=== PATIENT | male | born 1940 | race Caucasian/White ===

== ENCOUNTER → 2016-07-07 | Outpatient (CLI) | payer MEDICARE ==
[2016-07-07 07:31] LABS: Basophils % (A) 1 %; CH 30.6; CHCM 33.2; Eosinophils # (A) 0.1 k/uL (0-0.7); Eosinophils % (A) 1 %; HDW 2.66; HGB 17.7 gm/dL (13.0-17.5); Luc # (Auto) 0.15; Luc % (Auto) 2; Lymphocytes # (A) 1.3 k/uL (1.0-4.8); Lymphocytes % (A) 18 %; MCH 30.4 pg (25.0-35.0); MCHC 32.8 g/dL (31.0-37.0); MCV 92.7 fL (80.0-100.0); Mean Platelet Volume 7.3; Monocytes # (A) 0.5 k/uL (0-1.0); Monocytes % (A) 7 %; Neutrophils # (A) 5.3 k/uL (1.3-7.7); Neutrophils % (A) 71 %; RBC 5.83 m/uL (4.30-5.90); WBC 7.4 k/uL (3.8-10.6)
[2016-07-07 08:02] LABS: Anion Gap 15 mmol/L; Blood Urea Nitrogen 21 mg/dL (9-20); Carbon Dioxide 24 mmol/L (22-30); Chloride 108 mmol/L (98-107); Non-African American GFR(MDRD) >60 (>60 ml/min/1.73 sqM); Potassium 4.4 mmol/L (3.5-5.1); Sodium 147 mmol/L (137-145)
== END | disposition home or self-care (01) ==
LOC: LABPAT 07:01
PROVIDERS: ATTEND Internal Medicine Interventional Cardiology
DX: Z01.818 Encounter for other preprocedural examination (principal)
CPT/HCPCS: 80051; 82565; 84520; 85025

== ENCOUNTER 2016-07-10 06:04 | Day surgery (SDC) | payer MEDICARE ==
[2016-07-05 14:57] VITALS: BMI 32.0
[2016-07-10] MEDS ORDERED: NITROGLYCERIN SL TABS 0.4 MG TAB SUBLINGUAL PRN (06:39)
[2016-07-10] MEDS ORDERED: ALPRAZolam 0.5 MG TAB PO PRN (06:39)
[2016-07-10] MEDS ORDERED: SODIUM CHLORIDE 0.9% 1,000 ML in EMPTY BAG 1 BAG IV ONE (06:39)
[2016-07-10] MEDS ORDERED: ATORVASTATIN 80 MG TAB PO STA (06:39)
[2016-07-10] MEDS ORDERED: ALPRAZolam 0.25 MG TAB PO PRN (06:39)
[2016-07-10] MEDS ORDERED: ASPIRIN 325 MG TAB PO STA (06:39)
[2016-07-10] MEDS ORDERED: SODIUM CHLORIDE 0.9% 1,000 ML IV ONE (07:16)
[2016-07-10] MEDS ORDERED: diphenhydrAMINE 50 MG/ML 1 ML VIAL ONE (07:22)
[2016-07-10] MEDS ORDERED: LIDOCAINE 2% INJ 20 MG/ML (20 ML MDV) ONE (07:22)
[2016-07-10] MEDS ORDERED: MIDAZOLAM 2 MG/2 ML VIAL ONE (07:22)
[2016-07-10 07:23] VITALS: RESP 20; TEMP 97.7
[2016-07-10] MEDS: MIDAZOLAM 2 MG/2 ML VIAL IV ONE ×2 (07:40→07:44)
[2016-07-10] MEDS ORDERED: diphenhydrAMINE 50 MG/ML 1 ML VIAL IVP ONE (07:40)
[2016-07-10] MEDS ORDERED: LIDOCAINE 2% INJ 20 MG/ML SQ ONE (07:42)
[2016-07-10] MEDS ORDERED: IOHEXOL 350 MG/ML 100 ML BOTTLE INTRATHECA ONE (08:05)
[2016-07-10] MEDS ORDERED: RX INFO: IV CONTRAST WAS GIVEN 1 EACH MISC MISCELLANE PRN (08:17)
[2016-07-10] MEDS ORDERED: SODIUM CHLORIDE 0.9% 1,000 ML IV SCH (08:30)
[2016-07-10 12:04] VITALS: PULSE 70
[2016-07-10 16:14] VITALS: BP 120/79
--- NOTE | 2016-07-10 16:59 | CC ---
DATE OF SERVICE: 07/10/2016 PROCEDURE: Left heart catheterization, coronary angiography, selective injection of bypass grafts. PERFORMED BY: Dr. Silvino Gonzales. CLINICAL INFORMATION: Mr. Brie Maya is a 75-year-old gentleman with a history of aortocoronary bypass surgery in 1992 with a BRIONES to LAD and saphenous vein grafts to the PDA branch of RCA, obtuse marginal branch of circumflex and diagonal branch of LAD. Over the years his obtuse marginal graft was occluded. In July and August of 2014 I performed coronary angiography and intervention of the vein graft to the diagonal as well as the prairie band PDA beyond the insertion site of the vein graft. Because of ongoing symptoms of chest pressure and burning with activity and rest, I recommended coronary angiography with the clinical picture suggestive of class 2 to class 3 angina. Given the fact he has previous bypass surgery and known multi-vessel intervention, he was advised coronary angiography in lieu of a stress test. PROCEDURE NOTE: Under local anesthesia and strict aseptic precautions, a 6 Telugu introducer was placed in the right femoral artery. There was some scar tissue. I had some difficulty in advancing the sheath. Patient was provided conscious sedation for a total duration of 30 minutes with Versed and Benadryl. Using a standard left Kevin catheter, I performed selective coronary angiography of the left coronary system. I used a Ashley catheter for selective coronary angiography of the right coronary artery as well as the vein graft to the PDA branch of RCA. The same Ashley catheter was used to perform the BRIONES injection. I used an AR-2 catheter for selective coronary angiography of the vein graft to the diagonal and the totally occluded vein graft to the obtuse marginal. A pigtail catheter was used to check the LV pressures, but LV gram was not performed. The sheath was taken out and Angio-Seal device used to secure hemostasis. CARDIAC CATHETERIZATION FINDINGS: The left ventricular end-diastolic pressure was about 14 mmHg, and there was no gradient across the aortic valve. CORONARY ANGIOGRAPHY FINDINGS RIGHT CORONARY ARTERY: This vessel is totally occluded after a conus branch with limited antegrade flow. Findings are similar to the previous picture from 2014. LEFT MAIN CORONARY ARTERY: This vessel is heavily calcified, moderately diseased; has a 30% narrowing, bifurcates into LAD and circumflex. LEFT ANTERIOR DESCENDING CORONARY ARTERY: This vessel is subtotally occluded in the ostium with limited antegrade flow; virtually 100% occlusion. LEFT POSTERIOR CIRCUMFLEX CORONARY ARTERY: Technically a non-dominant vessel, totally occluded after 2 small branches, without much antegrade flow. SAPHENOUS VEIN GRAFT TO THE PDA BRANCH OF RCA: This graft is widely patent in its origin, course, insertion site, and beyond the insertion the PDA is of good caliber and distribution and supplies a fair amount of myocardium. It goes back and fills the PLV branch as well. The stented segment beyond the insertion site is widely patent with remarkably good flow. SAPHENOUS VEIN GRAFT TO THE OBTUSE MARGINAL BRANCH OF CIRCUMFLEX: This graft is totally occluded, seen as a stump. SAPHENOUS VEIN GRAFT TO THE DIAGONAL BRANCH OF LAD: This graft is widely patent at the site of previous stenting. Residual stenosis is less than 20% with very good flow, and the opacified diagonal vessel appears to be of fair caliber and distribution. There is no significant disease in the vein graft that was stented in 2014. LEFT INTERNAL MAMMARY ARTERY GRAFT TO LAD: This graft is widely patent in its origin, course, insertion site, and opacifies the entire LAD and is free of significant disease. LAD has minor diffuse irregularities seen throughout. Left ventriculogram was not performed. FINAL IMPRESSION: This patient has a right-dominant system. The left main is moderately diseased. The LAD and circumflex and RCA are all occluded in the proximal portion. The vein graft to the diagonal is widely patent at the site of previous stenting with good flow. The BRIONES to LAD is widely patent with minor diffuse disease within the prairie band LAD. The vein graft to the PDA branch of RCA is widely patent and the stented segment beyond the insertion site of the graft is widely patent with good flow. This graft also fills the entire PLV as well. The vein graft to the obtuse marginal is totally occluded. The vein graft to the diagonal is widely patent at the site of previous stenting. Filling pressures are normal, but LV gram was not performed. RECOMMENDATIONS: I am recommending continued medical therapy with risk factor modification. Findings were discussed with the patient and family. He will be discharged later on today if he remains stable.
--- NOTE | 2016-07-10 17:01 | LTR ---
July 10, 2016 RE: Brie Maya Keena Dear Dr. Tim, Thank you for the opportunity to participate in the care of Mr. Brie Maya. Please find enclosed my detailed cardiac catheterization report for your records. I performed coronary angiography on this patient and noted that the previously stented vein graft to the diagonal as well as the PDA branch of RCA are widely patent. No other intervention is necessary. Results were discussed with the patient and family. I will give him omeprazole for his heartburn type symptoms and I will re-evaluate him in one week. Continued medical therapy with risk factor modification was advised. Thank you for your referral. Please call with questions. Sincerely, EARL CAVAZOS MD
== END 2016-07-10 15:00 | disposition home or self-care (01) ==
LOC: CATHCVL 06:04
PROVIDERS: ATTEND Internal Medicine Interventional Cardiology
DX: I25.710 Atherosclerosis of autologous vein coronary artery bypass graft(s) with unstable angina pectoris (principal); I25.110 Atherosclerotic heart disease of native coronary artery with unstable angina pectoris; I25.82 Chronic total occlusion of coronary artery; I10 Essential (primary) hypertension; Z82.49 Family history of ischemic heart disease and other diseases of the circulatory system; E78.5 Hyperlipidemia, unspecified; E78.00 Pure hypercholesterolemia, unspecified; Z95.5 Presence of coronary angioplasty implant and graft; Z95.1 Presence of aortocoronary bypass graft; I25.2 Old myocardial infarction; Z79.82 Long term (current) use of aspirin; Z79.899 Other long term (current) drug therapy; Z91.040 Latex allergy status
CPT/HCPCS: 93459; C1760; C1894; C1769 ×2; J2001; J2250; J1200; Q9967

== ENCOUNTER 2016-07-15 16:58 | Inpatient (IN) | payer MEDICARE ==
[2016-07-15] MEDS ORDERED: SODIUM CHLORIDE 0.9% 1,000 ML IV STA (19:35)
[2016-07-15] MEDS ORDERED: PANTOPRAZOLE 40 MG/10 ML VIAL IVP STA (19:35)
--- NOTE | 2016-07-15 19:40 | ED ---
GI Bleed HPI - General Chief complaint: GI Bleed Stated complaint: RECTAL BLEEDING Time Seen by Provider: 07/15/16 19:00 Source: patient, RN notes reviewed Mode of arrival: ambulatory Limitations: no limitations - History of Present Illness Initial comments: This is a 75-year-old male with a heart catheterization done on July 10 who presents with complaints of the onset over last several days of some episodes of blood in his stool. He states he had some to 3 days ago that resolved for day and then resume again around 2 PM today was burgundy-colored. He did has some minimal abdominal discomfort he states he's been having increased bowel sounds is concern that the catheterization may be causing this he had a right groin catheterization he denies any drainage he states the discoloration doing better no pulsatile masses. He has no other complaints no nausea vomiting he has had some lightheadedness. complaint: gross hematochezia - Related Data Home Medications Medication Instructions Recorded Confirmed Losartan [Cozaar] 50 mg PO HS 09/11/13 07/15/16 Metoprolol Tartrate [Lopressor] 50 mg PO QAM 09/11/13 07/15/16 Multivitamin/Iron/Folic Acid 1 tab PO DAILY 09/11/13 07/15/16 [Centrum Complete Multivit Tab] Nitroglycerin Sl Tabs [Nitrostat] 0.4 mg SL Q5M PRN 09/11/13 07/15/16 Ergocalciferol [Vitamin D2 50,000 unit PO MO 07/18/14 07/15/16 (DRISDOL)] Aspirin EC [Ecotrin] 81 mg PO DAILY 08/24/15 07/15/16 Metoprolol Tartrate [Lopressor] 50 mg PO HS 07/15/16 07/15/16 Omeprazole 20 mg PO BID 07/15/16 07/15/16 Previous Rx's Medication Instructions Recorded Clopidogrel [Plavix] 75 mg PO DAILY #90 tab 07/20/14 Atorvastatin [Lipitor] 40 mg PO HS #60 tab 08/17/14 Allergies Allergy/AdvReac Type Severity Reaction Status Date / Time latex Allergy Dyspnea Verified 07/15/16 18:48 Review of Systems ROS Statement: Those systems with pertinent positive or pertinent negative responses have been documented in the HPI. ROS Other: All systems not noted in ROS Statement are negative. Past Medical History Past Medical History: Coronary Artery Disease (CAD), Chest Pain / Angina, Hyperlipidemia, Hypertension, Myocardial Infarction (VT), Osteoarthritis (OA), Renal Disease Additional Past Medical History / Comment(s): [place] X2,monitoring a spot rt kidney Last Myocardial Infarction Date:: 1992 History of Any Multi-Drug Resistant Organisms: None Reported Past Surgical History: Appendectomy, Coronary Bypass/CABG, Heart Catheterization , Heart Catheterization With Stent, Orthopedic Surgery Additional Past Surgical History / Comment(s): RT KNEE ARTHROSCOPY, HEMORRHOIDECTOMY, rotator cuff surg., quad. bypass 1992, cataract surg, heart stents x2 Past Anesthesia/Blood Transfusion Reactions: Motion Sickness Date of Last Stent Placement:: July 2014 Past Psychological History: Anxiety, Depression Smoking Status: Never smoker Past Alcohol Use History: None Reported Past Drug Use History: None Reported - Past Family History Brother(s) Additional Family Medical History / Comment(s): TWO BROTHERS HAD OPEN HEART Sister(s) Additional Family Medical History / Comment(s): 2 SISTERS HAD OPEN HEARTS General Exam - General Exam Comments Initial Comments: This is a well-developed well-nourished awake alert oriented 3 male Limitations: no limitations General appearance: alert, in no apparent distress Head exam: Present: atraumatic, normocephalic, normal inspection Eye exam: Present: normal appearance, PERRL, EOMI. Absent: scleral icterus, conjunctival injection, periorbital swelling ENT exam: Present: normal exam, mucous membranes moist Neck exam: Present: normal inspection. Absent: tenderness, meningismus, lymphadenopathy Respiratory exam: Present: normal lung sounds bilaterally. Absent: respiratory distress, wheezes, rales, rhonchi, stridor Cardiovascular Exam: Present: regular rate, normal rhythm, normal heart sounds. Absent: systolic murmur, diastolic murmur, rubs, gallop, clicks GI/Abdominal exam: Present: soft, normal bowel sounds. Absent: distended, tenderness, guarding, rebound, rigid, bruit, pulsatile mass, hernia (The cath site appears be within intact no pulsations no tenderness minimal evidence of ecchymosis that is resolving yellow in color.) Rectal exam: Present: normal rectal tone, heme (+) stool (Pretty color stool), bloody stool Extremities exam: Present: normal inspection, full ROM, normal capillary refill. Absent: tenderness, pedal edema, joint swelling, calf tenderness Back exam: Present: normal inspection Neurological exam: Present: alert, oriented X3, CN II-XII intact Psychiatric exam: Present: normal affect, normal mood Skin exam: Present: warm, dry, intact, pallor. Absent: rash Course Vital Signs 07/15/16 07/15/16 07/15/16 17:02 18:54 19:35 Temperature 96.9 F L 97.3 F L Pulse Rate 80 75 72 Respiratory 17 18 18 Rate Blood Pressure 170/90 172/80 158/71 O2 Sat by Pulse 96 99 99 Oximetry 07/15/16 20:45 Temperature 97.9 F Pulse Rate 80 Respiratory 18 Rate Blood Pressure 131/76 O2 Sat by Pulse 97 Oximetry Medical Decision Making - Medical Decision Making I did discuss findings with the patient family patient be admitted with consultation by Dr. Mccullough - Lab Data Result diagrams: 07/15/16 18:45 07/15/16 18:45 Lab Results 07/15/16 07/15/16 07/15/16 Range/Units 18:45 18:45 18:45 WBC 10.3 (3.8-10.6) k/uL RBC 5.66 (4.30-5.90) m/uL Hgb 17.0 (13.0-17.5) gm/dL Hct 51.6 (39.0-53.0) % MCV 91.2 (80.0-100.0) fL MCH 30.1 (25.0-35.0) pg MCHC 33.0 (31.0-37.0) g/dL RDW 13.0 (11.5-15.5) % Plt Count 228 (150-450) k/uL Neutrophils % 76 % Lymphocytes % 12 % Monocytes % 8 % Eosinophils % 1 % Basophils % 0 % Neutrophils # 7.8 H (1.3-7.7) k/uL Lymphocytes # 1.3 (1.0-4.8) k/uL Monocytes # 0.8 (0-1.0) k/uL Eosinophils # 0.1 (0-0.7) k/uL Basophils # 0.0 (0-0.2) k/uL PT (9.0-12.0) sec INR (<1.1) APTT (22.0-30.0) sec Sodium 143 (137-145) mmol/L Potassium 4.2 (3.5-5.1) mmol/L Chloride 107 (98-107) mmol/L Carbon Dioxide 21 L (22-30) mmol/L Anion Gap 15 mmol/L BUN 23 H (9-20) mg/dL Creatinine 1.22 (0.66-1.25) mg/dL Est GFR (MDRD) Af Amer >60 (>60 ml/min/1.73 sqM) Est GFR (MDRD) Non-Af 58 (>60 ml/min/1.73 sqM) Glucose 96 (74-99) mg/dL Calcium 9.7 (8.4-10.2) mg/dL Magnesium 2.1 (1.6-2.3) mg/dL Total Bilirubin 1.7 H (0.2-1.3) mg/dL AST 33 (17-59) U/L ALT 21 (21-72) U/L Alkaline Phosphatase 103 (38-126) U/L Total Creatine Kinase 64 (55-170) U/L CK-MB (CK-2) 0.3 (0.0-2.4) ng/mL CK-MB (CK-2) Rel Index 0.5 Troponin I <0.012 (0.000-0.034) ng/mL Total Protein 7.7 (6.3-8.2) g/dL Albumin 4.5 (3.5-5.0) g/dL Stool Occult Blood (Negative) Blood Type Blood Type Recheck Antibody Screen Spec Expiration Date 07/15/16 07/15/16 07/15/16 Range/Units 18:45 18:45 20:00 WBC (3.8-10.6) k/uL RBC (4.30-5.90) m/uL Hgb (13.0-17.5) gm/dL Hct (39.0-53.0) % MCV (80.0-100.0) fL MCH (25.0-35.0) pg MCHC (31.0-37.0) g/dL RDW (11.5-15.5) % Plt Count (150-450) k/uL Neutrophils % % Lymphocytes % % Monocytes % % Eosinophils % % Basophils % % Neutrophils # (1.3-7.7) k/uL Lymphocytes # (1.0-4.8) k/uL Monocytes # (0-1.0) k/uL Eosinophils # (0-0.7) k/uL Basophils # (0-0.2) k/uL PT 12.7 H (9.0-12.0) sec INR 1.3 (<1.1) APTT 26.3 (22.0-30.0) sec Sodium (137-145) mmol/L Potassium (3.5-5.1) mmol/L Chloride (98-107) mmol/L Carbon Dioxide (22-30) mmol/L Anion Gap mmol/L BUN (9-20) mg/dL Creatinine (0.66-1.25) mg/dL Est GFR (MDRD) Af Amer (>60 ml/min/1.73 sqM) Est GFR (MDRD) Non-Af (>60 ml/min/1.73 sqM) Glucose (74-99) mg/dL Calcium (8.4-10.2) mg/dL Magnesium (1.6-2.3) mg/dL Total Bilirubin (0.2-1.3) mg/dL AST (17-59) U/L ALT (21-72) U/L Alkaline Phosphatase (38-126) U/L Total Creatine Kinase (55-170) U/L CK-MB (CK-2) (0.0-2.4) ng/mL CK-MB (CK-2) Rel Index Troponin I (0.000-0.034) ng/mL Total Protein (6.3-8.2) g/dL Albumin (3.5-5.0) g/dL Stool Occult Blood Positive (Negative) Blood Type O Positive Blood Type Recheck No Antibody Screen NEGATIVE Spec Expiration Date 07/18/2016 - 2300 - Radiology Data Radiology results: report reviewed (I did review the imaging and reports no acute findings), image reviewed Disposition Clinical Impression: Hematochezia, GI bleeding Disposition: ADMITTED IP TO THIS [facility] Condition: Stable
[2016-07-15 19:49] LABS: Basophils % (A) 0 %; CH 30.9; CHCM 34.1; Eosinophils # (A) 0.1 k/uL (0-0.7); Eosinophils % (A) 1 %; HCT 51.6 % (39.0-53.0); HDW 2.75; Luc # (Auto) 0.27; Luc % (Auto) 3; Lymphocytes # (A) 1.3 k/uL (1.0-4.8); Lymphocytes % (A) 12 %; MCH 30.1 pg (25.0-35.0); MCV 91.2 fL (80.0-100.0); Mean Platelet Volume 6.6; Monocytes # (A) 0.8 k/uL (0-1.0); Monocytes % (A) 8 %; Neutrophils # (A) 7.8 k/uL (1.3-7.7); Neutrophils % (A) 76 %; RBC 5.66 m/uL (4.30-5.90); WBC 10.3 k/uL (3.8-10.6); WBC (Perox) 10.57
[2016-07-15 20:01] LABS: ALT 21 U/L (21-72); AST 33 U/L (17-59); Alkaline Phosphatase 103 U/L (38-126); Anion Gap 15 mmol/L; Blood Urea Nitrogen 23 mg/dL (9-20); Calcium 9.7 mg/dL (8.4-10.2); Carbon Dioxide 21 mmol/L (22-30); Chloride 107 mmol/L (98-107); Glucose 96 mg/dL (74-99); INR 1.3 (<1.1); Magnesium 2.1 mg/dL (1.6-2.3); Non-African American GFR(MDRD) 58 (>60 ml/min/1.73 sqM); Partial Thromboplastin Time 26.3 sec (22.0-30.0); Potassium 4.2 mmol/L (3.5-5.1); Prothrombin Time 12.7 sec (9.0-12.0); Sodium 143 mmol/L (137-145); Total Bilirubin 1.7 mg/dL (0.2-1.3); Total Protein 7.7 g/dL (6.3-8.2)
[2016-07-15 20:12] LABS: Creatine Kinase 64 U/L (55-170)
[2016-07-15 20:26] LABS: Creatine Kinase MB 0.3 ng/mL (0.0-2.4); Troponin I <0.012 ng/mL (0.000-0.034)
--- NOTE | 2016-07-15 20:40 | XR ---
EXAMINATION TYPE: XR chest 2V DATE OF EXAM: 07/15/2016 8:34 PM COMPARISON: 08/24/2015 HISTORY: Dizziness TECHNIQUE: Frontal and lateral views of the chest are obtained. FINDINGS: There is no heart failure nor confluent pneumonic infiltrate. There are no hilar masses. T here are chest leads. There are sternal wires. There is mild spurring in the thoracic spine. IMPRESSION: No active cardiopulmonary disease. No change.
--- NOTE | 2016-07-15 20:42 | XR ---
EXAMINATION TYPE: XR abdomen 1V DATE OF EXAM: 07/15/2016 8:34 PM COMPARISON: NONE HISTORY: Abdominal pain TECHNIQUE: 2 views FINDINGS: There is no sign of intestinal obstruction or pneumoperitoneum. Fecal pattern is normal. Th ere is no sign of a mass. Lung bases are clear. There are no pathologic calcifications over the kidne ys. Bony structures are intact. There is spurring of the acetabula. IMPRESSION: Nonacute abdomen. Mild osteoarthritis in the hip joints.
[2016-07-15] MEDS ORDERED: NALOXONE 0.4 MG/ML 1 ML VIAL IV PRN (21:21)
[2016-07-15] MEDS ORDERED: NITROGLYCERIN SL TABS 0.4 MG TAB SUBLINGUAL PRN (21:23)
[2016-07-16 02:23] LABS: CH 30.7; CHCM 33.9; HCT 44.1 % (39.0-53.0); HDW 2.74; HGB 14.7 gm/dL (13.0-17.5); MCH 30.3 pg (25.0-35.0); MCHC 33.4 g/dL (31.0-37.0); MCV 90.8 fL (80.0-100.0); RBC 4.86 m/uL (4.30-5.90); RDW 12.9 % (11.5-15.5); WBC 7.3 k/uL (3.8-10.6)
[2016-07-16] MEDS: SODIUM CHLORIDE 0.9% 1,000 ML IV SCH ×3 (04:50→20:59)
[2016-07-16 08:59] LABS: Basophils % (A) 1 %; CH 30.5; CHCM 33.1; Eosinophils # (A) 0.2 k/uL (0-0.7); Eosinophils % (A) 3 %; HGB 16.4 gm/dL (13.0-17.5); Luc # (Auto) 0.16; Luc % (Auto) 3; Lymphocytes # (A) 1.3 k/uL (1.0-4.8); Lymphocytes % (A) 21 %; MCH 29.9 pg (25.0-35.0); MCHC 32.2 g/dL (31.0-37.0); MCV 92.7 fL (80.0-100.0); Mean Platelet Volume 6.7; Monocytes # (A) 0.5 k/uL (0-1.0); Monocytes % (A) 8 %; Neutrophils # (A) 3.9 k/uL (1.3-7.7); Neutrophils % (A) 65 %; RDW 13.1 % (11.5-15.5); WBC (Perox) 5.95
[2016-07-16] MEDS: PANTOPRAZOLE 40 MG/10 ML VIAL IV SCH ×2 (09:56→20:54)
[2016-07-16] MEDS: METOPROLOL TARTRATE 50 MG TAB PO SCH ×2 (09:56→20:54)
--- NOTE | 2016-07-16 14:05 | P.HPIM ---
History of Present Illness H&P Date: 07/16/16 Chief Complaint: Rectal bleeding Patient is a 75-year-old male who presented to [facility] emergency room with a chief complaint of rectal bleeding, he was evaluated in the emergency room and was admitted to medical floor for further evaluation. Patient stated that he was having episodes of chest tightness in the last few weeks he was seen by his interior design instructor and underwent cardiac catheterization about 1 week ago, after returning home he was starting to see some blood on his underwear, subsequently he had bloody bowel movements, at that time he presented to emergency room and was admitted to medical floor. Patient states that his the cardiac catheterization was within normal limits, and that his interior design instructor thought that his symptoms may be related to acid reflux. Past Medical History Past Medical History: Coronary Artery Disease (CAD), Chest Pain / Angina, Hyperlipidemia, Hypertension, Myocardial Infarction (PR), Osteoarthritis (OA) Additional Past Medical History / Comment(s): [place] X2,monitoring a spot rt kidney Last Myocardial Infarction Date:: 1992 History of Any Multi-Drug Resistant Organisms: None Reported Past Surgical History: Appendectomy, Coronary Bypass/CABG, Heart Catheterization , Heart Catheterization With Stent, Orthopedic Surgery Additional Past Surgical History / Comment(s): RT KNEE ARTHROSCOPY, HEMORRHOIDECTOMY, rotator cuff surg., quad. bypass 1992, cataract surg, heart stents x2 Past Anesthesia/Blood Transfusion Reactions: Motion Sickness Date of Last Stent Placement:: July 2014 Past Psychological History: Anxiety, Depression Smoking Status: Never smoker Past Alcohol Use History: None Reported Past Drug Use History: None Reported - Past Family History Brother(s) Additional Family Medical History / Comment(s): TWO BROTHERS HAD OPEN HEART Sister(s) Additional Family Medical History / Comment(s): 2 SISTERS HAD OPEN HEARTS Medications and Allergies Home Medications Medication Instructions Recorded Confirmed Type Losartan [Cozaar] 50 mg PO HS 09/11/13 07/15/16 History Metoprolol Tartrate [Lopressor] 50 mg PO QAM 09/11/13 07/15/16 History Multivitamin/Iron/Folic Acid 1 tab PO DAILY 09/11/13 07/15/16 History [Centrum Complete Multivit Tab] Nitroglycerin Sl Tabs [Nitrostat] 0.4 mg SL Q5M PRN 09/11/13 07/15/16 History Ergocalciferol [Vitamin D2 50,000 unit PO MO 07/18/14 07/15/16 History (DRISDOL)] Aspirin EC [Ecotrin] 81 mg PO DAILY 08/24/15 07/15/16 History Metoprolol Tartrate [Lopressor] 50 mg PO HS 07/15/16 07/15/16 History Omeprazole 20 mg PO BID 07/15/16 07/15/16 History Allergies Allergy/AdvReac Type Severity Reaction Status Date / Time latex Allergy Dyspnea Verified 07/15/16 18:48 Physical Exam Vitals: Vital Signs Temp Pulse Pulse Resp BP BP Pulse Ox 07/16/16 07:00 97.1 F L 68 16 149/71 98 07/15/16 23:00 97.4 F L 62 16 132/79 97 07/15/16 21:45 97.6 F 75 18 136/65 96 Intake and Output 07/15/16 07/16/16 07/16/16 22:59 06:59 14:59 Output Total 200 Balance -200 Output: Urine 200 Other: Voiding Method Urinal # Voids 2 # Bowel Movements 0 # Emeses 0 In general patient is alert and oriented 3 in no apparent distress HEENT head normocephalic and atraumatic Neck is supple no JVD no goiter no lymphadenopathy Chest exam reveals a few scattered rhonchi no wheezing Cardiac exam reveals regular heart sounds S1 and S2 no gallops no murmurs Abdomen is soft nontender no organomegaly Extremity exam reveals no edema no cyanosis or clubbing Results CBC & Chem 7: 07/16/16 08:13 07/15/16 18:45 Thrombosis Risk Factor Assmnt - Choose All That Apply Any of the Below Risk Factors Present?: Yes Each Factor Represents 1 point: Obesity (BMI >25) Other Risk Factors: Yes Each Risk Factor Represents 3 Points: Age 75 years or older Other congenital or acquired thrombophilia - If yes, enter type in comment: Yes Thrombosis Risk Factor Assessment Total Risk Factor Score: 4 Thrombosis Risk Factor Assessment Level: Moderate Risk Assessment and Plan Plan: #1 rectal bleeding #2 episodes of chest tightness likely related to acid reflux #3 underlying history of hypertension #4 underlying history of hyperlipidemia At this time continue his IV Protonix Await gastroenterology input possible EGD and colonoscopy during this admission
[2016-07-16] MEDS: ATORVASTATIN 40 MG TAB PO SCH (20:54)
[2016-07-16] MEDS: LOSARTAN 50 MG TAB PO SCH (20:54)
[2016-07-16] MEDS ORDERED: METOPROLOL TARTRATE 25 MG TAB PO SCH (21:00)
--- NOTE | 2016-07-17 04:55 | P.CONS ---
History of Present Illness - Reason for Consult Consult date: 07/16/16 Rectal bleeding. - History of Present Illness The patient is a 75-year old male who was admitted to the hospital with rectal bleeding. We are asked to see him for consideration of upper and lower endoscopy. The patient had a normal cardiac catheterization within the last 2 weeks and his symptoms are thought to be related to GERD. Has been noticing blood in his underwear after that, and came in to the hospital because of blood in his stools. No hematemesis. History of hemorrhoidectomy. Review of Systems Constitutional: No fever, chills or unintentional weight loss Neurologic: No headaches, double vision or any sensory or motor changes Cardiopulmonary: No chest pains, SOB or palpitations. History of CAHD S/P NM Gastrointestinal: See PI above Endocrine: No diabetes or thyroid disease Genitourinary: No hematuria, dysuria or frequency Muskuloskeletal: History of arthritis Skin: No rashes Psychiatric: History of anxiety and depression Past Medical History Past Medical History: Coronary Artery Disease (CAD), Chest Pain / Angina, Hyperlipidemia, Hypertension, Myocardial Infarction (NM), Osteoarthritis (OA) Additional Past Medical History / Comment(s): [place] X2,monitoring a spot rt kidney Last Myocardial Infarction Date:: 1992 History of Any Multi-Drug Resistant Organisms: None Reported Past Surgical History: Appendectomy, Coronary Bypass/CABG, Heart Catheterization , Heart Catheterization With Stent, Orthopedic Surgery Additional Past Surgical History / Comment(s): RT KNEE ARTHROSCOPY, HEMORRHOIDECTOMY, rotator cuff surg., quad. bypass 1992, cataract surg, heart stents x2 Past Anesthesia/Blood Transfusion Reactions: Motion Sickness Date of Last Stent Placement:: July 2014 Past Psychological History: Anxiety, Depression Smoking Status: Never smoker Past Alcohol Use History: None Reported Past Drug Use History: None Reported - Past Family History Brother(s) Additional Family Medical History / Comment(s): TWO BROTHERS HAD OPEN HEART Sister(s) Additional Family Medical History / Comment(s): 2 SISTERS HAD OPEN HEARTS Medications and Allergies Home Medications Medication Instructions Recorded Confirmed Type Losartan [Cozaar] 50 mg PO HS 09/11/13 07/15/16 History Metoprolol Tartrate [Lopressor] 50 mg PO QAM 09/11/13 07/15/16 History Multivitamin/Iron/Folic Acid 1 tab PO DAILY 09/11/13 07/15/16 History [Centrum Complete Multivit Tab] Nitroglycerin Sl Tabs [Nitrostat] 0.4 mg SL Q5M PRN 09/11/13 07/15/16 History Ergocalciferol [Vitamin D2 50,000 unit PO MO 07/18/14 07/15/16 History (DRISDOL)] Aspirin EC [Ecotrin] 81 mg PO DAILY 08/24/15 07/15/16 History Metoprolol Tartrate [Lopressor] 50 mg PO HS 07/15/16 07/15/16 History Omeprazole 20 mg PO BID 07/15/16 07/15/16 History Allergies Allergy/AdvReac Type Severity Reaction Status Date / Time latex Allergy Dyspnea Verified 07/15/16 18:48 Physical Exam Vitals: Vital Signs Temp Pulse Resp BP Pulse Ox 07/16/16 15:00 98.2 F 62 16 156/72 98 07/16/16 07:00 97.1 F L 68 16 149/71 98 Intake and Output 07/16/16 07/16/16 07/17/16 14:59 22:59 06:59 Output Total 200 Balance -200 Output: Urine 200 Other: Voiding Method Urinal Urinal General: Appeared stated age, very pleasant in no acute distress Head and neck: Normocephalic and atraumatic, conjunctivae pink and sclerae not icteric, no masses in the neck or tracheal shifts, no thyromegaly Lungs: Clear to auscultation with no dullness to percussion Heart: Regular, no abnormal sounds, gallops or friction rubs Abdomen: Soft, no masses, organomegalies or tenderness, BS present Extremities: No clubbing, cyanosis or edema Neurologic: Alert and oriented X3. Cranial nerves grossly intact with no gross sensory or motor changes Results CBC & Chem 7: 07/16/16 08:13 07/15/16 18:45 Assessment and Plan Plan: 75-year old male with rectal bleeding. Having atypical chest pains with recent cardiac catheterization not showing significant occlusion. Agree with your current management. Will prepare for EGD and colonoscopy.
--- NOTE | 2016-07-17 09:21 | P.PN ---
Subjective Principal diagnosis: GI bleed 75-year-old male admitted with acute rectal bleeding with positive Hemoccult. No recurrence of bleeding. Denies abdominal pain. Hemoglobin 16.4 yesterday. Objective - Vital Signs Vital signs: Vital Signs Temp 97.3 F L 07/17/16 07:00 Pulse 70 07/17/16 07:00 Resp 24 07/17/16 07:00 BP 138/69 07/17/16 07:00 Pulse Ox 97 07/17/16 07:00 Intake & Output 07/16/16 07/17/16 07/17/16 18:59 06:59 18:59 Intake Total 625 Output Total 200 1950 Balance -200 -1325 Intake: Oral 625 Output: Urine 200 1950 Other: Voiding Method Urinal Urinal - Exam General appearance: The patient is alert, oriented, in no acute distress. HET: Head is normocephalic and atraumatic. Pupils are equal and reactive. Oropharynx is clear without lesions. Neck: Supple without lymphadenopathy. Trachea midline. Heart: S1 S2. Regular rate and rhythm. Lungs: No crackles or wheezes are heard. Abdomen: Soft, nontender, nondistended with bowel sounds. No peritoneal signs. No palpable organomegaly or masses. Extremities: Normal skin color and turgor. No cyanosis, rash, ulceration, clubbing, or edema. Radial and pedal pulses are 2/4 bilaterally. Neurological: No focal deficits. Strength and sensation are grossly intact. - Labs CBC & Chem 7: 07/18/16 09:14 07/18/16 09:14 Assessment and Plan (1) GI bleeding Narrative/Plan: 75-year-old male limited with rectal bleeding. Last colonoscopy 4 years ago. Recent heart catheterization 2 weeks ago receiving dual antiplatelet therapy prior to admission. Status: Acute Plan: 1. EGD colonoscopy tomorrow. 2. Clear liquid diet. 3. Aspirin Plavix on hold. 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 The patient has indicated understanding and acceptance of the risks and procedures discussed. Assessment and plan of care discussed with Dr. Mccullough.
[2016-07-17] MEDS: METOPROLOL TARTRATE 50 MG TAB PO SCH ×2 (10:36→20:18)
[2016-07-17] MEDS: PANTOPRAZOLE 40 MG/10 ML VIAL IV SCH ×2 (10:36→20:18)
[2016-07-17] MEDS: SODIUM CHLORIDE 0.9% 1,000 ML IV SCH ×2 (10:37→20:22)
[2016-07-17] MEDS ORDERED: BISACODYL 5 MG TABLET.DR PO STA (11:13)
[2016-07-17] MEDS ORDERED: MAGNESIUM CITRATE 296 ML BOTTLE PO ONE (13:00)
--- NOTE | 2016-07-17 13:20 | P.PN ---
Subjective Principal diagnosis: Rectal bleeding Since yesterday patient is doing well he is having small amount of blood per rectum otherwise no complaints Objective - Vital Signs Vital signs: Vital Signs Temp 97.3 F L 07/17/16 07:00 Pulse 70 07/17/16 07:00 Resp 24 07/17/16 07:00 BP 138/69 07/17/16 07:00 Pulse Ox 97 07/17/16 07:00 Intake & Output 07/16/16 07/17/16 07/17/16 18:59 06:59 18:59 Intake Total 625 Output Total 200 1950 Balance -200 -1325 Intake: Oral 625 Output: Urine 200 1950 Other: Voiding Method Urinal Urinal - Exam HEENT head normocephalic and atraumatic Neck is supple no JVD no goiter no lymphadenopathy Chest is clear to auscultation no wheezing Cardiac exam reveals regular heart sounds no murmurs Abdomen is soft nontender no organomegaly Extremity exam reveals no edema - Labs CBC & Chem 7: 07/16/16 08:13 07/15/16 18:45 Assessment and Plan Plan: #1 rectal bleeding #2 episodes of chest tightness likely related to acid reflux #3 underlying history of hypertension #4 underlying history of hyperlipidemia At this time continue his IV Protonix Patient was evaluated by gastroenterology He will have EGD and colonoscopy tomorrow
[2016-07-17 13:41] LABS: Basophils % (A) 0 %; CH 30.8; Eosinophils # (A) 0.2 k/uL (0-0.7); Eosinophils % (A) 2 %; HCT 50.5 % (39.0-53.0); HDW 2.83; HGB 16.9 gm/dL (13.0-17.5); Luc # (Auto) 0.12; Luc % (Auto) 1; Lymphocytes # (A) 1.2 k/uL (1.0-4.8); Lymphocytes % (A) 14 %; MCH 30.4 pg (25.0-35.0); MCHC 33.4 g/dL (31.0-37.0); MCV 91.1 fL (80.0-100.0); Mean Platelet Volume 6.4; Monocytes # (A) 0.5 k/uL (0-1.0); Monocytes % (A) 6 %; Neutrophils # (A) 6.3 k/uL (1.3-7.7); Neutrophils % (A) 76 %; RBC 5.54 m/uL (4.30-5.90); RDW 12.9 % (11.5-15.5); WBC 8.4 k/uL (3.8-10.6); WBC (Perox) 8.71
[2016-07-17] MEDS ORDERED: PEG 3350-NA SULF,BICARB,CL/KCL 4,000 ML BOTTLE PO ONE (16:00)
[2016-07-17] MEDS: LOSARTAN 50 MG TAB PO SCH (20:18)
[2016-07-17] MEDS: ATORVASTATIN 40 MG TAB PO SCH (20:18)
[2016-07-17 23:30] VITALS: RESP 16
[2016-07-18] MEDS ORDERED: LACTATED RINGERS 1,000 ML IV SCH (05:57)
[2016-07-18] MEDS ORDERED: PROPOFOL 10 MG/ML 20 ML VIAL IV ONE (07:03)
[2016-07-18] MEDS ORDERED: IV FLUID CONTINUATION 1,000 ML IV ONE (07:11)
--- NOTE | 2016-07-18 07:45 | P.PCN ---
Date of Procedure: 07/18/16 Procedure(s) Performed: Procedures: 1. Esophagogastroduodenoscopy and biopsy. 2. Total colonoscopy. Preoperative diagnosis: GI bleeding. Postoperative diagnosis: 1. Small sliding hiatal hernia with no obvious esophagitis or complicated reflux disease. 2. Mild antral gastritis. 3. Colon diverticulosis. 4. Low-grade internal hemorrhoids. 5. No bleeding noted during this examination. Preparation: GoLYTELY prep. Sedation: Was provided by anesthesia. Brief clinical history: The patient is a 75-year old male who was admitted to the hospital with rectal bleeding. We were asked to see him for consideration of upper and lower endoscopy. The patient had a normal cardiac catheterization within the last 2 weeks and his symptoms were thought to be related to GERD. He started to notice blood in his underwear after that, and came in to the hospital because of blood in his stools. No hematemesis. History of hemorrhoidectomy. Was on dual antiplatelet therapy. The details are summarized in the history and physical and dictated consultations her progress. Procedure: With the patient on his left lateral decubitus position and after informed consent and adequate sedation, I passed the Olympus-GIF 160 video upper endoscope through the cricopharyngeus down the esophagus. There was a small sliding hiatal hernia but the esophagus did not show any erosions, ulcers , strictures or Matute's esophagus. No mucosal tears varices or bleeding. The endoscope was then passed into the stomach which was insufflated with air rectum in detail including the retroflex view in the cardia. There was some mottling and erythema in the antrum but no ulcers or erosions. Pyloric channel , duodenal bulb, post bulbar area and descending duodenum appeared within normal limits. I obtained multiple biopsies from the duodenum, antrum and esophagus then the endoscope was withdrawn and I proceeded to do colonoscopy. Perianal area did not show any fissures or fistulas. There were no masses felt on digital rectal examination. The Olympus CFQ 160L video colonoscope was then inserted in the rectum in the usual fashion and advanced to the cecum. No multiple diverticular orifices seen scattered on the left side with occasional smaller ones on the right side with no evidence of acute diverticulitis or strictures. The mucosa appeared healthy. There were no polyps or tumors or any angiodysplasia or bleeding. I retroflexed endoscope in the rectum before the endoscope was withdrawn. Low-grade internal hemorrhoids were noted with no evidence of bleeding. The patient tolerated the procedure well. Plan: The patient was reassured. Discussed dietary measures and local care for hemorrhoids. Further plans will be made based on his course. I see no contraindication for restarting antiplatelet therapy if this is working needs to be on. I will discuss with you until do with interest.
[2016-07-18] MEDS: PANTOPRAZOLE 40 MG/10 ML VIAL IV SCH (08:24)
[2016-07-18] MEDS: METOPROLOL TARTRATE 50 MG TAB PO SCH (08:24)
[2016-07-18 09:35] LABS: Basophils % (A) 0 %; CH 30.1; CHCM 33.3; Eosinophils # (A) 0.2 k/uL (0-0.7); Eosinophils % (A) 2 %; HDW 2.83; HGB 15.1 gm/dL (13.0-17.5); Luc % (Auto) 2; Lymphocytes # (A) 0.8 k/uL (1.0-4.8); Lymphocytes % (A) 12 %; MCH 29.9 pg (25.0-35.0); MCHC 32.9 g/dL (31.0-37.0); MCV 90.8 fL (80.0-100.0); Mean Platelet Volume 6.5; Monocytes # (A) 0.4 k/uL (0-1.0); Monocytes % (A) 6 %; Neutrophils % (A) 78 %; RBC 5.07 m/uL (4.30-5.90); RDW 12.9 % (11.5-15.5); WBC 6.5 k/uL (3.8-10.6); WBC (Perox) 6.77
[2016-07-18 10:00] LABS: ALT 19 U/L (21-72); AST 29 U/L (17-59); Alkaline Phosphatase 77 U/L (38-126); Anion Gap 12 mmol/L; Blood Urea Nitrogen 14 mg/dL (9-20); Calcium 8.3 mg/dL (8.4-10.2); Carbon Dioxide 20 mmol/L (22-30); Chloride 109 mmol/L (98-107); Glucose 78 mg/dL (74-99); Non-African American GFR(MDRD) >60 (>60 ml/min/1.73 sqM); Potassium 3.8 mmol/L (3.5-5.1); Sodium 141 mmol/L (137-145); Total Bilirubin 2.5 mg/dL (0.2-1.3); Total Protein 6.2 g/dL (6.3-8.2)
[2016-07-18 10:06] VITALS: BMI 31.0
[2016-07-18] MEDS: SODIUM CHLORIDE 0.9% 1,000 ML IV SCH (11:10)
--- NOTE | 2016-07-18 13:34 | P.DS ---
Providers Date of admission: 07/15/16 21:24 Expected date of discharge: 07/18/16 Attending physician: Glory Almaguer Primary care physician: Aidan [facility] Course: Patient is a 75-year-old male who presented to [facility] emergency room with a chief complaint of rectal bleeding, he was evaluated in the emergency room and was admitted to medical floor for further evaluation. Patient stated that he was having episodes of chest tightness in the last few weeks he was seen by his academic affairs specialist and underwent cardiac catheterization about 1 week ago, after returning home he was starting to see some blood on his underwear, subsequently he had bloody bowel movements, at that time he presented to emergency room and was admitted to medical floor. Patient was monitored on the medical floor, he continued to have small amount of rectal bleeding daily, hemoglobin was stable however. Patient was seen by gastroenterology and underwent EGD and colonoscopy He had evidence of a small high at hernia and evidence of hemorrhoids without active bleeding Patient was stable he was discharged home on 07/18/2016 He was told to resume aspirin and Plavix as he had 2 stents placed last year He was also told to use hydrocortisone cream 2.5% twice daily as needed for rectal bleeding Patient Condition at Discharge: Stable Plan - Discharge Summary Discharge Medication List Losartan [Cozaar] 50 mg PO HS 09/11/13 [History] Metoprolol Tartrate [Lopressor] 50 mg PO QAM 09/11/13 [History] Multivitamin/Iron/Folic Acid [Centrum Complete Multivit Tab] 1 tab PO DAILY [History] Nitroglycerin Sl Tabs [Nitrostat] 0.4 mg SL Q5M PRN 09/11/13 [History] Ergocalciferol [Vitamin D2 (DRISDOL)] 50,000 unit PO MO 07/18/14 [History] Clopidogrel [Plavix] 75 mg PO DAILY #90 tab 07/20/14 [Rx] Atorvastatin [Lipitor] 40 mg PO HS #60 tab 08/17/14 [Rx] Aspirin EC [Ecotrin] 81 mg PO DAILY 08/24/15 [History] Metoprolol Tartrate [Lopressor] 50 mg PO HS 07/15/16 [History] Omeprazole 20 mg PO BID 07/15/16 [History] Follow up Appointment(s)/Referral(s): Aidan Tim MD [Primary Care Provider] - 07/20/16 9:30 am
[2016-07-18 15:58] VITALS: BP 137/64; PULSE 70; TEMP 97.4
== END 2016-07-18 16:45 | disposition home or self-care (01) | DRG 379 ==
LOC: EC 16:58 → 4MS4W 21:24 → OBSVTOIN 21:24
PROVIDERS: ADMIT Internal Medicine; ATTEND Internal Medicine
PROC: 0DB58ZX Excision of Esophagus, Via Natural or Artificial Opening Endoscopic, Diagnostic (ICD-10-PCS; 2016-07-18)
PROC: 0DJD8ZZ Inspection of Lower Intestinal Tract, Via Natural or Artificial Opening Endoscopic (ICD-10-PCS; 2016-07-18)
PROC: 0DB98ZX Excision of Duodenum, Via Natural or Artificial Opening Endoscopic, Diagnostic (ICD-10-PCS; principal; 2016-07-18 07:00)
PROC: 0DB68ZX Excision of Stomach, Via Natural or Artificial Opening Endoscopic, Diagnostic (ICD-10-PCS; 2016-07-18 07:00)
DX: K92.2 Gastrointestinal hemorrhage, unspecified (principal); I10 Essential (primary) hypertension; E78.5 Hyperlipidemia, unspecified; I25.10 Atherosclerotic heart disease of native coronary artery without angina pectoris; K64.8 Other hemorrhoids; K21.9 Gastro-esophageal reflux disease without esophagitis; K44.9 Diaphragmatic hernia without obstruction or gangrene; K29.60 Other gastritis without bleeding; K57.30 Diverticulosis of large intestine without perforation or abscess without bleeding; I25.2 Old myocardial infarction; Z95.1 Presence of aortocoronary bypass graft; Z90.49 Acquired absence of other specified parts of digestive tract; Z95.5 Presence of coronary angioplasty implant and graft; Z86.59 Personal history of other mental and behavioral disorders; Z98.49 Cataract extraction status, unspecified eye; Z91.040 Latex allergy status; M19.91 Primary osteoarthritis, unspecified site; Z79.82 Long term (current) use of aspirin; Z79.02 Long term (current) use of antithrombotics/antiplatelets; Z79.899 Other long term (current) drug therapy
CPT/HCPCS: 36415; 43239; 45378; 71020; 74000; 80053; 82272; 82550; 82553; 83735; 84484; 85025; 85027; 85610; 85730; 86850; 86900; 86901; 88305; 88342; 96361; 96374; 99285

== ENCOUNTER 2016-08-01 16:25 | Emergency (ER) | payer MEDICARE ==
[2016-08-01 17:01] VITALS: RESP 18
[2016-08-01] MEDS ORDERED: DEXAMETHASONE SOD PHOSPHATE 10 MG/ML 1 ML VIAL IM STA (17:24)
[2016-08-01] MEDS ORDERED: traMADol 50 MG TAB PO STA (17:24)
--- NOTE | 2016-08-01 17:39 | ED ---
Back Pain HPI - General Chief Complaint: Back Pain/Injury Stated Complaint: Back Pain Time Seen by Provider: 08/01/16 17:06 Source: patient Limitations: no limitations - History of Present Illness Initial Comments: The patient is a 75-year-old male who presents to the ED with a chief complaint of back pain. Patient states that he has had back pain for a period of several years. The patient states that the back pain is located in the lumbar spine and is intermittent in timing. Patient denies that he's had fever or chills associated with this pain. He denies any history of trauma. Patient denies any recent weight loss. He notes that he did have a cardiac cath performed earlier this month. He also was hospitalized for a brief period of time secondary to GI bleed. He states that this was secondary to underlying hemorrhoids. He had a colonoscopy performed during this visit that demonstrated no evidence of cancerous lesion. Patient states that he typically takes Tylenol for his back pain and it goes away. He denies any numbness or paresthesias. He states the pain is dull in nature. He notes that there are occasional sharp pains. They do not extend below the bilateral knees. Patient states that the pain causes him to be weak when he is ambulating. The patient does not use a walker to ambulate. He states that he still is tachypneic walker to ambulate despite pain that he is currently having. Patient denies ever having any advanced imaging of his back. He states that he was diagnosed with a bulging disc by Dr. Donis this was several years ago. - Related Data Home Medications Medication Instructions Recorded Confirmed Losartan [Cozaar] 50 mg PO HS 09/11/13 08/01/16 Multivitamin/Iron/Folic Acid 1 tab PO DAILY 09/11/13 08/01/16 [Centrum Complete Multivit Tab] Ergocalciferol [Vitamin D2 50,000 unit PO MO 07/18/14 08/01/16 (DRISDOL)] Metoprolol Tartrate [Lopressor] 50 mg PO QAM 07/15/16 08/01/16 Omeprazole 20 mg PO BID 07/15/16 08/01/16 Aspirin 81 mg PO DAILY 08/01/16 08/01/16 Phenyleph/Pramoxin/Glycr/W.pet 1 applic RECTAL DAILY PRN 08/01/16 08/01/16 [Preparation H Cream] Previous Rx's Medication Instructions Recorded Clopidogrel [Plavix] 75 mg PO DAILY #90 tab 07/20/14 Atorvastatin [Lipitor] 40 mg PO HS #60 tab 08/17/14 Acetaminophen-Codeine 300-30mg 1 tab PO Q6H PRN #20 tablet 08/01/16 [Tylenol #3] Gabapentin [Neurontin] 100 mg PO TID #21 cap 08/01/16 Allergies Allergy/AdvReac Type Severity Reaction Status Date / Time latex Allergy Dyspnea Verified 08/01/16 17:11 Review of Systems ROS Statement: Those systems with pertinent positive or pertinent negative responses have been documented in the HPI. ROS Other: All systems not noted in ROS Statement are negative. Constitutional: Reports: weakness (bilateral lower extremities). Denies: fever , chills Respiratory: Denies: cough, dyspnea, wheezes, hemoptysis, stridor Cardiovascular: Denies: chest pain Endocrine: Denies: fatigue Gastrointestinal: Denies: abdominal pain, nausea, vomiting, diarrhea, constipation Genitourinary: Denies: urgency, dysuria, frequency, hematuria Musculoskeletal: Reports: back pain. Denies: joint swelling, arthralgia, myalgia Skin: Denies: rash, lesions, change in color Neurological: Reports: weakness. Denies: headache, numbness, paresthesias Psychiatric: Denies: anxiety, depression Past Medical History Past Medical History: Coronary Artery Disease (CAD), Chest Pain / Angina, Hyperlipidemia, Hypertension, Myocardial Infarction ([place]), Osteoarthritis (OA) Additional Past Medical History / Comment(s): [place] X2,monitoring a spot rt kidney Last Myocardial Infarction Date:: 1992 History of Any Multi-Drug Resistant Organisms: None Reported Past Surgical History: Appendectomy, Coronary Bypass/CABG, Heart Catheterization , Heart Catheterization With Stent, Orthopedic Surgery Additional Past Surgical History / Comment(s): RT KNEE ARTHROSCOPY, HEMORRHOIDECTOMY, rotator cuff surg., quad. bypass 1992, cataract surg, heart stents x2 Past Anesthesia/Blood Transfusion Reactions: Motion Sickness Date of Last Stent Placement:: July 2014 Past Psychological History: Anxiety, Depression Smoking Status: Never smoker Past Alcohol Use History: None Reported Past Drug Use History: None Reported - Past Family History Brother(s) Additional Family Medical History / Comment(s): TWO BROTHERS HAD OPEN HEART Sister(s) Additional Family Medical History / Comment(s): 2 SISTERS HAD OPEN HEARTS General Exam Limitations: no limitations General appearance: alert, in no apparent distress Head exam: Present: atraumatic, normocephalic Eye exam: Present: normal appearance, PERRL, EOMI Pupils: Present: normal accommodation ENT exam: Present: normal exam, normal oropharynx Neck exam: Present: normal inspection. Absent: tenderness Respiratory exam: Present: normal lung sounds bilaterally. Absent: respiratory distress, wheezes, rales, rhonchi, stridor, chest wall tenderness Cardiovascular Exam: Present: regular rate, irregular rhythm GI/Abdominal exam: Present: soft. Absent: distended, tenderness, guarding, rebound Extremities exam: Present: normal inspection, full ROM, other (4/5 strength of the bilateral lower extremities). Absent: tenderness, pedal edema Back exam: Present: normal inspection, tenderness (No body tenderness to palpation of the spinous processes in the lumbar region. There is otherwise pain noted in the bilateral flanks) Neurological exam: Present: alert, oriented X3, other (No changes in sensation in the bilateral lower extremities. Negative straight leg raise of the bilateral lower extremities) Psychiatric exam: Present: normal affect, normal mood Skin exam: Present: warm, dry, intact Course Vital Signs 08/01/16 08/01/16 16:58 19:49 Temperature 99.0 F 98.3 F Pulse Rate 79 69 Respiratory 18 18 Rate Blood Pressure 134/83 151/80 O2 Sat by Pulse 97 96 Oximetry Medical Decision Making - Medical Decision Making Patient is a 75-year-old male who presents with a chief complaint of back pain. Patient states that the pain is present over the course of the past several years. He notes it's been worsening over the course the past week. Patient states pain is intermittent in nature. It is located in the lumbar spine. Patient states that there are occasional sharp pains of the bilateral lower extremities. Not associated with any weakness of the lower extremities. Patient notes that he has been able to ambulate like usual but he has had increased pain in this region. Patient denies any paresthesias in the groin. Patient denies any difficulty with urination. Patient denies any ability with defecation. Very little concern for cauda equina syndrome. Suspect the patient is likely suffering from chronic progressive arthritic disease. However , given patient's age, advanced imaging is indicated. We'll provide patient with Tramadol as well as Decadron IM. 7:07 PM Counseled the patient and his daughter of overall findings, including evidence of severe degenerative disc disease. He states that Tramadol was minimally helpful in reducing his pain. He has requested a stronger pain medication. I will discharge the patient home with a prescription for Tylenol #3. Will provide the patient with a dose of Tylenol #3 prior to discharge. In addition, I will discharge the patient with a prescription for Gabapentin. I have encouraged the patient to follow up with his primary care physician within the next 2-5 days for further evaluation and possible referral to an orthopedic surgeon who specializes in spine procedures. I have provided the patient with the name for an orthopedic surgeon as well as for Pain Management physician. I have answered all the questions posed by the patient and his daughter to their satisfaction. I have encouraged the patient to return to the ED should his symptoms worsen while at home. - Lab Data Lab Results 08/01/16 Range/Units 17:43 Urine Color Yellow Urine Appearance Clear (Clear) Urine pH 5.5 (5.0-8.0) Ur Specific Jarrell 1.026 (1.001-1.035) Urine Protein Trace H (Negative) Urine Glucose (UA) Negative (Negative) Urine Ketones Trace H (Negative) Urine Blood Negative (Negative) Urine Nitrite Negative (Negative) Urine Bilirubin Negative (Negative) Urine Urobilinogen 2.0 (<2.0) mg/dL Ur Leukocyte Esterase Negative (Negative) Disposition Clinical Impression: Lower back pain Disposition: HOME SELF-CARE Condition: Good Instructions: Chronic Back Pain (ED) Prescriptions: Acetaminophen-Codeine 300-30mg [Tylenol #3] 1 tab PO Q6H PRN #20 tablet PRN Reason: pain Gabapentin [Neurontin] 100 mg PO TID #21 cap Referrals: Aidan Tim MD [Primary Care Provider] - 1-2 days (Please follow up with Dr. Tim within the next week regarding your visit to the ED today) Carol Leary DO [Doctor of Osteopathic Medicine] - 08/08/16 (Dr. Leary is a back surgeon. He can help to further evaluate your back pain) Miriam Horn MD [STAFF PHYSICIAN] - 08/08/16 (Dr. Horn is a Pain Management physician. Dr. Horn can help to manage your pain over the nursing home.) Time of Disposition: 19:07
[2016-08-01 18:05] LABS: Appearance,Urine Clear (Clear); Bilirubin,Urine Negative (Negative); Glucose,Urine (UA) Negative (Negative); Ketones,Urine Trace (Negative); Leukocyte Esterase,Urine Negative (Negative); Nitrite,Urine Negative (Negative); PH, Urine 5.5 (5.0-8.0); Protein,Urine Trace (Negative); Specific Gravity,Urine 1.026 (1.001-1.035); UA Billing (MACRO vs. MICRO) CHEM
--- NOTE | 2016-08-01 18:27 | CT ---
EXAMINATION TYPE: CT thor lumbar spine wo con DATE OF EXAM: 08/01/2016 6:14 PM COMPARISON: NONE HISTORY: Generalized back pain x 3 months. No known injury. CT DLP: 512.80 mGycm Automated exposure control for dose reduction was used. FINDINGS: The thoracic vertebra have normal alignment. There is fairly uniform degenerative disc space narrowin g throughout the thoracic spine. The posterior elements appear intact. There is no sign of a thoracic paraspinal mass. I see no compression fracture. There is calcification associated with the ligamentu m flavum in the thoracic spine at the T10-11 level with resultant thoracic spinal stenosis. I see no focal bone destruction. There are moderate anterior bridging osteophytes in the lumbar spine. There a re mild smaller osteophytes anteriorly in the thoracic spine. IMPRESSION: MULTILEVEL SPONDYLOSIS. THERE IS CALCIFICATION AND BONY SPINAL STENOSIS AT T10-11 LEVEL. THE SPINAL C ANAL IS SHOW SIGNIFICANT NARROWING AT THE T10 LEVEL. MR SCAN OR CT MYELOGRAM WOULD BE HELPFUL FOR FUR THER EVALUATION. NO FRACTURE SEEN.
[2016-08-01] MEDS ORDERED: Acetaminophen-Codeine 300-30mg TAB PO STA (18:58)
[2016-08-01 19:52] VITALS: BP 151/80; PULSE 69; TEMP 98.3
== END 2016-08-01 19:52 | disposition home or self-care (01) ==
LOC: EC 16:25
DX: M51.36 Other intervertebral disc degeneration, lumbar region (principal); I49.9 Cardiac arrhythmia, unspecified; R06.82 Tachypnea, not elsewhere classified; I10 Essential (primary) hypertension; M19.90 Unspecified osteoarthritis, unspecified site; I25.2 Old myocardial infarction; Z79.82 Long term (current) use of aspirin; Z79.899 Other long term (current) drug therapy; Z91.040 Latex allergy status; Z86.79 Personal history of other diseases of the circulatory system
CPT/HCPCS: 81003; 72128; 72131; 99284; 96372; J1100

== ENCOUNTER → 2016-08-29 | Outpatient (CLI) | payer MEDICARE ==
--- NOTE | 2016-08-29 15:21 | US ---
EXAMINATION TYPE: US kidneys/renal and bladder DATE OF EXAM: 08/29/2016 3:00 PM COMPARISON: 02/23/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 EXAM MEASUREMENTS: Right Kidney: 11.1 x 7.8 x 6.0 cm Left Kidney: 11.0 x 6.6 x 6.8 cm Right Kidney: No hydronephrosis or masses seen; column of jacky; echogenic foci upper pole Left Kidney: No hydronephrosis or masses seen; echogenic foci lower pole Bladder: slightly distended Bilateral Jets seen: no There is no evidence for hydronephrosis at this point in time. No shadowing nephrolithiasis is seen. No masses are identified. The urinary bladder is not greatly distended. Bilateral ureteral jets a re seen. Echogenic foci seen in upper pole right and lower pole left, bladder deformed by prostate( 5.7 x 3. 9 in transverse and ap measurements) No hydronephrosis is evident bilaterally. Exophytic lesion mid pole level anteriorly left kidney santosh uring 2.[address] is slightly more hyperdense than simple cyst but only slightly increased in size from 2015 CT, still favor benign etiology. It is not clearly seen on ultrasound images saved. P rominent prostate gland bulges on today's, underlying BPH is suspected, clinical correlation advised. IMPRESSION: A 2 cm hypodense lesion exophytically mid pole level left kidney on recent CT is not confirmed as sim ple cyst by ultrasound, it is however only slightly increased in size from prior CT 2 years earlier f avoring benign etiology.
== END | disposition home or self-care (01) ==
LOC: RADUSWWP 14:25
PROVIDERS: ATTEND Urology
DX: N28.89 Other specified disorders of kidney and ureter (principal); Z91.040 Latex allergy status
CPT/HCPCS: 76770

== ENCOUNTER → 2017-01-22 | Outpatient (CLI) | payer MEDICARE ==
[2017-01-22 07:19] LABS: Basophils % (A) 0 %; CH 31.6; CHCM 34.1; Eosinophils # (A) 0.1 k/uL (0-0.7); Eosinophils % (A) 2 %; HCT 52.9 % (39.0-53.0); Luc # (Auto) 0.12; Luc % (Auto) 2; Lymphocytes # (A) 1.4 k/uL (1.0-4.8); Lymphocytes % (A) 18 %; MCH 29.9 pg (25.0-35.0); MCHC 32.2 g/dL (31.0-37.0); Monocytes # (A) 0.5 k/uL (0-1.0); Monocytes % (A) 6 %; Neutrophils # (A) 5.7 k/uL (1.3-7.7); Neutrophils % (A) 73 %; RBC 5.69 m/uL (4.30-5.90); RDW 14.6 % (11.5-15.5); WBC 7.9 k/uL (3.8-10.6); WBC (Perox) 7.47
[2017-01-22 07:21] LABS: Appearance,Urine Clear (Clear); Bilirubin,Urine Negative (Negative); Glucose,Urine (UA) Negative (Negative); Ketones,Urine Negative (Negative); Leukocyte Esterase,Urine Negative (Negative); Nitrite,Urine Negative (Negative); Protein,Urine Negative (Negative); Specific Gravity,Urine 1.017 (1.001-1.035); UA Billing (MACRO vs. MICRO) CHEM; Urobilinogen,Urine <2.0 mg/dL (<2.0)
[2017-01-22 10:13] LABS: ALT 26 U/L (21-72); AST 33 U/L (17-59); Alkaline Phosphatase 110 U/L (38-126); Anion Gap 12 mmol/L; Blood Urea Nitrogen 18 mg/dL (9-20); Calcium 9.3 mg/dL (8.4-10.2); Carbon Dioxide 19 mmol/L (22-30); Chloride 109 mmol/L (98-107); Cholesterol 121 mg/dL (<200); Glucose 95 mg/dL (74-99); HDL Cholesterol 39 mg/dL (40-60); Magnesium 1.9 mg/dL (1.6-2.3); Non-African American GFR(MDRD) >60 (>60 ml/min/1.73 sqM); Phosphorus 3.5 mg/dL (2.5-4.5); Potassium 4.3 mmol/L (3.5-5.1); Sodium 140 mmol/L (137-145); Total Bilirubin 3.1 mg/dL (0.2-1.3); Total Protein 7.4 g/dL (6.3-8.2); Uric Acid 6.6 mg/dL (3.5-8.5)
[2017-01-22 10:43] LABS: Erythrocyte Sedimentation Rate 2 mm/hr (0-15)
[2017-01-22 11:27] LABS: Iron Saturation 36.99 (15.00-50.00)
== END | disposition home or self-care (01) ==
LOC: LABWHC1 06:38
PROVIDERS: ATTEND Internal Medicine Nephrology
DX: D64.9 Anemia, unspecified (principal); E55.9 Vitamin D deficiency, unspecified; E21.3 Hyperparathyroidism, unspecified; M10.9 Gout, unspecified; N39.0 Urinary tract infection, site not specified; E78.5 Hyperlipidemia, unspecified; I13.0 Hypertensive heart and chronic kidney disease with heart failure and stage 1 through stage 4 chronic kidney disease, or unspecified chronic kidney disease; N18.2 Chronic kidney disease, stage 2 (mild); Z12.5 Encounter for screening for malignant neoplasm of prostate
CPT/HCPCS: 80061; 80053; 85652; 82728; 83540; 83550; 83735; 84100; 84550; 85025; 81003; 82306; 83970; 36415; G0103

== ENCOUNTER → 2017-08-01 | Outpatient (CLI) | payer MEDICARE ==
[2017-08-01 07:35] LABS: Basophils % (A) 0 %; Eosinophils # (A) 0.2 k/uL (0-0.7); Eosinophils % (A) 3 %; HCT 49.3 % (39.0-53.0); Lymphocytes # (A) 1.5 k/uL (1.0-4.8); Lymphocytes % (A) 23 %; MCH 30.4 pg (25.0-35.0); MCHC 34.4 g/dL (31.0-37.0); MCV 88.4 fL (80.0-100.0); Mean Platelet Volume 6.4; Monocytes # (A) 0.4 k/uL (0-1.0); Monocytes % (A) 7 %; Neutrophils # (A) 4.1 k/uL (1.3-7.7); Neutrophils % (A) 64 %; Platelet Count 192 k/uL (150-450); RBC 5.58 m/uL (4.30-5.90); RDW 12.8 % (11.5-15.5); WBC 6.4 k/uL (3.8-10.6)
[2017-08-01 08:17] LABS: Calcium 9.2 mg/dL (8.4-10.2); Phosphorus 3.4 mg/dL (2.5-4.5); Potassium 4.4 mmol/L (3.5-5.1); Uric Acid 6.3 mg/dL (3.5-8.5)
[2017-08-01 08:21] LABS: Appearance,Urine Clear (Clear); Bilirubin,Urine Negative (Negative); Blood,Urine Trace (Negative); Color,Urine Yellow; Glucose,Urine (UA) Negative (Negative); Hyaline Casts,Urine 1 /lpf (0-2); Ketones,Urine Negative (Negative); Leukocyte Esterase,Urine Negative (Negative); Mucus,Urine Rare /hpf; Nitrite,Urine Negative (Negative); PH, Urine 5.5 (5.0-8.0); Protein,Urine Negative (Negative); RBC,Urine 2 /hpf (0-5); Specific Gravity,Urine 1.019 (1.001-1.035); Urobilinogen,Urine <2.0 mg/dL (<2.0); WBC,Urine 1 /hpf (0-5)
[2017-08-01 11:24] LABS: Iron Saturation 34.45 (15.00-50.00)
[2017-08-01 11:32] LABS: Parathyroid Hormone Intact 42.3 pg/mL (14.0-72.0); Vitamin D 25 Hydroxy 48.4 ng/mL (30.0-100.0)
== END | disposition home or self-care (01) ==
LOC: LABWHC1 06:49
PROVIDERS: ATTEND Internal Medicine Nephrology
DX: N18.2 Chronic kidney disease, stage 2 (mild) (principal); D64.9 Anemia, unspecified; E83.39 Other disorders of phosphorus metabolism; M10.9 Gout, unspecified; R80.9 Proteinuria, unspecified
CPT/HCPCS: 36415; 80048; 81001; 82306; 82728; 83540; 83550; 83735; 83970; 84100; 84550; 85025

== ENCOUNTER → 2017-08-27 | Outpatient (CLI) | payer MEDICARE ==
--- NOTE | 2017-08-27 15:59 | US ---
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 Left Kidney: lower pole hypoechoic lesion = 1.7x 1.3 x 1.6cm. This measured 1.5 x 1.3 cm on the exam of 02/23/2016 and 1.5 x 2.2 cm on the exam of 08/19/2015; crescent shaped hypoechoic area noted adjacen t to renal periphery Bladder: wnl Bilateral Jets seen: Yes Normal Post Void Residual: Yes There is no evidence for hydronephrosis at this point in time. The urinary bladder is anechoic. Bila teral ureteral jets are seen. IMPRESSION: 1. Overall similar size of the left renal lesion in comparison to the exam of 08/19/2015 favoring a moshe ign etiology such as a minimally complicated proteinaceous or hemorrhagic cyst as there is no clear i ncreased through transmission. Continued surveillance is recommended. 2. Probable right renal arterial calcifications versus a 5 mm nonobstructing renal calculus. 3. Crescentic area of hypoechogenicity along the left kidney may represent a small amount of free flu id, perinephric fat stranding, or less likely perinephric fluid.
== END | disposition home or self-care (01) ==
LOC: RADUSWWP 14:27
PROVIDERS: ATTEND Urology
DX: N28.9 Disorder of kidney and ureter, unspecified (principal); R93.422 Abnormal radiologic findings on diagnostic imaging of left kidney; D41.01 Neoplasm of uncertain behavior of right kidney
CPT/HCPCS: 76770

== ENCOUNTER 2017-11-11 06:52 | Emergency (ER) | payer MEDICARE ==
[2017-11-11 06:59] VITALS: TEMP 97.5
[2017-11-11] MEDS ORDERED: SODIUM CHLORIDE 0.9% 1,000 ML IV STA (07:07)
--- NOTE | 2017-11-11 07:17 | ED ---
General Adult HPI - General Chief complaint: Abdominal Pain Stated complaint: lower abd pain Time Seen by Provider: 11/11/17 07:00 Source: patient, RN notes reviewed Mode of arrival: ambulatory Limitations: no limitations - History of Present Illness Initial comments: Patient 77-year-old male presents to the emergency room today with a chief complaint of right lower quadrant pain on and off over the last few months. Patient states it's been more persistent and constant the last few days. Describes it as a sharp pain currently rated 8/10. Patient declined any pain medicine. States worse with certain movements. Patient denies any recent fever , chills, shortness of breath, chest pain, back pain, nausea or vomiting, numbness or tingling, dysuria or hematuria, diarrhea, headaches or visual changes, or any other complaints. - Related Data Home Medications Medication Instructions Recorded Confirmed Losartan [Cozaar] 50 mg PO HS 09/11/13 08/01/16 Multivitamin/Iron/Folic Acid 1 tab PO DAILY 09/11/13 08/01/16 [Centrum Complete Multivit Tab] Ergocalciferol [Vitamin D2 50,000 unit PO MO 07/18/14 08/01/16 (DRISDOL)] Metoprolol Tartrate [Lopressor] 50 mg PO QAM 07/15/16 08/01/16 Omeprazole 20 mg PO BID 07/15/16 08/01/16 Aspirin 81 mg PO DAILY 08/01/16 08/01/16 Phenyleph/Pramoxin/Glycr/W.pet 1 applic RECTAL DAILY PRN 08/01/16 08/01/16 [Preparation H Cream] Previous Rx's Medication Instructions Recorded Clopidogrel [Plavix] 75 mg PO DAILY #90 tab 07/20/14 Atorvastatin [Lipitor] 40 mg PO HS #60 tab 08/17/14 Acetaminophen-Codeine 300-30mg 1 tab PO Q6H PRN #20 tablet 08/01/16 [Tylenol #3] Gabapentin [Neurontin] 100 mg PO TID #21 cap 08/01/16 Lactulose 10 gm PO DAILY #50 g 11/11/17 Allergies Allergy/AdvReac Type Severity Reaction Status Date / Time latex Allergy Dyspnea Verified 11/11/17 06:58 Review of Systems ROS Statement: Those systems with pertinent positive or pertinent negative responses have been documented in the HPI. ROS Other: All systems not noted in ROS Statement are negative. Past Medical History Past Medical History: Coronary Artery Disease (CAD), Chest Pain / Angina, Hyperlipidemia, Hypertension, Myocardial Infarction (IA), Osteoarthritis (OA) Additional Past Medical History / Comment(s): [place] X2,monitoring a spot rt kidney , parkinsons Last Myocardial Infarction Date:: 1992 History of Any Multi-Drug Resistant Organisms: None Reported Past Surgical History: Appendectomy, Coronary Bypass/CABG, Heart Catheterization , Heart Catheterization With Stent, Orthopedic Surgery Additional Past Surgical History / Comment(s): RT KNEE ARTHROSCOPY, HEMORRHOIDECTOMY, rotator cuff surg., quad. bypass 1992, cataract surg, heart stents x2 Past Anesthesia/Blood Transfusion Reactions: Motion Sickness Date of Last Stent Placement:: July 2014 Past Psychological History: Anxiety, Depression Smoking Status: Never smoker Past Alcohol Use History: None Reported Past Drug Use History: None Reported - Past Family History Brother(s) Additional Family Medical History / Comment(s): TWO BROTHERS HAD OPEN HEART Sister(s) Additional Family Medical History / Comment(s): 2 SISTERS HAD OPEN HEARTS General Exam - General Exam Comments Initial Comments: General: The patient is awake and alert, in no distress, and does not appear acutely ill. Eye: Pupils are equal, round and reactive to light, extra-ocular movements are intact. No nystagmus. There is normal conjunctiva bilaterally. No signs of icterus. Ears, nose, mouth and throat: There are moist mucous membranes and no oral lesions. Neck: The neck is supple, there is no tenderness or JVD. Cardiovascular: There is a regular rate and rhythm. No murmur, rub or gallop is appreciated. Respiratory: Lungs are clear to auscultation, respirations are non-labored, breath sounds are equal. No wheezes, stridor, rales, or rhonchi. Gastrointestinal: Abdomen soft on palpation. Does have tenderness right lower quadrant. No rebound, guarding or CVA tenderness. Musculoskeletal: Normal ROM, no tenderness. Strength 5/5. Sensation intact. Pulses equal bilaterally 2+. Neurological: A&O x 3. CN II-XII intact, There are no obvious motor or sensory deficits. Coordination appears grossly intact. Speech is normal. Skin: Skin is warm and dry and no rashes or lesions are noted. Psychiatric: Cooperative, appropriate mood & affect, normal judgment. Limitations: no limitations Course Vital Signs 11/11/17 06:56 Temperature 97.5 F L Pulse Rate 68 Respiratory 18 Rate Blood Pressure 160/84 O2 Sat by Pulse 97 Oximetry Medical Decision Making - Medical Decision Making Patient reexamined at this time shows no signs of distress. Pain locally to the right lower quadrant. Does not that he's had some straining for bowel movements recently. Was discussed Dr. gomez muscular skeletal as CT shows no acute findings to account for patient's symptoms. Patient's will be given a laxative advised to use over the next few days. Advised follow-up family physician return if any symptoms increase or worsen. - Lab Data Result diagrams: 11/11/17 07:20 11/11/17 07:20 Lab Results 11/11/17 11/11/17 11/11/17 Range/Units 07:20 07:20 07:20 WBC 7.2 (3.8-10.6) k/uL RBC 5.54 (4.30-5.90) m/uL Hgb 16.4 (13.0-17.5) gm/dL Hct 49.9 (39.0-53.0) % MCV 90.1 (80.0-100.0) fL MCH 29.6 (25.0-35.0) pg MCHC 32.9 (31.0-37.0) g/dL RDW 12.7 (11.5-15.5) % Plt Count 198 (150-450) k/uL Neutrophils % 72 % Lymphocytes % 16 % Monocytes % 7 % Eosinophils % 2 % Basophils % 0 % Neutrophils # 5.2 (1.3-7.7) k/uL Lymphocytes # 1.2 (1.0-4.8) k/uL Monocytes # 0.5 (0-1.0) k/uL Eosinophils # 0.1 (0-0.7) k/uL Basophils # 0.0 (0-0.2) k/uL PT 11.9 (9.0-12.0) sec INR 1.3 H (<1.2) APTT 26.9 (22.0-30.0) sec Sodium 142 (137-145) mmol/L Potassium 4.2 (3.5-5.1) mmol/L Chloride 109 H (98-107) mmol/L Carbon Dioxide 23 (22-30) mmol/L Anion Gap 10 mmol/L BUN 23 H (9-20) mg/dL Creatinine 1.14 (0.66-1.25) mg/dL Est GFR (CKD-EPI)AfAm 71 (>60 ml/min/1.73 sqM) Est GFR (CKD-EPI)NonAf 61 (>60 ml/min/1.73 sqM) Glucose 98 (74-99) mg/dL Calcium 9.2 (8.4-10.2) mg/dL Total Bilirubin 3.2 H (0.2-1.3) mg/dL AST 30 (17-59) U/L ALT 21 (21-72) U/L Alkaline Phosphatase 82 (38-126) U/L Total Protein 7.0 (6.3-8.2) g/dL Albumin 4.3 (3.5-5.0) g/dL Lipase 146 (23-300) U/L Urine Color Urine Appearance (Clear) Urine pH (5.0-8.0) Ur Specific [place] (1.001-1.035) Urine Protein (Negative) Urine Glucose (UA) (Negative) Urine Ketones (Negative) Urine Blood (Negative) Urine Nitrite (Negative) Urine Bilirubin (Negative) Urine Urobilinogen (<2.0) mg/dL Ur Leukocyte Esterase (Negative) 11/11/17 Range/Units 07:20 WBC (3.8-10.6) k/uL RBC (4.30-5.90) m/uL Hgb (13.0-17.5) gm/dL Hct (39.0-53.0) % MCV (80.0-100.0) fL MCH (25.0-35.0) pg MCHC (31.0-37.0) g/dL RDW (11.5-15.5) % Plt Count (150-450) k/uL Neutrophils % % Lymphocytes % % Monocytes % % Eosinophils % % Basophils % % Neutrophils # (1.3-7.7) k/uL Lymphocytes # (1.0-4.8) k/uL Monocytes # (0-1.0) k/uL Eosinophils # (0-0.7) k/uL Basophils # (0-0.2) k/uL PT (9.0-12.0) sec INR (<1.2) APTT (22.0-30.0) sec Sodium (137-145) mmol/L Potassium (3.5-5.1) mmol/L Chloride (98-107) mmol/L Carbon Dioxide (22-30) mmol/L Anion Gap mmol/L BUN (9-20) mg/dL Creatinine (0.66-1.25) mg/dL Est GFR (CKD-EPI)AfAm (>60 ml/min/1.73 sqM) Est GFR (CKD-EPI)NonAf (>60 ml/min/1.73 sqM) Glucose (74-99) mg/dL Calcium (8.4-10.2) mg/dL Total Bilirubin (0.2-1.3) mg/dL AST (17-59) U/L ALT (21-72) U/L Alkaline Phosphatase (38-126) U/L Total Protein (6.3-8.2) g/dL Albumin (3.5-5.0) g/dL Lipase (23-300) U/L Urine Color Yellow Urine Appearance Clear (Clear) Urine pH 5.5 (5.0-8.0) Ur Specific [place] 1.018 (1.001-1.035) Urine Protein Trace H (Negative) Urine Glucose (UA) Negative (Negative) Urine Ketones Negative (Negative) Urine Blood Negative (Negative) Urine Nitrite Negative (Negative) Urine Bilirubin Negative (Negative) Urine Urobilinogen 2.0 (<2.0) mg/dL Ur Leukocyte Esterase Negative (Negative) Disposition Clinical Impression: Abdominal pain Disposition: HOME SELF-CARE Condition: Good Instructions: Abdominal Pain (ED) Additional Instructions: Please use medication lactulose that is been sent to pharmacy as discussed. Please follow-up with family doctor in the next 2 days of symptoms have not improved. Please return to emergency room if the symptoms increase or worsen or for any other concerns. Prescriptions: Lactulose 10 gm PO DAILY #50 g Is patient prescribed a controlled substance at d/c from ED?: No Referrals: Aidan Tim MD [Primary Care Provider] - 1-2 days Time of Disposition: 09:30
[2017-11-11 07:42] LABS: Basophils % (A) 0 %; Eosinophils # (A) 0.1 k/uL (0-0.7); Eosinophils % (A) 2 %; HCT 49.9 % (39.0-53.0); HGB 16.4 gm/dL (13.0-17.5); Lymphocytes # (A) 1.2 k/uL (1.0-4.8); Lymphocytes % (A) 16 %; MCH 29.6 pg (25.0-35.0); MCHC 32.9 g/dL (31.0-37.0); MCV 90.1 fL (80.0-100.0); Mean Platelet Volume 6.5; Monocytes # (A) 0.5 k/uL (0-1.0); Monocytes % (A) 7 %; Neutrophils # (A) 5.2 k/uL (1.3-7.7); Neutrophils % (A) 72 %; Platelet Count 198 k/uL (150-450); RBC 5.54 m/uL (4.30-5.90); RDW 12.7 % (11.5-15.5); WBC 7.2 k/uL (3.8-10.6)
[2017-11-11 07:46] LABS: Appearance,Urine Clear (Clear); Bilirubin,Urine Negative (Negative); Blood,Urine Negative (Negative); Color,Urine Yellow; Glucose,Urine (UA) Negative (Negative); Ketones,Urine Negative (Negative); Leukocyte Esterase,Urine Negative (Negative); Nitrite,Urine Negative (Negative); PH, Urine 5.5 (5.0-8.0); Protein,Urine Trace (Negative); Specific Gravity,Urine 1.018 (1.001-1.035)
[2017-11-11 07:52] LABS: INR 1.3 (<1.2); Partial Thromboplastin Time 26.9 sec (22.0-30.0); Prothrombin Time 11.9 sec (9.0-12.0)
[2017-11-11 08:00] LABS: Albumin 4.3 g/dL (3.5-5.0); Calcium 9.2 mg/dL (8.4-10.2); Potassium 4.2 mmol/L (3.5-5.1); Total Bilirubin 3.2 mg/dL (0.2-1.3)
--- NOTE | 2017-11-11 08:49 | CT ---
EXAMINATION TYPE: CT abdomen pelvis w con DATE OF EXAM: 11/11/2017 COMPARISON: Renal ultrasound dated 08/27/[address] abdomen pelvis dated 07/12/2014. HISTORY: Abdominal pain CT DLP: 991.3 mGycm Automated exposure control for dose reduction was used. TECHNIQUE: Helical acquisition of images was performed from the lung bases through the pelvis. CONTRAST: Performed without Oral Contrast and with IV Contrast, patient injected with 100 mL of Isovue 300. FINDINGS: LUNG BASES: No significant abnormality is appreciated. LIVER/GB: No significant abnormality is appreciated within the liver. No cholelithiasis within the ga llbladder. PANCREAS: Pancreas enhances homogeneously without ductal dilatation. SPLEEN: No significant abnormality is seen. ADRENALS: No focal nodularity or thickening. KIDNEYS: The left lower pole exophytic renal lesion has decreased in size from the prior exam of 2014 where this measured 2.1 cm and currently measures 1.2 cm. However there is increased in density in t he interim. Given the decrease in size this likely relates to internal proteinaceous debris or hemorr opal. No hydronephrosis bilaterally. Contour the kidneys is somewhat lobular. There is a too small t o accurately characterize 6 mm anterior cortical right midpole renal lesion. FREE AIR: No free air is visualized. ADENOPATHY: No greater than 1 cm short axis lymph node within the abdomen or pelvis. REPRODUCTIVE ORGANS: Prostate gland is diffusely heterogenous and enlarged measuring up to 6.0 cm in transverse dimension. Additionally there are heterogenous dystrophic central zone calcifications. URINARY BLADDER: Urinary bladder is incompletely distended and incompletely evaluated. OSSEOUS STRUCTURES: Moderate multilevel degenerative changes are noted of the spine. BOWEL: There is a moderate amount retained colonic stool, limiting evaluation of the bowel. Scattere d fat stranding. No evidence of dilated large or small bowel. Diverticula are noted throughout withou t focal IMPRESSION: 1. DIVERTICULOSIS WITHOUT EVIDENCE OF ACUTE DIVERTICULITIS. NO EVIDENCE OF BOWEL OBSTRUCTION. 2. REDEMONSTRATION OF A KNOWN SIMPLE LEFT LOWER POLE RENAL LESION THAT APPEARS TO HAVE DECREASED IN S IZE FROM THE PRIOR EXAMS, FAVORED TO REPRESENT PROTEINACEOUS OR HEMORRHAGIC CYST.
[2017-11-11 09:54] VITALS: BP 156/80; PULSE 72; RESP 16
== END 2017-11-11 09:55 | disposition home or self-care (01) ==
LOC: EC 06:52
DX: R10.31 Right lower quadrant pain (principal); I25.10 Atherosclerotic heart disease of native coronary artery without angina pectoris; I10 Essential (primary) hypertension; I25.2 Old myocardial infarction; Z90.49 Acquired absence of other specified parts of digestive tract; Z95.1 Presence of aortocoronary bypass graft; Z95.5 Presence of coronary angioplasty implant and graft; Z98.890 Other specified postprocedural states; Z79.82 Long term (current) use of aspirin; Z79.899 Other long term (current) drug therapy; Z91.040 Latex allergy status
CPT/HCPCS: 36415; 80053; 83690; 85025; 85610; 85730; 81003; 74177; 99284; 96360; 96361; Q9967

== ENCOUNTER → 2018-02-04 | Outpatient (CLI) | payer MEDICARE ==
[2018-02-04 07:42] LABS: Appearance,Urine Clear (Clear); Bilirubin,Urine Negative (Negative); Blood,Urine Negative (Negative); Color,Urine Yellow; Glucose,Urine (UA) Negative (Negative); Ketones,Urine Negative (Negative); Leukocyte Esterase,Urine Negative (Negative); Nitrite,Urine Negative (Negative); PH, Urine 5.5 (5.0-8.0); Protein,Urine Negative (Negative); Specific Gravity,Urine 1.018 (1.001-1.035); Urobilinogen,Urine <2.0 mg/dL (<2.0)
[2018-02-04 07:48] LABS: Basophils # (A) 0.1 k/uL (0-0.2); Basophils % (A) 1 %; Eosinophils # (A) 0.2 k/uL (0-0.7); Eosinophils % (A) 3 %; HCT 49.3 % (39.0-53.0); HGB 16.1 gm/dL (13.0-17.5); Lymphocytes # (A) 1.5 k/uL (1.0-4.8); Lymphocytes % (A) 22 %; MCH 30.3 pg (25.0-35.0); MCHC 32.6 g/dL (31.0-37.0); MCV 92.8 fL (80.0-100.0); Mean Platelet Volume 6.5; Monocytes # (A) 0.5 k/uL (0-1.0); Monocytes % (A) 8 %; Neutrophils # (A) 4.4 k/uL (1.3-7.7); Neutrophils % (A) 65 %; Platelet Count 196 k/uL (150-450); RBC 5.31 m/uL (4.30-5.90); WBC 6.8 k/uL (3.8-10.6)
[2018-02-04 12:48] LABS: Parathyroid Hormone Intact 62.2 pg/mL (14.0-72.0)
[2018-02-04 12:57] LABS: Iron Saturation 27.05 (15.00-50.00)
[2018-02-04 13:06] LABS: Vitamin D 25 Hydroxy 62.7 ng/mL (30.0-100.0)
[2018-02-05 13:07] LABS: Anion Gap 10.7 mmol/L (4.00-12.00); Calcium 8.9 mg/dL (8.7-10.3); Carbon Dioxide 21.3 mmol/L (21.6-31.8); Magnesium 1.9 mg/dL (1.5-2.4); Potassium 4.1 mmol/L (3.5-5.5); Prostate Specific Antigen 4.1 ng/mL (0.0-6.5); Uric Acid 6.2 mg/dL (3.7-8.7)
== END | disposition home or self-care (01) ==
LOC: LABWHC1 06:47
PROVIDERS: ATTEND Internal Medicine Nephrology
DX: E21.3 Hyperparathyroidism, unspecified (principal); E55.9 Vitamin D deficiency, unspecified; D63.1 Anemia in chronic kidney disease; M10.9 Gout, unspecified; N39.0 Urinary tract infection, site not specified; N18.2 Chronic kidney disease, stage 2 (mild); N40.0 Benign prostatic hyperplasia without lower urinary tract symptoms
CPT/HCPCS: 36415; 80048; 81003; 82306; 82728; 83540; 83550; 83735; 83970; 84100; 84153; 84550; 85025

== ENCOUNTER → 2018-08-21 | Outpatient (CLI) | payer MEDICARE ==
[2018-08-21 07:12] LABS: Basophils # (A) 0.1 k/uL (0-0.2); Basophils % (A) 1 %; Eosinophils # (A) 0.2 k/uL (0-0.7); Eosinophils % (A) 3 %; HCT 50.9 % (39.0-53.0); HGB 16.5 gm/dL (13.0-17.5); Lymphocytes # (A) 1.4 k/uL (1.0-4.8); Lymphocytes % (A) 21 %; MCH 30.1 pg (25.0-35.0); MCHC 32.4 g/dL (31.0-37.0); MCV 92.9 fL (80.0-100.0); Mean Platelet Volume 6.5; Monocytes # (A) 0.4 k/uL (0-1.0); Monocytes % (A) 6 %; Neutrophils # (A) 4.5 k/uL (1.3-7.7); Neutrophils % (A) 67 %; Platelet Count 213 k/uL (150-450); RBC 5.47 m/uL (4.30-5.90); RDW 13.3 % (11.5-15.5); WBC 6.7 k/uL (3.8-10.6)
[2018-08-21 07:43] LABS: Appearance,Urine Clear (Clear); Bilirubin,Urine Negative (Negative); Blood,Urine Small (Negative); Calcium Oxalate Crystals,Urine Rare /hpf; Color,Urine Yellow; Glucose,Urine (UA) Negative (Negative); Ketones,Urine Negative (Negative); Leukocyte Esterase,Urine Negative (Negative); Mucus,Urine Rare /hpf; Nitrite,Urine Negative (Negative); PH, Urine 5.5 (5.0-8.0); Protein,Urine Negative (Negative); RBC,Urine 4 /hpf (0-5); Urobilinogen,Urine <2.0 mg/dL (<2.0); WBC,Urine 1 /hpf (0-5)
[2018-08-21 11:48] LABS: Iron Saturation 28.73 (15.00-50.00)
[2018-08-21 11:52] LABS: Albumin 4.5 g/dL (3.80-4.90); Anion Gap 9.7 mmol/L (4.00-12.00); Carbon Dioxide 23.3 mmol/L (21.6-31.8); Uric Acid 5.8 mg/dL (3.7-8.7)
[2018-08-21 11:56] LABS: Parathyroid Hormone Intact 62.7 pg/mL (14.0-72.0); Vitamin D 25 Hydroxy 50.4 ng/mL (30.0-100.0)
[2018-08-21 12:57] LABS: Creatinine,Urine Random 157.3 mg/dL
[2018-08-21 13:01] LABS: Total Protein,Urine Random 12.3 mg/dL (0.0-13.5)
== END | disposition home or self-care (01) ==
LOC: LABWHC1 06:44
PROVIDERS: ATTEND Internal Medicine Nephrology
DX: N18.2 Chronic kidney disease, stage 2 (mild) (principal); D63.1 Anemia in chronic kidney disease; D55.9 Anemia due to enzyme disorder, unspecified; N25.81 Secondary hyperparathyroidism of renal origin; N39.0 Urinary tract infection, site not specified; M10.9 Gout, unspecified; D64.9 Anemia, unspecified
CPT/HCPCS: 36415; 80048; 81001; 82040; 82306; 82570; 82728; 83540; 83550; 83735; 83970; 84100; 84156; 84550; 85025

== ENCOUNTER → 2018-09-04 | Outpatient (CLI) | payer MEDICARE ==
--- NOTE | 2018-09-04 10:21 | US ---
EXAMINATION TYPE: US kidneys/renal and bladder DATE OF EXAM: 09/04/2018 COMPARISON: 2018 CLINICAL HISTORY: D41.01 R RENAL MASS. EXAM MEASUREMENTS: Right Kidney: 9.5 x 4.5 x 4.0 cm Left Kidney: 10.9 x 5.2 x 4.7 cm Post Void Residual Volume: 0.59 mL Right Kidney: small probable cortical cyst 0.8 x 0.7 x 0.8 cm relating to the 2 small to accurately c haracterize approximately 6 mm renal lesion seen on the CT of 11/11/2017. Left Kidney: Continued decreased size of the left lower pole now measuring 0.8 x 0.7 x 0.7 cm and pre viously measuring 1.7 x 1.3 x 1.6 on the exam of 08/27/2017, again probable complicated cyst, crescent shaped anterior kidney is similar and can be seen in renal failure. Bladder: Anechoic but incompletely distended Bilateral Jets seen: No Normal Post Void Residual: Yes There is no evidence for hydronephrosis at this point in time. No nephrolithiasis is seen. The urin dustin bladder is anechoic. IMPRESSION: Continued decreased size of the left renal lesion likely representing an involuted proteinaceous/hemo rrhagic complicated cyst. Subcentimeter right renal lesion appears similar in size from the prior CT of 11/11/2017.
== END | disposition home or self-care (01) ==
LOC: RADUSWWP 09:03
PROVIDERS: ATTEND Urology
DX: N28.9 Disorder of kidney and ureter, unspecified (principal); Z91.040 Latex allergy status
CPT/HCPCS: 76770

== ENCOUNTER 2018-12-28 03:12 | Inpatient (IN) | payer MEDICARE ==
[2018-12-28] MEDS ORDERED: SODIUM CHLORIDE 0.9% 1,000 ML IV STA (03:21)
--- NOTE | 2018-12-28 03:29 | ED ---
GI Bleed HPI - General Chief complaint: GI Bleed Stated complaint: GI Bleed Time Seen by Provider: 12/28/18 03:20 Source: patient, EMS Limitations: no limitations - History of Present Illness Initial comments: Is a pleasant 78-year-old gentleman with history of Parkinson's disease who presents to the emergency department today for evaluation of generalized malaise, lightheadedness and concern for upper GI bleeding. Patient reports that for the past 3 days he has had dark black stools. Patient states he has not experienced this in the past. Patient states he's had some mild abdominal discomfort no nausea or vomiting, dark black stools for 3 days. Patient denies taking any Pepto-Bismol, any charcoal pills. He states that he takes one iron supplement per week as prescribed. This is not a new prescription. Patient reports he had an EGD and colonoscopy at his primary care office last year and was told they were normal. Patient was previously on anti-platelet medications but is not currently. - Related Data Home Medications Medication Instructions Recorded Confirmed Ergocalciferol [Vitamin D2 50,000 unit PO MO 07/18/14 12/28/18 (DRISDOL)] Aspirin 81 mg PO DAILY 08/01/16 12/28/18 Carbidopa-Levodopa 10-100 mg 1 tab PO BID 11/11/17 12/28/18 [Sinemet 10-100] Losartan Potassium 50 mg PO HS 11/11/17 12/28/18 Metoprolol Tartrate [Lopressor] 25 mg PO BID 11/11/17 12/28/18 Previous Rx's Medication Instructions Recorded Clopidogrel [Plavix] 75 mg PO DAILY #90 tab 07/20/14 Atorvastatin [Lipitor] 40 mg PO HS #60 tab 08/17/14 Allergies Allergy/AdvReac Type Severity Reaction Status Date / Time latex Allergy Dyspnea Verified 12/28/18 03:19 Review of Systems ROS Statement: Those systems with pertinent positive or pertinent negative responses have been documented in the HPI. ROS Other: All systems not noted in ROS Statement are negative. Past Medical History Past Medical History: Coronary Artery Disease (CAD), Chest Pain / Angina, Hyperlipidemia, Hypertension, Myocardial Infarction (IA), Osteoarthritis (OA) Additional Past Medical History / Comment(s): [place] X2,monitoring a spot rt kidney, parkinsons Last Myocardial Infarction Date:: 1992 History of Any Multi-Drug Resistant Organisms: None Reported Past Surgical History: Appendectomy, Coronary Bypass/CABG, Heart Catheterization, Heart Catheterization With Stent, Orthopedic Surgery Additional Past Surgical History / Comment(s): RT KNEE ARTHROSCOPY, HEMORRHOIDECTOMY, rotator cuff surg., quad. bypass 1992, cataract surg, heart stents x3 Past Anesthesia/Blood Transfusion Reactions: Motion Sickness Date of Last Stent Placement:: July 2014 Past Psychological History: Anxiety, Depression Smoking Status: Never smoker Past Alcohol Use History: None Reported Past Drug Use History: None Reported - Past Family History Brother(s) Additional Family Medical History / Comment(s): TWO BROTHERS HAD OPEN HEART Sister(s) Additional Family Medical History / Comment(s): 2 SISTERS HAD OPEN HEARTS General Exam - General Exam Comments Initial Comments: Physical Exam GENERAL: Patient is well-developed and well-nourished. Patient is nontoxic and well- hydrated and is in no distress. HENT: Normocephalic, Atraumatic. EYES: PERRL, EOMI No conjunctival pallor PULMONARY: Unlabored respirations. No audible rales rhonchi or wheezing was noted. CARDIOVASCULAR: Rate and rhythm, warm and well perfused extremities ABDOMEN: Soft and nontender with normal bowel sounds. SKIN: Skin is clear with no lesions or rashes and otherwise unremarkable. : Normal external genitalia Rectal exam with dark black stool NEUROLOGIC: Tremor baseline MUSCULOSKELETAL: Normal extremities with adequate strength and full range of motion. No lower extremity swelling or edema. No calf tenderness. PSYCHIATRIC: Normal psychiatric evaluation. Limitations: no limitations Course Vital Signs 12/28/18 12/28/18 03:13 04:35 Temperature 98 F Pulse Rate 95 90 Respiratory 18 20 Rate Blood Pressure 121/90 110/64 O2 Sat by Pulse 99 99 Oximetry Medical Decision Making - Medical Decision Making The patient was seen and evaluated, history was obtained from the patient History and physical exam are concerning for an acute upper GI bleed Labs and IV Protonix were ordered Labs reveal a stable hemoglobin at 14, stool guaiac is positive Patient care was discussed with Dr. Almaguer who accepts the admission with a consult to GI medicine patient is hemodynamically stable and I feel stable for the medical floor does not require ICU or selective care - Lab Data Result diagrams: 12/28/18 03:32 12/28/18 03:32 Lab Results 09/12/28/18 12/28/18 Range/Units 03:32 03:32 03:32 WBC 11.0 H (3.8-10.6) k/uL RBC 4.62 (4.30-5.90) m/uL Hgb 14.1 (13.0-17.5) gm/dL Hct 42.1 (39.0-53.0) % MCV 91.0 (80.0-100.0) fL MCH 30.6 (25.0-35.0) pg MCHC 33.6 (31.0-37.0) g/dL RDW 14.8 (11.5-15.5) % Plt Count 250 (150-450) k/uL Neutrophils % 75 % Lymphocytes % 15 % Monocytes % 7 % Eosinophils % 1 % Basophils % 1 % Neutrophils # 8.3 H (1.3-7.7) k/uL Lymphocytes # 1.7 (1.0-4.8) k/uL Monocytes # 0.7 (0-1.0) k/uL Eosinophils # 0.1 (0-0.7) k/uL Basophils # 0.1 (0-0.2) k/uL APTT (22.0-30.0) sec Sodium 139 (137-145) mmol/L Potassium 3.6 (3.5-5.1) mmol/L Chloride 106 (98-107) mmol/L Carbon Dioxide 22 (22-30) mmol/L Anion Gap 11 mmol/L BUN 82 H (9-20) mg/dL Creatinine 1.08 (0.66-1.25) mg/dL Est GFR (CKD-EPI)AfAm 75 (>60 ml/min/1.73 sqM) Est GFR (CKD-EPI)NonAf 64 (>60 ml/min/1.73 sqM) Glucose 89 (74-99) mg/dL Calcium 8.0 L (8.4-10.2) mg/dL Total Bilirubin 2.4 H (0.2-1.3) mg/dL AST 18 (17-59) U/L ALT 8 L (21-72) U/L Alkaline Phosphatase 64 (38-126) U/L Troponin I (0.000-0.034) ng/mL Total Protein 6.1 L (6.3-8.2) g/dL Albumin 3.5 (3.5-5.0) g/dL Stool Occult Blood Positive (Negative) Blood Type Blood Type Recheck Bld Type Recheck Status Antibody Screen Spec Expiration Date 12/28/18 12/28/18 12/28/18 Range/Units 03:32 03:32 03:32 WBC (3.8-10.6) k/uL RBC (4.30-5.90) m/uL Hgb (13.0-17.5) gm/dL Hct (39.0-53.0) % MCV (80.0-100.0) fL MCH (25.0-35.0) pg MCHC (31.0-37.0) g/dL RDW (11.5-15.5) % Plt Count (150-450) k/uL Neutrophils % % Lymphocytes % % Monocytes % % Eosinophils % % Basophils % % Neutrophils # (1.3-7.7) k/uL Lymphocytes # (1.0-4.8) k/uL Monocytes # (0-1.0) k/uL Eosinophils # (0-0.7) k/uL Basophils # (0-0.2) k/uL APTT 25.2 (22.0-30.0) sec Sodium (137-145) mmol/L Potassium (3.5-5.1) mmol/L Chloride (98-107) mmol/L Carbon Dioxide (22-30) mmol/L Anion Gap mmol/L BUN (9-20) mg/dL Creatinine (0.66-1.25) mg/dL Est GFR (CKD-EPI)AfAm (>60 ml/min/1.73 sqM) Est GFR (CKD-EPI)NonAf (>60 ml/min/1.73 sqM) Glucose (74-99) mg/dL Calcium (8.4-10.2) mg/dL Total Bilirubin (0.2-1.3) mg/dL AST (17-59) U/L ALT (21-72) U/L Alkaline Phosphatase (38-126) U/L Troponin I <0.012 (0.000-0.034) ng/mL Total Protein (6.3-8.2) g/dL Albumin (3.5-5.0) g/dL Stool Occult Blood (Negative) Blood Type O Positive Blood Type Recheck O Pos Bld Type Recheck Status No Antibody Screen NEGATIVE Spec Expiration Date 12/31/2018 - 2331 Disposition Clinical Impression: Melena, GI bleeding Disposition: ADMITTED IP TO THIS HOSP Condition: Stable
[2018-12-28 03:47] LABS: Basophils # (A) 0.1 k/uL (0-0.2); Basophils % (A) 1 %; Eosinophils # (A) 0.1 k/uL (0-0.7); Eosinophils % (A) 1 %; HCT 42.1 % (39.0-53.0); HGB 14.1 gm/dL (13.0-17.5); Lymphocytes # (A) 1.7 k/uL (1.0-4.8); Lymphocytes % (A) 15 %; MCH 30.6 pg (25.0-35.0); MCHC 33.6 g/dL (31.0-37.0); Mean Platelet Volume 7.5; Monocytes # (A) 0.7 k/uL (0-1.0); Monocytes % (A) 7 %; Neutrophils # (A) 8.3 k/uL (1.3-7.7); Neutrophils % (A) 75 %; Platelet Count 250 k/uL (150-450); RBC 4.62 m/uL (4.30-5.90); RDW 14.8 % (11.5-15.5)
[2018-12-28] MEDS ORDERED: PANTOPRAZOLE 40 MG/10 ML VIAL IVP STA (03:53)
[2018-12-28] MEDS ORDERED: NALOXONE 0.4 MG/ML 1 ML VIAL IV PRN (03:53)
[2018-12-28 03:55] LABS: Albumin 3.5 g/dL (3.5-5.0); Potassium 3.6 mmol/L (3.5-5.1); Total Bilirubin 2.4 mg/dL (0.2-1.3); Total Protein 6.1 g/dL (6.3-8.2)
[2018-12-28] MEDS: SODIUM CHLORIDE 0.9% 1,000 ML IV SCH ×3 (04:33→20:46)
[2018-12-28] MEDS: PANTOPRAZOLE 40 MG/10 ML VIAL IV SCH (08:42)
[2018-12-28] MEDS: ALPRAZolam 0.25 MG TAB PO PRN ×2 (08:42→14:32)
[2018-12-28] MEDS: METOPROLOL TARTRATE 25 MG TAB PO SCH ×2 (08:42→20:46)
[2018-12-28] MEDS: CARBIDOPA-LEVODOPA 10-100 MG 1 EACH TAB PO SCH ×2 (08:57→20:46)
[2018-12-28 12:07] LABS: HCT 40.6 % (39.0-53.0); HGB 13.9 gm/dL (13.0-17.5); MCH 31.2 pg (25.0-35.0); MCHC 34.3 g/dL (31.0-37.0); Mean Platelet Volume 8.1; Platelet Count 186 k/uL (150-450); RBC 4.47 m/uL (4.30-5.90); WBC 13.3 k/uL (3.8-10.6)
[2018-12-28] MEDS: IOPAMIDOL-300 CONTRAST 30 ML VIAL (ORAL USE) PO PRN ×2 (15:21→16:37)
--- NOTE | 2018-12-28 15:22 | P.HPIM ---
History of Present Illness H&P Date: 12/28/18 Gerhard Maya is an 78-year-old male who presented to [facility] emergency room with a chief complaint of generalized weakness and lightheadedness and episodes of black tarry stool for the last 3 days, he was evaluated in the emergency room stools Hemoccult was positive, hemoglobin was 14.1 white blood count was slightly elevated at 11.0 patient was admitted to medical floor gastroenterology consultation was requested for evaluation of possible upper gastrointestinal bleeding. Over the next few hours patient was complaining of worsening anxiety and some shortness of breath even though his oxygen saturation was 99% on room air, repeat CBC revealed a hemoglobin of 13.9 and a white blood count of 13.3 patient was complaining of generalized abdominal pain at that point computed tomography scan of the abdomen and pelvis was ordered and a chest x-ray was ordered. Patient stated that he had an EGD about 2 years ago. He has a known history of Parkinson disease, and a known history of coronary artery disease with myocardial infarction and history of hypertension, hyperlipidemia, and osteoarthritis. Past Medical History Past Medical History: Coronary Artery Disease (CAD), Chest Pain / Angina, Hyperlipidemia, Hypertension, Myocardial Infarction (MN), Osteoarthritis (OA) Additional Past Medical History / Comment(s): MN X2,monitoring a spot rt kidney, parkinsons Last Myocardial Infarction Date:: 1992 History of Any Multi-Drug Resistant Organisms: None Reported Past Surgical History: Appendectomy, Coronary Bypass/CABG, Heart Lorin terization, Heart Catheterization With Stent, Orthopedic Surgery Additional Past Surgical History / Comment(s): RT KNEE ARTHROSCOPY, HEMORRHOIDECTOMY, rotator cuff surg., quad. bypass 1992, cataract surg, heart stents x3 Past Anesthesia/Blood Transfusion Reactions: Motion Sickness Date of Last Stent Placement:: July 2014 Past Psychological History: Anxiety, Depression Smoking Status: Never smoker Past Alcohol Use History: None Reported Past Drug Use History: None Reported - Past Family History Brother(s) Additional Family Medical History / Comment(s): TWO BROTHERS HAD OPEN HEART Sister(s) Additional Family Medical History / Comment(s): 2 SISTERS HAD OPEN HEARTS Medications and Allergies Home Medications Medication Instructions Recorded Confirmed Type Ergocalciferol [Vitamin D2 50,000 unit PO MO 07/18/14 12/28/18 History (DRISDOL)] Clopidogrel [Plavix] 75 mg PO DAILY #90 tab 07/20/14 12/28/18 Rx Atorvastatin [Lipitor] 40 mg PO HS #60 tab 08/17/14 12/28/18 Rx Aspirin 81 mg PO DAILY 08/01/16 12/28/18 History Carbidopa-Levodopa 10-100 mg 1 tab PO BID 11/11/17 12/28/18 History [Sinemet 10-100] Losartan Potassium 50 mg PO HS 11/11/17 12/28/18 History Metoprolol Tartrate [Lopressor] 50 mg PO BID 12/28/18 12/28/18 History Rasagiline Mesylate 0.5 mg PO BID 12/28/18 12/28/18 History Allergies Allergy/AdvReac Type Severity Reaction Status Date / Time latex Allergy Dyspnea Verified 12/28/18 03:19 Physical Exam Vitals: Vital Signs Temp Pulse Pulse Pulse Resp BP BP 12/28/18 11:49 98.1 F 80 16 111/74 12/28/18 08:12 99 12 131/77 12/28/18 08:00 12 12/28/18 04:35 90 20 110/64 12/28/18 03:13 98 F 95 18 121/90 Pulse Ox 12/28/18 11:49 98 12/28/18 08:12 100 12/28/18 08:00 12/28/18 04:35 99 12/28/18 03:13 99 Intake and Output 12/28/18 12/28/18 12/28/18 06:59 14:59 22:59 Intake Total 125 1000 Output Total 500 Balance 125 500 Intake: Intake, IV Titration 125 1000 Amount Sodium Chloride 0.9% 1, 125 1000 000 ml @ 125 mls/hr IV . Q8H COUNTS INCLUDE 234 BEDS AT THE [facility] Rx#:[id number] Output: Urine 500 Other: Voiding Method Toilet Toilet Urinal # Bowel Movements 1 Weight 86.183 kg In general patient is alert and oriented 3 in no apparent distress answering questions appropriately but appears anxious HEENT head normocephalic and atraumatic Neck is supple no JVD no goiter no lymphadenopathy Cardiac exam reveals regular heart sounds S1 and S2 no gallops no murmurs Abdomen is soft nontender no organomegaly with normal bowel sounds Extremity exam reveals no edema no cyanosis or clubbing Neurological examination reveals coarse tremor in the left upper extremity otherwise no focal deficit Results CBC & Chem 7: 12/28/18 11:29 12/28/18 03:32 Labs: Abnormal Lab Results - Last 24 Hours (Table) 12/28/18 12/28/18 12/28/18 Range/Units 03:32 03:32 11:29 WBC 11.0 H 13.3 H (3.8-10.6) k/uL Neutrophils # 8.3 H (1.3-7.7) k/uL BUN 82 H (9-20) mg/dL Calcium 8.0 L (8.4-10.2) mg/dL Total Bilirubin 2.4 H (0.2-1.3) mg/dL ALT 8 L (21-72) U/L Total Protein 6.1 L (6.3-8.2) g/dL Thrombosis Risk Factor Assmnt - Choose All That Apply Any of the Below Risk Factors Present?: No Other Risk Factors: No Other congenital or acquired thrombophilia - If yes, enter type in comment: No Thrombosis Risk Factor Assessment Level: Very Low Risk Assessment and Plan Plan: #1 black tarry stool, possible upper gastrointestinal bleeding, patient started on IV proton X he was admitted to medical floor with serial checks on CBC gastroenterology consultation was requested for possible EGD. At this point will hold aspirin and Plavix. #2 underlying history of coronary artery disease stable patient denies any chest pain at this time, EKG done in the emergency room reveals incomplete right bundle branch block without any ischemic changes. #3 shortness of breath, likely related to anxiety, O2 sat duration is 99% on room air, will check chest x-ray as it was not done in the emergency room will monitor closely continue telemetry. #4 underlying history of hypertension well-controlled on medications #5 underlying history of hyperlipidemia #6 underlying history of Parkinson disease continue Sinemet #7 abdominal pain with mild leukocytosis white blood count went up to 13.3, will check computed tomography scan of the abdomen and pelvis with oral contrast without IV contrast #8 dehydration was elevated BUN at 82 Will monitor closely #9 for DVT prophylaxis SCD stockings for GI prophylaxis IV Protonix will follow closely
--- NOTE | 2018-12-28 17:11 | XR ---
EXAMINATION TYPE: XR chest 2V DATE OF EXAM: 12/28/2018 COMPARISON: Chest x-ray July 15, 2016. HISTORY: Shortness of breath. TECHNIQUE: Frontal and lateral views of the chest are obtained. FINDINGS: Post-CABG changes with mediastinal clips and sternal wires is redemonstrated. 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 The cardiac silhouette size is remains within normal limits with atherosclerotic aor ta. Multilevel spurring in the thoracic spine is redemonstrated. IMPRESSION: Chronic changes without acute pulmonary process. No significant change from prior.
--- NOTE | 2018-12-28 17:23 | CT ---
EXAMINATION TYPE: CT abdomen pelvis wo con DATE OF EXAM: 12/28/2018 HISTORY: Abdominal pain not further specified. CT DLP: 592.3 mGycm. Automated Exposure Control for Dose Reduction was Utilized. TECHNIQUE: CT scan of the abdomen and pelvis is performed with oral but without IV contrast. COMPARISON: CT abdomen and pelvis from November 11, 2017 FINDINGS: Within the limitations of a non-contrast study, the following observations are made. LUNG BASES: No significant abnormality is appreciated. LIVER/GB: No significant abnormality is appreciated. PANCREAS: No significant abnormality is seen. SPLEEN: No significant abnormality is seen. ADRENALS: No significant abnormality is seen. KIDNEYS: Some cortical thinning in both kidneys is seen. No hydronephrosis is noted bilaterally. Stab le exophytic 1.2 cm anterior low dense lesion axial image 28 favoring benign lesion. BOWEL: Oral contrast reaches level of rectum. No suspicious small or large bowel dilatation. Some are as of mild wall thickening in the sigmoid colon. Mild colitis cannot be excluded. Correlate clinicall y. GENITAL ORGANS: Enlarged prostate gland consistent with BPH. Correlate clinically. LYMPH NODES: No greater than 1cm abdominal or pelvic lymph nodes are appreciated. OSSEOUS STRUCTURES: Moderate to severe multilevel anterior and lateral spurring with preservation of disc heights. OTHER: Mild/moderate calcified plaque of the aorta extends into branch vessels. IMPRESSION: Prepped mild distal colitis. Correlate clinically. Otherwise no suspicious new or acute f indings seen to account for patient's symptoms.
[2018-12-28 19:21] LABS: HCT 36.5 % (39.0-53.0); HGB 11.8 gm/dL (13.0-17.5); MCH 30.3 pg (25.0-35.0); MCHC 32.4 g/dL (31.0-37.0); MCV 93.3 fL (80.0-100.0); Mean Platelet Volume 7.3; Platelet Count 216 k/uL (150-450); RBC 3.91 m/uL (4.30-5.90); RDW 14.5 % (11.5-15.5); WBC 11.7 k/uL (3.8-10.6)
--- NOTE | 2018-12-28 19:58 | CONS ---
CONSULTATION DATE OF DICTATION: December 28, 2018. REQUESTING PHYSICIAN: Dr. Almaguer. REASON FOR CONSULTATION: Melena of two days duration. HISTORY OF PRESENT ILLNESS: The patient is an 78-year-old pleasant white male with a history of Parkinson disease, who was admitted to the hospital because of black tarry stools that started yesterday morning. He had about 4-5 episodes of black tarry stools associated with some vague epigastric discomfort but no nausea, vomiting. He has been on aspirin and Plavix for coronary artery disease status post stent placement about 2 years ago. He never had these symptoms in the past. He was diagnosed with peptic ulcer disease in the 1950s. He denies any recent NSAID use. On review of his records, he did have an EGD and colonoscopy done by Dr. Mccullough in 2017 that showed diverticulosis, gastritis and a small hiatal hernia. PAST MEDICAL HISTORY: Significant for Parkinson disease, history of coronary artery disease, status post NM in the past, hypertension. MEDICATIONS: At home, aspirin, Plavix losartan, Sinemet, Drisdol, Lopressor. ALLERGIES: None. SOCIAL HISTORY: No smoking. No alcohol use. FAMILY HISTORY: Unremarkable. Brother had coronary artery disease. Sister had coronary artery disease. PAST SURGICAL HISTORY: Appendectomy and CABG, cardiac cath with stent placements 2 years ago, right knee arthroscopy. REVIEW OF SYSTEMS: Cardiopulmonary: No chest pain, shortness of breath. Genitourinary: No dysuria or hematuria. Musculoskeletal: Unremarkable. Skin unremarkable. Endocrine unremarkable. Psychiatric unremarkable. Neurology: History of Parkinson's with essential tremors. ENT/vision unremarkable. Constitutional: No recent weight loss. No fever, chills, night sweats. PHYSICAL EXAMINATION: He appears comfortable. No apparent distress. Vital signs stable. Blood pressure is 121/90, pulse rate 95, temperature 98. HEENT examination unremarkable. Conjunctivae pink. Sclerae anicteric. Oral cavity no lesions. NECK: No JVD or lymph node enlargement. CHEST: Clear to auscultation. HEART: Regular rate and rhythm. ABDOMEN: Soft. Bowel sounds are positive. No organomegaly. There was mild tenderness in the epigastric area. Bowel sounds are positive. EXTREMITIES: No pedal edema. SKIN: No rashes. NEUROLOGIC: Alert and oriented x3. No focal deficits. LABS: Done at the time of admission to the hospital: WBC 11, hemoglobin 14.1, platelets normal. BUN was 82, creatinine 1.08. AST, ALT, AST, T-bilirubin and alkaline phosphatase are normal. Stool occult blood was positive. IMPRESSION: 1. The patient presents to the hospital with black tarry stools that started yesterday morning, he had about 4-5 episodes and came into the emergency room. Hemoglobin is 14.6 g/dL. He has been on aspirin and Plavix for coronary artery disease status post stent placements, last one was 2 years ago. He is noted to have elevated BUN, which is quite suggestive of an upper gastrointestinal bleed. 2. Parkinson disease, stable. 3. History of coronary artery disease status post stent placement 2 years ago, on aspirin and Plavix, currently on hold. RECOMMENDATIONS: 1. Continue with Protonix 40 mg daily. 2. Start on clear liquid diet. 3. We will proceed with an EGD tomorrow. I discussed with the patient the risks, benefits and complications and he is agreeable to it. Thank you for this consultation. VIVI / IJN: [id number] /
[2018-12-28 20:09] LABS: Albumin 3.2 g/dL (3.5-5.0); Calcium 8.1 mg/dL (8.4-10.2); Potassium 3.8 mmol/L (3.5-5.1); Total Bilirubin 2.6 mg/dL (0.2-1.3); Total Protein 5.6 g/dL (6.3-8.2)
[2018-12-28] MEDS: ATORVASTATIN 40 MG TAB PO SCH (20:46)
[2018-12-28] MEDS: LOSARTAN 50 MG TAB PO SCH (20:46)
[2018-12-28] MEDS: ALPRAZolam 0.5 MG TAB PO PRN (20:46)
[2018-12-28 23:55] LABS: Glucose,Whole Blood 84 mg/dL (75-99)
[2018-12-29 03:09] LABS: HGB 11.9 gm/dL (13.0-17.5); MCH 30.9 pg (25.0-35.0); MCHC 33.9 g/dL (31.0-37.0); Mean Platelet Volume 7.6; Platelet Count 193 k/uL (150-450); RBC 3.84 m/uL (4.30-5.90); RDW 14.8 % (11.5-15.5); WBC 11.7 k/uL (3.8-10.6)
[2018-12-29 03:30] LABS: Albumin 2.8 g/dL (3.5-5.0); Calcium 7.9 mg/dL (8.4-10.2); Potassium 4.3 mmol/L (3.5-5.1); Total Bilirubin 2.7 mg/dL (0.2-1.3); Total Protein 5.2 g/dL (6.3-8.2)
[2018-12-29] MEDS: SODIUM CHLORIDE 0.9% 1,000 ML IV SCH ×3 (04:43→20:57)
[2018-12-29] MEDS: METOPROLOL TARTRATE 25 MG TAB PO SCH ×2 (08:40→21:23)
[2018-12-29] MEDS: CARBIDOPA-LEVODOPA 10-100 MG 1 EACH TAB PO SCH ×2 (08:41→21:23)
[2018-12-29] MEDS: PANTOPRAZOLE 40 MG/10 ML VIAL IV SCH (08:41)
[2018-12-29] MEDS ORDERED: ERGOCALCIFEROL 50,000 UNIT CAP PO SCH (09:00)
--- NOTE | 2018-12-29 09:55 | P.PN ---
Subjective Progress Note Date: 12/29/18 Gerhard Maya is an 78-year-old male who presented to [facility] emergency room with a chief complaint of generalized weakness and lightheadedness and episodes of black tarry stool for the last 3 days, he was evaluated in the emergency room stools Hemoccult was positive, hemoglobin was 14.1 white blood count was slightly elevated at 11.0 patient was admitted to medical floor gastroenterology consultation was requested for evaluation of possible upper gastrointestinal bleeding. Over the next few hours patient was complaining of worsening anxiety and some shortness of breath even though his oxygen saturation was 99% on room air, repeat CBC revealed a hemoglobin of 13.9 and a white blood count of 13.3 patient was complaining of generalized abdominal pain at that point computed tomography scan of the abdomen and pelvis was ordered and a chest x-ray was ordered. Patient stated that he had an EGD about 2 years ago. He has a known history of Parkinson disease, and a known history of coronary artery disease with myocardial infarction and history of hypertension, hyperlipidemia, and osteoarthritis. On 12/29/2018 patient is alert and oriented 3. Patient is resting comfortably in bed. Planning EGD today per GI services. At this time patient denies abdominal pain. Per nursing staff patient had 1 dark tarry stool last night. Patient denies any nausea or vomiting. Patient denies chest pain or shortness of breath. Patient denies any urinary burning or frequency Objective - Vital Signs Vital signs: Vital Signs Temp 97.5 F L 12/29/18 05:00 Pulse 61 12/29/18 05:00 Resp 17 12/29/18 08:48 BP 122/70 12/29/18 05:00 Pulse Ox 97 12/29/18 05:00 Intake & Output 12/28/18 12/29/18 12/29/18 18:59 06:59 18:59 Intake Total 1000 1040 Output Total 500 Balance 500 1040 Intake: Intake, IV Titration 1000 800 Amount Sodium Chloride 0.9% 1, 1000 800 000 ml @ 125 mls/hr IV . Q8H [facility] Rx#:[id number] Oral 240 Output: Urine 500 Other: Voiding Method Toilet Toilet Urinal Urinal # Voids 2 # Bowel Movements 1 - Exam In general patient is alert and oriented 3 in no apparent distress answering questions appropriately but appears anxious HEENT head normocephalic and atraumatic Neck is supple no JVD no goiter no lymphadenopathy Cardiac exam reveals regular heart sounds S1 and S2 no gallops no murmurs Abdomen is soft nontender no organomegaly with normal bowel sounds Extremity exam reveals no edema no cyanosis or clubbing Neurological examination reveals coarse tremor in the left upper extremity otherwise no focal deficit - Labs CBC & Chem 7: 12/29/18 03:01 12/29/18 03:01 Labs: Abnormal Lab Results - Last 24 Hours (Table) 12/28/18 12/28/18 12/28/18 Range/Units 11:29 18:58 19:03 WBC 13.3 H 11.7 H (3.8-10.6) k/uL RBC 3.91 L (4.30-5.90) m/uL Hgb 11.8 L (13.0-17.5) gm/dL Hct 36.5 L (39.0-53.0) % Chloride 113 H (98-107) mmol/L Carbon Dioxide 19 L (22-30) mmol/L BUN 65 H (9-20) mg/dL Calcium 8.1 L (8.4-10.2) mg/dL Total Bilirubin 2.6 H (0.2-1.3) mg/dL ALT 7 L (21-72) U/L Total Protein 5.6 L (6.3-8.2) g/dL Albumin 3.2 L (3.5-5.0) g/dL 12/29/18 12/29/18 Range/Units 03:01 03:01 WBC 11.7 H (3.8-10.6) k/uL RBC 3.84 L (4.30-5.90) m/uL Hgb 11.9 L (13.0-17.5) gm/dL Hct 35.0 L (39.0-53.0) % Chloride 113 H (98-107) mmol/L Carbon Dioxide (22-30) mmol/L BUN 56 H (9-20) mg/dL Calcium 7.9 L (8.4-10.2) mg/dL Total Bilirubin 2.7 H (0.2-1.3) mg/dL ALT 8 L (21-72) U/L Total Protein 5.2 L (6.3-8.2) g/dL Albumin 2.8 L (3.5-5.0) g/dL Assessment and Plan Assessment: #1 black tarry stool, possible upper gastrointestinal bleeding, patient started on IV proton X he was admitted to medical floor with serial checks on CBC gastroenterology consultation was requested for possible EGD. At this point will hold aspirin and Plavix. Plans for EGD per surgical services today. Hemoglobin 11.9 #2 underlying history of coronary artery disease stable patient denies any chest pain at this time, EKG done in the emergency room reveals incomplete right bundle branch block without any ischemic changes. #3 shortness of breath, likely related to anxiety, O2 sat duration is 99% on room air, will check chest x-ray as it was not done in the emergency room will monitor closely continue telemetry. Repeat chest x-ray completed showing chronic changes without acute pulmonary processchange from prior #4 underlying history of hypertension well-controlled on medications #5 underlying history of hyperlipidemia #6 underlying history of Parkinson disease continue Sinemet #7 abdominal pain with mild leukocytosis white blood count went up to 13.3. Computed tomography scan of abdomen completed showing prepped Mild distal colitis. Correlate clinically. Otherwise no suspicious new or acute finding seen to account for patient's symptoms. White blood cell improving to 11.7 #8 dehydration was elevated BUN at 82 Will monitor closely. Bun improving to 56 #9 for DVT prophylaxis SCD stockings for GI prophylaxis IV Protonix I performed an examination of the patient and discussed their management with the Nurse Practitioner. I have reviewed the Nurse Practitioner's notes and a gree with the documented findings and plan of care
[2018-12-29 10:59] LABS: Basophils % (A) 0 %; Eosinophils # (A) 0.2 k/uL (0-0.7); Eosinophils % (A) 2 %; HGB 11.8 gm/dL (13.0-17.5); Lymphocytes # (A) 1.2 k/uL (1.0-4.8); Lymphocytes % (A) 10 %; MCH 30.8 pg (25.0-35.0); MCHC 33.6 g/dL (31.0-37.0); MCV 91.5 fL (80.0-100.0); Mean Platelet Volume 6.6; Monocytes # (A) 0.6 k/uL (0-1.0); Monocytes % (A) 5 %; Neutrophils # (A) 9.9 k/uL (1.3-7.7); Neutrophils % (A) 82 %; Platelet Count 205 k/uL (150-450); RBC 3.82 m/uL (4.30-5.90); RDW 13.3 % (11.5-15.5); WBC 12.1 k/uL (3.8-10.6)
[2018-12-29 11:13] LABS: Calcium 7.8 mg/dL (8.4-10.2); Potassium 3.9 mmol/L (3.5-5.1); Total Bilirubin 2.9 mg/dL (0.2-1.3); Total Protein 5.4 g/dL (6.3-8.2)
[2018-12-29] MEDS ORDERED: PROPOFOL 10 MG/ML 20 ML VIAL IV ONE (13:38)
[2018-12-29] MEDS ORDERED: IV FLUID CONTINUATION 600 ML IV ONE (13:41)
--- NOTE | 2018-12-29 13:54 | P.PCN ---
Date of Procedure: 12/29/18 Procedure(s) Performed: BRIEF HISTORY: Patient is a 78-year-old, pleasant, white male, as a part of evaluation of black tarry stools for the last 3 days' duration. He dropped hemoglobin from 14-11 g/dL. He has been on aspirin and Plavix for underlying coronary artery disease, which has been on hold. He is scheduled for an upper endoscopy to evaluate for upper GI source of bleeding.. PROCEDURE PERFORMED: Esophagogastroduodenoscopy with biopsy. PREOPERATIVE DIAGNOSIS: Melena of 3 days' duration. IV sedation per anesthesia. PROCEDURE: After informed consent was obtained, the patient was brought into the endoscopy unit. IV sedation was administered by Anesthesia under continuous monitoring. Initially the Olympus GIF-140 video endoscope was inserted into the mouth. Esophagus intubated without any difficulty. It was gradually advanced into the stomach and duodenum and carefully examined. The bulb and the second part of the duodenum appeared normal. The scope at this time was withdrawn to the stomach, adequately insufflated with air, and upon careful examination, mucosa of the antrum had scattered erosions and biopsies were done from this area. No active bleeding noted. The, body, cardia and the fundus appeared normal. The scope was then withdrawn into the esophagus. The GE junction was located at 41 cm from the incisors. The esophagus appeared normal. There were no erosions or ulcerations seen and the patient tolerated the procedure well. IMPRESSION: 1. Scattered antral erosions but no active upper GI bleeding. 2. No evidence of esophagitis or peptic ulcer disease. RECOMMENDATIONS: The findings of this examination were discussed with the patient. He'll be started on clear liquid diet. Will discuss with him about the possibility of colonoscopy tomorrow to evaluate further..
[2018-12-29] MEDS ORDERED: MORPHINE SULFATE 2 MG/ML SYRINGE IVP PRN (15:02)
[2018-12-29 15:20] LABS: Amylase 38 U/L (30-110)
[2018-12-29 19:26] LABS: HCT 33.8 % (39.0-53.0); HGB 11.6 gm/dL (13.0-17.5); MCH 31.5 pg (25.0-35.0); MCHC 34.3 g/dL (31.0-37.0); MCV 91.8 fL (80.0-100.0); Mean Platelet Volume 6.6; Platelet Count 163 k/uL (150-450); RBC 3.68 m/uL (4.30-5.90); RDW 13.4 % (11.5-15.5); WBC 11.7 k/uL (3.8-10.6)
[2018-12-29 20:25] LABS: Appearance,Urine Clear (Clear); Bilirubin,Urine Negative (Negative); Blood,Urine Negative (Negative); Color,Urine Yellow; Glucose,Urine (UA) Negative (Negative); Ketones,Urine 1+ (Negative); Leukocyte Esterase,Urine Negative (Negative); Nitrite,Urine Negative (Negative); Protein,Urine Negative (Negative); Specific Gravity,Urine 1.016 (1.001-1.035); Urobilinogen,Urine <2.0 mg/dL (<2.0)
[2018-12-29] MEDS: LOSARTAN 50 MG TAB PO SCH (21:23)
[2018-12-29] MEDS: ALPRAZolam 0.5 MG TAB PO PRN (21:23)
[2018-12-29] MEDS: ATORVASTATIN 40 MG TAB PO SCH (21:23)
[2018-12-30 02:46] LABS: HCT 31.1 % (39.0-53.0); HGB 10.6 gm/dL (13.0-17.5); MCH 30.8 pg (25.0-35.0); MCHC 33.9 g/dL (31.0-37.0); MCV 90.9 fL (80.0-100.0); Mean Platelet Volume 7.7; Platelet Count 141 k/uL (150-450); RBC 3.42 m/uL (4.30-5.90); RDW 15.2 % (11.5-15.5); WBC 9.3 k/uL (3.8-10.6)
[2018-12-30 03:06] LABS: ALT 12 U/L (21-72); AST 20 U/L (17-59); African American GFR (CKD) >90 (>60 ml/min/1.73 sqM); Albumin 2.7 g/dL (3.5-5.0); Alkaline Phosphatase 61 U/L (38-126); Anion Gap 7 mmol/L; Blood Urea Nitrogen 30 mg/dL (9-20); Calcium 7.7 mg/dL (8.4-10.2); Carbon Dioxide 22 mmol/L (22-30); Chloride 113 mmol/L (98-107); Glucose 73 mg/dL (74-99); Potassium 3.7 mmol/L (3.5-5.1); Sodium 142 mmol/L (137-145); Total Bilirubin 3.1 mg/dL (0.2-1.3); Total Protein 4.8 g/dL (6.3-8.2)
[2018-12-30] MEDS: SODIUM CHLORIDE 0.9% 1,000 ML IV SCH ×3 (04:33→19:46)
[2018-12-30] MEDS: PANTOPRAZOLE 40 MG/10 ML VIAL IV SCH (07:49)
[2018-12-30] MEDS: CARBIDOPA-LEVODOPA 10-100 MG 1 EACH TAB PO SCH ×2 (07:49→20:10)
[2018-12-30] MEDS: METOPROLOL TARTRATE 25 MG TAB PO SCH ×2 (07:49→20:11)
--- NOTE | 2018-12-30 10:18 | P.PN ---
Subjective Progress Note Date: 12/30/18 Gerhard Maya is an 78-year-old male who presented to [facility] emergency room with a chief complaint of generalized weakness and lightheadedness and episodes of black tarry stool for the last 3 days, he was evaluated in the emergency room stools Hemoccult was positive, hemoglobin was 14.1 white blood count was slightly elevated at 11.0 patient was admitted to medical floor gastroenterology consultation was requested for evaluation of possible upper gastrointestinal bleeding. Over the next few hours patient was complaining of worsening anxiety and some shortness of breath even though his oxygen saturation was 99% on room air, repeat CBC revealed a hemoglobin of 13.9 and a white blood count of 13.3 patient was complaining of generalized abdominal pain at that point computed tomography scan of the abdomen and pelvis was ordered and a chest x-ray was ordered. Patient stated that he had an EGD about 2 years ago. He has a known history of Parkinson disease, and a known history of coronary artery disease with myocardial infarction and history of hypertension, hyperlipidemia, and osteoarthritis. On 12/29/2018 patient is alert and oriented 3. Patient is resting comfortably in bed. Planning EGD today per GI services. At this time patient denies abdominal pain. Per nursing staff patient had 1 dark tarry stool last night. Patient denies any nausea or vomiting. Patient denies chest pain or shortness of breath. Patient denies any urinary burning or frequency On 12/30/2018 patient's alert and oriented 3. Patient had episode of abdominal pain post EGD yesterday. EGD was completed per GI services showing scattered antral erosions but no active upper GI bleeding no evidence of esophagitis or peptic ulcer disease. Dr. Gibbons was consulted for surgical imput. Amylase and lipase within normal limits. White blood cell has normalized. At this time patient is resting comfortably in bed. Patient denies any chest pain or shortness of breath. Abdominal pain has subsided. Per nursing staff patient has not had any bowel movements. Social work consulted for possible ECF placement Objective - Vital Signs Vital signs: Vital Signs Temp 97.6 F 12/30/18 05:00 Pulse 60 12/30/18 05:00 Resp 18 12/30/18 07:56 BP 114/75 12/30/18 05:00 Pulse Ox 96 12/30/18 05:00 Intake & Output 12/29/18 12/30/18 12/30/18 18:59 06:59 18:59 Intake Total 1050 1860 Output Total 250 Balance 1050 1860 -250 Intake: IV 200 Intake, IV Titration 850 1500 Amount Sodium Chloride 0.9% 1, 850 1500 000 ml @ 125 mls/hr IV . Q8H [facility] Rx#:[id number] Oral 0 360 Output: Urine 250 Other: Voiding Method Toilet Urinal Urinal Urinal Incontinent # Voids 3 1 - Exam In general patient is alert and oriented 3 in no apparent distress answering questions appropriately but appears anxious HEENT head normocephalic and atraumatic Neck is supple no JVD no goiter no lymphadenopathy Cardiac exam reveals regular heart sounds S1 and S2 no gallops no murmurs Abdomen is soft nontender no organomegaly with normal bowel sounds Extremity exam reveals no edema no cyanosis or clubbing Neurological examination reveals coarse tremor in the left upper extremity otherwise no focal deficit - Labs CBC & Chem 7: 12/30/18 02:23 12/30/18 02:23 Labs: Abnormal Lab Results - Last 24 Hours (Table) 12/29/18 12/29/18 12/29/18 Range/Units 10:29 10:29 14:45 WBC 12.1 H (3.8-10.6) k/uL RBC 3.82 L (4.30-5.90) m/uL Hgb 11.8 L (13.0-17.5) gm/dL Hct 35.0 L (39.0-53.0) % Plt Count (150-450) k/uL Neutrophils # 9.9 H (1.3-7.7) k/uL Chloride 113 H (98-107) mmol/L BUN 43 H (9-20) mg/dL Glucose (74-99) mg/dL Calcium 7.8 L (8.4-10.2) mg/dL Total Bilirubin 2.9 H (0.2-1.3) mg/dL ALT 10 L (21-72) U/L Total Protein 5.4 L (6.3-8.2) g/dL Albumin 3.0 L (3.5-5.0) g/dL Urine Ketones 1+ H (Negative) 12/29/18 12/30/18 12/30/18 Range/Units 19:04 02:23 02:23 WBC 11.7 H (3.8-10.6) k/uL RBC 3.68 L 3.42 L (4.30-5.90) m/uL Hgb 11.6 L 10.6 L (13.0-17.5) gm/dL Hct 33.8 L 31.1 L (39.0-53.0) % Plt Count 141 L (150-450) k/uL Neutrophils # (1.3-7.7) k/uL Chloride 113 H (98-107) mmol/L BUN 30 H (9-20) mg/dL Glucose 73 L (74-99) mg/dL Calcium 7.7 L (8.4-10.2) mg/dL Total Bilirubin 3.1 H (0.2-1.3) mg/dL ALT 12 L (21-72) U/L Total Protein 4.8 L (6.3-8.2) g/dL Albumin 2.7 L (3.5-5.0) g/dL Urine Ketones (Negative) Assessment and Plan Assessment: #1 black tarry stool, possible upper gastrointestinal bleeding, patient started on IV proton X he was admitted to medical floor with serial checks on CBC gastroenterology consultation was requested for possible EGD. At this point wi ll hold aspirin and Plavix. Plans for EGD per surgical services today. Hemoglobin 10.6. EGD completed showing scattered antral erosions but no active upper GI bleeding. No evidence of esophagitis or peptic ulcer disease. Per GI services patient had colonoscopy in July 2016 which showed diverticulosis and multiple internal hemorrhoids. Diet to be advanced as tolerated patient continues to have black tarry stools consider small bowel capsule endoscopic to investigate further #2 underlying history of coronary artery disease stable patient denies any chest pain at this time, EKG done in the emergency room reveals incomplete right bundle branch block without any ischemic changes. #3 shortness of breath, likely related to anxiety, O2 sat duration is 99% on room air, will check chest x-ray as it was not done in the emergency room will monitor closely continue telemetry. Repeat chest x-ray completed showing chronic changes without acute pulmonary process no change from prior #4 underlying history of hypertension well-controlled on medications #5 underlying history of hyperlipidemia #6 underlying history of Parkinson disease continue Sinemet #7 abdominal pain with mild leukocytosis white blood count went up to 13.3. Computed tomography scan of abdomen completed showing prepped Mild distal colitis. Correlate clinically. Otherwise no suspicious new or acute finding seen to account for patient's symptoms. White blood cell improving to 11.7. Amylase and lipase within normal limits. Surgical services have been consulted #8 dehydration was elevated BUN at 82 Will monitor closely. Bun improving to 56 #9 for DVT prophylaxis SCD stockings for GI prophylaxis IV Protonix I performed an examination of the patient and discussed their management with the Nurse Practitioner. I have reviewed the Nurse Practitioner's notes and agree with the documented findings and plan of care
--- NOTE | 2018-12-30 14:07 | P.GSCN ---
<Mariza Esposito - Last Filed: 12/30/18 13:11> History of Present Illness Consult date: 12/30/18 Reason for Consult: abdominal pain Requesting physician: Selene Pichardo History of present illness: CHIEF COMPLAINT: Abdominal pain HISTORY OF PRESENT ILLNESS: 78-year-old male who originally presented to the emergency room with a chief complaint of dark tarry stools. GI evaluated the patient and he underwent EGD yesterday revealing scattered antral erosions with no active upper GI bleeding. No evidence of esophagitis or peptic ulcer disease. Patient had a colonoscopy performed in July 2016 revealing diverticulosis and small internal hemorrhoids. Patient states he did not have any abdominal pain when he came in and has been relatively comfortable during his hospitalization until yesterday afternoon. He states he developed a sharp stabbing pain in the epigastric region after his EGD. He reports receiving some pain medication and states the pain went away and has not returned. He has not had any bowel movements today. No GI complaints. No nausea or vomiting. Tolerating regular diet. Denies any previous abdominal surgeries or GI difficulty in the past. PAST MEDICAL HISTORY: See list. PAST SURGICAL HISTORY: See list. SOCIAL HISTORY: No illicit drug use. REVIEW OF SYSTEMS: CONSTITUTIONAL: Denies fever or chills. HEENT: Denies blurred vision, vision changes, or eye pain. Denies hemoptysis CARDIOVASCULAR: Denies chest pain or pressure. RESPIRATORY: No shortness of breath. GASTROINTESTINAL: Refer to HPI for pertinent findings HEMATOLOGIC: Denies bleeding disorders. GENITOURINARY: Denies any blood in urine. SKIN: Denies pruitis. Denies rash. PHYSICAL EXAM: VITAL SIGNS: Reviewed. GENERAL: Well-developed in no acute distress. HEENT: No sclera icterus. Extraocular movements grossly intact. Moist buccal mucosa. Head is atraumatic, normocephalic. ABDOMEN: Soft. Nondistended. Nontender. Positive bowel sounds. NEUROLOGIC: Alert and oriented. Cranial nerves II through XII grossly intact. LABORATORY DATA: WBC 9.3. Hemoglobin 10.6. Hemoglobin on admission 14.1. IMAGING: CT abdomen and pelvis: Mild distal colitis. No suspicious small or large bowel dilation. ASSESSMENT: 1. Melena, s/p EGD 2. Epigastric pain 3. Abnormal CT scan revealing mild colitis 4. Family history of gallbladder disease PLAN: 1. Continue diet as tolerated. GI services following. Monitor hemoglobin 2. Patient is concerned about this gallbladder and requesting to have it "checked out". He states his daughter had her gallbladder removed last year. CT did not show abnormalities of the gallbladder. Bilirubin 3.1 today. AST/ALT normal. Amylase/Lipase normal. Has been elevated since admission, however when trending lab results and appears his bilirubin has been chronically elevated since 2016. Will obtain US gallbladder to rule out any gallbladder etiology for patients abdominal pain. 3. No surgical intervention recommended at this time Nurse practitioner note has been reviewed by physician. Signing provider agrees with the documented findings, assessment, and plan of care. Past Medical History Past Medical History: Coronary Artery Disease (CAD), Chest Pain / Angina, Hyperlipidemia, Hypertension, Myocardial Infarction ([place]), Osteoarthritis (OA) Additional Past Medical History / Comment(s): [place] X2,monitoring a spot rt kidney, parkinsons Last Myocardial Infarction Date:: 1992 History of Any Multi-Drug Resistant Organisms: None Reported Past Surgical History: Appendectomy, Coronary Bypass/CABG, Heart Catheterization, Heart Catheterization With Stent, Orthopedic Surgery Additional Past Surgical History / Comment(s): RT KNEE ARTHROSCOPY, HEMORRHOIDECTOMY, rotator cuff surg., quad. bypass 1992, cataract surg, heart stents x3 Past Anesthesia/Blood Transfusion Reactions: Motion Sickness Date of Last Stent Placement:: July 2014 Past Psychological History: Anxiety, Depression Smoking Status: Never smoker Past Alcohol Use History: None Reported Past Drug Use History: None Reported - Past Family History Brother(s) Additional Family Medical History / Comment(s): TWO BROTHERS HAD OPEN HEART Sister(s) Additional Family Medical History / Comment(s): 2 SISTERS HAD OPEN HEARTS Medications and Allergies Home Medications Medication Instructions Recorded Confirmed Type Ergocalciferol [Vitamin D2 50,000 unit PO MO 07/18/14 12/28/18 History (DRISDOL)] Clopidogrel [Plavix] 75 mg PO DAILY #90 tab 07/20/14 12/28/18 Rx Atorvastatin [Lipitor] 40 mg PO HS #60 tab 08/17/14 12/28/18 Rx Aspirin 81 mg PO DAILY 08/01/16 12/28/18 History Carbidopa-Levodopa 10-100 mg 1 tab PO BID 11/11/17 12/28/18 History [Sinemet 10-100] Losartan Potassium 50 mg PO HS 11/11/17 12/28/18 History Metoprolol Tartrate [Lopressor] 50 mg PO BID 12/28/18 12/28/18 History Rasagiline Mesylate 0.5 mg PO BID 12/28/18 12/28/18 History Allergies Allergy/AdvReac Type Severity Reaction Status Date / Time latex Allergy Dyspnea Verified 12/28/18 03:19 Surgical - Exam Vital Signs Temp Pulse Resp BP Pulse Ox 98 F 95 18 121/90 99 12/28/18 03:13 12/28/18 03:13 12/28/18 03:13 12/28/18 03:13 12/28/18 03:13 Results - Labs 12/30/18 02:23 12/30/18 02:23 Abnormal Lab Results - Last 24 Hours (Table) 12/29/18 12/29/18 12/30/18 Range/Units 14:45 19:04 02:23 WBC 11.7 H (3.8-10.6) k/uL RBC 3.68 L 3.42 L (4.30-5.90) m/uL Hgb 11.6 L 10.6 L (13.0-17.5) gm/dL Hct 33.8 L 31.1 L (39.0-53.0) % Plt Count 141 L (150-450) k/uL Chloride (98-107) mmol/L BUN (9-20) mg/dL Glucose (74-99) mg/dL Calcium (8.4-10.2) mg/dL Total Bilirubin (0.2-1.3) mg/dL ALT (21-72) U/L Total Protein (6.3-8.2) g/dL Albumin (3.5-5.0) g/dL Urine Ketones 1+ H (Negative) 12/30/18 Range/Units 02:23 WBC (3.8-10.6) k/uL RBC (4.30-5.90) m/uL Hgb (13.0-17.5) gm/dL Hct (39.0-53.0) % Plt Count (150-450) k/uL Chloride 113 H (98-107) mmol/L BUN 30 H (9-20) mg/dL Glucose 73 L (74-99) mg/dL Calcium 7.7 L (8.4-10.2) mg/dL Total Bilirubin 3.1 H (0.2-1.3) mg/dL ALT 12 L (21-72) U/L Total Protein 4.8 L (6.3-8.2) g/dL Albumin 2.7 L (3.5-5.0) g/dL Urine Ketones (Negative) Diabetes panel 12/30/18 Range/Units 02:23 Sodium 142 (137-145) mmol/L Potassium 3.7 (3.5-5.1) mmol/L Chloride 113 H (98-107) mmol/L Carbon Dioxide 22 (22-30) mmol/L BUN 30 H (9-20) mg/dL Creatinine 0.87 (0.66-1.25) mg/dL Glucose 73 L (74-99) mg/dL Calcium 7.7 L (8.4-10.2) mg/dL AST 20 (17-59) U/L ALT 12 L (21-72) U/L Alkaline Phosphatase 61 (38-126) U/L Total Protein 4.8 L (6.3-8.2) g/dL Albumin 2.7 L (3.5-5.0) g/dL Calcium panel 12/30/18 Range/Units 02:23 Calcium 7.7 L (8.4-10.2) mg/dL Albumin 2.7 L (3.5-5.0) g/dL Pituitary panel 12/30/18 Range/Units 02:23 Sodium 142 (137-145) mmol/L Potassium 3.7 (3.5-5.1) mmol/L Chloride 113 H (98-107) mmol/L Carbon Dioxide 22 (22-30) mmol/L BUN 30 H (9-20) mg/dL Creatinine 0.87 (0.66-1.25) mg/dL Glucose 73 L (74-99) mg/dL Calcium 7.7 L (8.4-10.2) mg/dL Adrenal panel 12/30/18 Range/Units 02:23 Sodium 142 (137-145) mmol/L Potassium 3.7 (3.5-5.1) mmol/L Chloride 113 H (98-107) mmol/L Carbon Dioxide 22 (22-30) mmol/L BUN 30 H (9-20) mg/dL Creatinine 0.87 (0.66-1.25) mg/dL Glucose 73 L (74-99) mg/dL Calcium 7.7 L (8.4-10.2) mg/dL Total Bilirubin 3.1 H (0.2-1.3) mg/dL AST 20 (17-59) U/L ALT 12 L (21-72) U/L Alkaline Phosphatase 61 (38-126) U/L Total Protein 4.8 L (6.3-8.2) g/dL Albumin 2.7 L (3.5-5.0) g/dL <Channing Gibbons - Last Filed: 12/30/18 16:56> History of Present Illness History of present illness: As above. Patient had transient somewhat severe pain after his EGD yesterday. That pain has resolved. He is comfortable now. Tolerating diet. Elevated bilirubin noted. Await ultrasound abdomen. Will follow. Surgical - Exam Vital Signs Temp Pulse Resp BP Pulse Ox 98 F 95 18 121/90 99 12/28/18 03:13 12/28/18 03:13 12/28/18 03:13 12/28/18 03:13 12/28/18 03:13 Results - Labs 12/30/18 02:23 12/30/18 02:23 Abnormal Lab Results - Last 24 Hours (Table) 12/29/18 12/29/18 12/30/18 Range/Units 14:45 19:04 02:23 WBC 11.7 H (3.8-10.6) k/uL RBC 3.68 L 3.42 L (4.30-5.90) m/uL Hgb 11.6 L 10.6 L (13.0-17.5) gm/dL Hct 33.8 L 31.1 L (39.0-53.0) % Plt Count 141 L (150-450) k/uL Chloride (98-107) mmol/L BUN (9-20) mg/dL Glucose (74-99) mg/dL Calcium (8.4-10.2) mg/dL Total Bilirubin (0.2-1.3) mg/dL ALT (21-72) U/L Total Protein (6.3-8.2) g/dL Albumin (3.5-5.0) g/dL Urine Ketones 1+ H (Negative) 12/30/18 Range/Units 02:23 WBC (3.8-10.6) k/uL RBC (4.30-5.90) m/uL Hgb (13.0-17.5) gm/dL Hct (39.0-53.0) % Plt Count (150-450) k/uL Chloride 113 H (98-107) mmol/L BUN 30 H (9-20) mg/dL Glucose 73 L (74-99) mg/dL Calcium 7.7 L (8.4-10.2) mg/dL Total Bilirubin 3.1 H (0.2-1.3) mg/dL ALT 12 L (21-72) U/L Total Protein 4.8 L (6.3-8.2) g/dL Albumin 2.7 L (3.5-5.0) g/dL Urine Ketones (Negative) Diabetes panel 12/30/18 Range/Units 02:23 Sodium 142 (137-145) mmol/L Potassium 3.7 (3.5-5.1) mmol/L Chloride 113 H (98-107) mmol/L Carbon Dioxide 22 (22-30) mmol/L BUN 30 H (9-20) mg/dL Creatinine 0.87 (0.66-1.25) mg/dL Glucose 73 L (74-99) mg/dL Calcium 7.7 L (8.4-10.2) mg/dL AST 20 (17-59) U/L ALT 12 L (21-72) U/L Alkaline Phosphatase 61 (38-126) U/L Total Protein 4.8 L (6.3-8.2) g/dL Albumin 2.7 L (3.5-5.0) g/dL Calcium panel 12/30/18 Range/Units 02:23 Calcium 7.7 L (8.4-10.2) mg/dL Albumin 2.7 L (3.5-5.0) g/dL Pituitary panel 12/30/18 Range/Units 02:23 Sodium 142 (137-145) mmol/L Potassium 3.7 (3.5-5.1) mmol/L Chloride 113 H (98-107) mmol/L Carbon Dioxide 22 (22-30) mmol/L BUN 30 H (9-20) mg/dL Creatinine 0.87 (0.66-1.25) mg/dL Glucose 73 L (74-99) mg/dL Calcium 7.7 L (8.4-10.2) mg/dL Adrenal panel 12/30/18 Range/Units 02:23 Sodium 142 (137-145) mmol/L Potassium 3.7 (3.5-5.1) mmol/L Chloride 113 H (98-107) mmol/L Carbon Dioxide 22 (22-30) mmol/L BUN 30 H (9-20) mg/dL Creatinine 0.87 (0.66-1.25) mg/dL Glucose 73 L (74-99) mg/dL Calcium 7.7 L (8.4-10.2) mg/dL Total Bilirubin 3.1 H (0.2-1.3) mg/dL AST 20 (17-59) U/L ALT 12 L (21-72) U/L Alkaline Phosphatase 61 (38-126) U/L Total Protein 4.8 L (6.3-8.2) g/dL Albumin 2.7 L (3.5-5.0) g/dL
--- NOTE | 2018-12-30 16:03 | P.CONS ---
History of Present Illness - Chief Complaint Medical debility - History of Present Illness I had the opportunity to see patient for inpatient rehab consultation with regard to medical debility. He is admitted to [facility] December 28 with abdominal discomfort and black tarry stools. Seen by Dr. Claudette Muse who performed EGD with biopsy. Chest x-ray chronic change. CT abdomen demonstrates mild colitis. PT reports gait 100 feet with roller walker, minimal assist and balance poor. OT reports supervision for upper dressing and minimal assistance for lower dressing, bathing, toileting and transfers. Previous functional history as elicited from patient: 78-year-old right-handed white male who is lives in basement apartment alone. Retired. Describes independent with own cooking, laundry, driving, standing shower and gait without device. Dr. Tim and chrsita duque regular doctor. Denies tobacco or alcohol. Family history both parents with heart disease. Review of Systems Review of systems: ENT: Denies sneezes or discharge. Eyes: Denies discharge or photophobia. Cardiac: Denies chest pain or palpitation. Pulmonary: Denies cough or shortness of breath. Gastrointestinal: Denies abdominal symptoms. Genitourinary: Denies discharge or frequency. Musculoskeletal: Denies muscle or bone aches. Neurologic: Generalized weakness. Endocrine: Denies shakes or sweats. Oncology: Denies cancers. Dermatologic: Denies rash, itching, pruritus. ALLERGY/immunology: Denies sneezes, rashes. Past Medical History Past Medical History: Coronary Artery Disease (CAD), Chest Pain / Angina, Hyperlipidemia, Hypertension, Myocardial Infarction ([place]), Osteoarthritis (OA) Additional Past Medical History / Comment(s): [place] X2,monitoring a spot rt kidney, parkinsons Last Myocardial Infarction Date:: 1992 History of Any Multi-Drug Resistant Organisms: None Reported Past Surgical History: Appendectomy, Coronary Bypass/CABG, Heart Catheteriza tion, Heart Catheterization With Stent, Orthopedic Surgery Additional Past Surgical History / Comment(s): RT KNEE ARTHROSCOPY, HEMORRHOIDECTOMY, rotator cuff surg., quad. bypass 1992, cataract surg, heart stents x3 Past Anesthesia/Blood Transfusion Reactions: Motion Sickness Date of Last Stent Placement:: July 2014 Past Psychological History: Anxiety, Depression Smoking Status: Never smoker Past Alcohol Use History: None Reported Past Drug Use History: None Reported - Past Family History Brother(s) Additional Family Medical History / Comment(s): TWO BROTHERS HAD OPEN HEART Sister(s) Additional Family Medical History / Comment(s): 2 SISTERS HAD OPEN HEARTS Medications and Allergies Home Medications Medication Instructions Recorded Confirmed Type Ergocalciferol [Vitamin D2 50,000 unit PO MO 07/18/14 12/28/18 History (DRISDOL)] Clopidogrel [Plavix] 75 mg PO DAILY #90 tab 07/20/14 12/28/18 Rx Atorvastatin [Lipitor] 40 mg PO HS #60 tab 08/17/14 12/28/18 Rx Aspirin 81 mg PO DAILY 08/01/16 12/28/18 History Carbidopa-Levodopa 10-100 mg 1 tab PO BID 11/11/17 12/28/18 History [Sinemet 10-100] Losartan Potassium 50 mg PO HS 11/11/17 12/28/18 History Metoprolol Tartrate [Lopressor] 50 mg PO BID 12/28/18 12/28/18 History Rasagiline Mesylate 0.5 mg PO BID 12/28/18 12/28/18 History Allergies Allergy/AdvReac Type Severity Reaction Status Date / Time latex Allergy Dyspnea Verified 12/28/18 03:19 Physical Exam Vitals: Vital Signs Temp Pulse Pulse Resp BP Pulse Ox 12/30/18 11:27 97.5 F L 72 18 128/80 99 12/30/18 07:56 18 12/30/18 05:00 97.6 F 60 18 114/75 96 12/29/18 21:00 97.9 F 79 16 123/75 95 12/29/18 16:32 16 Intake and Output 12/30/18 12/30/18 12/30/18 06:59 14:59 22:59 Intake Total 1120 1750 Output Total 900 Balance 1120 850 Intake: Intake, IV Titration 1000 950 Amount Sodium Chloride 0.9% 1, 1000 950 000 ml @ 50 mls/hr IV . Q20H [facility] Rx#:[id number] Oral 120 800 Output: Urine 900 Other: Voiding Method Urinal Urinal Incontinent # Voids 1 1 Skin: Atrophic, intact. General: Medium build and comfortable appearance. Head: Normocephalic, atraumatic. Eyes: Symmetric. Pupils equal round. Ears: Symmetric. Hearing within normal limits. Mouth: Clear. Neck: Supple. Carotid without bruit. Cardiac: Regular rate and rhythm. Lungs: Clear anteriorly and posteriorly. Abdomen: Soft active nontender. Extremities: Normal tone. Neurological: Mental status: Alert, cooperative, pleasant. Cranial nerves: Symmetric facial tone and trapezius. Motor: Can actively elevate all 4 limbs. Sensation: Intact throughout. DTRs: Symmetric and equal throughout. Mobility: Bed mobility with physical assist. Results CBC & Chem 7: 12/30/18 02:23 12/30/18 02:23 Labs: Abnormal Lab Results - Last 24 Hours (Table) 12/29/18 12/29/18 12/30/18 Range/Units 14:45 19:04 02:23 WBC 11.7 H (3.8-10.6) k/uL RBC 3.68 L 3.42 L (4.30-5.90) m/uL Hgb 11.6 L 10.6 L (13.0-17.5) gm/dL Hct 33.8 L 31.1 L (39.0-53.0) % Plt Count 141 L (150-450) k/uL Chloride (98-107) mmol/L BUN (9-20) mg/dL Glucose (74-99) mg/dL Calcium (8.4-10.2) mg/dL Total Bilirubin (0.2-1.3) mg/dL ALT (21-72) U/L Total Protein (6.3-8.2) g/dL Albumin (3.5-5.0) g/dL Urine Ketones 1+ H (Negative) 12/30/18 Range/Units 02:23 WBC (3.8-10.6) k/uL RBC (4.30-5.90) m/uL Hgb (13.0-17.5) gm/dL Hct (39.0-53.0) % Plt Count (150-450) k/uL Chloride 113 H (98-107) mmol/L BUN 30 H (9-20) mg/dL Glucose 73 L (74-99) mg/dL Calcium 7.7 L (8.4-10.2) mg/dL Total Bilirubin 3.1 H (0.2-1.3) mg/dL ALT 12 L (21-72) U/L Total Protein 4.8 L (6.3-8.2) g/dL Albumin 2.7 L (3.5-5.0) g/dL Urine Ketones (Negative) Assessment and Plan (1) GI bleeding Current Visit: Yes Status: Acute Code(s): K92.2 - GASTROINTESTINAL HEMO RRHAGE, UNSPECIFIED SNOMED Code(s): 11353362 Plan: Impression: 1. Medical debility. 2. GI bleed. 3. Coronary disease with history of angina and PA. 4. Hypertension. 5. Chronic back pain. 6. Dyslipidemia. 7. Osteoarthritis. Comments and plan: At this time PT and OT are ongoing. Safety concerns noted and note patient lives alone. Discussed possible inpatient rehab with patient.
--- NOTE | 2018-12-30 18:12 | PN ---
PROGRESS NOTE DATE OF DICTATION: December 30, 2018 The patient is an 78-year-old pleasant white male admitted to the hospital with black tarry stools of 2 days duration. He underwent an upper endoscopy by me yesterday that showed evidence of erosive gastritis but no evidence of active bleeding. On review of his records, he had a colonoscopy done by Dr. Mccullough in July 2016 that showed diverticulosis and small internal hemorrhoids. In the meantime, patient states that he is feeling much better. No abdominal pain. No nausea, vomiting. No further episodes of melena. In face, he did not have any bowel movements all day today. PHYSICAL EXAMINATION: Appears comfortable in no apparent distress. VITAL SIGNS: Stable. Blood pressure 128/80, pulse rate 72, temperature 97.5. HEENT examination unremarkable. Conjunctivae pink. Sclerae anicteric. Oral cavity no lesions. NECK: No JVD or lymph node enlargement. CHEST: Clear to auscultation. HEART: Regular rate and rhythm. ABDOMEN: Soft, it was nontender, nondistended. Bowel sounds are positive. No organomegaly. EXTREMITIES: Slight tremor noted. NEUROLOGIC: Alert and oriented x3. No focal deficits. LABS: From today WBC 9.3, hemoglobin 10.6, platelets 141. BUN is 30, creatinine 0.87, T- bilirubin is 3.1. AST and ALT are [address] of the abdomen and pelvis done in the emergency room showed mild distal colitis. IMPRESSION: 1. This is a patient admitted to the hospital with black tarry stools of 2 days duration. Hemoglobin dropped from 12.8-11.9 g/dL. Upper endoscopy done yesterday showed antral erosive gastritis but no active bleeding. The patient is doing well. No further episodes of bleeding. Melena has resolved. As mentioned above, colonoscopy by Dr. Mccullough in July 2016 showed diverticulosis and small internal hemorrhoids. 2. Parkinson disease. 3. History of coronary artery disease status post stent placements on aspirin and Plavix which is currently on hold. RECOMMENDATIONS: 1. Advance diet as tolerated. 2. I had a lengthy discussion with the patient regarding further workup of the anemia and black tarry stools. I recommended a small bowel capsule endoscopy and/or colonoscopy. The patient at this time, wants to wait. 3. In fact, as his symptoms are much better, he wants to go home and follow up on an outpatient basis and this can be considered if he has ongoing symptoms. 4. I agree with the plan. 5. Aspirin and Plavix can be resumed tomorrow. 6. We will follow him closely during his hospital stay. Thank you for this consultation. VIVI / SLADE: [id number] /
[2018-12-30] MEDS: ATORVASTATIN 40 MG TAB PO SCH (20:10)
[2018-12-30] MEDS: LOSARTAN 50 MG TAB PO SCH (20:11)
[2018-12-30] MEDS: ALPRAZolam 0.5 MG TAB PO PRN (21:38)
[2018-12-31] MEDS: METOPROLOL TARTRATE 25 MG TAB PO SCH (07:40)
[2018-12-31] MEDS: PANTOPRAZOLE 40 MG/10 ML VIAL IV SCH (07:40)
[2018-12-31] MEDS: CARBIDOPA-LEVODOPA 10-100 MG 1 EACH TAB PO SCH (07:41)
[2018-12-31 08:27] LABS: Basophils % (A) 1 %; Eosinophils # (A) 0.2 k/uL (0-0.7); Eosinophils % (A) 3 %; HCT 30.1 % (39.0-53.0); HGB 10.2 gm/dL (13.0-17.5); Lymphocytes # (A) 1.2 k/uL (1.0-4.8); Lymphocytes % (A) 17 %; MCH 31.3 pg (25.0-35.0); MCHC 33.8 g/dL (31.0-37.0); MCV 92.4 fL (80.0-100.0); Mean Platelet Volume 7.3; Monocytes # (A) 0.4 k/uL (0-1.0); Monocytes % (A) 6 %; Neutrophils % (A) 73 %; Platelet Count 188 k/uL (150-450); RBC 3.26 m/uL (4.30-5.90); RDW 15.4 % (11.5-15.5); WBC 6.9 k/uL (3.8-10.6)
[2018-12-31 08:31] LABS: ALT 19 U/L (21-72); AST 24 U/L (17-59); African American GFR (CKD) >90 (>60 ml/min/1.73 sqM); Albumin 2.7 g/dL (3.5-5.0); Alkaline Phosphatase 74 U/L (38-126); Anion Gap 6 mmol/L; Blood Urea Nitrogen 18 mg/dL (9-20); Calcium 7.8 mg/dL (8.4-10.2); Carbon Dioxide 25 mmol/L (22-30); Chloride 110 mmol/L (98-107); Glucose 92 mg/dL (74-99); Potassium 3.6 mmol/L (3.5-5.1); Sodium 141 mmol/L (137-145); Total Bilirubin 1.6 mg/dL (0.2-1.3)
--- NOTE | 2018-12-31 09:30 | US ---
EXAMINATION TYPE: US gallbladder DATE OF EXAM: 12/31/2018 COMPARISON: NONE CLINICAL HISTORY: epigastric pain. EXAM MEASUREMENTS: Liver Length: 15.4 cm Gallbladder Wall: 0.3 cm which is at the upper limits for normal. CBD: 0.3 cm Right Kidney: 10.2 x 4.2 x 4.5 cm Pancreas: partially obscured by bowel gas Liver: wnl, as seen somewhat limited visualization Gallbladder: wnl Evidence for sonographic Talley's sign: no CBD: wnl Right Kidney: No hydronephrosis or masses seen IMPRESSION: 1. Visualized portions the right upper quadrant ultrasound appear within normal limits.
--- NOTE | 2018-12-31 11:35 | P.PN ---
<Mariza Esposito - Last Filed: 12/31/18 11:31> Subjective Progress Note Date: 12/31/18 CHIEF COMPLAINT: Abdominal pain HISTORY OF PRESENT ILLNESS: Patient examined this morning at the bedside. Patient denies any further episodes of abdominal pain. He denies nausea or vomiting. Tolerating diet. Denies further rectal bleeding. Gallbladder ultrasound showed gallbladder wall measuring 0.3 cm which is as upper limits for normal but was otherwise unremarkable. Hemoglobin 10.2. PHYSICAL EXAM: VITAL SIGNS: Reviewed. GENERAL: Well-developed in no acute distress. HEENT: No sclera icterus. Extraocular movements grossly intact. Moist buccal mucosa. Head is atraumatic, normocephalic. ABDOMEN: Soft. Nondistended. Nontender. Positive bowel sounds. NEUROLOGIC: Alert and oriented. Cranial nerves II through XII grossly intact. ASSESSMENT: 1. Melena, s/p EGD 2. Epigastric pain 3. Abnormal CT scan revealing mild colitis 4. Family history of gallbladder disease PLAN: 1. Continue diet as tolerated. GI services following. Monitor hemoglobin 2. No surgical intervention recommended at this time 3. Stable for discharge from a surgical standpoint Nurse practitioner note has been reviewed by physician. Signing provider agrees with the documented findings, assessment, and plan of care. Objective - Vital Signs Vital signs: Vital Signs Temp 97.6 F 12/31/18 05:00 Pulse 64 12/31/18 05:00 Resp 16 12/31/18 07:15 BP 118/70 12/31/18 05:00 Pulse Ox 99 12/31/18 05:00 Intake & Output 12/30/18 12/31/18 12/31/18 18:59 06:59 18:59 Intake Total 1750 1200 Output Total 900 Balance 850 1200 Intake: Intake, IV Titration 950 600 Amount Sodium Chloride 0.9% 1, 950 600 000 ml @ 50 mls/hr IV . Q20H [facility] Rx#:[id number] Oral 800 600 Output: Urine 900 Other: Voiding Method Urinal Urinal Urinal Incontinent # Voids 1 3 - Labs CBC & Chem 7: 12/31/18 07:39 12/31/18 07:39 Labs: Abnormal Lab Results - Last 24 Hours (Table) 12/31/18 12/31/18 Range/Units 07:39 07:39 RBC 3.26 L (4.30-5.90) m/uL Hgb 10.2 L (13.0-17.5) gm/dL Hct 30.1 L (39.0-53.0) % Chloride 110 H (98-107) mmol/L Calcium 7.8 L (8.4-10.2) mg/dL Total Bilirubin 1.6 H (0.2-1.3) mg/dL ALT 19 L (21-72) U/L Total Protein 5.0 L (6.3-8.2) g/dL Albumin 2.7 L (3.5-5.0) g/dL <Channing Gibbons - Last Filed: 12/31/18 17:48> Subjective As above. Patient doing well today. Ultrasound without gallstones. Stable for discharge. Defer management of hyperbilirubinemia to GI. Objective - Vital Signs Vital signs: Vital Signs Temp 97.7 F 12/31/18 13:04 Pulse 74 12/31/18 13:04 Resp 18 12/31/18 13:04 BP 114/64 12/31/18 13:04 Pulse Ox 99 12/31/18 13:04 Intake & Output 12/30/18 12/31/18 12/31/18 18:59 06:59 18:59 Intake Total 1750 1200 1450 Output Total 900 950 Balance 850 1200 500 Intake: Intake, IV Titration 950 600 500 Amount Sodium Chloride 0.9% 1, 950 600 500 000 ml @ 50 mls/hr IV . Q20H [facility] Rx#:[id number] Oral 800 600 950 Output: Urine 900 950 Other: Voiding Method Urinal Urinal Urinal Incontinent # Voids 1 3 - Labs CBC & Chem 7: 12/31/18 07:39 12/31/18 07:39 Labs: Abnormal Lab Results - Last 24 Hours (Table) 12/31/18 12/31/18 Range/Units 07:39 07:39 RBC 3.26 L (4.30-5.90) m/uL Hgb 10.2 L (13.0-17.5) gm/dL Hct 30.1 L (39.0-53.0) % Chloride 110 H (98-107) mmol/L Calcium 7.8 L (8.4-10.2) mg/dL Total Bilirubin 1.6 H (0.2-1.3) mg/dL ALT 19 L (21-72) U/L Total Protein 5.0 L (6.3-8.2) g/dL Albumin 2.7 L (3.5-5.0) g/dL
[2018-12-31 13:05] VITALS: BP 114/64; PULSE 74; RESP 18; TEMP 97.7
--- NOTE | 2018-12-31 14:07 | P.DS ---
Providers Date of admission: 12/30/18 15:38 Expected date of discharge: 12/31/18 Attending physician: Glory Almaguer Consults: 12/28/18 03:54 Consult Physician Urgent Consulting Provider: Viktoriya Muse Consult Reason/Comments: melena Do you want consulting provider notified?: Yes, Notify in am 12/29/18 15:41 Consult Physician Routine Consulting Provider: Channing Gibbons Consult Reason/Comments: abdominal pain Do you want consulting provider notified?: Yes 12/30/18 12:41 Consult Physician Routine Consulting Provider: Ferdinand Hanna Consult Reason/Comments: weakness Do you want consulting provider notified?: Yes Primary care physician: Aidan Diego [facility] Course: Discharge diagnosis #1 black tarry stool, possible upper gastrointestinal bleeding, patient started on IV proton X he was admitted to medical floor with serial checks on CBC gastroenterology consultation was requested for possible EGD. At this point will hold aspirin and Plavix. Plans for EGD per surgical services today. Hemoglobin 10.6. EGD completed showing scattered antral erosions but no active upper GI bleeding. No evidence of esophagitis or peptic ulcer disease. Per GI services patient had colonoscopy in July 2016 which showed diverticulosis and multiple internal hemorrhoids. Diet to be advanced as tolerated patient continues to have black tarry stools consider small bowel capsule endoscopic to investigate further. Patient did have one episode of dark tarry stool. Per nursing staff per GI services patient has been cleared out patient to follow-up with Dr. Bojorquez outpatient for further management. Patient will be DC'd on Protonix. Hemoglobin remained stable at 10.2 #2 underlying history of coronary artery disease stable patient denies any chest pain at this time, EKG done in the emergency room reveals incomplete right bundle branch block without any ischemic changes. #3 shortness of breath, likely related to anxiety, O2 sat duration is 99% on room air, will check chest x-ray as it was not done in the emergency room will monitor closely continue telemetry. Repeat chest x-ray completed showing chronic changes without acute pulmonary process no change from prior #4 underlying history of hypertension well-controlled on medications #5 underlying history of hyperlipidemia #6 underlying history of Parkinson disease continue Sinemet #7 abdominal pain with mild leukocytosis white blood count went up to 13.3. Computed tomography scan of abdomen completed showing prepped Mild distal colitis. Correlate clinically. Otherwise no suspicious new or acute finding seen to account for patient's symptoms. White blood cell improving to 11.7. Amylase and lipase within normal limits. Gallbladder ultrasound completed showing visualized portions of the right upper quadrant ultrasound appear within normal limits gallbladder within normal limits. Patient cleared for discharge from surgical standpoint no intervention recommended. #8 dehydration was elevated BUN at 82 Will monitor closely. Bun improving to 56 Hospital course Gerhard Maya is an 78-year-old male who presented to [facility] emergency room with a chief complaint of generalized weakness and lightheadedness and episodes of black tarry stool for the last 3 days, he was evaluated in the emergency room stools Hemoccult was positive, hemoglobin was 14.1 white blood count was slightly elevated at 11.0 patient was admitted to medical floor gastroenterology consultation was requested for evaluation of possible upper gastrointestinal bleeding. Over the next few hours patient was complaining of worsening anxiety and some shortness of breath even though his oxygen saturation was 99% on room air, repeat CBC revealed a hemoglobin of 13.9 and a white blood count of 13.3 patient was complaining of generalized abdominal pain at that point computed tomography scan of the abdomen and pelvis was ordered and a chest x-ray was ordered. Patient stated that he had an EGD about 2 years ago. He has a known history of Parkinson disease, and a known history of coronary artery disease with myocardial infarction and history of h ypertension, hyperlipidemia, and osteoarthritis. On 12/29/2018 patient is alert and oriented 3. Patient is resting comfortably in bed. Planning EGD today per GI services. At this time patient denies abdominal pain. Per nursing staff patient had 1 dark tarry stool last night. Patient denies any nausea or vomiting. Patient denies chest pain or shortness of breath. Patient denies any urinary burning or frequency On 12/30/2018 patient's alert and oriented 3. Patient had episode of abdominal pain post EGD yesterday. EGD was completed per GI services showing scattered antral erosions but no active upper GI bleeding no evidence of esophagitis or peptic ulcer disease. Dr. Gibbons was consulted for surgical imput. Amylase and lipase within normal limits. White blood cell has normalized. At this time patient is resting comfortably in bed. Patient denies any chest pain or shortness of breath. Abdominal pain has subsided. Per nursing staff patient has not had any bowel movements. Social work consulted for possible ECF placement 12/31/2018 patient's alert and oriented 3. Patient did have ultrasound of gallbladder which showed gallbladder within normal limits. She denies any abdominal pain. Per nursing staff patient had small episode of dark tarry stool. This was discussed with GI team per nursing staff no further intervention inpatient at this time. Patient follow-up outpatient for further management. Hemoglobin stable at 10.2. At this time patient denies chest pain or shortness of breath. Patient denies nausea vomiting or diarrhea. Patient denies any urinary burning or frequency. Patient has been tolerating diet. Patient will be discharged to [facility] patient is agreeable at this time. Discussed with older adult social work specialist patient does not meet criteria for inpatient rehab for medical purposes. I performed an examination of the patient and discussed their management with the Nurse Practitioner. I have reviewed the Nurse Practitioner's notes and ag ree with the documented findings and plan of care Patient Condition at Discharge: Stable Plan - Discharge Summary Discharge Rx Participant: Yes New Discharge Prescriptions: New Metoprolol Tartrate [Lopressor] 25 mg PO BID tab Pantoprazole [Protonix] 40 mg PO DAILY tablet. ALPRAZolam [Xanax] 0.5 mg PO BID #14 tab Continue Ergocalciferol [Vitamin D2 (DRISDOL)] 50,000 unit PO MO Atorvastatin [Lipitor] 40 mg PO HS #60 tab Aspirin 81 mg PO DAILY Carbidopa-Levodopa 10-100 mg [Sinemet 10-100 mg] 1 tab PO BID Losartan Potassium 50 mg PO HS Rasagiline Mesylate 0.5 mg PO BID Discontinued Clopidogrel [Plavix] 75 mg PO DAILY #90 tab Metoprolol Tartrate [Lopressor] 50 mg PO BID Discharge Medication List Ergocalciferol [Vitamin D2 (DRISDOL)] 50,000 unit PO MO 07/18/14 [History] Atorvastatin [Lipitor] 40 mg PO HS #60 tab 08/17/14 [Rx] Aspirin 81 mg PO DAILY 08/01/16 [History] Carbidopa-Levodopa 10-100 mg [Sinemet 10-100 mg] 1 tab PO BID 11/11/17 [History] Losartan Potassium 50 mg PO HS 11/11/17 [History] Rasagiline Mesylate 0.5 mg PO BID 12/28/18 [History] ALPRAZolam [Xanax] 0.5 mg PO BID #14 tab 12/31/18 [Rx] Metoprolol Tartrate [Lopressor] 25 mg PO BID tab 12/31/18 [Rx] Pantoprazole [Protonix] 40 mg PO DAILY tablet. 12/31/18 [Rx] Follow up Appointment(s)/Referral(s): Aidan Tim MD [Primary Care Provider] - 1-2 days Viktoryia Muse MD [STAFF PHYSICIAN] - 1 Week Activity/Diet/Wound Care/Special Instructions: Activity as tolerated Diet heart healthy Discharge Disposition: TRANSFER TO SNF/ECF
--- NOTE | 2018-12-31 17:37 | PN ---
PROGRESS NOTE DATE OF DICTATION: 12/31/2018 Patient is an 78-year-old pleasant white male admitted to the hospital with black tarry stools of 2 days' duration. He had an upper endoscopy done by me which showed some erosive gastritis. Subsequently he continued to have intermittent black tarry stools. I recommended further workup which would include a colonoscopy/small bowel capsule endoscopy. The patient wanted to hold off, since he had a colonoscopy [address] Mccullough which showed some diverticulosis and internal hemorrhoids. The patient was doing well yesterday; however, this morning he had another episode of dark-colored stool, small amount. He denies any abdominal pain, reports no nausea, vomiting. Aspirin and Plavix were started yesterday, but they have been on hold since this morning because of the black stool. He is doing well. PHYSICAL EXAMINATION: He appears comfortable. No apparent distress. VITAL SIGNS: Stable. Blood pressure is 118/70, pulse rate 64, temperature 97.6. HEENT examination unremarkable. Conjunctivae pink. Sclerae anicteric. Oral cavity no lesions. NECK: No JVD or lymph node enlargement. CHEST: Clear to auscultation. HEART: Regular rate and rhythm. ABDOMEN: Soft. Bowel sounds are positive. No organomegaly. EXTREMITIES: Slight tremor from Parkinson's disease. NEUROLOGIC: Alert and oriented x3. No focal deficits. LABS: WBC 6.9, hemoglobin 10.2, platelets 188. Basic metabolic panel is within normal limits. Bilirubin is 1.6. ALT and AST are 24 and 19, respectively. IMPRESSION: 1. Black tarry stools of 2 days' duration. EGD done 2 days ago showed evidence of antral erosive gastritis but no active bleeding. Hemoglobin dropped from 11.8 to 10.2 g/dL. He has been having intermittent black tarry stools on and off since admission. Last colonoscopy [address] Mccullough showed diverticulosis and small internal hemorrhoids. At present he is hemodynamically stable. 2. History of Parkinson's disease. 3. Coronary artery disease, status post angioplasty 2 years ago. At present he is on aspirin and Plavix, which are on hold. RECOMMENDATIONS: 1. Okay for patient to be transferred to the rehab unit. 2. CBC on a weekly basis. 3. If he continues to drop his hemoglobin on an outpatient basis, will consider further workup including a colonoscopy and small bowel capsule endoscopy. The patient is agreeable with this plan. Thank you for this consultation. MMODL / IJN: [id number] /
[2019-01-01] MEDS ORDERED: PANTOPRAZOLE 40 MG TABLET PO SCH (09:00)
--- NOTE | 2019-01-02 13:53 | CDI ---
Documentation Clarification Form Date: 01/02/19 From: Mariola Piper Phone: If you have a question regarding this query, please contact Kati Alfred at [phone] between 8am and 5pm. Admit Date: 12/30/2018 3:38:00 PM Patient Name: Gerhard Maya Visit Number: [id number] Discharge Date: 12/31/2018 3:25:00 PM ATTENTION: The Clinical Documentation Specialists (CDI) and [facility] Coding Staff appreciate your assistance in clarifying documentation. Please respond to the clarification below the line at the bottom and electronically sign. The CDI & [facility] Coding staff will review the response and follow-up if needed. Please note: Queries are made part of the Legal Health Record. If you have any questions, please contact the author of this message via ITS. Dr. Glory Almaguer The patient presented with melena. History/Risk Factors: History of PUD in the 1950s, gastric erosions found on the EGD Clinical Indicators: GI Bleed Lab findings: Stool occult blood positive Radiology findings: Prepped mild distal colitis. Correlate clinically. Otherwise no suspicious new or acute findsion seen to account for patient's symptoms. EGD: Scattered antral erosions but no active upper GI bleeding. 2. No evidence of esophagitis or peptic ulcer disease. Treatment: IV Protonix Consults: Dr. Muse documented that upper endoscopy showed evidence of erosive gastritis. In your professional opinion, do you agree that the patient had erosive gastritis? Yes (please specify acute, chronic, etc) No Other, please specify Unable to determine Yes MTDD
== END 2018-12-31 15:25 | DRG 378 ==
LOC: EC 03:12 → 3NMEDONC 03:55 → OBSVTOIN 12-30 15:38
PROVIDERS: ADMIT Internal Medicine; ATTEND Internal Medicine
PROC: 0DB78ZX Excision of Stomach, Pylorus, Via Natural or Artificial Opening Endoscopic, Diagnostic (ICD-10-PCS; principal; 2018-12-29 09:50)
DX: K29.71 Gastritis, unspecified, with bleeding (principal); R17 Unspecified jaundice; E86.0 Dehydration; G20 Parkinson's disease; I45.10 Unspecified right bundle-branch block; E78.5 Hyperlipidemia, unspecified; F32.9 Major depressive disorder, single episode, unspecified; F41.9 Anxiety disorder, unspecified; G89.29 Other chronic pain; I10 Essential (primary) hypertension; I25.10 Atherosclerotic heart disease of native coronary artery without angina pectoris; I25.2 Old myocardial infarction; K44.9 Diaphragmatic hernia without obstruction or gangrene; K52.9 Noninfective gastroenteritis and colitis, unspecified; K57.90 Diverticulosis of intestine, part unspecified, without perforation or abscess without bleeding; K64.8 Other hemorrhoids; M19.90 Unspecified osteoarthritis, unspecified site; M54.9 Dorsalgia, unspecified; R32 Unspecified urinary incontinence; Z79.02 Long term (current) use of antithrombotics/antiplatelets; Z79.82 Long term (current) use of aspirin; Z79.899 Other long term (current) drug therapy; Z95.1 Presence of aortocoronary bypass graft; Z95.5 Presence of coronary angioplasty implant and graft; Z91.040 Latex allergy status; Z90.49 Acquired absence of other specified parts of digestive tract; Z98.49 Cataract extraction status, unspecified eye; Z96.1 Presence of intraocular lens; Z87.11 Personal history of peptic ulcer disease; Z82.49 Family history of ischemic heart disease and other diseases of the circulatory system
CPT/HCPCS: 36415; 43239; 71046; 74176; 76705; 80053; 81003; 82150; 82272; 83690; 84484; 85025; 85027; 85730; 86850; 86900; 86901; 88305; 96361; 96374; 99285

== ENCOUNTER → 2019-02-19 | Outpatient (CLI) | payer MEDICARE ==
[2019-02-19 07:25] LABS: Basophils % (A) 1 %; Eosinophils # (A) 0.2 k/uL (0-0.7); Eosinophils % (A) 3 %; HCT 45.7 % (39.0-53.0); HGB 14.9 gm/dL (13.0-17.5); Lymphocytes # (A) 1.1 k/uL (1.0-4.8); Lymphocytes % (A) 18 %; MCH 30.4 pg (25.0-35.0); MCHC 32.7 g/dL (31.0-37.0); Mean Platelet Volume 5.8; Monocytes # (A) 0.4 k/uL (0-1.0); Monocytes % (A) 6 %; Neutrophils # (A) 4.2 k/uL (1.3-7.7); Neutrophils % (A) 70 %; Platelet Count 225 k/uL (150-450); RBC 4.92 m/uL (4.30-5.90); RDW 12.6 % (11.5-15.5)
[2019-02-19 07:26] LABS: Appearance,Urine Clear (Clear); Bilirubin,Urine Negative (Negative); Blood,Urine Negative (Negative); Color,Urine Yellow; Glucose,Urine (UA) Negative (Negative); Ketones,Urine Negative (Negative); Leukocyte Esterase,Urine Negative (Negative); Nitrite,Urine Negative (Negative); PH, Urine 5.5 (5.0-8.0); Protein,Urine Negative (Negative); Specific Gravity,Urine 1.015 (1.001-1.035); Urobilinogen,Urine <2.0 mg/dL (<2.0)
[2019-02-19 11:56] LABS: Albumin 4.6 g/dL (3.80-4.90); Magnesium 1.8 mg/dL (1.5-2.4); Phosphorus 3.1 mg/dL (2.4-5.1); Uric Acid 6.7 mg/dL (3.7-8.7)
[2019-02-19 12:04] LABS: Ferritin 74.4 ng/mL (22.0-322.0)
[2019-02-19 15:27] LABS: % Iron Saturation 19.12 (15.00-50.00); African American GFR (CKD) 65.8 (60.0-200.0); Anion Gap 10.3 mmol/L (4.00-12.00); BUN/Creat Ratio 19.17 Ratio (12.00-20.00); Calcium 9.2 mg/dL (8.7-10.3); Carbon Dioxide 23.7 mmol/L (21.6-31.8)
[2019-02-19 19:46] LABS: Creatinine,Urine Random 112.2 mg/dL
[2019-02-19 20:04] LABS: Total Protein,Urine Random 6.8 mg/dL (0.0-13.5)
== END | disposition home or self-care (01) ==
LOC: LABWHC1 06:42
PROVIDERS: ATTEND Internal Medicine Nephrology
DX: M10.9 Gout, unspecified (principal); D63.1 Anemia in chronic kidney disease; N18.2 Chronic kidney disease, stage 2 (mild); E55.9 Vitamin D deficiency, unspecified; N25.81 Secondary hyperparathyroidism of renal origin; R31.29 Other microscopic hematuria; R80.9 Proteinuria, unspecified
CPT/HCPCS: 36415; 80048; 81003; 82040; 82306; 82570; 82728; 83540; 83550; 83735; 83970; 84100; 84156; 84550; 85025

== ENCOUNTER → 2019-03-10 | Outpatient (CLI) | payer MEDICARE ==
--- NOTE | 2019-03-10 13:50 | US ---
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 Question lesi on on right kidney. TECHNIQUE: Multiple sonographic images of the kidneys and bladder are obtained. FINDINGS: EXAM MEASUREMENTS: Right Kidney: 10.3 x 3.8 x 3.3 cm Left Kidney: 11.2 x 5.5 x 4.4 cm Renal cortical thinning compatible with chronic medical renal disease. Right Kidney: No definite lesion seen on the present exam. No hydronephrosis. Left Kidney: No hydronephrosis. Bladder: Underdistention limits evaluation. Bilateral Jets seen: No IMPRESSION: 1. No hydronephrosis. 2. No discrete renal lesion is seen on the present exam. Even the known exophytic cyst from the left kidney is not clearly identified. If concern for underlying suspicious right kidney lesion, recommend a three-month follow-up contrast enhanced CT. 3. Underdistention of the bladder limits its evaluation.
== END | disposition home or self-care (01) ==
LOC: RADUSWWP 12:23
PROVIDERS: ATTEND Urology
DX: D41.01 Neoplasm of uncertain behavior of right kidney (principal)
CPT/HCPCS: 76770

== ENCOUNTER 2019-05-07 08:13 | Emergency (ER) | payer MEDICARE ==
[2019-05-07] MEDS ORDERED: MORPHINE SULFATE 4 MG/ML SYRINGE IV STA (08:39)
[2019-05-07] MEDS ORDERED: SODIUM CHLORIDE 0.9% 500 ML 500 ML IV STA (08:39)
[2019-05-07] MEDS ORDERED: fentaNYL (PF) 50 MCG/ML 2 ML AMP IVP STA (08:54)
[2019-05-07 09:07] LABS: Basophils % (A) 1 %; Eosinophils # (A) 0.2 k/uL (0-0.7); Eosinophils % (A) 4 %; HCT 46.3 % (39.0-53.0); HGB 15.4 gm/dL (13.0-17.5); Lymphocytes # (A) 0.9 k/uL (1.0-4.8); Lymphocytes % (A) 17 %; MCH 29.7 pg (25.0-35.0); MCHC 33.3 g/dL (31.0-37.0); MCV 89.1 fL (80.0-100.0); Mean Platelet Volume 7.1; Monocytes # (A) 0.3 k/uL (0-1.0); Monocytes % (A) 6 %; Neutrophils # (A) 3.9 k/uL (1.3-7.7); Neutrophils % (A) 72 %; Platelet Count 188 k/uL (150-450); RDW 13.2 % (11.5-15.5); WBC 5.5 k/uL (3.8-10.6)
[2019-05-07 09:18] LABS: ALT <6 U/L (4-49); AST 31 U/L (17-59); African American GFR (CKD) 61 (>60 ml/min/1.73 sqM); Albumin 4.4 g/dL (3.5-5.0); Alkaline Phosphatase 108 U/L (38-126); Anion Gap 9 mmol/L; Blood Urea Nitrogen 34 mg/dL (9-20); Calcium 9.4 mg/dL (8.4-10.2); Carbon Dioxide 28 mmol/L (22-30); Chloride 106 mmol/L (98-107); Glucose 90 mg/dL (74-99); Non-African American GFR(CKD) 53 (>60 ml/min/1.73 sqM); Potassium 4.5 mmol/L (3.5-5.1); Sodium 143 mmol/L (137-145); Total Bilirubin 1.3 mg/dL (0.2-1.3); Total Protein 7.4 g/dL (6.3-8.2)
[2019-05-07 09:22] LABS: INR 1.1 (<1.2); Prothrombin Time 11.4 sec (9.0-12.0)
[2019-05-07 09:37] LABS: Partial Thromboplastin Time 21.8 sec (22.0-30.0)
--- NOTE | 2019-05-07 10:14 | CT ---
EXAMINATION TYPE: CT abdomen pelvis w con DATE OF EXAM: 05/07/2019 COMPARISON: 12/28/2018 HISTORY: Abdominal pain CT DLP: 1040.8 mGycm CONTRAST: CT scan of the abdomen and pelvis is performed without Oral Contrast and with IV Contrast, patient in jected with 100 ml mL of Isovue 300. FINDINGS: LUNG BASES-: No visible nodule. No infiltrate. LIVER/GB: No calcified gallstones. No space occupying hepatic lesion. Biliary tree is of normal ca liber. PANCREAS: No inflammation. No distinct mass. SPLEEN: No splenic enlargement. No lesion seen. ADRENALS: No nodule. No thickening. KIDNEYS/BLADDER: No hydronephrosis. No nephrolithiasis. No distinct renal mass. Urinary bladder g rossly unremarkable. BOWEL: Normal appendix. Normal bowel caliber. No inflammation. GENITAL ORGANS: The prostate gland is enlarged. LYMPH NODES: No greater than 1cm abdominal or pelvic lymph nodes are appreciated. AORTA: No significant abnormality. OSSEOUS STRUCTURES: Moderate degenerative disc space narrowing and spondylosis lumbar spine. OTHER: No significant additional abnormality is seen. IMPRESSION: 1. No evidence for acute intra-abdominal process.
[2019-05-07 11:17] LABS: Appearance,Urine Clear (Clear); Bilirubin,Urine Negative (Negative); Blood,Urine Negative (Negative); Color,Urine Yellow; Glucose,Urine (UA) Negative (Negative); Ketones,Urine Negative (Negative); Leukocyte Esterase,Urine Negative (Negative); Nitrite,Urine Negative (Negative); PH, Urine 6.5 (5.0-8.0); Protein,Urine Negative (Negative); Specific Gravity,Urine 1.038 (1.001-1.035); Urobilinogen,Urine <2.0 mg/dL (<2.0)
--- NOTE | 2019-05-07 11:50 | ED ---
Abdominal Pain HPI - General Chief Complaint: Abdominal Pain Stated Complaint: rt sided abd pain Source: patient Mode of arrival: wheelchair Limitations: no limitations - History of Present Illness Initial Comments: The patient is an 78-year-old male with past history of coronary artery disease, hypertension and hyperlipidemia who presents to the emergency room with reported right lower quadrant abdominal pain. He states the pain has been present for approximately 3 weeks. He describes it as a cramping sensation without radiation. He states it is worse with movement and palpation. It is better with rest. He denies a bulge in the area. Denies any abdominal trauma. No pain radiating into his leg. Denies any back or flank pain. No changes in his urination to include dysuria, hematuria. Voiding. Denies any changes in his bowel movements include diarrhea, constipation, melanotic stools or hematochezia. Denies any penile drainage. No saddle anesthesia or bowel or bladder incontinence. No fevers or chills. Denies any chest pain or shortness of breath. He has not been evaluated by his primary care physician for this. States that he did take Tylenol once for the pain however it didn't improve his symptoms. He denies any alleviating, precipitating monitoring factors - Related Data Home Medications Medication Instructions Recorded Confirmed Ergocalciferol [Vitamin D2 50,000 unit PO MO 07/18/14 05/07/19 ([facility])] Carbidopa-Levodopa 10-100 mg 1 tab PO BID 11/11/17 05/07/19 [Sinemet 10-100 mg] Rasagiline Mesylate 0.5 mg PO BID 12/28/18 05/07/19 Olmesartan [Benicar] 20 mg PO HS 05/07/19 05/07/19 Primidone [Mysoline] 25 mg PO DAILY 05/07/19 05/07/19 Previous Rx's Medication Instructions Recorded Atorvastatin [Lipitor] 40 mg PO HS #60 tab 08/17/14 Metoprolol Tartrate [Lopressor] 25 mg PO BID tab 12/31/18 Pantoprazole [Protonix] 40 mg PO DAILY tablet. 12/31/18 Acetaminophen-Codeine 300-30mg 1 tab PO Q6HR PRN #12 tablet 05/07/19 [Tylenol #3] Lidocaine 5% Patch [Lidoderm] 1 patch TOPICAL DAILY #25 patch 05/07/19 Allergies Allergy/AdvReac Type Severity Reaction Status Date / Time latex Allergy Dyspnea Verified 05/07/19 11:19 Review of Systems ROS Statement: Those systems with pertinent positive or pertinent negative responses have been documented in the HPI. ROS Other: All systems not noted in ROS Statement are negative. Past Medical History Past Medical History: Coronary Artery Disease (CAD), Chest Pain / Angina, Hyperlipidemia, Hypertension, Myocardial Infarction ([place]), Osteoarthritis (OA) Additional Past Medical History / Comment(s): [place] X2,monitoring a spot rt kidney, parkinsons Last Myocardial Infarction Date:: 1992 History of Any Multi-Drug Resistant Organisms: None Reported Past Surgical History: Appendectomy, Coronary Bypass/CABG, Heart Catheterization, Heart Catheterization With Stent, Orthopedic Surgery Additional Past Surgical History / Comment(s): RT KNEE ARTHROSCOPY, HEMORRHOIDECTOMY, rotator cuff surg., quad. bypass 1992, cataract surg, heart stents x3 Past Anesthesia/Blood Transfusion Reactions: Motion Sickness Date of Last Stent Placement:: July 2014 Past Psychological History: Anxiety, Depression Smoking Status: Never smoker Past Alcohol Use History: None Reported Past Drug Use History: None Reported - Past Family History Brother(s) Additional Family Medical History / Comment(s): TWO BROTHERS HAD OPEN HEART Sister(s) Additional Family Medical History / Comment(s): 2 SISTERS HAD OPEN HEARTS General Exam Limitations: no limitations Course Vital Signs 05/07/19 05/07/19 08:14 12:55 Temperature 97.5 F L 98.6 F Pulse Rate 70 60 Respiratory 21 18 Rate Blood Pressure 152/82 149/79 O2 Sat by Pulse 100 98 Oximetry Medical Decision Making - Medical Decision Making Upon arrival the patient was placed into room 6. A thorough history and physical exam was performed. Peripheral IV was established. The patient was given 50 g of fentanyl. I did review commend completing laboratory studies as well as a CT of the patient's abdomen and pelvis. Physical exam does not demonstrate any hernias. CBC is unremarkable. Coagulation studies show a PTT of 21.8. CMP shows a creatinine of 1.2. This is the patient's baseline. Lactic acid is 1.1. Urinalysis shows no acute findings. I did send the patient over for a CT of his abdomen and pelvis which demonstrates no evidence for acute intra-abdominal process. I reevaluated the patient he admits to improvement in symptoms with the pain medication. I discuss the diagnosis, differential and treatment options. The patient's still continues to have some pain with bending. At this time the patient will be discharged home. He is requesting something stronger than Tylenol for pain. I will provide the patient with a short prescription for Tylenol 3's. He doesn't and opioids start talking form. He is instructed not to drive while taking his medication. I also provided patient with a Lidoderm patch. He'll be given a prescription for Lidoderm patches. I informed him that if they are too expensive that he she gets the equivalent that is [id number]. The patient was follow up with his primary care doctor in 2-4 days. Return to the emergency room for any new or worsening symptoms. Patient was in agreement treatment plan and he was discharged home in stable condition - Lab Data Result diagrams: 05/07/19 08:50 05/07/19 08:50 Lab Results 05/07/19 05/07/19 05/07/19 Range/Units 08:50 08:50 08:50 WBC 5.5 (3.8-10.6) k/uL RBC 5.20 (4.30-5.90) m/uL Hgb 15.4 (13.0-17.5) gm/dL Hct 46.3 (39.0-53.0) % MCV 89.1 (80.0-100.0) fL MCH 29.7 (25.0-35.0) pg MCHC 33.3 (31.0-37.0) g/dL RDW 13.2 (11.5-15.5) % Plt Count 188 (150-450) k/uL Neutrophils % 72 % Lymphocytes % 17 % Monocytes % 6 % Eosinophils % 4 % Basophils % 1 % Neutrophils # 3.9 (1.3-7.7) k/uL Lymphocytes # 0.9 L (1.0-4.8) k/uL Monocytes # 0.3 (0-1.0) k/uL Eosinophils # 0.2 (0-0.7) k/uL Basophils # 0.0 (0-0.2) k/uL PT (9.0-12.0) sec INR (<1.2) APTT (22.0-30.0) sec Sodium 143 (137-145) mmol/L Potassium 4.5 (3.5-5.1) mmol/L Chloride 106 (98-107) mmol/L Carbon Dioxide 28 (22-30) mmol/L Anion Gap 9 mmol/L BUN 34 H (9-20) mg/dL Creatinine 1.27 H (0.66-1.25) mg/dL Est GFR (CKD-EPI)AfAm 61 (>60 ml/min/1.73 sqM) Est GFR (CKD-EPI)NonAf 53 (>60 ml/min/1.73 sqM) Glucose 90 (74-99) mg/dL Plasma Lactic Acid [place] 1.1 (0.7-2.0) mmol/L Calcium 9.4 (8.4-10.2) mg/dL Total Bilirubin 1.3 (0.2-1.3) mg/dL AST 31 (17-59) U/L ALT <6 (4-49) U/L Alkaline Phosphatase 108 (38-126) U/L Total Protein 7.4 (6.3-8.2) g/dL Albumin 4.4 (3.5-5.0) g/dL Lipase 193 (23-300) U/L Urine Color Urine Appearance (Clear) Urine pH (5.0-8.0) Ur Specific [place] (1.001-1.035) Urine Protein (Negative) Urine Glucose (UA) (Negative) Urine Ketones (Negative) Urine Blood (Negative) Urine Nitrite (Negative) Urine Bilirubin (Negative) Urine Urobilinogen (<2.0) mg/dL Ur Leukocyte Esterase (Negative) 05/07/19 05/07/19 Range/Units 08:50 11:00 WBC (3.8-10.6) k/uL RBC (4.30-5.90) m/uL Hgb (13.0-17.5) gm/dL Hct (39.0-53.0) % MCV (80.0-100.0) fL MCH (25.0-35.0) pg MCHC (31.0-37.0) g/dL RDW (11.5-15.5) % Plt Count (150-450) k/uL Neutrophils % % Lymphocytes % % Monocytes % % Eosinophils % % Basophils % % Neutrophils # (1.3-7.7) k/uL Lymphocytes # (1.0-4.8) k/uL Monocytes # (0-1.0) k/uL Eosinophils # (0-0.7) k/uL Basophils # (0-0.2) k/uL PT 11.4 (9.0-12.0) sec INR 1.1 (<1.2) APTT 21.8 L (22.0-30.0) sec Sodium (137-145) mmol/L Potassium (3.5-5.1) mmol/L Chloride (98-107) mmol/L Carbon Dioxide (22-30) mmol/L Anion Gap mmol/L BUN (9-20) mg/dL Creatinine (0.66-1.25) mg/dL Est GFR (CKD-EPI)AfAm (>60 ml/min/1.73 sqM) Est GFR (CKD-EPI)NonAf (>60 ml/min/1.73 sqM) Glucose (74-99) mg/dL Plasma Lactic Acid [place] (0.7-2.0) mmol/L Calcium (8.4-10.2) mg/dL Total Bilirubin (0.2-1.3) mg/dL AST (17-59) U/L ALT (4-49) U/L Alkaline Phosphatase (38-126) U/L Total Protein (6.3-8.2) g/dL Albumin (3.5-5.0) g/dL Lipase (23-300) U/L Urine Color Yellow Urine Appearance Clear (Clear) Urine pH 6.5 (5.0-8.0) Ur Specific [place] 1.038 H (1.001-1.035) Urine Protein Negative (Negative) Urine Glucose (UA) Negative (Negative) Urine Ketones Negative (Negative) Urine Blood Negative (Negative) Urine Nitrite Negative (Negative) Urine Bilirubin Negative (Negative) Urine Urobilinogen <2.0 (<2.0) mg/dL Ur Leukocyte Esterase Negative (Negative) - EKG Data EKG Comments: EKG demonstrates a sinus rhythm with occasional PVCs. Rate of 62. MO interval 154. QRS 100. QTC of 438. Q waves in lead 3. No acute ST segment elevations. Inverted T-wave in aVL Disposition Clinical Impression: Abdominal wall strain Disposition: HOME SELF-CARE Condition: Stable Instructions (If sedation given, give patient instructions): Abdominal Pain (ED) Additional Instructions: Please follow-up with your primary care doctor in 2-4 days. Return to the emergency room for any new or worsening symptoms. The Tylenol 3 will make you feel drowsy. Do not drive while taking them. Do not take any additional tylen ol while taking the tylenol 3s. Prescriptions: Lidocaine 5% Patch [Lidoderm] 1 patch TOPICAL DAILY #25 patch Acetaminophen-Codeine 300-30mg [Tylenol #3] 1 tab PO Q6HR PRN #12 tablet PRN Reason: pain Is patient prescribed a controlled substance at d/c from ED?: Yes When asked, does pt state using other controlled substances?: No If prescribed controlled substance>3 days was MAPS reviewed?: Prescribed <3 Days If opioid is for acute pain is fill amount 7 days or less?: Yes If Rx opioid, was Start Talking consent form obtained?: Yes Referrals: Aidan Tim MD [Primary Care Provider] - 1-2 days Time of Disposition: 12:26
[2019-05-07] MEDS ORDERED: KETOROLAC 30 MG/ML 1 ML VIAL IVP STA (12:21)
[2019-05-07] MEDS ORDERED: LIDOCAINE 5% PATCH TOPICAL SCH (12:30)
[2019-05-07 12:56] VITALS: BP 149/79; PULSE 60; RESP 18; TEMP 98.6
== END 2019-05-07 12:56 | disposition home or self-care (01) ==
LOC: EC 08:13
DX: S39.011A Strain of muscle, fascia and tendon of abdomen, initial encounter (principal); I25.119 Atherosclerotic heart disease of native coronary artery with unspecified angina pectoris; I10 Essential (primary) hypertension; I25.2 Old myocardial infarction; Z79.899 Other long term (current) drug therapy; Z91.040 Latex allergy status; Z95.1 Presence of aortocoronary bypass graft; Z95.5 Presence of coronary angioplasty implant and graft
CPT/HCPCS: 36415; 93005; 80053; 83605; 83690; 85025; 85610; 85730; 81003; 74177; 99284; 96374; J3010; Q9967

== ENCOUNTER 2019-10-29 09:21 | Emergency (ER) | payer MEDICARE ==
[2019-10-29 09:29] VITALS: TEMP 97.2
[2019-10-29] MEDS ORDERED: KETOROLAC 30 MG/ML 1 ML VIAL IVP STA (09:41)
[2019-10-29] MEDS ORDERED: SODIUM CHLORIDE 0.9% 1,000 ML IV STA ×2 (09:41)
[2019-10-29] MEDS ORDERED: MORPHINE SULFATE 4 MG/ML SYRINGE IV STA (09:41)
[2019-10-29] MEDS ORDERED: ONDANSETRON 4 MG/2 ML VIAL IVP STA (09:41)
[2019-10-29 09:59] LABS: Basophils % (A) 1 %; Eosinophils # (A) 0.1 k/uL (0-0.7); Eosinophils % (A) 2 %; HCT 47.2 % (39.0-53.0); Lymphocytes # (A) 0.9 k/uL (1.0-4.8); Lymphocytes % (A) 14 %; MCHC 31.7 g/dL (31.0-37.0); MCV 91.4 fL (80.0-100.0); Mean Platelet Volume 6.8; Monocytes # (A) 0.5 k/uL (0-1.0); Monocytes % (A) 8 %; Neutrophils # (A) 4.7 k/uL (1.3-7.7); Neutrophils % (A) 74 %; Platelet Count 208 k/uL (150-450); RBC 5.17 m/uL (4.30-5.90); RDW 12.6 % (11.5-15.5); WBC 6.3 k/uL (3.8-10.6)
--- NOTE | 2019-10-29 10:04 | ED ---
Abdominal Pain HPI - General Chief Complaint: Abdominal Pain Stated Complaint: Abd Pain Time Seen by Provider: 10/29/19 09:22 Source: patient, RN notes reviewed, old records reviewed Mode of arrival: EMS Limitations: no limitations - History of Present Illness Initial Comments: Patient is a 79-year-old male who presents emergency Department today with c omplaints of right-sided abdominal pain. Patient reports she's been having this intermittent pain for the past 6 months. He states he has been evaluated by his primary care doctor and was started on pain medication and inflammatory medication due to suspected muscle sprain. Patient deals with on. He reports he became severely worse last night into today. He denies any changes in stools or urination. He denies any chest pain, shortness of breath. He states that the pain seems to worse with certain movements. - Related Data Home Medications Medication Instructions Recorded Confirmed Ergocalciferol [Vitamin D2 50,000 unit PO MO 07/18/14 05/07/19 ([facility])] Carbidopa-Levodopa 10-100 mg 1 tab PO BID 11/11/17 05/07/19 [Sinemet 10-100 mg] Rasagiline Mesylate 0.5 mg PO BID 12/28/18 05/07/19 Olmesartan [Benicar] 20 mg PO HS 05/07/19 05/07/19 Primidone [Mysoline] 25 mg PO DAILY 05/07/19 05/07/19 Previous Rx's Medication Instructions Recorded Atorvastatin [Lipitor] 40 mg PO HS #60 tab 08/17/14 Metoprolol Tartrate [Lopressor] 25 mg PO BID tab 12/31/18 Pantoprazole [Protonix] 40 mg PO DAILY tablet. 12/31/18 Acetaminophen-Codeine 300-30mg 1 tab PO Q6HR PRN #12 tablet 05/07/19 [Tylenol #3] Lidocaine 5% Patch [Lidoderm] 1 patch TOPICAL DAILY #25 patch 05/07/19 HYDROcodone/APAP 5-325MG [[place] 1 tab PO Q6HR PRN #10 tab 10/29/19 5-325] Allergies Allergy/AdvReac Type Severity Reaction Status Date / Time latex Allergy Dyspnea Verified 10/29/19 09:29 Review of Systems ROS Statement: Those systems with pertinent positive or pertinent negative responses have been documented in the HPI. ROS Other: All systems not noted in ROS Statement are negative. Past Medical History Past Medical History: Coronary Artery Disease (CAD), Chest Pain / Angina, Hyperlipidemia, Hypertension, Myocardial Infarction ([place]), Osteoarthritis ([place]) Additional Past Medical History / Comment(s): [place] X2,monitoring a spot rt kidney, parkinsons Last Myocardial Infarction Date:: 1992 History of Any Multi-Drug Resistant Organisms: None Reported Past Surgical History: Appendectomy, Coronary Bypass/CABG, Heart Catheterization, Heart Catheterization With Stent, Orthopedic Surgery Additional Past Surgical History / Comment(s): RT KNEE ARTHROSCOPY, HEMORRHOIDECTOMY, rotator cuff surg., quad. bypass 1992, cataract surg, heart stents x3 Past Anesthesia/Blood Transfusion Reactions: Motion Sickness Date of Last Stent Placement:: July 2014 Past Psychological History: Anxiety, Depression Smoking Status: Never smoker Past Alcohol Use History: None Reported Past Drug Use History: None Reported - Past Family History Brother(s) Additional Family Medical History / Comment(s): TWO BROTHERS HAD OPEN HEART Sister(s) Additional Family Medical History / Comment(s): 2 SISTERS HAD OPEN HEARTS General Exam - General Exam Comments Initial Comments: 79 -year-old male. No distress. Limitations: no limitations General appearance: alert, in no apparent distress Head exam: Present: atraumatic, normocephalic, normal inspection Eye exam: Present: normal appearance, PERRL, EOMI. Absent: scleral icterus, conjunctival injection, periorbital swelling ENT exam: Present: normal exam, mucous membranes moist Neck exam: Present: normal inspection. Absent: tenderness, meningismus, lymphadenopathy Respiratory exam: Present: normal lung sounds bilaterally. Absent: respiratory distress, wheezes, rales, rhonchi, stridor Cardiovascular Exam: Present: regular rate, normal rhythm, normal heart sounds. Absent: systolic murmur, diastolic murmur, rubs, gallop, clicks GI/Abdominal exam: Present: soft, tenderness (Patient has tenderness to palpation over the right lower quadrant into the groin. Evidence of a well- appearing incision site from previous appendectomy.), normal bowel sounds. Absent: distended, guarding, rebound, rigid Extremities exam: Present: normal inspection, full ROM, normal capillary refill. Absent: tenderness, pedal edema, joint swelling, calf tenderness Back exam: Present: normal inspection Course Vital Signs 0710/29/19 10/29/19 09:23 10:00 10:30 Temperature 97.2 F L Pulse Rate 67 82 80 Respiratory 18 18 18 Rate Blood Pressure 140/81 124/87 129/69 O2 Sat by Pulse 98 98 99 Oximetry 10/29/19 11:18 Temperature Pulse Rate 66 Respiratory 16 Rate Blood Pressure 150/71 O2 Sat by Pulse 98 Oximetry Medical Decision Making - Medical Decision Making 79-year-old male presented to return if they've left-sided abdominal pain worse with certain movements. He has had this chronic pain for 6 months. He reports extensive evaluation has been completed for an emergency departments with CAT scans as well as ultrasounds. No significant finding for patient's pain. He does report that after receiving injections in his back for chronic back pain by his neurologist he was having some improvement. At this time patient's labs are reviewed and negative for any acute changes. There is no palpable mass or evidence of hernia on the abdomen. I discussed repeat CT scans with normal labs are indicated to this muscle skeletal description of pain. In family is agreeable to this plan. Discussed discharge the Patient with a course of pain medication and advised him to follow up with neurology. Again this patient's pain has been going on for greater than 6 months and is very reproducible with movement and palpation seems likely abdominal muscle wall strain and nerve impingement. - Lab Data Result diagrams: 10/29/19 09:44 10/29/19 09:44 Lab Results 10/29/19 10/29/19 10/29/19 Range/Units 09:44 09:44 09:44 WBC 6.3 (3.8-10.6) k/uL RBC 5.17 (4.30-5.90) m/uL Hgb 15.0 (13.0-17.5) gm/dL Hct 47.2 (39.0-53.0) % MCV 91.4 (80.0-100.0) fL MCH 29.0 (25.0-35.0) pg MCHC 31.7 (31.0-37.0) g/dL RDW 12.6 (11.5-15.5) % Plt Count 208 (150-450) k/uL Neutrophils % 74 % Lymphocytes % 14 % Monocytes % 8 % Eosinophils % 2 % Basophils % 1 % Neutrophils # 4.7 (1.3-7.7) k/uL Lymphocytes # 0.9 L (1.0-4.8) k/uL Monocytes # 0.5 (0-1.0) k/uL Eosinophils # 0.1 (0-0.7) k/uL Basophils # 0.0 (0-0.2) k/uL PT 11.5 (9.0-12.0) sec INR 1.1 (<1.2) APTT 25.1 (22.0-30.0) sec Sodium 136 L (137-145) mmol/L Potassium 4.8 (3.5-5.1) mmol/L Chloride 104 (98-107) mmol/L Carbon Dioxide 27 (22-30) mmol/L Anion Gap 5 mmol/L BUN 28 H (9-20) mg/dL Creatinine 1.21 (0.66-1.25) mg/dL Est GFR (CKD-EPI)AfAm 65 (>60 ml/min/1.73 sqM) Est GFR (CKD-EPI)NonAf 56 (>60 ml/min/1.73 sqM) Glucose 99 (74-99) mg/dL Calcium 8.8 (8.4-10.2) mg/dL Total Bilirubin 2.4 H (0.2-1.3) mg/dL AST 28 (17-59) U/L ALT <6 (4-49) U/L Alkaline Phosphatase 86 (38-126) U/L Total Protein 6.7 (6.3-8.2) g/dL Albumin 4.1 (3.5-5.0) g/dL Amylase 64 (30-110) U/L Lipase 114 (23-300) U/L Urine Color Urine Appearance (Clear) Urine pH (5.0-8.0) Ur Specific [place] (1.001-1.035) Urine Protein (Negative) Urine Glucose (UA) (Negative) Urine Ketones (Negative) Urine Blood (Negative) Urine Nitrite (Negative) Urine Bilirubin (Negative) Urine Urobilinogen (<2.0) mg/dL Ur Leukocyte Esterase (Negative) Urine WBC (0-5) /hpf Ur Squamous Epith Cells (0-4) /hpf Urine Mucus (None) /hpf 16 Range/Units 09:50 WBC (3.8-10.6) k/uL RBC (4.30-5.90) m/uL Hgb (13.0-17.5) gm/dL Hct (39.0-53.0) % MCV (80.0-100.0) fL MCH (25.0-35.0) pg MCHC (31.0-37.0) g/dL RDW (11.5-15.5) % Plt Count (150-450) k/uL Neutrophils % % Lymphocytes % % Monocytes % % Eosinophils % % Basophils % % Neutrophils # (1.3-7.7) k/uL Lymphocytes # (1.0-4.8) k/uL Monocytes # (0-1.0) k/uL Eosinophils # (0-0.7) k/uL Basophils # (0-0.2) k/uL PT (9.0-12.0) sec INR (<1.2) APTT (22.0-30.0) sec Sodium (137-145) mmol/L Potassium (3.5-5.1) mmol/L Chloride (98-107) mmol/L Carbon Dioxide (22-30) mmol/L Anion Gap mmol/L BUN (9-20) mg/dL Creatinine (0.66-1.25) mg/dL Est GFR (CKD-EPI)AfAm (>60 ml/min/1.73 sqM) Est GFR (CKD-EPI)NonAf (>60 ml/min/1.73 sqM) Glucose (74-99) mg/dL Calcium (8.4-10.2) mg/dL Total Bilirubin (0.2-1.3) mg/dL AST (17-59) U/L ALT (4-49) U/L Alkaline Phosphatase (38-126) U/L Total Protein (6.3-8.2) g/dL Albumin (3.5-5.0) g/dL Amylase (30-110) U/L Lipase (23-300) U/L Urine Color Yellow Urine Appearance Clear (Clear) Urine pH 6.5 (5.0-8.0) Ur Specific [place] 1.017 (1.001-1.035) Urine Protein 1+ H (Negative) Urine Glucose (UA) Negative (Negative) Urine Ketones Negative (Negative) Urine Blood Negative (Negative) Urine Nitrite Negative (Negative) Urine Bilirubin Negative (Negative) Urine Urobilinogen <2.0 (<2.0) mg/dL Ur Leukocyte Esterase Negative (Negative) Urine WBC <1 (0-5) /hpf Ur Squamous Epith Cells <1 (0-4) /hpf Urine Mucus Few H (None) /hpf Disposition Clinical Impression: Abdominal wall pain in right flank Disposition: HOME SELF-CARE Condition: Good Instructions (If sedation given, give patient instructions): Abdominal Pain (ED) Additional Instructions: Patient advised to follow-up with neurology hand painter. Patient take medications as prescribed. Return to the emergency department if there is any fevers vomiting or changes in stools. Prescriptions: HYDROcodone/APAP 5-325MG [[place] 5-325] 1 tab PO Q6HR PRN #10 tab PRN Reason: Pain Is patient prescribed a controlled substance at d/c from ED?: Yes If prescribed controlled substance>3 days was MAPS reviewed?: Prescribed <3 Days If opioid is for acute pain is fill amount 7 days or less?: Yes If Rx opioid, was Start Talking consent form obtained?: Yes Referrals: Aidan Tim MD [Primary Care Provider] - 1-2 days [facility] [REFERRING] - 1-2 days Time of Disposition: 11:04
[2019-10-29 10:08] LABS: ALT <6 U/L (4-49); AST 28 U/L (17-59); African American GFR (CKD) 65 (>60 ml/min/1.73 sqM); Albumin 4.1 g/dL (3.5-5.0); Alkaline Phosphatase 86 U/L (38-126); Amylase 64 U/L (30-110); Anion Gap 5 mmol/L; Blood Urea Nitrogen 28 mg/dL (9-20); Calcium 8.8 mg/dL (8.4-10.2); Carbon Dioxide 27 mmol/L (22-30); Chloride 104 mmol/L (98-107); Glucose 99 mg/dL (74-99); INR 1.1 (<1.2); Lipase 114 U/L (23-300); Non-African American GFR(CKD) 56 (>60 ml/min/1.73 sqM); Partial Thromboplastin Time 25.1 sec (22.0-30.0); Potassium 4.8 mmol/L (3.5-5.1); Prothrombin Time 11.5 sec (9.0-12.0); Sodium 136 mmol/L (137-145); Total Bilirubin 2.4 mg/dL (0.2-1.3); Total Protein 6.7 g/dL (6.3-8.2)
[2019-10-29 10:16] LABS: Appearance,Urine Clear (Clear); Bilirubin,Urine Negative (Negative); Blood,Urine Negative (Negative); Color,Urine Yellow; Glucose,Urine (UA) Negative (Negative); Ketones,Urine Negative (Negative); Leukocyte Esterase,Urine Negative (Negative); Mucus,Urine Few /hpf; Nitrite,Urine Negative (Negative); PH, Urine 6.5 (5.0-8.0); Protein,Urine 1+ (Negative); Specific Gravity,Urine 1.017 (1.001-1.035); Squamous Epithelial Cell,Urine <1 /hpf (0-4); Urobilinogen,Urine <2.0 mg/dL (<2.0); WBC,Urine <1 /hpf (0-5)
[2019-10-29] MEDS ORDERED: HYDROcodone/APAP 5-325MG 1 EACH TAB PO STA (11:01)
[2019-10-29 11:22] VITALS: BP 150/71; PULSE 66; RESP 16
== END 2019-10-29 11:18 | disposition home or self-care (01) ==
LOC: EC 09:21
DX: R10.9 Unspecified abdominal pain (principal); I25.119 Atherosclerotic heart disease of native coronary artery with unspecified angina pectoris; G89.29 Other chronic pain; M54.9 Dorsalgia, unspecified; I10 Essential (primary) hypertension; I25.2 Old myocardial infarction; G35 Multiple sclerosis; Z79.899 Other long term (current) drug therapy; Z88.8 Allergy status to other drugs, medicaments and biological substances; Z95.5 Presence of coronary angioplasty implant and graft
CPT/HCPCS: 36415; 80053; 82150; 83690; 85025; 85610; 85730; 81001; 99285; 96374; 96361; J1885

== ENCOUNTER → 2019-11-20 | Outpatient (CLI) | payer MEDICARE ==
--- NOTE | 2019-11-20 12:21 | CT ---
EXAMINATION TYPE: CT abdomen pelvis wo/w con DATE OF EXAM: 11/20/2019 COMPARISON: CT abdomen and pelvis May 07, 2019 and older CTs. HISTORY: RLQ pain CT DLP: 2659 mGycm, Automated Exposure Control for Dose Reduction was Utilized. CONTRAST: CT scan of the abdomen and pelvis is performed with oral and without and with IV Contrast, patient in jected with 100 mL of Isovue 300. FINDINGS: LUNG BASES: Partial visualization overlying sternal wires and [place] coronary artery calcification si milar to prior. LIVER/GB: No significant abnormality is appreciated. PANCREAS: No significant abnormality is seen. SPLEEN: No significant abnormality is seen. ADRENALS: No significant abnormality is seen. KIDNEYS: No renal calculi on noncontrast CT. Symmetric cortical medullary uptake and excretion witho ut hydronephrosis seen bilaterally and postcontrast CT. Stable subcentimeter low dense lesion anterio r right kidney midpole level series 10 image 27 too small to further characterize. BOWEL: Oral contrast reaches level of the mid transverse colon. Diverticula in the left and sigmoid c olon. No CT evidence for acute diverticulitis. No suspicious small or large bowel dilatation. Mild di ffuse prominence of fecal material. PROSTATE/SEMINAL VESICLES: Enlarged prostate gland consistent with BPH bulging on bladder base. LYMPH NODES: No greater than 1cm abdominal or pelvic lymph nodes are appreciated. OSSEOUS STRUCTURES: No significant abnormality is seen. OTHER: Moderate calcified plaque of the aorta extends into branch vessels. Severe multilevel spurring in the spine. Facet arthropathy lower lumbar levels. IMPRESSION: 1. No significant new or acute finding is clearly seen to account for patient's clinical symptoms. Co lonic diverticulosis redemonstrated greatest on the left and sigmoid colon without convincing CT evid ence for acute diverticulitis. Perhaps mild colonic fecal stasis. No bowel obstruction.
== END | disposition home or self-care (01) ==
LOC: RADCTMAIN 09:09
PROVIDERS: ATTEND Psychiatry & Neurology Neurology
DX: K57.30 Diverticulosis of large intestine without perforation or abscess without bleeding (principal)
CPT/HCPCS: 82565; 84520; 74178; 36415; Q9967

== ENCOUNTER 2020-03-07 17:31 | Emergency (ER) | payer MEDICARE ==
[2020-03-07 17:48] VITALS: RESP 18; TEMP 97.2
[2020-03-07] MEDS ORDERED: SODIUM CHLORIDE 0.9% 500 ML 500 ML IV STA (17:56)
--- NOTE | 2020-03-07 17:58 | ED ---
General Adult HPI - General Chief complaint: Weakness Stated complaint: Fever Time Seen by Provider: 03/07/20 17:45 Source: patient, EMS, RN notes reviewed, old records reviewed Mode of arrival: EMS Limitations: no limitations - History of Present Illness Initial comments: This is an 79-year-old male with a past medical history significant for bypass surgery and history of high blood pressure. Patient comes in today because he states last 4 days he's had chills weakness dizziness and nausea. Patient states he has no appetite. Patient denies any pain. Patient denies headache patient denies chest pain patient denies any abdominal pain. Patient denies any vomiting or diarrhea. Patient denies any loss of smell or taste. Patient denies any swelling to the leg. Patient denies any recent injury or trauma. - Related Data Home Medications Medication Instructions Recorded Confirmed Ergocalciferol [Vitamin D2 50,000 unit PO TAVERA 07/18/14 03/07/20 (DRISDOL)] Rasagiline Mesylate 0.5 mg PO BID 12/28/18 03/07/20 Olmesartan [Benicar] 20 mg PO HS 05/07/19 03/07/20 Primidone [Mysoline] 25 mg PO HS 05/07/19 03/07/20 Aspirin EC [Ecotrin Low Dose] 81 mg PO DAILY 03/07/20 03/07/20 diazePAM [Diazepam] 1 - 2 mg PO TID PRN 03/07/20 03/07/20 Previous Rx's Medication Instructions Recorded Atorvastatin [Lipitor] 40 mg PO HS #60 tab 08/17/14 Metoprolol Tartrate [Lopressor] 25 mg PO BID tab 12/31/18 Pantoprazole [Protonix] 40 mg PO DAILY tablet. 12/31/18 Allergies Allergy/AdvReac Type Severity Reaction Status Date / Time latex Allergy Dyspnea Verified 03/07/20 18:13 Review of Systems ROS Statement: Those systems with pertinent positive or pertinent negative responses have been documented in the HPI. ROS Other: All systems not noted in ROS Statement are negative. Past Medical History Past Medical History: Coronary Artery Disease (CAD), Chest Pain / Angina, Hyperlipidemia, Hypertension, Myocardial Infarction ([place]), Osteoarthritis (OA) Additional Past Medical History / Comment(s): [place] X2,monitoring a spot rt kidney, parkinsons Last Myocardial Infarction Date:: 1992 History of Any Multi-Drug Resistant Organisms: None Reported Past Surgical History: Appendectomy, Coronary Bypass/CABG, Heart Catheterization, Heart Catheterization With Stent, Orthopedic Surgery Additional Past Surgical History / Comment(s): RT KNEE ARTHROSCOPY, HEMORRHOIDECTOMY, rotator cuff surg., quad. bypass 1992, cataract surg, heart stents x3 Past Anesthesia/Blood Transfusion Reactions: Motion Sickness Date of Last Stent Placement:: July 2014 Past Psychological History: Anxiety, Depression Smoking Status: Never smoker Past Alcohol Use History: None Reported Past Drug Use History: None Reported - Past Family History Brother(s) Additional Family Medical History / Comment(s): TWO BROTHERS HAD OPEN HEART Sister(s) Additional Family Medical History / Comment(s): 2 SISTERS HAD OPEN HEARTS General Exam - General Exam Comments Initial Comments: GENERAL: Patient is well-developed and well-nourished. Patient is nontoxic and well- hydrated and is in mild distress. ENT: Neck is soft and supple. No significant lymphadenopathy is noted. Oropharynx is clear. Moist mucous membranes. Neck has full range of motion without eliciting any pain. EYES: The sclera were anicteric and conjunctiva were pink and moist. Extraocular movements were intact and pupils were equal round and reactive to light. Eyelids were unremarkable. PULMONARY: Unlabored respirations. Good breath sounds bilaterally. Patient has slight expiratory wheezing CARDIOVASCULAR: There is a regular rate and rhythm without any murmurs gallops or rubs. ABDOMEN: Soft and nontender with normal bowel sounds. SKIN: Skin is clear with no lesions or rashes and otherwise unremarkable. NEUROLOGIC: Patient is alert and oriented x3. Cranial nerves II through XII are grossly intact. Motor and sensory are also intact. Normal speech, volume and content. Symmetrical smile. MUSCULOSKELETAL: Normal extremities with adequate strength and full range of motion. LYMPHATICS: No significant lymphadenopathy is noted PSYCHIATRIC: Normal psychiatric evaluation. Limitations: no limitations Course Vital Signs 03/07/20 03/07/20 17:45 19:26 Temperature 97.2 F L 97.2 F L Pulse Rate 93 68 Respiratory 18 18 Rate Blood Pressure 148/89 158/78 O2 Sat by Pulse 100 100 Oximetry Medical Decision Making - Medical Decision Making EKG shows sinus rhythm with occasional PVC at 92 bpm SD interval is 152 QRS is 90 QT interval 374 QTC is 462. Patient's EKG shows no ST segment elevation or depression. H Physician showed no acute abnormality. I will begin the room to discuss the patient's results with him and he felt considerably better after I told me was COVID negative. Patient states he thinks she's been having a lot of anxiety lately because of the COVID disease. Patient states she does have at home and it does help a little bit. Patient states she's can try to eat more and drink more. - Lab Data Result diagrams: 03/07/20 18:03 03/07/20 18:03 Lab Results 03/07/20 03/07/20 03/07/20 Range/Units 18:03 18:03 18:03 WBC 7.2 (3.8-10.6) k/uL RBC 5.63 (4.30-5.90) m/uL Hgb 17.1 (13.0-17.5) gm/dL Hct 51.7 (39.0-53.0) % MCV 91.8 (80.0-100.0) fL MCH 30.4 (25.0-35.0) pg MCHC 33.1 (31.0-37.0) g/dL RDW 12.7 (11.5-15.5) % Plt Count 194 (150-450) k/uL MPV 6.9 Neutrophils % 69 % Lymphocytes % 17 % Monocytes % 7 % Eosinophils % 3 % Basophils % 1 % Neutrophils # 5.0 (1.3-7.7) k/uL Lymphocytes # 1.3 (1.0-4.8) k/uL Monocytes # 0.5 (0-1.0) k/uL Eosinophils # 0.2 (0-0.7) k/uL Basophils # 0.1 (0-0.2) k/uL PT 12.4 H (9.0-12.0) sec INR 1.2 H (<1.2) APTT 26.9 (22.0-30.0) sec Sodium (137-145) mmol/L Potassium (3.5-5.1) mmol/L Chloride (98-107) mmol/L Carbon Dioxide (22-30) mmol/L Anion Gap mmol/L BUN (9-20) mg/dL Creatinine (0.66-1.25) mg/dL Est GFR (CKD-EPI)AfAm (>60 ml/min/1.73 sqM) Est GFR (CKD-EPI)NonAf (>60 ml/min/1.73 sqM) Glucose (74-99) mg/dL Plasma Lactic Acid Emery (0.7-2.0) mmol/L Calcium (8.4-10.2) mg/dL Magnesium (1.6-2.3) mg/dL Total Bilirubin (0.2-1.3) mg/dL AST (17-59) U/L ALT (4-49) U/L Alkaline Phosphatase (38-126) U/L Troponin I (0.000-0.034) ng/mL NT-Pro-B Natriuret Pep pg/mL Total Protein (6.3-8.2) g/dL Albumin (3.5-5.0) g/dL Urine Color Yellow Urine Appearance Clear (Clear) Urine pH 5.0 (5.0-8.0) Ur Specific [place] 1.018 (1.001-1.035) Urine Protein Negative (Negative) Urine Glucose (UA) Negative (Negative) Urine Ketones Negative (Negative) Urine Blood Negative (Negative) Urine Nitrite Negative (Negative) Urine Bilirubin Negative (Negative) Urine Urobilinogen <2.0 (<2.0) mg/dL Ur Leukocyte Esterase Negative (Negative) Coronavirus (PCR) (Not Detectd) 03/07/20 03/07/20 03/07/20 Range/Units 18:03 18:03 18:03 WBC (3.8-10.6) k/uL RBC (4.30-5.90) m/uL Hgb (13.0-17.5) gm/dL Hct (39.0-53.0) % MCV (80.0-100.0) fL MCH (25.0-35.0) pg MCHC (31.0-37.0) g/dL RDW (11.5-15.5) % Plt Count (150-450) k/uL MPV Neutrophils % % Lymphocytes % % Monocytes % % Eosinophils % % Basophils % % Neutrophils # (1.3-7.7) k/uL Lymphocytes # (1.0-4.8) k/uL Monocytes # (0-1.0) k/uL Eosinophils # (0-0.7) k/uL Basophils # (0-0.2) k/uL PT (9.0-12.0) sec INR (<1.2) APTT (22.0-30.0) sec Sodium 141 (137-145) mmol/L Potassium 4.7 (3.5-5.1) mmol/L Chloride 104 (98-107) mmol/L Carbon Dioxide 29 (22-30) mmol/L Anion Gap 8 mmol/L BUN 36 H (9-20) mg/dL Creatinine 1.47 H (0.66-1.25) mg/dL Est GFR (CKD-EPI)AfAm 51 (>60 ml/min/1.73 sqM) Est GFR (CKD-EPI)NonAf 44 (>60 ml/min/1.73 sqM) Glucose 85 (74-99) mg/dL Plasma Lactic Acid Emery 1.8 (0.7-2.0) mmol/L Calcium 9.5 (8.4-10.2) mg/dL Magnesium 2.1 (1.6-2.3) mg/dL Total Bilirubin 1.2 (0.2-1.3) mg/dL AST 30 (17-59) U/L ALT 8 (4-49) U/L Alkaline Phosphatase 107 (38-126) U/L Troponin I <0.012 (0.000-0.034) ng/mL NT-Pro-B Natriuret Pep pg/mL Total Protein 7.7 (6.3-8.2) g/dL Albumin 4.5 (3.5-5.0) g/dL Urine Color Urine Appearance (Clear) Urine pH (5.0-8.0) Ur Specific [place] (1.001-1.035) Urine Protein (Negative) Urine Glucose (UA) (Negative) Urine Ketones (Negative) Urine Blood (Negative) Urine Nitrite (Negative) Urine Bilirubin (Negative) Urine Urobilinogen (<2.0) mg/dL Ur Leukocyte Esterase (Negative) Coronavirus (PCR) (Not Detectd) 03/07/20 03/07/20 Range/Units 18:03 18:03 WBC (3.8-10.6) k/uL RBC (4.30-5.90) m/uL Hgb (13.0-17.5) gm/dL Hct (39.0-53.0) % MCV (80.0-100.0) fL MCH (25.0-35.0) pg MCHC (31.0-37.0) g/dL RDW (11.5-15.5) % Plt Count (150-450) k/uL MPV Neutrophils % % Lymphocytes % % Monocytes % % Eosinophils % % Basophils % % Neutrophils # (1.3-7.7) k/uL Lymphocytes # (1.0-4.8) k/uL Monocytes # (0-1.0) k/uL Eosinophils # (0-0.7) k/uL Basophils # (0-0.2) k/uL PT (9.0-12.0) sec INR (<1.2) APTT (22.0-30.0) sec Sodium (137-145) mmol/L Potassium (3.5-5.1) mmol/L Chloride (98-107) mmol/L Carbon Dioxide (22-30) mmol/L Anion Gap mmol/L BUN (9-20) mg/dL Creatinine (0.66-1.25) mg/dL Est GFR (CKD-EPI)AfAm (>60 ml/min/1.73 sqM) Est GFR (CKD-EPI)NonAf (>60 ml/min/1.73 sqM) Glucose (74-99) mg/dL Plasma Lactic Acid Emery (0.7-2.0) mmol/L Calcium (8.4-10.2) mg/dL Magnesium (1.6-2.3) mg/dL Total Bilirubin (0.2-1.3) mg/dL AST (17-59) U/L ALT (4-49) U/L Alkaline Phosphatase (38-126) U/L Troponin I (0.000-0.034) ng/mL NT-Pro-B Natriuret Pep 595 pg/mL Total Protein (6.3-8.2) g/dL Albumin (3.5-5.0) g/dL Urine Color Urine Appearance (Clear) Urine pH (5.0-8.0) Ur Specific [place] (1.001-1.035) Urine Protein (Negative) Urine Glucose (UA) (Negative) Urine Ketones (Negative) Urine Blood (Negative) Urine Nitrite (Negative) Urine Bilirubin (Negative) Urine Urobilinogen (<2.0) mg/dL Ur Leukocyte Esterase (Negative) Coronavirus (PCR) Not Detected (Not Detectd) Disposition Clinical Impression: Dehydration, Anxiety Disposition: HOME SELF-CARE Condition: Good Instructions (If sedation given, give patient instructions): Dehydration (ED), Anxiety (ED) Is patient prescribed a controlled substance at d/c from ED?: No Referrals: Aidan Tim MD [Primary Care Provider] - 1-2 days Time of Disposition: 19:29
[2020-03-07 18:20] LABS: Basophils % (A) 1 %; Eosinophils % (A) 3 %; HCT 51.7 % (39.0-53.0); HGB 17.1 gm/dL (13.0-17.5); Lymphocytes # (A) 1.3 k/uL (1.0-4.8); Lymphocytes % (A) 17 %; MCH 30.4 pg (25.0-35.0); MCHC 33.1 g/dL (31.0-37.0); MCV 91.8 fL (80.0-100.0); Mean Platelet Volume 6.9; Monocytes % (A) 7 %; Neutrophils % (A) 69 %; Platelet Count 194 k/uL (150-450); RBC 5.63 m/uL (4.30-5.90); RDW 12.7 % (11.5-15.5); WBC 7.2 k/uL (3.8-10.6)
[2020-03-07 18:21] LABS: Basophils # (A) 0.1 k/uL (0-0.2); Eosinophils # (A) 0.2 k/uL (0-0.7); Monocytes # (A) 0.5 k/uL (0-1.0)
[2020-03-07 18:28] LABS: INR 1.2 (<1.2); Prothrombin Time 12.4 sec (9.0-12.0)
[2020-03-07 18:29] LABS: Partial Thromboplastin Time 26.9 sec (22.0-30.0)
[2020-03-07 18:30] LABS: Potassium 4.7 mmol/L (3.5-5.1)
[2020-03-07 18:31] LABS: Albumin 4.5 g/dL (3.5-5.0); Calcium 9.5 mg/dL (8.4-10.2); Magnesium 2.1 mg/dL (1.6-2.3); Total Bilirubin 1.2 mg/dL (0.2-1.3); Total Protein 7.7 g/dL (6.3-8.2)
[2020-03-07 18:33] LABS: Appearance,Urine Clear (Clear); Bilirubin,Urine Negative (Negative); Blood,Urine Negative (Negative); Color,Urine Yellow; Glucose,Urine (UA) Negative (Negative); Ketones,Urine Negative (Negative); Leukocyte Esterase,Urine Negative (Negative); Nitrite,Urine Negative (Negative); Protein,Urine Negative (Negative); Specific Gravity,Urine 1.018 (1.001-1.035); Urobilinogen,Urine <2.0 mg/dL (<2.0)
--- NOTE | 2020-03-07 19:01 | XR ---
EXAMINATION TYPE: XR chest 2V DATE OF EXAM: 03/07/2020 COMPARISON: 12/28/2018 HISTORY: Weakness There is no heart failure nor confluent pneumonic infiltrate. Costophrenic angles are clear. There a re no hilar masses. There are sternal wires. Thoracic aorta is atheromatous. There is arthritic cao e in the shoulder joints. There are chest leads. IMPRESSION: No active cardiopulmonary disease. No change.
[2020-03-07] MEDS ORDERED: LORazepam 1 MG TAB PO STA ×2 (19:20→19:26)
[2020-03-07 19:27] VITALS: BP 158/78; PULSE 68
== END 2020-03-07 19:34 | disposition home or self-care (01) ==
LOC: EC 17:31
DX: E86.0 Dehydration (principal); F41.9 Anxiety disorder, unspecified; M19.90 Unspecified osteoarthritis, unspecified site; F32.9 Major depressive disorder, single episode, unspecified; I25.2 Old myocardial infarction; I10 Essential (primary) hypertension; G20 Parkinson's disease; Z79.899 Other long term (current) drug therapy; Z79.82 Long term (current) use of aspirin; Z91.040 Latex allergy status; Z20.828 Contact with and (suspected) exposure to other viral communicable diseases; Z95.5 Presence of coronary angioplasty implant and graft; Z95.1 Presence of aortocoronary bypass graft
CPT/HCPCS: 36415; 71046; 80053; 81003; 83605; 83735; 83880; 84484; 85025; 85610; 85730; 87635; 93005; 99285

== ENCOUNTER 2020-10-03 15:48 | Observation (INO) | payer MEDICARE ==
[2020-10-03] MEDS ORDERED: SODIUM CHLORIDE 0.9% 1,000 ML IV STA (16:40)
--- NOTE | 2020-10-03 16:45 | ED ---
General Adult HPI - General Chief complaint: Eye Problems Stated complaint: Loss of Vision Time Seen by Provider: 10/03/20 16:36 Source: patient Mode of arrival: ambulatory Limitations: no limitations - History of Present Illness Initial comments: Brie is an 80yo M with PMH of parkinsons who presents to the ER today via private vehicle for evaluation of 2-3 days of blurred vision in the right eye and posterior headache. Patient reports that for the past 2-3 days she's noticed worsening blurred vision in his right eye. The symptoms seem to come an d go. Patient also reports a dull headache in the back of his head. He does not typically have headaches. Headache is dull was not sudden onset and not the worse headache of his life. No recent illness. No fevers chills nausea or vomiting. He does have Parkinson's. Denies any recent medication changes. - Related Data Home Medications Medication Instructions Recorded Confirmed Ergocalciferol [Vitamin D2 50,000 unit PO [place] 07/18/14 10/03/20 ([place])] Rasagiline Mesylate 0.5 mg PO BID 12/28/18 10/03/20 Olmesartan [Benicar] 20 mg PO HS 05/07/19 10/03/20 Primidone [Mysoline] 50 mg PO HS 05/07/19 10/03/20 Aspirin EC [Ecotrin Low Dose] 81 mg PO DAILY 03/07/20 10/03/20 diazePAM [Diazepam] 1 mg PO BID PRN 03/07/20 10/03/20 Previous Rx's Medication Instructions Recorded Atorvastatin [Lipitor] 40 mg PO HS #60 tab 08/17/14 Metoprolol Tartrate [Lopressor] 25 mg PO BID tab 12/31/18 Pantoprazole [Protonix] 40 mg PO DAILY tablet. 12/31/18 Allergies Allergy/AdvReac Type Severity Reaction Status Date / Time latex Allergy Dyspnea Verified 10/03/20 19:40 Review of Systems ROS Statement: Those systems with pertinent positive or pertinent negative responses have been documented in the HPI. ROS Other: All systems not noted in ROS Statement are negative. Past Medical History Past Medical History: Coronary Artery Disease (CAD), Chest Pain / Angina, Hyperlipidemia, Hypertension, Myocardial Infarction ([place]), Osteoarthritis ([place]) Additional Past Medical History / Comment(s): [place] X2,monitoring a spot rt kidney, parkinsons Last Myocardial Infarction Date:: 1992 History of Any Multi-Drug Resistant Organisms: None Reported Past Surgical History: Appendectomy, Coronary Bypass/CABG, Heart Catheterization, Heart Catheterization With Stent, Orthopedic Surgery Additional Past Surgical History / Comment(s): RT KNEE ARTHROSCOPY, HEMORRHOI DECTOMY, rotator cuff surg., quad. bypass 1992, cataract surg, heart stents x3 Past Anesthesia/Blood Transfusion Reactions: Motion Sickness Date of Last Stent Placement:: July 2014 Past Psychological History: Anxiety, Depression Smoking Status: Never smoker Past Alcohol Use History: None Reported Past Drug Use History: None Reported - Past Family History Brother(s) Additional Family Medical History / Comment(s): TWO BROTHERS HAD OPEN HEART Sister(s) Additional Family Medical History / Comment(s): 2 SISTERS HAD OPEN HEARTS General Exam - General Exam Comments Initial Comments: Physical Exam GENERAL: Patient is well-developed and well-nourished. Patient is nontoxic and well-hydrated and is in no distress. HENT: Normocephalic, Atraumatic. EYES: PERRL, EOMI Previous cataract surgery bilaterally PULMONARY: Unlabored respirations. No audible rales rhonchi or wheezing was noted. CARDIOVASCULAR: There is a regular rate and rhythm without any murmurs gallops or rubs. No carotid bruit ABDOMEN: Soft and nontender with normal bowel sounds. SKIN: Skin is clear with no lesions or rashes and otherwise unremarkable. : Deferred NEUROLOGIC: Patient is alert and oriented x3. Tremor at baseline consistent with history of Parkinson's MUSCULOSKELETAL: Normal extremities with adequate strength and full range of motion. No lower extremity swelling or edema. No calf tenderness. PSYCHIATRIC: Normal psychiatric evaluation. Limitations: no limitations Course Vital Signs 10/03/20 10/03/20 10/03/20 15:54 17:25 18:47 Temperature 97.8 F Pulse Rate 91 79 76 Respiratory 18 18 18 Rate Blood Pressure 130/81 135/75 142/74 O2 Sat by Pulse 98 97 97 Oximetry EKG Findings - EKG Comments: EKG Findings:: EKG obtained as part of the stroke workup, EKG obtained at 1628, rate is 86 rhythm is sinus GA 154, care is 92, QTc [address] elevations or depressions no evidence of ischemia or infarction or arrhythmia. Medical Decision Making - Medical Decision Making The patient was seen and evaluated, history is obtained from the patient and daughter bedside 80-year-old male with history of Parkinson's, cataracts in the past which were repaired with surgery intervention preventing today with blurred vision the right eye intermittently with associated posterior headache Stroke workup was initiated was negative for acute findings CT of the head was negative Patient to be admitted to the hospital for TIA-like symptoms with consults to neurology - Lab Data Result diagrams: 10/03/20 16:48 10/03/20 16:48 Lab Results 10/03/20 10/03/20 10/03/20 Range/Units 16:48 16:48 16:48 WBC 6.4 (3.8-10.6) k/uL RBC 5.10 (4.30-5.90) m/uL Hgb 15.8 (13.0-17.5) gm/dL Hct 47.4 (39.0-53.0) % MCV 93.0 (80.0-100.0) fL MCH 31.1 (25.0-35.0) pg MCHC 33.4 (31.0-37.0) g/dL RDW 12.4 (11.5-15.5) % Plt Count 189 (150-450) k/uL MPV 7.4 Neutrophils % 74 % Lymphocytes % 16 % Monocytes % 7 % Eosinophils % 2 % Basophils % 0 % Neutrophils # 4.7 (1.3-7.7) k/uL Lymphocytes # 1.0 (1.0-4.8) k/uL Monocytes # 0.4 (0-1.0) k/uL Eosinophils # 0.1 (0-0.7) k/uL Basophils # 0.0 (0-0.2) k/uL PT 12.0 (9.0-12.0) sec INR 1.2 H (<1.2) APTT 26.4 (22.0-30.0) sec Sodium 137 (137-145) mmol/L Potassium 4.7 (3.5-5.1) mmol/L Chloride 103 (98-107) mmol/L Carbon Dioxide 26 (22-30) mmol/L Anion Gap 8 mmol/L BUN 38 H (9-20) mg/dL Creatinine 1.32 H (0.66-1.25) mg/dL Est GFR (CKD-EPI)AfAm 58 (>60 ml/min/1.73 sqM) Est GFR (CKD-EPI)NonAf 50 (>60 ml/min/1.73 sqM) Glucose 102 H (74-99) mg/dL Calcium 8.8 (8.4-10.2) mg/dL Total Bilirubin 1.1 (0.2-1.3) mg/dL AST 37 (17-59) U/L ALT 8 (4-49) U/L Alkaline Phosphatase 97 (38-126) U/L Total Protein 7.1 (6.3-8.2) g/dL Albumin 4.3 (3.5-5.0) g/dL Coronavirus (PCR) (Not Detectd) 10/03/20 Range/Units 18:51 WBC (3.8-10.6) k/uL RBC (4.30-5.90) m/uL Hgb (13.0-17.5) gm/dL Hct (39.0-53.0) % MCV (80.0-100.0) fL MCH (25.0-35.0) pg MCHC (31.0-37.0) g/dL RDW (11.5-15.5) % Plt Count (150-450) k/uL MPV Neutrophils % % Lymphocytes % % Monocytes % % Eosinophils % % Basophils % % Neutrophils # (1.3-7.7) k/uL Lymphocytes # (1.0-4.8) k/uL Monocytes # (0-1.0) k/uL Eosinophils # (0-0.7) k/uL Basophils # (0-0.2) k/uL PT (9.0-12.0) sec INR (<1.2) APTT (22.0-30.0) sec Sodium (137-145) mmol/L Potassium (3.5-5.1) mmol/L Chloride (98-107) mmol/L Carbon Dioxide (22-30) mmol/L Anion Gap mmol/L BUN (9-20) mg/dL Creatinine (0.66-1.25) mg/dL Est GFR (CKD-EPI)AfAm (>60 ml/min/1.73 sqM) Est GFR (CKD-EPI)NonAf (>60 ml/min/1.73 sqM) Glucose (74-99) mg/dL Calcium (8.4-10.2) mg/dL Total Bilirubin (0.2-1.3) mg/dL AST (17-59) U/L ALT (4-49) U/L Alkaline Phosphatase (38-126) U/L Total Protein (6.3-8.2) g/dL Albumin (3.5-5.0) g/dL Coronavirus (PCR) Not Detected (Not Detectd) Disposition Clinical Impression: Vision changes, Headache, Cataract, CKD (chronic kidney disease), S/P CABG (coronary artery bypass graft) Disposition: ADMITTED IP TO THIS HOSP Condition: Stable Referrals: Aidan Tim MD [Primary Care Provider] - 1-2 days
[2020-10-03 17:13] LABS: Basophils % (A) 0 %; Eosinophils # (A) 0.1 k/uL (0-0.7); Eosinophils % (A) 2 %; HCT 47.4 % (39.0-53.0); HGB 15.8 gm/dL (13.0-17.5); Lymphocytes % (A) 16 %; MCH 31.1 pg (25.0-35.0); MCHC 33.4 g/dL (31.0-37.0); Mean Platelet Volume 7.4; Monocytes # (A) 0.4 k/uL (0-1.0); Monocytes % (A) 7 %; Neutrophils # (A) 4.7 k/uL (1.3-7.7); Neutrophils % (A) 74 %; Platelet Count 189 k/uL (150-450); RDW 12.4 % (11.5-15.5); WBC 6.4 k/uL (3.8-10.6)
[2020-10-03 17:23] LABS: Albumin 4.3 g/dL (3.5-5.0); Calcium 8.8 mg/dL (8.4-10.2); Potassium 4.7 mmol/L (3.5-5.1); Total Bilirubin 1.1 mg/dL (0.2-1.3); Total Protein 7.1 g/dL (6.3-8.2)
--- NOTE | 2020-10-03 17:24 | CT ---
EXAMINATION TYPE: CT brain wo con for TPA DATE OF EXAM: 10/03/2020 COMPARISON: 08/24/2015. HISTORY: Vision changes. CT DLP: 1099.8 mGycm Automated exposure control for dose reduction was used. Ventricles have normal size. There is no mass effect nor midline shift. There is no sign of intracran ial hemorrhage. There is cerebral atrophy. The calvarium is intact. IMPRESSION: Cerebral atrophy. No acute intracranial abnormality. No change.
--- NOTE | 2020-10-03 17:32 | CT ---
EXAMINATION TYPE: CT angio head neck DATE OF EXAM: 10/03/2020 COMPARISON: None HISTORY: Vision changes. CT DLP: 431.2 mGycm Automated exposure control for dose reduction was used. CONTRAST: Performed with IV Contrast, patient injected with 65ml mL of Isovue 370. Images obtained from the aortic arch to the vertex of the brain with IV contrast. There are 3-D post processed images. There is normal branching pattern of the great vessels on the aortic arch. There is some after spot p laque at the aortic arch. There is arterial flow in both subclavian arteries. There is arterial flow in the common internal and external carotid arteries bilaterally. There is no significant plaque form ation at the carotid artery bifurcations. There is arterial flow in both vertebral arteries. There is no evidence of carotid or vertebral artery aneurysm or dissection. There is arterial flow in the juany tebrobasilar artery system. There is arterial flow in the anterior middle and posterior cerebral jon marcie. I see no evidence of intracranial aneurysm or neovascularity. There is no mass effect. There is no sign of hemodynamic stenosis. There is normal enhancement of the venous sinuses. IMPRESSION: Negative exam. No significant angiographic abnormality.
--- NOTE | 2020-10-03 17:33 | XR ---
EXAMINATION TYPE: XR chest 2V DATE OF EXAM: 10/03/2020 COMPARISON: 03/07/2020 HISTORY: Weakness TECHNIQUE: 2 views FINDINGS: There is no heart failure nor confluent pneumonic infiltrate. Thoracic aorta is atheromatou s. There are sternal wires. Costophrenic angles are clear. There are chest leads. IMPRESSION: No active cardiopulmonary disease. Normal heart. No change.
[2020-10-03 17:42] LABS: INR 1.2 (<1.2); Partial Thromboplastin Time 26.4 sec (22.0-30.0)
[2020-10-03] MEDS ORDERED: NALOXONE 0.4 MG/ML 1 ML VIAL IV PRN (19:44)
[2020-10-03] MEDS: SODIUM CHLORIDE 0.9% 1,000 ML IV SCH (21:36)
[2020-10-03] MEDS ORDERED: ERGOCALCIFEROL 1,250 MCG (50,000 IU) CAPSULE PO SCH (23:00)
[2020-10-03] MEDS: diazePAM 2 MG TAB PO PRN (23:20)
[2020-10-03] MEDS: METOPROLOL TARTRATE 25 MG TAB PO SCH (23:20)
[2020-10-03] MEDS: ATORVASTATIN 40 MG TAB PO SCH (23:20)
[2020-10-03] MEDS: PRIMIDONE 50 MG TAB PO SCH (23:41)
[2020-10-04] MEDS: LOSARTAN 50 MG TAB PO SCH ×2 (02:53→20:45)
[2020-10-04] MEDS: PANTOPRAZOLE 40 MG TABLET PO SCH ×2 (02:53→11:10)
[2020-10-04] MEDS: ASPIRIN 81 MG PO SCH ×2 (02:53→11:09)
[2020-10-04] MEDS ORDERED: LORazepam 2 MG/ML INJ IV PRN (09:41)
--- NOTE | 2020-10-04 09:54 | P.CNNES ---
History of Present Illness Consult date: 10/04/20 Requesting physician: Martha Hamm Reason for Consult: vision change, headache, parkinsons History of Present Illness: This is an 80-year-old gentleman with medical history of Parkinson's disease, hypertension, hyperlipidemia, coronary artery disease status post stent as well as CABG, myocardial infarction, cataracts who presented emergency department on 10/03/2020 for blurry vision of the right eye for the last 2-3 days. He notified me that he's having blurry vision of the right eye lasting 2-3 minutes and happens once a day and been going on for last 2-3 days. The patient initially was inconsistent with a history, initially stating was the right than this had bilateral then the on further questioning he said the right of his eye. He denies any diplopia associated with that with that or ptosis of the eye. He said that he's been having headache for the last 2-3 months and and felt was a moderate headache over the right occipital and the last headache was about a week ago and denies any headache in the last 1 week. He says it's over the right occipital and moderate in severity he has mild photophobia denies phonophobia denies any nausea or vomiting. Denies have to be in the dark quiet place. He had a hard time describing the type of pain is and denies any radiation. Denies any difficulty chewing. Denies any tearing of the eyes redness of the eyes. He denies any blurry vision today or any headaches currently. He follows up with Dr. Horn for his Parkinson's disease (he was diagnosed 2 years ago) and has tremor of left upper extremity. Some of the patient's home medication consisted of primidone 50 mg daily at bedtime, metoprolol 25 mg 1 tablet twice a day, diazepam 1 mg twice a day when necessary,Rasagiline 0.5mg 1 tab bid, vitamin D2, aspirin 81 mg daily. Some of the workup in the hospital consisted of: Initial vital signs: Blood pressure of 130/81, heart rate of 91, respiratory of 18, temperature of 97.8 Fahrenheit oral and pulse ox of 98% room air. CT of the head is reported as cerebral atrophy. No acute intracranial abnormality. No change. CT angiography of the head and neck was reported as negative exam. No significant angiographic abnormality. CBC with differential is unremarkable. Creatinine is 1.32 which is slightly elevated otherwise the chemistry panel is unremarkable. Review of Systems Review of system: The 12 point system was reviewed and apparent positive and negative per HPI. Past Medical History Past Medical History: Coronary Artery Disease (CAD), Chest Pain / Angina, Hyperlipidemia, Hypertension, Myocardial Infarction ([place]), Osteoarthritis (OA) Additional Past Medical History / Comment(s): [place] X2,monitoring a spot rt kidney, parkinsons Last Myocardial Infarction Date:: 1992 History of Any Multi-Drug Resistant Organisms: None Reported Past Surgical History: Appendectomy, Coronary Bypass/CABG, Heart Catheterization, Heart Catheterization With Stent, Orthopedic Surgery Additional Past Surgical History / Comment(s): RT KNEE ARTHROSCOPY, HEMORRHOIDECTOMY, rotator cuff surg., quad. bypass 1992, cataract surg, heart stents x3 Past Anesthesia/Blood Transfusion Reactions: Motion Sickness Date of Last Stent Placement:: July 2014 Past Psychological History: Anxiety, Depression Smoking Status: Unknown if ever smoked Past Alcohol Use History: None Reported Past Drug Use History: None Reported - Past Family History Brother(s) Additional Family Medical History / Comment(s): TWO BROTHERS HAD OPEN HEART Sister(s) Additional Family Medical History / Comment(s): 2 SISTERS HAD OPEN HEARTS Medications and Allergies Home Medications Medication Instructions Recorded Confirmed Type Ergocalciferol [Vitamin D2 50,000 unit PO MO 07/18/14 10/03/20 History (ANTON)] Atorvastatin [Lipitor] 40 mg PO HS #60 tab 08/17/14 10/03/20 Rx Rasagiline Mesylate 0.5 mg PO BID 12/28/18 10/03/20 History Metoprolol Tartrate [Lopressor] 25 mg PO BID tab 12/31/18 10/03/20 Rx Pantoprazole [Protonix] 40 mg PO DAILY tablet. 12/31/18 10/03/20 Rx Olmesartan [Benicar] 20 mg PO HS 05/07/19 10/03/20 History Primidone [Mysoline] 50 mg PO HS 05/07/19 10/03/20 History Aspirin EC [Ecotrin Low Dose] 81 mg PO DAILY 03/07/20 10/03/20 History diazePAM [Diazepam] 1 mg PO BID PRN 03/07/20 10/03/20 History Allergies Allergy/AdvReac Type Severity Reaction Status Date / Time latex Allergy Dyspnea Verified 10/03/20 19:40 Physical Examination - Vital Signs Vital Signs: Vital Signs Temp Pulse Pulse Resp BP BP Pulse Ox 10/04/20 07:00 16 142/78 98 10/04/20 02:00 97.4 F L 59 L 17 114/63 97 10/03/20 22:17 98.4 F 82 18 159/80 99 10/03/20 18:47 76 18 142/74 97 10/03/20 17:25 79 18 135/75 97 10/03/20 15:54 97.8 F 91 18 130/81 98 Intake and Output 10/03/20 10/04/20 10/04/20 22:59 06:59 14:59 Intake Total 1000 Balance 1000 Intake: Intake, IV Titration 1000 Amount Sodium Chloride 0.9% 1, 1000 000 ml @ 100 mls/hr IV . Q10H STA Rx#:[id number] Other: Weight 77.111 kg 77.111 kg GENERAL: The patient is lying in bed and is not in acute distress. CHEST: The heart rate is regular rate rhythm. No murmurs to auscultation. No carotid bruit bilaterally. LUNG: Clear to auscultation bilaterally no wheezing noted throughout. Not labored breathing. ABDOMEN/GI: Bowel sounds present in all 4 quadrants. No tenderness to palpation throughout. NEUROLOGICAL: Higher mental function: The patient is awake, alert, oriented to self, place and time. Patient is following commands. No aphasia and no neglect. Cranial nerves: The pupils are round, equal and reactive to light and accommodation. Visual monsalve: there is visual loss over bilateral interfior nasal quadrant to confrontation, otherwise normal. Extraocular movement is intact no nystagmus is noted. Facial sensation is normal to touch throughout. The facial strength is normal throughout. Hearing is mildly to moderate decreased bilaterally to hand rub. Tongue is midline and moved [id number] without any difficulty. No dysarthria is noted. Shoulder shrug is normal bilaterally. Motor: Gait is deferred. The strength is 5 over 5 throughout. Normal tone and bulk. He has occasional resting tremor left hand/forearm. Cerebellum: Normal finger to nose heel bilaterally. Sensation: Sensation is normal to touch throughout. Reflexes (right/left): 2+ throughout. Plantars are downgoing bilaterally. Results Rodriguez virus PCR was not detected. - Laboratory Findings CBC and BMP: 10/03/20 16:48 10/03/20 16:48 Abnormal Lab Findings: Abnormal Labs 10/03/20 10/03/20 16:48 16:48 INR 1.2 H BUN 38 H Creatinine 1.32 H Glucose 102 H Assessment and Plan Assessment: Transient visual disturbance (complaint of right visual loss for last 2-3 days but on examination has visual loss over the bilateral inferior nasal quadrant). Possibly TIA. Rule out any mass (especially with new onset headache). Cephalgia Parkinson's disease (left upper extremity tremor) Acute on chronic kidney insufficiency Hypertension Hyperlipidemia History of coronary artery disease status post stent as well as CABG History of myocardial infarction Plan: * CT of the head is reported as cerebral atrophy. No acute intracranial a bnormality. No change. * CT angiography of the head and neck was reported as negative exam. No sign ificant angiographic abnormality. * Patient was started on his home dose of aspirin 81 mg daily. In addition to his home dose of aspirin I start the patient on Plavix 75 mg daily. The patient to be on dual antiplatelets for 21 days and then after that to discontinue aspirin and to permanently continue Plavix 75 mg daily. He is on Lipitor 40 milligrams daily for secondary stroke prophylaxis * Placed the patient on continuous cardiac monitoring as well as every 4 hours neuro checks. * Ordered the TSH, 2-D echo, lipid panel and MRI of the brain w/ and w/o. * Ordered ESR and CRP level (unlikely temporal arteritis). * PT, OT are consulted. * Consulted Dr. Herrera (Ophthamologist) * His home dose of primidone 50 mg daily at bedtime, Rasagiline 0.5mg 1 tab bid were started. * Will defer the rest of medical management to the primary team. The plan is discussed with the patient's nurse. Thank you for the consultation. Mat Villanueva MD Neuro-Hospitalist Time with Patient: Greater than 30
[2020-10-04] MEDS: RASAGILINE MESYLATE 0.5 MG PO SCH ×2 (10:11→20:48)
[2020-10-04] MEDS: SODIUM CHLORIDE 0.9% 1,000 ML IV SCH ×2 (11:09→20:54)
[2020-10-04] MEDS: METOPROLOL TARTRATE 25 MG TAB PO SCH ×2 (11:09→20:45)
[2020-10-04] MEDS: CLOPIDOGREL 75 MG TAB PO SCH (11:10)
--- NOTE | 2020-10-04 12:02 | ECHOF ---
Referral Reason:stroke MEASUREMENTS -------- HEIGHT: 175.3 cm WEIGHT: 77.1 kg BP: 140/77 RVIDd: 3.6 cm (< 3.3) IVSd: 1.4 cm (0.6 - 1.1) LVIDd: 4.3 cm (3.9 - 5.3) LVPWd: 1.2 cm (0.6 - 1.1) IVSs: 1.8 cm LVIDs: 3.8 cm LVPWs: 1.3 cm LA Diam: 3.6 cm (2.7 - 3.8) LAESV Index (A-L): 21.41 ml/m Ao Diam: 3.5 cm (2.0 - 3.7) AV Cusp: 2.4 cm (1.5 - 2.6) MV EXCURSION: 17.896 mm (> 18.000) MV EF SLOPE: 41 mm/s (70 - 150) EPSS: 1.0 cm MV E Charan: 0.65 m/s MV DecT: 303 ms MV A Charan: 0.84 m/s MV E/A Ratio: 0.78 AR PHT: 647 ms RAP: 5.00 mmHg RVSP: 32.38 mmHg FINDINGS -------- Sinus rhythm. Suboptimal image quality - poor subcostal views. The left ventricular size is normal. There is moderate concentric left ventricular hypertrophy. O verall left ventricular systolic function is moderately impaired with, an EF between 35 - 40 %. Api bryson anterior LV wall motion is hypokinetic. Apical lateral LV wall motion is hypokinetic. Apica l inferior LV wall motion is hypokinetic. Apical septum LV wall motion is hypokinetic. The right ventricle is mildly enlarged. Normal LA size by volume 22+/-6 ml/m2. The right atrium is normal in size. The aortic valve is trileaflet and appears structurally normal. There is mild aortic regurgitation. There is trace mitral regurgitation. Mild tricuspid regurgitation present. Right ventricular systolic pressure is normal at < 35 mmHg. There is no pulmonic regurgitation present. The aortic root size is normal. IVC Not well visulized. There is no pericardial effusion. CONCLUSIONS -------- 1. The left ventricular size is normal. 2. There is moderate concentric left ventricular hypertrophy. 3. Overall left ventricular systolic function is moderately impaired with, an EF between 35 - 40 %. 4. Apical anterior LV wall motion is hypokinetic. 5. Apical lateral LV wall motion is hypokinetic. 6. Apical inferior LV wall motion is hypokinetic. 7. Apical septum LV wall motion is hypokinetic. 8. The right ventricle is mildly enlarged. 9. There is mild aortic regurgitation. 10. There is trace mitral regurgitation. 11. Mild tricuspid regurgitation present. 12. There is no pericardial effusion. STUDIO OPERATIONS MANAGER: Becca Bertrand RDCS
[2020-10-04] MEDS: diazePAM 2 MG TAB PO PRN ×2 (14:24→20:44)
--- NOTE | 2020-10-04 14:47 | CONS ---
CONSULTATION ADMISSION DATE: 10/04/2020. HISTORY: This is an 80-year-old white male with a history of Parkinson disease and coronary artery disease and hypertension. Previous surgeries were significant for coronary stents as well as CABG, and bilateral cataract surgery 3 or 4 years ago. The patient states that he presented to the emergency room complaining of blurred vision in his right eye. When asked further about how long his blurriness has been occurring, he states that for the last 3 months, he has not seen very well in his right eye and also complains of occasional double vision when staring at distant objects. The patient states that the double has been intermittent and also present for the last 3 months. The episodes of blurriness and double last for sometimes 2-3 minutes at a time and then resolve and the patient's vision returns back to normal. He does not appear to be a solid historian, however, and I am uncertain as to the accuracy of these complaints. EXAM: Visual acuity measured 20/60 OD and 20/80 OS without spectacle correction. The pupils were equal and reactive to light. There was no evidence of an afferent defect. The extraocular movements were full in all gaze positions. There was no evidence of a palsy in either eye. On penlight exam, the lids were normal. The conjunctiva was quiet. The anterior chambers were deep and well formed. The iris appeared normal and there appeared to be bilateral posterior chamber intra-ocular lenses present. Fundus exam revealed normal-appearing maculae vessels and discs. IMPRESSION: Blurred vision, right eye. This patient would benefit from a more extensive workup including a fluorescein angiogram upon discharge from the hospital. I see no evidence of muscle palsy in either eye and I am concerned about the possibility of either a retinal hemorrhage or infarct involving one or both eyes. I would be happy to see him after he is cleared from his current workup. Visual field deficit, inferior right quadrant. Reviewed this patient's records from an office visit in 2016. The inferior deficit was present then but it not possible to determine if the field has changed with a bedside consult. Recommend follow up and repeat computerized monsalve upon discharge. MMCHRISTYL / JOONN: [id number] / MTDD
--- NOTE | 2020-10-04 16:04 | MR ---
EXAMINATION TYPE: MR brain wo/w con DATE OF EXAM: 10/04/2020 COMPARISON: Prior brain MRI 09/30/2015, CT 10/03/2020 HISTORY: Visual disturbance, Stroke, B/L inferior nasal, hX of parkinson's TECHNIQUE: Multiplanar, multisequence images of the brain and brainstem is performed without and with IV contras t, utilizing 7.5 mL intravenous Gadavist . FINDINGS: Fast brain protocol was utilized due to patient's inability to cooperate with the exam. Diffusion weighted images demonstrate no evidence of a recent infarct or other diffusion abnormality. There is no extra-axial fluid collection or significant change in white matter signal abnormality, increased conspicuity in the confluent periventricular and pericallosal hyperintensity could be techn ical. Along the external capsule stable focus of hyperintensity is present on inversion recovery T2-w eighted sequences. The ventricular system and cisternal spaces are normal in size and appearance. Th e brain volume is age appropriate, there is cortical atrophy. Midline structures demonstrate normal morphology. The craniocervical junction appears within normal limits. Post contrast images demonstrate no abnormal enhancement. The dural venous sinuses appear pa tent. The visualized sinuses are clear and the globes are intact. IMPRESSION: Stable exam, no acute abnormality. Age-related changes of atrophy and chronic small vesse l ischemia.
[2020-10-04 19:15] LABS: C Reactive Protein <0.4 mg/dL (0.0-0.8); Chol/HDL Ratio 2.97; Cholesterol 101 mg/dL (0-200); LDL Cholesterol,Calculated 46.6 mg/dL (0.0-131.0)
[2020-10-04] MEDS: PRIMIDONE 50 MG TAB PO SCH ×2 (20:45→20:53)
[2020-10-04] MEDS: ATORVASTATIN 40 MG TAB PO SCH (20:45)
[2020-10-05] MEDS: RASAGILINE MESYLATE 0.5 MG PO SCH ×2 (09:43→19:19)
[2020-10-05] MEDS: PANTOPRAZOLE 40 MG TABLET PO SCH (09:56)
[2020-10-05] MEDS: ASPIRIN 81 MG PO SCH (09:56)
[2020-10-05] MEDS: METOPROLOL TARTRATE 25 MG TAB PO SCH ×2 (09:56→19:15)
[2020-10-05] MEDS: CLOPIDOGREL 75 MG TAB PO SCH (09:56)
[2020-10-05 09:59] LABS: Basophils % (A) 0 %; Eosinophils # (A) 0.1 k/uL (0-0.7); Eosinophils % (A) 1 %; HCT 42.8 % (39.0-53.0); HGB 14.3 gm/dL (13.0-17.5); Lymphocytes # (A) 0.6 k/uL (1.0-4.8); Lymphocytes % (A) 10 %; MCH 31.2 pg (25.0-35.0); MCHC 33.4 g/dL (31.0-37.0); MCV 93.4 fL (80.0-100.0); Mean Platelet Volume 7.5; Monocytes # (A) 0.3 k/uL (0-1.0); Monocytes % (A) 5 %; Neutrophils # (A) 4.9 k/uL (1.3-7.7); Neutrophils % (A) 83 %; Platelet Count 151 k/uL (150-450); RBC 4.58 m/uL (4.30-5.90); RDW 12.3 % (11.5-15.5)
[2020-10-05 10:14] LABS: ALT 9 U/L (4-49); AST 27 U/L (17-59); African American GFR (CKD) 74 (>60 ml/min/1.73 sqM); Albumin 3.3 g/dL (3.5-5.0); Albumin/Globulin Ratio 1.3; Alkaline Phosphatase 75 U/L (38-126); Anion Gap 6 mmol/L; Blood Urea Nitrogen 19 mg/dL (9-20); Calcium 8.4 mg/dL (8.4-10.2); Carbon Dioxide 25 mmol/L (22-30); Chloride 107 mmol/L (98-107); Globulin 2.5 g/dL; Glucose 168 mg/dL (74-99); Non-African American GFR(CKD) 64 (>60 ml/min/1.73 sqM); Potassium 3.8 mmol/L (3.5-5.1); Sodium 138 mmol/L (137-145); Total Bilirubin 1.3 mg/dL (0.2-1.3); Total Protein 5.8 g/dL (6.3-8.2)
--- NOTE | 2020-10-05 11:36 | P.HPIM ---
History of Present Illness H&P Date: 10/04/20 Brie Maya, is an 80-year-old male who presented to [facility] emergency room with a chief complaint of blurry vision in the right eye that started about 3 days prior to presentation and has been worsening patient is also complaining of posterior headache. He was evaluated in the emergency room vital examination on presentation reveals a temperature of 97.8 pulse 91 respiration 18 blood pressure 130/81 pulse ox 98% on room air computed tomography scan of the brain was done in the emergency room without contrast and revealed cerebral atrophy no acute intracranial abnormality. CT angiogram of the head and neck was done in the emergency room and revealed negative exam no s ignificant angiographic abnormality. Patient was admitted to telemetry floor for further evaluation and treatment neurology consultation and ophthalmology consultation were requested. Past Medical History Past Medical History: Coronary Artery Disease (CAD), Chest Pain / Angina, Hyperlipidemia, Hypertension, Myocardial Infarction ([place]), Osteoarthritis ([place]) Additional Past Medical History / Comment(s): [place] X2,monitoring a spot rt kidney, parkinsons Last Myocardial Infarction Date:: 1992 History of Any Multi-Drug Resistant Organisms: None Reported Past Surgical History: Appendectomy, Coronary Bypass/CABG, Heart Catheterization, Heart Catheterization With Stent, Orthopedic Surgery Additional Past Surgical History / Comment(s): RT KNEE ARTHROSCOPY, HEMORRHOIDECTOMY, rotator cuff surg., quad. bypass 1992, cataract surg, heart stents x3 Past Anesthesia/Blood Transfusion Reactions: Motion Sickness Date of Last Stent Placement:: July 2014 Past Psychological History: Anxiety, Depression Smoking Status: Unknown if ever smoked Past Alcohol Use History: None Reported Past Drug Use History: None Reported - Past Family History Brother(s) Additional Family Medical History / Comment(s): TWO BROTHERS HAD OPEN HEART Sister(s) Additional Family Medical History / Comment(s): 2 SISTERS HAD OPEN HEARTS Medications and Allergies Home Medications Medication Instructions Recorded Confirmed Type Ergocalciferol [Vitamin D2 50,000 unit PO MO 07/18/14 10/03/20 History (DRISD[place])] Atorvastatin [Lipitor] 40 mg PO HS #60 tab 08/17/14 10/03/20 Rx Rasagiline Mesylate 0.5 mg PO BID 12/28/18 10/03/20 History Metoprolol Tartrate [Lopressor] 25 mg PO BID tab 12/31/18 10/03/20 Rx Pantoprazole [Protonix] 40 mg PO DAILY tablet. 12/31/18 10/03/20 Rx Olmesartan [Benicar] 20 mg PO HS 05/07/19 10/03/20 History Primidone [Mysoline] 50 mg PO HS 05/07/19 10/03/20 History Aspirin EC [Ecotrin Low Dose] 81 mg PO DAILY 03/07/20 10/03/20 History diazePAM [Diazepam] 1 mg PO BID PRN 03/07/20 10/03/20 History Allergies Allergy/AdvReac Type Severity Reaction Status Date / Time latex Allergy Dyspnea Verified 10/03/20 19:40 Physical Exam Vitals: Vital Signs Temp Pulse Pulse Resp BP BP Pulse Ox 10/04/20 07:00 16 142/78 98 10/04/20 02:00 97.4 F L 59 L 17 114/63 97 10/03/20 22:17 98.4 F 82 18 159/80 99 10/03/20 18:47 76 18 142/74 97 10/03/20 17:25 79 18 135/75 97 10/03/20 15:54 97.8 F 91 18 130/81 98 Intake and Output 10/03/20 10/04/20 10/04/20 22:59 06:59 14:59 Intake Total 1000 100 Balance 1000 100 Intake: Intake, IV Titration 1000 Amount Sodium Chloride 0.9% 1, 1000 000 ml @ 100 mls/hr IV . Q10H STA Rx#:[id number] Oral 100 Other: Weight 77.111 kg 77.111 kg In general patient is alert and oriented x 3 in no distress HEENT head normocephalic and atraumatic Neck is supple no JVD no goiter no lymphadenopathy no carotid bruit Chest examination is clear to auscultation no crackles no wheezing Cardiac exam reveals regular heart sounds S1 and S2 no gallops no murmurs Abdomen is soft nontender no organomegaly with normal bowel sounds Extremity exam reveals no edema no cyanosis or clubbing Neurological examination reveals no gross focal deficits Results CBC & Chem 7: 10/05/20 09:37 10/05/20 09:37 Labs: Abnormal Lab Results - Last 24 Hours (Table) 10/03/20 10/03/20 Range/Units 16:48 16:48 INR 1.2 H (<1.2) BUN 38 H (9-20) mg/dL Creatinine 1.32 H (0.66-1.25) mg/dL Glucose 102 H (74-99) mg/dL Assessment and Plan Plan: Symptoms of blurry vision and posterior headache, started 3 days ago, no acute abnormality on unenhanced computed tomography scan of the brain, and CT angiogram of the brain Differential diagnosis include stroke versus intraocular abnormality. At this time neurology consultation and ophthalmology consultation was requested MRI of the brain ordered Underlying history of hypertension Underlying history of hyperlipidemia Underlying history of coronary artery disease Underlying history of congestive heart failure with cardiomyopathy echocardiogram ordered Home medications reviewed and reordered Will follow closely
--- NOTE | 2020-10-05 14:35 | P.CRDCN ---
History of Present Illness Consult date: 10/05/20 History of present illness: HISTORY OF PRESENT ILLNESS: This is a 80-year-old male with a past medical history significant for coronary artery disease with previous 4 vessel CABG in 1992 with subsequent stenting 3, ischemic cardiomyopathy, hypertension, hyperlipidemia, osteoarthritis, and Parkinson's disease. Patient follows in the office with Dr. Gonzales. We have been asked to see the patient in consultation for "2-D echo results". Patient ex amined at the bedside. Patient states he initially presented to the hospital secondary to blurred vision, double vision, and pain behind his eyes. Patient is currently on aspirin and Plavix. He is also on statin therapy. Echocardiogram completed revealed ejection fraction 35-40%, apical anterior, lateral, inferior, and septal LV wall hypokinesis, mild aortic regurgitation, trace mitral regurgitation, and mild tricuspid regurgitation. Patient's previous echocardiogram from 2014 reveals ejection fraction 30-35%, lateral hypokinesis, inferior lateral hypokinesis, and septal hypokinesis. Patient denies having any chest pain or pressure. He denies shortness of breath. Denies dizziness or lightheadedness. EKG reveals sinus mechanism with no signs of acute ischemia Chest xray no active cardiopulmonary disease Laboratory data: WBC 6.0. Hemoglobin 14.3. Platelet count 151. Sodium 138. Potassium 3.8. BUN 19. Creatinine 1.08. Current home cardiac medications include metoprolol tartrate 25 mg twice a day, aspirin 81 mg daily, Lipitor 40 mg daily Cardiac catheterization history: July 2016 revealing right dominant system. Left main is moderately diseased. LAD and circumflex and RCA are all occluded in the proximal portion. Vein graft to the diagonal is widely patent at the s ite of previous stenting with good flow. The BRIONES to LAD is widely patent with minor diffuse disease within the [place] LAD. Vein graft to the PDA branch of the RCA is widely patent and the stented segment beyond the insertion site of the graft is widely patent with good flow. This graft also fills the entire PLV as well. The vein graft to the obtuse marginal is totally occluded. The vein graft to the diagonal is widely patent at the site of previous stenting. REVIEW OF SYSTEMS: At the time of my exam: CONSTITUTIONAL: Denies fever or chills. HEENT: Reports blurred vision. Reports double vision. Denies hemoptysis CARDIOVASCULAR: Denies chest pain. Denies orthopnea. Denies PND. Denies palpitations RESPIRATORY: Denies shortness of breath. GASTROINTESTINAL: Denies abdominal pain. Denies nausea or vomiting. HEMATOLOGIC: Denies bleeding disorders. GENITOURINARY: Denies any blood in urine. SKIN: Denies pruitis. Denies rash. PHYSICAL EXAM: VITAL SIGNS: Reviewed. GENERAL: Well-developed in no acute distress. HEENT: Head is normocephalic. Pupils are equal, round. Sclerae anicteric. Mucous membranes of the mouth are moist. Neck supple. No JVD or thyromegaly LUNGS: Respirations even and unlabored. Lungs essentially clear to auscultation bilaterally. HEART: Regular rate and rhythm. S1 and S2 heard. ABDOMEN: Soft. Nondistended. Nontender. EXTREMITIES: Normal range of motion. No clubbing or cyanosis. Peripheral pulses intact. No lower extremity edema NEUROLOGIC: Awake and alert. Oriented x 3. ASSESSMENT: Blurred vision/Double vision, possible TIA Coronary artery disease with previous CABG 4 and stenting 3 Known ischemic cardiomyopathy, EF improved from previous echo Hypertension Hyperlipidemia Osteoarthritis Parkinson's disease PLAN: Continue current cardiac medications including aspirin, Lipitor, Plavix, Cozaar, metoprolol No anticoagulation required from a cardiac standpoint Dr. Almaguer inquiring about starting patient on Entresto. This may be discussed on an outpatient basis with Dr. Gonzales We will sign off. Please reconsult if needed Nurse practitioner note has been reviewed by physician. Signing provider agrees with the documented findings, assessment, and plan of care. Past Medical History Past Medical History: Coronary Artery Disease (CAD), Chest Pain / Angina, Hyperlipidemia, Hypertension, Myocardial Infarction (IA), Osteoarthritis (OA) Additional Past Medical History / Comment(s): IA X2,monitoring a spot rt kidney, parkinsons Last Myocardial Infarction Date:: 1992 History of Any Multi-Drug Resistant Organisms: None Reported Past Surgical History: Appendectomy, Coronary Bypass/CABG, Heart Catheterization, Heart Catheterization With Stent, Orthopedic Surgery Additional Past Surgical History / Comment(s): RT KNEE ARTHROSCOPY, HEMORRHOIDECTOMY, rotator cuff surg., quad. bypass 1992, cataract surg, heart stents x3 Past Anesthesia/Blood Transfusion Reactions: Motion Sickness Date of Last Stent Placement:: July 2014 Past Psychological History: Anxiety, Depression Smoking Status: Unknown if ever smoked Past Alcohol Use History: None Reported Past Drug Use History: None Reported - Past Family History Brother(s) Additional Family Medical History / Comment(s): TWO BROTHERS HAD OPEN HEART Sister(s) Additional Family Medical History / Comment(s): 2 SISTERS HAD OPEN HEARTS Medications and Allergies Home Medications Medication Instructions Recorded Confirmed Type Ergocalciferol [Vitamin D2 50,000 unit PO MO 07/18/14 10/03/20 History (ANTON)] Atorvastatin [Lipitor] 40 mg PO HS #60 tab 08/17/14 10/03/20 Rx Rasagiline Mesylate 0.5 mg PO BID 12/28/18 10/03/20 History Metoprolol Tartrate [Lopressor] 25 mg PO BID tab 12/31/18 10/03/20 Rx Pantoprazole [Protonix] 40 mg PO DAILY tablet. 12/31/18 10/03/20 Rx Olmesartan [Benicar] 20 mg PO HS 05/07/19 10/03/20 History Primidone [Mysoline] 50 mg PO HS 05/07/19 10/03/20 History Aspirin EC [Ecotrin Low Dose] 81 mg PO DAILY 03/07/20 10/03/20 History diazePAM [Diazepam] 1 mg PO BID PRN 03/07/20 10/03/20 History Allergies Allergy/AdvReac Type Severity Reaction Status Date / Time latex Allergy Dyspnea Verified 10/03/20 19:40 Physical Exam Vitals: Vital Signs Temp Pulse Resp BP Pulse Ox 10/05/20 07:00 97.1 F L 64 18 148/80 98 10/05/20 01:38 97.7 F 62 14 148/80 97 10/04/20 20:00 74 14 10/04/20 19:26 98.1 F 74 14 143/73 98 10/04/20 15:00 97.7 F 82 16 155/73 98 Intake and Output 10/04/20 10/05/20 10/05/20 22:59 06:59 14:59 Intake Total 200 Output Total 400 400 Balance -200 -400 Intake: Oral 200 Output: Urine 400 400 Other: Voiding Method Toilet # Voids 1 Weight 72.4 kg Results 10/05/20 09:37 10/05/20 09:37 Cardiac Enzymes 10/05/20 Range/Units 09:37 AST 27 (17-59) U/L Lipids 10/04/20 Range/Units 10:32 Triglycerides 102.0 (0.0-149.0) mg/dL Cholesterol 101 (0-200) mg/dL HDL Cholesterol 34.0 L (40.0-60.0) mg/dL Cholesterol/HDL Ratio 2.97 CBC 10/05/20 Range/Units 09:37 WBC 6.0 (3.8-10.6) k/uL RBC 4.58 (4.30-5.90) m/uL Hgb 14.3 (13.0-17.5) gm/dL Hct 42.8 (39.0-53.0) % Plt Count 151 (150-450) k/uL Comprehensive Metabolic Panel 10/05/20 Range/Units 09:37 Sodium 138 (137-145) mmol/L Potassium 3.8 (3.5-5.1) mmol/L Chloride 107 (98-107) mmol/L Carbon Dioxide 25 (22-30) mmol/L BUN 19 (9-20) mg/dL Creatinine 1.08 (0.66-1.25) mg/dL Glucose 168 H (74-99) mg/dL Calcium 8.4 (8.4-10.2) mg/dL AST 27 (17-59) U/L ALT 9 (4-49) U/L Alkaline Phosphatase 75 (38-126) U/L Total Protein 5.8 L (6.3-8.2) g/dL Albumin 3.3 L (3.5-5.0) g/dL Current Medications Generic Name Dose Route Start Last Admin Trade Name Westleyq PRN Reason Stop Dose Admin Aspirin 81 mg 10/03/20 22:45 10/05/20 09:56 Aspirin 81 Mg PO 81 mg DAILY ALEXANDER Administration Atorvastatin Calcium 40 mg 10/03/20 22:45 10/04/20 20:45 Atorvastatin 40 Mg Tab PO 40 mg HS ALEXANDER Administration Clopidogrel Bisulfate 75 mg 10/04/20 10:00 10/05/20 09:56 Clopidogrel 75 Mg Tab PO 75 mg DAILY ALEXANDER Administration Diazepam 1 mg 10/03/20 22:45 10/04/20 20:44 Diazepam 2 Mg Tab PO 1 mg BID PRN Administration Anxiety Ergocalciferol 1,250 mcg 10/03/20 23:00 10/04/20 02:53 Ergocalciferol 1,250 Mcg (50,000 Iu) Capsule PO Not Given MO ALEXANDER Lorazepam 0.5 mg 10/04/20 09:41 Lorazepam 2 Mg/Ml Inj IV ONCE PRN Anxiety Losartan Potassium 100 mg 10/03/20 22:45 10/04/20 20:45 Losartan 50 Mg Tab PO 100 mg HS ALEXANDER Administration Metoprolol Tartrate 25 mg 10/03/20 22:45 10/05/20 09:56 Metoprolol Tartrate 25 Mg Tab PO 25 mg BID ALEXANDER Administration Naloxone HCl 0.2 mg 10/03/20 19:44 Naloxone 0.4 Mg/Ml 1 Ml Vial IV Q2M PRN Opioid Reversal Non-Formulary Medication 0.5 mg 10/04/20 09:00 10/05/20 09:43 Rasagiline Mesylate [Rasagiline Mesylate] PO Not Given BID ALEXANDER Pantoprazole Sodium 40 mg 10/03/20 22:45 10/05/20 09:56 Pantoprazole 40 Mg Tablet PO 40 mg DAILY ALEXANDER Administration Primidone 50 mg 10/03/20 23:00 10/04/20 20:53 Primidone 50 Mg Tab PO 50 mg HS ALEXANDER Administration Intake and Output 10/04/20 10/05/20 10/05/20 22:59 06:59 14:59 Intake Total 200 Output Total 400 400 Balance -200 -400 Intake: Oral 200 Output: Urine 400 400 Other: Voiding Method Toilet # Voids 1 Weight 72.4 kg 10/05/20 09:37 10/05/20 09:37
--- NOTE | 2020-10-05 16:18 | P.PN ---
Subjective Progress Note Date: 10/05/20 Brie Maya, is an 80-year-old male who presented to [facility] emergency room with a chief complaint of blurry vision in the right eye that started about 3 days prior to presentation and has been worsening patient is also complaining of posterior headache. He was evaluated in the emergency room vital examination on presentation reveals a temperature of 97.8 pulse 91 respiration 18 blood pressure 130/81 pulse ox 98% on room air computed tomography scan of the brain was done in the emergency room without contrast and revealed cerebral atrophy no acute intracranial abnormality. CT angiogram of the head and neck was done in the emergency room and revealed negative exam no significant angiographic abnormality. Patient was admitted to telemetry floor for further evaluation and treatment neurology consultation and ophthalmology consultation were requested. On 10/05/2020 patient was seen and examined on the medical floor he is alert and oriented 3 in no distress there is no fever or chills no headache or dizziness no chest pain no shortness of breath no cough no palpitation no nausea or vomiting no abdominal pain no diarrhea and no urinary symptoms patient's report some improvement in his vision he was evaluated by neurology again today and MRI of the pituitary gland was ordered. Patient was evaluated by cardiology he has a low ejection fraction of 35-40% and areas of hypokinesia no anticoagulation was recommended at this time. Objective - Vital Signs Vital signs: Vital Signs Temp 97.8 F 10/05/20 15:00 Pulse 66 10/05/20 15:00 Resp 18 10/05/20 15:00 BP 136/69 10/05/20 15:00 Pulse Ox 99 10/05/20 15:00 Intake & Output 10/04/20 10/05/20 10/05/20 18:59 06:59 18:59 Intake Total 500 Output Total 800 Balance 500 -800 Weight 72.4 kg Intake: Oral 500 Output: Urine 800 Other: Voiding Method Toilet # Voids 1 1 1 - Exam In general patient is alert and oriented x 3 in no distress HEENT head normocephalic and atraumatic Neck is supple no JVD no goiter no lymphadenopathy no carotid bruit Chest examination is clear to auscultation no crackles no wheezing Cardiac exam reveals regular heart sounds S1 and S2 no gallops no murmurs Abdomen is soft nontender no organomegaly with normal bowel sounds Extremity exam reveals no edema no cyanosis or clubbing Neurological examination reveals no gross focal deficits - Labs CBC & Chem 7: 10/05/20 09:37 10/05/20 09:37 Labs: Abnormal Lab Results - Last 24 Hours (Table) 10/04/20 10/05/20 10/05/20 Range/Units 10:32 09:37 09:37 Lymphocytes # 0.6 L (1.0-4.8) k/uL Glucose 168 H (74-99) mg/dL Total Protein 5.8 L (6.3-8.2) g/dL Albumin 3.3 L (3.5-5.0) g/dL HDL Cholesterol 34.0 L (40.0-60.0) mg/dL Assessment and Plan Plan: Symptoms of blurry vision and posterior headache, started 3 days ago, no acute abnormality on unenhanced computed tomography scan of the brain, and CT angiogra m of the brain Differential diagnosis include stroke versus intraocular abnormality. At this time neurology consultation and ophthalmology consultation was requested MRI of the brain ordered Underlying history of hypertension Underlying history of hyperlipidemia Underlying history of coronary artery disease Underlying history of congestive heart failure with cardiomyopathy echocardiogram ordered Home medications reviewed and reordered Initially patient was cleared for discharge by neurology and cardiology However Dr. Villanueva neurologist wanted to proceed with an MRI of the pituitary gland discharge was canceled patient will have the MRI tomorrow Possible discharge to home tomorrow after MRI
[2020-10-05] MEDS: SODIUM CHLORIDE 0.9% 1,000 ML IV SCH (16:30)
--- NOTE | 2020-10-05 17:45 | P.PN ---
Subjective Progress Note Date: 10/05/20 Patient was seen at bedside and he said that he continues to have diplopia on both eyes and he feels and it's the [id number] and he feels more on the right than the left. He denies of any focal weakness, numbness, difficulty getting her words out, difficulty swallowing. He denies of any drooping of the eyes after sustained activity or difficulty swallowing. MR the brain w/ and w/o is reported as stable exam, no acute abnormality. Age- related changes of atrophy and chronic small vessel ischemia. Objective - Vital Signs Vital signs: Vital Signs Temp 97.8 F 10/05/20 15:00 Pulse 66 10/05/20 15:00 Resp 18 10/05/20 15:00 BP 136/69 10/05/20 15:00 Pulse Ox 99 10/05/20 15:00 Intake & Output 10/04/20 10/05/20 10/05/20 18:59 06:59 18:59 Intake Total 500 Output Total 800 Balance 500 -800 Weight 72.4 kg Intake: Oral 500 Output: Urine 800 Other: Voiding Method Toilet # Voids 1 1 1 - Exam GENERAL: The patient is lying in bed and is not in acute distress. NEUROLOGICAL: Higher mental function: The patient is awake, alert, oriented to self, place and time. Patient is following commands. No aphasia and no neglect. Cranial nerves: The pupils are round, equal and reactive to light and accommodation. Visual monsalve: there is visual loss over bilateral interfior nasal quadrant to confrontation, otherwise normal. Extraocular movement is intact no nystagmus is noted. Patient has diplopia (side to side out of both eyes) and did not resolve with covering either eye. Facial sensation is normal to touch throughout. The facial strength is normal throughout. Hearing is mildly to moderate decreased bilaterally to hand rub. Tongue is midline and moved [id number] without any difficulty. No dysarthria is noted. Shoulder shrug is normal bilaterally. Motor: Gait is deferred. The strength is 5 over 5 throughout. Normal tone and bulk. He has occasional resting tremor left hand/forearm. Cerebellum: Normal finger to nose heel bilaterally. Sensation: Sensation is normal to touch throughout. Reflexes (right/left): 2+ throughout. Plantars are downgoing bilaterally. - Labs CBC & Chem 7: 10/05/20 09:37 10/05/20 09:37 Labs: Abnormal Lab Results - Last 24 Hours (Table) 10/04/20 10/05/20 10/05/20 Range/Units 10:32 09:37 09:37 Lymphocytes # 0.6 L (1.0-4.8) k/uL Glucose 168 H (74-99) mg/dL Total Protein 5.8 L (6.3-8.2) g/dL Albumin 3.3 L (3.5-5.0) g/dL HDL Cholesterol 34.0 L (40.0-60.0) mg/dL Assessment and Plan Assessment: * Complaint of right visual loss for last 2-3 days but on examination has visual loss over the bilateral inferior nasal quadrant and having diplopia of both eyes and having headaches. Rule out pituitary mass/enlargement. This is Not stroke or TIA. Not temporal arteritis (ESR and CRP are normal). * Cephalgia * Parkinson's disease (left upper extremity tremor) * Acute on chronic kidney insufficiency * Hypertension * Hyperlipidemia * History of coronary artery disease status post stent as well as CABG * History of myocardial infarction Plan: * CT of the head is reported as cerebral atrophy. No acute intracranial abnormality. No change. * CT angiography of the head and neck was reported as negative exam. No significant angiographic abnormality. * MR the brain w/ and w/o is reported as stable exam, no acute abnormality. Age-related changes of atrophy and chronic small vessel ischemia. * TSH is 1.22 (within normal limits). * Lipid panel: Triglyceride 102, cholesterol 101, LDL 46 and HDL is 34. * 2-D echo was reported as moderate concentric left ventricular hypertrophy. Ejection fraction of 35-40%. Apical anterior left ventricular wall motion hypokinetic, apical lateral, apical inferior, apical septum or all hypokinetic. Normal left atrial size. * ESR is 3 and CRP is less than 0.4 which are within normal limits. * Continue his home dose of aspirin 81 mg daily. I stopped the Plavix since this is not a stroke. Continue his home dose of Lipitor 40 mg daily. * Placed the patient on continuous cardiac monitoring as well as every 4 hours neuro checks. * PT, OT are consulted. * Ordered Acetylcholine receptor antibodies (which I highly doubt Myasthenia Gravis). * Dr. Park (Ophthamologist) stated the patient blurry vision over the right eye he would benefit from more extensive workup including fluorescein angiogram upon discharge. He is concerned about retinal hemorrhage or infarct involving one or both eyes. In his notes the patient was seen in the office in 2016 and the per his notes it is mentioned that the inferior deficits was present then but is not possible to determine if that she'll change it change with a bedside consult * His home dose of primidone 50 mg daily at bedtime, Rasagiline 0.5mg 1 tab bid were started. * Will defer the rest of medical management to the primary team. Upon discharge the patient needs to follow-up with a neurologist as well as an pole sander operator within 1-2 weeks as outpatient. The plan is discussed with the patient's nurse. Mat Villanueva MD Neuro-Hospitalist Time with Patient: Less than 30
[2020-10-05] MEDS: ATORVASTATIN 40 MG TAB PO SCH (19:16)
[2020-10-05] MEDS: LOSARTAN 50 MG TAB PO SCH (19:16)
[2020-10-05 19:59] VITALS: RESP 16
[2020-10-06 02:44] VITALS: TEMP 97.7
[2020-10-06 08:01] VITALS: BP 97/59; PULSE 77
[2020-10-06] MEDS: METOPROLOL TARTRATE 25 MG TAB PO SCH (09:35)
[2020-10-06] MEDS: PANTOPRAZOLE 40 MG TABLET PO SCH (09:35)
[2020-10-06] MEDS: ASPIRIN 81 MG PO SCH (09:35)
[2020-10-06] MEDS: RASAGILINE MESYLATE 0.5 MG PO SCH (09:36)
--- NOTE | 2020-10-06 09:42 | P.DS ---
Providers Date of admission: 10/03/20 19:48 Expected date of discharge: 10/06/20 Attending physician: Glory Almaguer Consults: 10/03/20 19:44 Consult Physician Urgent Consulting Provider: Mat Villanueva Consult Reason/Comments: vision changes, headache, parkinsons Do you want consulting provider notified?: Yes 10/04/20 10:16 Consult Physician Routine Consulting Provider: Yosef Park Consult Reason/Comments: visual disturbance sharon inferior nasal Do you want consulting provider notified?: Yes Primary care physician: Aidan Tim [facility] Course: Discharge diagnosis Symptoms of blurry vision and posterior headache, started 3 days ago, no acute abnormality on unenhanced computed tomography scan of the brain, and CT angiogram of the brain Differential diagnosis include stroke versus intraocular abnormality. At this time neurology consultation and ophthalmology consultation was requested MRI of the brain ordered Underlying history of hypertension Underlying history of hyperlipidemia Underlying history of coronary artery disease Underlying history of congestive heart failure with cardiomyopathy. Echocardiogram reviewed by cardiology services no changes to medications at this time Hospital course Brie Maya, is an 80-year-old male who presented to [facility] emergency room with a chief complaint of blurry vision in the right eye that started about 3 days prior to presentation and has been worsening patient is also complaining of posterior headache. He was evaluated in the emergency room vital examination on presentation reveals a temperature of 97.8 pulse 91 respiration 18 blood pressure 130/81 pulse ox 98% on room air computed tomography scan of the brain was done in the emergency room without contrast and revealed cerebral atrophy no acute intracranial abnormality. CT angiogram of the head and neck was done in the emergency room and revealed negative exam no significant angiographic abnormality. Patient was admitted to telemetry floor for further evaluation and treatment neurology consultation and ophthalmology consultation were requested. On 10/05/2020 patient was seen and examined on the medical floor he is alert and oriented 3 in no distress there is no fever or chills no headache or dizziness no chest pain no shortness of breath no cough no palpitation no nausea or vomiting no abdominal pain no diarrhea and no urinary symptoms patient's report some improvement in his vision he was evaluated by neurology again today and MRI of the pituitary gland was ordered. Patient was evaluated by cardiology he has a low ejection fraction of 35-40% and areas of hypokinesia no anticoagulation was recommended at this time. On 10/06/2020 patient is alert and oriented 3. Patient expresses that he is eager to go home due to recent of daughter. She did have surgery MRI completed per neurology ordered. Patient will follow up with neurology and ophthalmology services outpatient for further workup. Patient also evaluated by cardiology services while inpatient no changes to current medication. Patient will be discharged on Plavix. At this time patient denies chest pain or shortness of breath. Patient denies nausea vomiting or diarrhea. Patient denies any urinary burning or frequency Patient Condition at Discharge: Stable Plan - Discharge Summary New Discharge Prescriptions: New Clopidogrel [Plavix] 75 mg PO DAILY tab Continue Ergocalciferol [Vitamin D2 (DRISDOL)] 50,000 unit PO MO Atorvastatin [Lipitor] 40 mg PO HS #60 tab Rasagiline Mesylate 0.5 mg PO BID Metoprolol Tartrate [Lopressor] 25 mg PO BID tab Pantoprazole [Protonix] 40 mg PO DAILY tablet. Primidone [Mysoline] 50 mg PO HS Olmesartan [Benicar] 20 mg PO HS Aspirin EC [Ecotrin Low Dose] 81 mg PO DAILY diazePAM [Diazepam] 1 mg PO BID PRN PRN Reason: Anxiety Discharge Medication List Ergocalciferol [Vitamin D2 (DRISDOL)] 50,000 unit PO MO 07/18/14 [History] Atorvastatin [Lipitor] 40 mg PO HS #60 tab 08/17/14 [Rx] Rasagiline Mesylate 0.5 mg PO BID 12/28/18 [History] Metoprolol Tartrate [Lopressor] 25 mg PO BID tab 12/31/18 [Rx] Pantoprazole [Protonix] 40 mg PO DAILY tablet. 12/31/18 [Rx] Olmesartan [Benicar] 20 mg PO HS 05/07/19 [History] Primidone [Mysoline] 50 mg PO HS 05/07/19 [History] Aspirin EC [Ecotrin Low Dose] 81 mg PO DAILY 03/07/20 [History] diazePAM [Diazepam] 1 mg PO BID PRN 03/07/20 [History] Clopidogrel [Plavix] 75 mg PO DAILY tab 10/05/20 [Rx] Follow up Appointment(s)/Referral(s): [facility], [NON-STAFF] - 1-2 Days [facility] [NON-STAFF] - 1 Week Aidan Tim MD [Primary Care Provider] - 1-2 days Discharge/Stand Alone Forms: Who Do I Call?, Help In The Home Discharge Disposition: HOME SELF-CARE
--- NOTE | 2020-10-06 11:01 | MR ---
EXAMINATION TYPE: MR pituitary wo/w con DATE OF EXAM: 10/06/2020 COMPARISON: MR brain 10/04/2020 HISTORY: Diplopia, visual loss over bilateral nasal TECHNIQUE: Multiplanar, multisequence images of the brain and brainstem is performed without and with IV contras t, utilizing 7.5 mL intravenous Gadavist . FINDINGS: Midline structures demonstrate normal morphology. The pituitary gland shows no enlargement, unremark able appearance. Post contrast images demonstrate no abnormal enhancement. No evident mass. There is some motion on the exam. IMPRESSION: Normal pituitary gland.
--- NOTE | 2020-10-06 17:29 | P.PN ---
Subjective Progress Note Date: 10/06/20 Patient seen at bedside and the he continues to have double vision and has intermittent blurry vision over the right eye. Otherwise no neurological deficit. Objective - Vital Signs Vital signs: Vital Signs Temp 97.7 F 10/06/20 07:00 Pulse 77 10/06/20 07:00 Resp 16 10/06/20 07:00 BP 97/59 10/06/20 07:00 Pulse Ox 98 10/06/20 07:00 Intake & Output 10/05/20 10/06/20 10/06/20 18:59 06:59 18:59 Intake Total 200 Output Total 450 Balance -450 200 Intake: Oral 200 Output: Urine 450 Other: Voiding Method Toilet # Voids 1 2 - Exam GENERAL: The patient is lying in bed and is not in acute distress. NEUROLOGICAL: Higher mental function: The patient is awake, alert, oriented to self, place and time. Patient is following commands. No aphasia and no neglect. Cranial nerves: The pupils are round, equal and reactive to light and accommodation. Visual monsalve: there is visual loss over bilateral interfior nasal quadrant to confrontation, otherwise normal. Extraocular movement is intact no nystagmus is noted. Patient has diplopia (side to side out of both eyes) and did not resolve with covering either eye. Facial sensation is normal to touch throughout. The facial strength is normal throughout. Hearing is mildly to moderate decreased bilaterally to hand rub. Tongue is midline and moved [id number] without any difficulty. No dysarthria is noted. Shoulder shrug is normal bilaterally. Motor: Gait is deferred. The strength is 5 over 5 throughout. Normal tone and bulk. He has occasional resting tremor left hand/forearm. Cerebellum: Normal finger to nose heel bilaterally. Sensation: Sensation is normal to touch throughout. Reflexes (right/left): 2+ throughout. Plantars are downgoing bilaterally. - Labs CBC & Chem 7: 10/05/20 09:37 10/05/20 09:37 Assessment and Plan Assessment: * Complaint of right visual loss for last 2-3 days but on examination has visual loss over the bilateral inferior nasal quadrant (per Ophthamology note seems ?old) and having diplopia of both eyes and having headaches. Unsure etiology. This is Not stroke or TIA. Not temporal arteritis (ESR and CRP are normal). * Cephalgia * Parkinson's disease (left upper extremity tremor) * Acute on chronic kidney insufficiency * Hypertension * Hyperlipidemia * History of coronary artery disease status post stent as well as CABG * History of myocardial infarction Plan: * CT of the head is reported as cerebral atrophy. No acute intracranial abnormality. No change. * CT angiography of the head and neck was reported as negative exam. No significant angiographic abnormality. * MR the brain w/ and w/o is reported as stable exam, no acute abnormality. Age-related changes of atrophy and chronic small vessel ischemia. * TSH is 1.22 (within normal limits). * Lipid panel: Triglyceride 102, cholesterol 101, LDL 46 and HDL is 34. * 2-D echo was reported as moderate concentric left ventricular hypertrophy. Ej ection fraction of 35-40%. Apical anterior left ventricular wall motion hypokinetic, apical lateral, apical inferior, apical septum or all hypokinetic. Normal left atrial size. * ESR is 3 and CRP is less than 0.4 which are within normal limits. * MR the pituitary with and without is reported as normal. * Continue his home dose of aspirin 81 mg daily. I stopped the Plavix on 10/05/20 since this is not a stroke. Continue his home dose of Lipitor 40 mg daily. * Placed the patient on continuous cardiac monitoring as well as every 4 hours neuro checks. * PT, OT are consulted. * Ordered Acetylcholine receptor antibodies (which I highly doubt Myasthenia Gravis). * Dr. Park (Ophthamologist) stated the patient blurry vision over the right eye he would benefit from more extensive workup including fluorescein angiogram upon discharge. He is concerned about retinal hemorrhage or infarct involving one or both eyes. In his notes the patient was seen in the office in 2016 and the per his notes it is mentioned that the inferior deficits was present then but is not possible to determine if that she'll change it change with a bedside consult * His home dose of primidone 50 mg daily at bedtime, Rasagiline 0.5mg 1 tab bid were started. * Will defer the rest of medical management to the primary team. Upon discharge the patient needs to follow-up with a neurologist as well as an sunglass clip attacher within 1-2 weeks as outpatient. The plan is discussed with the patient's daughter who is at bedside and his nurse. Mat Villanueva MD Neuro-Hospitalist Time with Patient: Less than 30
== END 2020-10-06 12:10 | disposition home or self-care (01) ==
LOC: EC 15:48 → 6NMEDSUR 19:48
PROVIDERS: ADMIT Internal Medicine; ATTEND Internal Medicine
DX: H53.8 Other visual disturbances (principal); R51.9 Headache, unspecified; H53.2 Diplopia; H53.40 Unspecified visual field defects; G20 Parkinson's disease; I13.0 Hypertensive heart and chronic kidney disease with heart failure and stage 1 through stage 4 chronic kidney disease, or unspecified chronic kidney disease; N18.9 Chronic kidney disease, unspecified; I50.9 Heart failure, unspecified; I25.810 Atherosclerosis of coronary artery bypass graft(s) without angina pectoris; I25.5 Ischemic cardiomyopathy; I08.3 Combined rheumatic disorders of mitral, aortic and tricuspid valves; I25.82 Chronic total occlusion of coronary artery; I25.2 Old myocardial infarction; E78.5 Hyperlipidemia, unspecified; M19.90 Unspecified osteoarthritis, unspecified site; F32.9 Major depressive disorder, single episode, unspecified; F41.9 Anxiety disorder, unspecified; Z20.822 Contact with and (suspected) exposure to COVID-19; Z79.82 Long term (current) use of aspirin; Z79.899 Other long term (current) drug therapy; Z91.040 Latex allergy status; Z95.1 Presence of aortocoronary bypass graft; Z95.5 Presence of coronary angioplasty implant and graft; Z90.49 Acquired absence of other specified parts of digestive tract; Z98.42 Cataract extraction status, left eye; Z98.41 Cataract extraction status, right eye; Z98.890 Other specified postprocedural states; Z82.49 Family history of ischemic heart disease and other diseases of the circulatory system
CPT/HCPCS: 96361 ×4; 96360; 99285; 36415; 93005; 93306; 97162; 97166; 83519; 80061; 80053 ×2; 85652; 84443; 85025 ×2; 85610; 85730; 86140; 87635; 71046; 70496; 70450; 70498; 70553 ×2; G0378 ×4; A9585 ×2; Q9967

== ENCOUNTER 2021-02-14 23:45 | Observation (INO) | payer MEDICARE ==
[2021-02-14] MEDS ORDERED: SODIUM CHLORIDE 0.9% 1,000 ML IV STA (23:59)
--- NOTE | 2021-02-15 00:18 | ED ---
Psych HPI - General Chief Complaint: Psychiatric Symptoms Stated Complaint: Suicidal Ideation/anxiety Time Seen by Provider: 02/14/21 23:57 Source: patient, RN notes reviewed, old records reviewed Mode of arrival: EMS Limitations: no limitations - History of Present Illness Initial Comments: This is a 80-year-old male to the emergency room today. Patient presents today for evaluation regards to severe weakness. She admits to significant amount of increased stress due to recent of daughter as well as his onset of Parkinson's dementia. Patient is positive for suicidal thoughts MD Complaint: suicidal ideation, feels depressed Associated Psychiatric Symptoms: depression, suicidal ideation Worsens With: drug use Context: significant life stressor Associated Symptoms: denies other symptoms Treatments Prior to Arrival: placed on mental health hold If Self Harm: admits thoughts of self harm - Related Data Home Medications Medication Instructions Recorded Confirmed Ergocalciferol [Vitamin D2 50,000 unit PO MO 07/18/14 10/03/20 (DRISDOL)] Rasagiline Mesylate 0.5 mg PO BID 12/28/18 10/03/20 Olmesartan [Benicar] 20 mg PO HS 05/07/19 10/03/20 Primidone [Mysoline] 50 mg PO HS 05/07/19 10/03/20 Aspirin EC [Ecotrin Low Dose] 81 mg PO DAILY 03/07/20 10/03/20 diazePAM [Diazepam] 1 mg PO BID PRN 03/07/20 10/03/20 Previous Rx's Medication Instructions Recorded Atorvastatin [Lipitor] 40 mg PO HS #60 tab 08/17/14 Metoprolol Tartrate [Lopressor] 25 mg PO BID tab 12/31/18 Pantoprazole [Protonix] 40 mg PO DAILY tablet. 12/31/18 Clopidogrel [Plavix] 75 mg PO DAILY tab 10/05/20 Allergies Allergy/AdvReac Type Severity Reaction Status Date / Time latex Allergy Dyspnea Verified 10/03/20 19:40 Review of Systems ROS Statement: Those systems with pertinent positive or pertinent negative responses have been documented in the HPI. ROS Other: All systems not noted in ROS Statement are negative. Past Medical History Past Medical History: Coronary Artery Disease (CAD), Chest Pain / Angina, Hyperlipidemia, Hypertension, Myocardial Infarction ([place]), Osteoarthritis (OA) Additional Past Medical History / Comment(s): [place] X2,monitoring a spot rt kidney, parkinsons Last Myocardial Infarction Date:: 1992 History of Any Multi-Drug Resistant Organisms: None Reported Past Surgical History: Appendectomy, Coronary Bypass/CABG, Heart Cathete rization, Heart Catheterization With Stent, Orthopedic Surgery Additional Past Surgical History / Comment(s): RT KNEE ARTHROSCOPY, HEMORRHOIDECTOMY, rotator cuff surg., quad. bypass 1992, cataract surg, heart stents x3 Past Anesthesia/Blood Transfusion Reactions: Motion Sickness Date of Last Stent Placement:: July 2014 Past Psychological History: Anxiety, Depression Smoking Status: Unknown if ever smoked Past Alcohol Use History: None Reported Past Drug Use History: None Reported - Past Family History Brother(s) Additional Family Medical History / Comment(s): TWO BROTHERS HAD OPEN HEART Sister(s) Additional Family Medical History / Comment(s): 2 SISTERS HAD OPEN HEARTS General Exam Limitations: no limitations General appearance: alert, in no apparent distress Head exam: Present: atraumatic, normocephalic, normal inspection Eye exam: Present: normal appearance, PERRL, EOMI. Absent: scleral icterus, conjunctival injection, periorbital swelling ENT exam: Present: normal exam, mucous membranes moist Neck exam: Present: normal inspection. Absent: tenderness, meningismus, lymphadenopathy Respiratory exam: Present: normal lung sounds bilaterally. Absent: respiratory distress, wheezes, rales, rhonchi, stridor Cardiovascular Exam: Present: regular rate, normal rhythm, normal heart sounds. Absent: systolic murmur, diastolic murmur, rubs, gallop, clicks GI/Abdominal exam: Present: soft, normal bowel sounds. Absent: distended, tenderness, guarding, rebound, rigid Extremities exam: Present: normal inspection, full ROM, normal capillary refill. Absent: tenderness, pedal edema, joint swelling, calf tenderness Back exam: Present: normal inspection Neurological exam: Present: alert, oriented X3, CN II-XII intact Psychiatric exam: Present: normal affect, normal mood Skin exam: Present: warm, dry, intact, normal color. Absent: rash Course Vital Signs 02/14/21 23:50 Temperature 97.5 F L Pulse Rate 84 Respiratory 16 Rate Blood Pressure 153/70 O2 Sat by Pulse 100 Oximetry - Reevaluation(s) Reevaluation #1: 02/15/21 00:44 Medical record is reviewed 02/15/21 04:03 Patient continues to feel weak depressed here in the emergency department - Consultations Consultation #1: spoke w Dr Huerta will evaluate and see the patient Medical Decision Making - Medical Decision Making 78 male to the emergency department for evaluation. Patient will be admitted for weakness,. By recent depression and suicidal thoughts. Patient is unable he found placement an outpatient basis will admit for psychiatric evaluation and treatment - Lab Data Result diagrams: 02/15/21 00:37 02/15/21 00:37 Lab Results 02/15/21 02/15/21 02/15/21 Range/Units 00:37 00:37 00:43 WBC 6.3 (3.8-10.6) k/uL RBC 4.43 (4.30-5.90) m/uL Hgb 15.0 (13.0-17.5) gm/dL Hct 41.6 (39.0-53.0) % MCV 93.9 (80.0-100.0) fL MCH 33.8 (25.0-35.0) pg MCHC 36.0 (31.0-37.0) g/dL RDW 13.2 (11.5-15.5) % Plt Count 166 (150-450) k/uL MPV 7.8 Neutrophils % 71 % Lymphocytes % 18 % Monocytes % 7 % Eosinophils % 2 % Basophils % 1 % Neutrophils # 4.5 (1.3-7.7) k/uL Lymphocytes # 1.1 (1.0-4.8) k/uL Monocytes # 0.5 (0-1.0) k/uL Eosinophils # 0.1 (0-0.7) k/uL Basophils # 0.0 (0-0.2) k/uL Sodium 137 (137-145) mmol/L Potassium 5.4 H (3.5-5.1) mmol/L Chloride 106 (98-107) mmol/L Carbon Dioxide 23 (22-30) mmol/L Anion Gap 8 mmol/L BUN 41 H (9-20) mg/dL Creatinine 1.30 H (0.66-1.25) mg/dL Est GFR (CKD-EPI)AfAm 59 (>60 ml/min/1.73 sqM) Est GFR (CKD-EPI)NonAf 51 (>60 ml/min/1.73 sqM) Glucose 98 (74-99) mg/dL Calcium 9.2 (8.4-10.2) mg/dL Urine Color Yellow Urine Appearance Clear (Clear) Urine pH 5.0 (5.0-8.0) Ur Specific [place] 1.019 (1.001-1.035) Urine Protein Negative (Negative) Urine Glucose (UA) Negative (Negative) Urine Ketones Negative (Negative) Urine Blood Negative (Negative) Urine Nitrite Negative (Negative) Urine Bilirubin Negative (Negative) Urine Urobilinogen <2.0 (<2.0) mg/dL Ur Leukocyte Esterase Negative (Negative) Salicylates <1.0 mg/dL Urine Opiates Screen Not Detected (NotDetected) Ur Oxycodone Screen Not Detected (NotDetected) Urine Methadone Screen Not Detected (NotDetected) Ur Propoxyphene Screen Not Detected (NotDetected) Acetaminophen <10.0 ug/mL Ur Barbiturates Screen Detected H (NotDetected) U Tricyclic Antidepress Not Detected (NotDetected) Ur Phencyclidine Scrn Not Detected (NotDetected) Ur Amphetamines Screen Not Detected (NotDetected) U Methamphetamines Scrn Not Detected (NotDetected) U Benzodiazepines Scrn Detected H (NotDetected) Urine Cocaine Screen Not Detected (NotDetected) U Marijuana (THC) Screen Not Detected (NotDetected) Serum Alcohol <10 mg/dL Disposition Clinical Impression: Depression, Suicidal ideation, Weakness, ARF (acute renal failure), CKD (chronic kidney disease) Disposition: ADMITTED IP TO THIS [facility] Condition: Fair Is patient prescribed a controlled substance at d/c from ED?: No Referrals: Aidan Tim MD [Primary Care Provider] - 1-2 days
[2021-02-15 00:53] LABS: Basophils % (A) 1 %; Eosinophils # (A) 0.1 k/uL (0-0.7); Eosinophils % (A) 2 %; HCT 41.6 % (39.0-53.0); Lymphocytes # (A) 1.1 k/uL (1.0-4.8); Lymphocytes % (A) 18 %; MCH 33.8 pg (25.0-35.0); MCV 93.9 fL (80.0-100.0); Mean Platelet Volume 7.8; Monocytes # (A) 0.5 k/uL (0-1.0); Monocytes % (A) 7 %; Neutrophils # (A) 4.5 k/uL (1.3-7.7); Neutrophils % (A) 71 %; Platelet Count 166 k/uL (150-450); RBC 4.43 m/uL (4.30-5.90); RDW 13.2 % (11.5-15.5); WBC 6.3 k/uL (3.8-10.6)
[2021-02-15 00:55] LABS: Appearance,Urine Clear (Clear); Bilirubin,Urine Negative (Negative); Blood,Urine Negative (Negative); Color,Urine Yellow; Glucose,Urine (UA) Negative (Negative); Ketones,Urine Negative (Negative); Leukocyte Esterase,Urine Negative (Negative); Nitrite,Urine Negative (Negative); Protein,Urine Negative (Negative); Specific Gravity,Urine 1.019 (1.001-1.035); Urobilinogen,Urine <2.0 mg/dL (<2.0)
[2021-02-15] MEDS ORDERED: LORazepam 2 MG/ML INJ IV STA (01:12)
[2021-02-15 01:13] LABS: Amphetamine Screen,Urine Not Detected (NotDetected); Barbiturate Screen,Urine Detected (NotDetected); Benzodiazepines Screen,Urine Detected (NotDetected); Cocaine Screen,Urine Not Detected (NotDetected); Methadone Screen, Urine Not Detected (NotDetected); Opiate Screen,Urine Not Detected (NotDetected); Oxycodone Screen, Urine Not Detected (NotDetected); Phencyclidine Screen,Urine Not Detected (NotDetected); Tricyclic Antidepressant,Urine Not Detected (NotDetected); Urn Cannabinoid Scrn Not Detected (NotDetected)
[2021-02-15 01:31] LABS: Acetaminophen <10.0 ug/mL; African American GFR (CKD) 59 (>60 ml/min/1.73 sqM); Alcohol <10 mg/dL; Anion Gap 8 mmol/L; Blood Urea Nitrogen 41 mg/dL (9-20); Calcium 9.2 mg/dL (8.4-10.2); Carbon Dioxide 23 mmol/L (22-30); Chloride 106 mmol/L (98-107); Glucose 98 mg/dL (74-99); Non-African American GFR(CKD) 51 (>60 ml/min/1.73 sqM); Salicylate <1.0 mg/dL; Sodium 137 mmol/L (137-145)
[2021-02-15 01:32] LABS: Potassium 5.4 mmol/L (3.5-5.1)
--- NOTE | 2021-02-15 03:27 | XR ---
EXAMINATION TYPE: XR chest 1V DATE OF EXAM: 02/15/2021 COMPARISON: 10/03/2020 HISTORY: Weakness TECHNIQUE: FINDINGS: Heart is normal. Lungs are clear of infiltrate. There are sternal wires. Costophrenic angle s are clear. Bony thorax is intact. There is moderate arthritic change in the right shoulder joint. IMPRESSION: No active cardiopulmonary disease. No change.
[2021-02-15] MEDS ORDERED: ONDANSETRON 4 MG/2 ML VIAL IVP PRN (04:01)
[2021-02-15] MEDS ORDERED: NALOXONE 0.4 MG/ML 1 ML VIAL IV PRN (04:01)
[2021-02-15] MEDS ORDERED: LORazepam 2 MG/ML INJ IV PRN (04:01)
[2021-02-15] MEDS: SODIUM CHLORIDE 0.9% 1,000 ML IV SCH ×3 (04:15→21:40)
[2021-02-15] MEDS ORDERED: NITROGLYCERIN SL TABS 0.4 MG TAB SUBLINGUAL PRN (12:01)
[2021-02-15] MEDS ORDERED: diazePAM 2 MG TAB PO PRN (12:01)
[2021-02-15] MEDS: PANTOPRAZOLE 40 MG TABLET PO SCH (12:56)
[2021-02-15] MEDS: METOPROLOL TARTRATE 25 MG TAB PO SCH ×2 (12:56→21:39)
[2021-02-15] MEDS: ASPIRIN 81 MG PO SCH (12:56)
[2021-02-15] MEDS: CLOPIDOGREL 75 MG TAB PO SCH (12:56)
--- NOTE | 2021-02-15 12:57 | P.CN ---
Psychiatric Consult - . Consult date: 02/15/21 Consult:: 02/15/21 12:09 IDENTIFYING DATA: This patient is a 80-year-old male with history of Parkinson's disease who currently lives alone in a condominium is and has 2 daughters. REASON FOR REFERRAL: Psychiatry was consulted for suicidal ideations HISTORY OF PRESENT ILLNESS: The patient presented to the hospital for severe weakness. Patient was endorsing an increase in stress levels and also the recent of his daughter and the progression of his Parkinson's disease. According to ER report patient was endorsing some depression and suicidal thoughts. Patient's UDS is positive for benzodiazepines and barbiturates. His potassium was 5.4 and creatinine was 1.3. Nursing care patient states that he has mentioned that he is a burden to his family however has not reported any suicidal thoughts. Patient was seen at the bedside and agreeable to seek a commercial insurance underwriter. He appeared to have a depressed and anxious affect. He was fairly cooperative during the interview. He states that he has been dealing with a "series of events that are causing panic attacks". He states that the panic attacks and been increasing. He states that he had one last night and cannot sleep. He states that due to the pandemic being started in an increase in his Parkinson's disease he has feeling more depressed. He also mentioned that his daughter with Down's syndrome in the hospital in October 04 of this year which has caused him a lot of depression. He states that he has been attempting to read the Bible and exercising however that has not helped. He claims that he is hearing mild voices however they are mumbling to him for the past 2 weeks. He states that his sleep is usually fine however he has a poor appetite. He was endorsing some passive suicidal thoughts claiming that "I wish it was all over but had never actually end my life". At this time patient denies any current suicidal or homical ideations, intent or plan. Patient denies any auditory, visual hallucinations and denies any paranoia or delusions. Patients admits to using no recreational drugs or cigarettes PAST PSYCHIATRIC HISTORY: Patient has a a history of anxiety depression. Vision was on Valium and Ativan when necessary. Patient denies any previous psychiatric hospitalizations. Patient denies any psychiatric outpatient follow- up. Patient denies any history of suicide attempts in the past. Past Medical History: Coronary Artery Disease (CAD), Chest Pain / Angina, Hyperlipidemia, Hypertension, Myocardial Infarction ([place]), Osteoarthritis (OA) Additional Past Medical History / Comment(s): [place] X2,monitoring a spot rt kidney, parkinsons ALLERGIES: as per EMR. CHEMICAL DEPENDENCY HISTORY: as per HPI. FAMILY PSYCHIATRIC/SUBSTANCE USE HISTORY: denies SOCIAL HISTORY: Patient was born and raised in [place] and then moved to [facility]. He states that he is currently and has 2 daughters lives alone in a condo. He claims that he has 2 masters degrees in literature and also administration.. MENTAL STATUS EXAM: General Appearance: Patient appears to be in, tall, stated age is alert, pleasant, and attempts to be cooperative. Patient appears to have fair hygiene and grooming wearing hospital gown with fair eye contact. Behavior: Patient is calmly lying in bed without any agitated behavior. Speech: Patient's speech is fluent and nonpressured. Hesitant Mood/Affect: Patient reports their mood is "depressed and anxious", affect is congruent Suicidality/Homicidality: Patient denies having any suicidal or homicidal ideation intent or plan. Is endorsed passive thoughts of Perceptions: Patient denies any visual hallucinations and is endorsing mild auditory hallucinations of "mumbling". Though content/process: There is no evidence of any delusional thought content and thought process is linear and goal-directed. Memory and concentration: AOX3, grossly intact for the purposes of this session. Can spell "WORLD" backwards Judgment and insight: fair IMPRESSIONS: Major depressive disorder with psychotic features Anxiety disorder unspecified, rule out panic disorder PLAN: -At this time patient DOES NOT meet criteria for inpatient psychiatric admission due to his age however psychiatry will continue to follow along and treat patient while he is in the hospital. -Delirium precautions recommended with patient including - avoiding use of narcotics and BANK COURIER sedatives, limit anticholinergic medications when possible, frequent re-orientation, minimize use of restraints, open window shades during the day and close them at night -Would recommend the following medication changes/additions: Please avoid benzodiazepines as this will cause an increasing confusion and possibly falls and dependence. Added Remeron 15 mg daily at bedtime for insomnia/anxiety/mood/appetite. Zoloft 25 mg daily for anxiety/mood. BuSpar 7.5 mg 3 times a day for anxiety. -dairy feed worker to provide patient with outpatient mental health/psychiatry resources for appropriate follow up upon discharge -Communicated plan to patient's nurse -Will continue to follow along -Please contact with any questions. 02/15/21 12:50
--- NOTE | 2021-02-15 13:19 | P.HPIM ---
History of Present Illness H&P Date: 02/15/21 Chief Complaint: depression, sucidal ideation This is an 80-year-old male patient of Dr. Tim. Patient presented with increased depression and suicidal ideation. Patient also found to have dehydration and hyperkalemia. Patient reports he's been having increased depres kleber and anxiety over the past few months since his daughter has . Patient has a past medical history of coronary artery disease chest pain, hyperlipidemia, hypertension, myocardial infarction, osteoarthritis and coronary artery bypass graft surgery. Chest x-ray completed showing no active cardiopulmonary disease no change. COVID-19 negative. UA negative. Creatinine 1.30 and bun 41. Potassium 5.4 at this time patient has been admitted suicide precautions initiated and psychiatry service is consulted. Patient is currently resting comfortably in bed. Patient is tearful during conversation. Patient denies chest pain or shortness breath. Patient denies nausea vomiting or rod rrhea. Patient denies any urinary burning or frequency Review of Systems Please refer to HPI otherwise unremarkable Past Medical History Past Medical History: Coronary Artery Disease (CAD), Chest Pain / Angina, Hyperlipidemia, Hypertension, Myocardial Infarction ([place]), Osteoarthritis (OA) Additional Past Medical History / Comment(s): [place] X2,monitoring a spot rt kidney, parkinsons Last Myocardial Infarction Date:: 1992 History of Any Multi-Drug Resistant Organisms: None Reported Past Surgical History: Appendectomy, Coronary Bypass/CABG, Heart Catheterization, Heart Catheterization With Stent, Orthopedic Surgery Additional Past Surgical History / Comment(s): RT KNEE ARTHROSCOPY, HEMORRHOIDECTOMY, rotator cuff surg., quad. bypass 1992, cataract surg, heart stents x3 Past Anesthesia/Blood Transfusion Reactions: Motion Sickness Date of Last Stent Placement:: July 2014 Past Psychological History: Anxiety, Depression Smoking Status: Never smoker Past Alcohol Use History: None Reported Past Drug Use History: None Reported - Past Family History Brother(s) Additional Family Medical History / Comment(s): TWO BROTHERS HAD OPEN HEART Sister(s) Additional Family Medical History / Comment(s): 2 SISTERS HAD OPEN HEARTS Medications and Allergies Home Medications Medication Instructions Recorded Confirmed Type Ergocalciferol [Vitamin D2 50,000 unit PO MO 07/18/14 02/15/21 History (DRISDOL)] Atorvastatin [Lipitor] 40 mg PO HS #60 tab 08/17/14 02/15/21 Rx Rasagiline Mesylate 0.5 mg PO BID 12/28/18 02/15/21 History Metoprolol Tartrate [Lopressor] 25 mg PO BID tab 12/31/18 02/15/21 Rx Pantoprazole [Protonix] 40 mg PO DAILY tablet. 12/31/18 02/15/21 Rx Olmesartan [Benicar] 20 mg PO HS 05/07/19 02/15/21 History Primidone [Mysoline] 50 mg PO HS 05/07/19 02/15/21 History Aspirin EC [Ecotrin Low Dose] 81 mg PO DAILY 03/07/20 02/15/21 History diazePAM [Diazepam] 1 mg PO BID PRN 03/07/20 02/15/21 History Clopidogrel [Plavix] 75 mg PO DAILY tab 10/05/20 02/15/21 Rx Nitroglycerin Sl Tabs [Nitrostat] 0.4 mg SUBLINGUAL Q5M PRN 02/15/21 02/15/21 History Allergies Allergy/AdvReac Type Severity Reaction Status Date / Time BETH Inhibitors Allergy Unknown Verified 02/15/21 10:25 latex Allergy Dyspnea Verified 02/15/21 10:25 Physical Exam Vitals: Vital Signs Temp Pulse Pulse Resp BP BP Pulse Ox 02/15/21 12:48 72 18 139/73 100 02/15/21 08:23 97.5 F L 80 107/57 98 02/15/21 06:52 78 18 115/73 95 02/15/21 04:32 97.7 F 75 17 109/65 100 02/14/21 23:50 97.5 F L 84 16 153/70 100 Intake and Output 02/14/21 02/15/21 02/15/21 22:59 06:59 14:59 Other: Voiding Method Urinal Weight 70.307 kg 70.307 kg Head normocephalic Neck supple Lungs clear to auscultation bilaterally no wheezing or crackles Heart regular rate and rhythm S1-S2, no rub or gallop Abdomen is soft nontender nondistended positive bowel sounds no hepatosplenomegaly Extremities no edema Neuro alert and orientated to 3. Tearful depressed Results CBC & Chem 7: 02/15/21 00:37 02/15/21 00:37 Labs: Abnormal Lab Results - Last 24 Hours (Table) 02/15/21 02/15/21 Range/Units 00:37 00:43 Potassium 5.4 H (3.5-5.1) mmol/L BUN 41 H (9-20) mg/dL Creatinine 1.30 H (0.66-1.25) mg/dL Ur Barbiturates Screen Detected H (NotDetected) U Benzodiazepines Scrn Detected H (NotDetected) Thrombosis Risk Factor Assmnt - Choose All That Apply Any of the Below Risk Factors Present?: No Other Risk Factors: Yes Each Risk Factor Represents 3 Points: Age 75 years or older Other congenital or acquired thrombophilia - If yes, enter type in comment: No Thrombosis Risk Factor Assessment Total Risk Factor Score: 3 Thrombosis Risk Factor Assessment Level: Moderate Risk Assessment and Plan Assessment: 1. Depression with suicidal ideations. Suicide precautions ordered psychiatry services consulted 2. Acute renal failure secondary to dehydration. Continue normal saline repeat labs in a.m. 3. History of essential hypertension 4. History of hyperlipidemia 5. History of coronary artery disease with history of coronary artery bypass graft surgery 6. History of congestive heart failure was cardiomyopathy VT prophylaxis Lovenox. GI prophylaxis Protonix At this time patient will be admitted Psychiatry service consulted Continue suicide precautions with 1:1 sitter Continue gentle hydration Repeat labs ordered Time with Patient: Greater than 30 (Greater than 60% of the total time spent in counseling and coordination of care)
[2021-02-15] MEDS: SERTRALINE 25 MG TAB PO SCH (13:46)
[2021-02-15] MEDS: busPIRone HCl 5 MG TAB PO SCH ×2 (18:11→21:39)
[2021-02-15] MEDS ORDERED: ATORVASTATIN 40 MG TAB PO SCH (21:00)
[2021-02-15] MEDS ORDERED: LOSARTAN 50 MG TAB PO SCH (21:00)
[2021-02-15] MEDS ORDERED: PRIMIDONE 50 MG TAB PO SCH (21:00)
[2021-02-15] MEDS ORDERED: MIRTAZAPINE 15 MG TAB PO SCH (21:00)
[2021-02-15] MEDS: RASAGILINE MESYLATE 0.5 MG PO SCH (21:43)
[2021-02-16 02:33] VITALS: RESP 16
[2021-02-16] MEDS ORDERED: ENOXAPARIN 40 MG/0.4 ML SYRINGE SQ SCH (09:00)
[2021-02-16] MEDS: ASPIRIN 81 MG PO SCH (09:06)
[2021-02-16] MEDS: METOPROLOL TARTRATE 25 MG TAB PO SCH (09:06)
[2021-02-16] MEDS: SERTRALINE 25 MG TAB PO SCH (09:06)
[2021-02-16] MEDS: busPIRone HCl 5 MG TAB PO SCH (09:06)
[2021-02-16] MEDS: SODIUM CHLORIDE 0.9% 1,000 ML IV SCH (09:06)
[2021-02-16] MEDS: PANTOPRAZOLE 40 MG TABLET PO SCH (09:06)
[2021-02-16] MEDS: CLOPIDOGREL 75 MG TAB PO SCH (09:06)
[2021-02-16] MEDS: RASAGILINE MESYLATE 0.5 MG PO SCH (09:07)
[2021-02-16 09:36] LABS: Basophils # (A) 0.03 X 10*3/uL (0.00-0.10); Basophils % (A) 0.5 %; Eosinophils # (A) 0.16 X 10*3/uL (0.04-0.35); Eosinophils % (A) 2.6 %; HCT 40.2 % (39.6-50.0); HGB 12.8 g/dL (13.0-17.0); Lymphocytes % (A) 24.8 %; MCH 31.3 pg (27.0-32.0); MCHC 31.8 g/dL (32.0-37.0); MCV 98.3 fL (80.0-97.0); Mean Platelet Volume 9.8 fL (9.5-12.2); Monocytes # (A) 0.55 X 10*3/uL (0.20-1.00); Monocytes % (A) 9.1 %; Neutrophils # (A) 3.79 X 10*3/uL (1.80-7.70); Neutrophils % (A) 62.8 %; Platelet Count 135 X 10*3/uL (140-440); RBC 4.09 X 10*6/uL (4.40-5.60); RDW 12.9 % (11.5-14.5); WBC 6.04 X 10*3/uL (4.50-10.00)
[2021-02-16 12:51] LABS: African American GFR (CKD) 58.9 (60.0-200.0); Albumin 3.5 g/dL (3.8-4.9); Albumin/Globulin Ratio 1.94 (1.60-3.17); Anion Gap 10.5 mmol/L (4.00-12.00); BUN/Creat Ratio 18.85 Ratio (12.00-20.00); Blood Urea Nitrogen 24.5 mg/dL (9.0-27.0); Calcium 8.3 mg/dL (8.7-10.3); Carbon Dioxide 23.5 mmol/L (21.6-31.8); Globulin 1.8 g/dL (1.6-3.3); Non-African American GFR(CKD) 50.8 (60.0-200.0); Potassium 4.6 mmol/L (3.5-5.5); Total Protein 5.3 g/dL (6.2-8.2)
--- NOTE | 2021-02-16 13:25 | P.PN ---
Progress Note - Text Progress Note Date: 02/16/21 Interval History: Patient was seen today for psychiatric follow-up regarding patient's depression and anxiety. Patient's was seen at the bedside today and agreeable to speak to music writer. He appeared to have an improvement in his affect today and appeared to be less depressed and anxious. He states that his depression and anxiety have improved significantly since yesterday. He states that he feels the medications have been helping him. He claims that he is not thinking about his anxiety and the longer and panic attacks and is more future oriented during conversation. He was fairly calm and cooperative. He was asking about follow-up care. He claims that he was able to sleep well last night and has a significant improvement in his appetite. At this time patient denies any suicidal or homical ideations, intent or plan. Patient denies any auditory, visual hallucinations and denies any paranoia or delusions. Patient denies any side effects from the medications and has been compliant with meds. Mental Status Exam: General Appearance: Patient appears to be in, tall, stated age is alert, pleasant, and cooperative. Patient appears to have fair hygiene and grooming wearing hospital gown with fair eye contact. Behavior: Patient is calmly lying in bed without any agitated behavior. Improved and more cooperative Speech: Patient's speech is fluent and nonpressured. Hesitant Mood/Affect: Patient reports their mood is "much better", affect is congruent Suicidality/Homicidality: Patient denies having any suicidal or homicidal ideation intent or plan. Perceptions: Patient denies any visual hallucinations and is denying any auditory hallucinations Though content/process: There is no evidence of any delusional thought content and thought process is linear and goal-directed. More future oriented Memory and concentration: AOX3, grossly intact for the purposes of this session. Judgment and insight: fair IMPRESSIONS: Major depressive disorder with psychotic features Anxiety disorder unspecified, rule out panic disorder Plan: -At this time patient DOES NOT meet criteria for inpatient psychiatric admission due to his age however psychiatry will continue to follow along and treat patient while he is in the hospital. 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 -Would recommend the following medication changes/additions: Please avoid benzodiazepines as this will cause an increasing confusion and possibly falls and dependence. Remeron 15 mg daily at bedtime for insomnia/anxiety/mood/appetite. Zoloft 25 mg daily for anxiety/mood. Increased BuSpar 10 mg 3 times a day for anxiety, can switch to PRN dosing of this upon discharge -farmworker livestock to provide patient with outpatient mental health/psychiatry resources for appropriate follow up upon discharge -Communicated plan to patient's nurse -At this time psychiatry will sign off -Please contact with any questions.
[2021-02-16 14:58] VITALS: BP 117/68; PULSE 63; TEMP 97.7
--- NOTE | 2021-02-16 15:16 | P.DS ---
Providers Date of admission: 02/15/21 04:01 Expected date of discharge: 02/16/21 Attending physician: Glory Almaguer Consults: 02/15/21 04:01 Consult Physician Routine Consulting Provider: Cullen Sharpe Consult Reason/Comments: SI Do you want consulting provider notified?: Yes Primary care physician: Aidan Tim [facility] Course: Diagnosis on discharge: 1. Depression with suicidal ideations. Suicide precautions ordered psychiatry services consulted 2. Acute renal failure secondary to dehydration. Continue normal saline repeat labs in a.m. 3. History of essential hypertension 4. History of hyperlipidemia 5. History of coronary artery disease with history of coronary artery bypass graft surgery 6. History of congestive heart failure was cardiomyopathy Hospital course: Brie Maya, is an 80-year-old male patient of Dr. Tim. Patient presented with increased depression and suicidal ideation. Patient also found to have dehydration and hyperkalemia. Patient reports he's been having increased depression and anxiety over the past few months since his daughter has . Patient has a past medical history of coronary artery disease chest pain, hyperlipidemia, hypertension, myocardial infarction, osteoarthritis and coronary artery bypass graft surgery. Chest x-ray completed showing no active cardiopulmonary disease no change. COVID-19 negative. UA negative. Creatinine 1.30 and bun 41. Potassium 5.4 at this time patient has been admitted suicide precautions initiated and psychiatry service is consulted. Patient is currently resting comfortably in bed. Patient is tearful during conversation. Patient denies chest pain or shortness breath. Patient denies nausea vomiting or diarrhea. Patient denies any urinary burning or frequency On 02/16/2021 patient was seen and examined on the medical floor, he is alert and oriented 3 in no apparent distress, there is no fever or chills no headache or dizziness no chest pain no shortness of breath no cough no nausea or vomiting no abdominal pain no diarrhea no blood in the stools patient is complaining of constipation for couple of days, there is no burning with urination no frequency or urgency and no hematuria. Dehydration improved and kidney function normalized Patient is feeling much better he denies any suicidal ideation at this time he is having better oral intake he was evaluated by psychiatry and was cleared for discharge, patient was started on Zoloft, Remeron, and BuSpar, prescriptions are sent to [facility], per patient request, he was also given a prescription for MiraLAX for constipation he would be followed by his primary care physician Dr. Tim within 1 week Patient Condition at Discharge: Fair Plan - Discharge Summary Discharge Rx Participant: No New Discharge Prescriptions: New Sertraline [Zoloft] 25 mg PO DAILY tab busPIRone HCl [Buspar] 10 mg PO TID tab polyethylene glycoL 3350 [Miralax] 17 gm PO DAILY 30 Days #30 packet Mirtazapine [Remeron] 15 mg PO HS tab Continue Ergocalciferol [Vitamin D2 (DRISDOL)] 50,000 unit PO MO Atorvastatin [Lipitor] 40 mg PO HS #60 tab Rasagiline Mesylate 0.5 mg PO BID Metoprolol Tartrate [Lopressor] 25 mg PO BID tab Pantoprazole [Protonix] 40 mg PO DAILY tablet. Primidone [Mysoline] 50 mg PO HS Olmesartan [Benicar] 20 mg PO HS Aspirin EC [Ecotrin Low Dose] 81 mg PO DAILY Clopidogrel [Plavix] 75 mg PO DAILY tab Nitroglycerin Sl Tabs [Nitrostat] 0.4 mg SUBLINGUAL Q5M PRN PRN Reason: Chest Pain Discontinued diazePAM [Diazepam] 1 mg PO BID PRN PRN Reason: Anxiety Discharge Medication List Ergocalciferol [Vitamin D2 (DRISDOL)] 50,000 unit PO MO 07/18/14 [History] Atorvastatin [Lipitor] 40 mg PO HS #60 tab 08/17/14 [Rx] Rasagiline Mesylate 0.5 mg PO BID 12/28/18 [History] Metoprolol Tartrate [Lopressor] 25 mg PO BID tab 12/31/18 [Rx] Pantoprazole [Protonix] 40 mg PO DAILY tablet. 12/31/18 [Rx] Olmesartan [Benicar] 20 mg PO HS 05/07/19 [History] Primidone [Mysoline] 50 mg PO HS 05/07/19 [History] Aspirin EC [Ecotrin Low Dose] 81 mg PO DAILY 03/07/20 [History] Clopidogrel [Plavix] 75 mg PO DAILY tab 10/05/20 [Rx] Nitroglycerin Sl Tabs [Nitrostat] 0.4 mg SUBLINGUAL Q5M PRN 02/15/21 [History] Mirtazapine [Remeron] 15 mg PO HS tab 02/16/21 [Rx] Sertraline [Zoloft] 25 mg PO DAILY tab 02/16/21 [Rx] busPIRone HCl [Buspar] 10 mg PO TID tab 02/16/21 [Rx] polyethylene glycoL 3350 [Miralax] 17 gm PO DAILY 30 Days #30 packet 02/16/21 [Rx] Follow up Appointment(s)/Referral(s): [facility] [NON-STAFF] - (Call to inquire about housekeeping services. ) Aidan Tim MD [Primary Care Provider] - 1-2 days
[2021-02-16] MEDS ORDERED: busPIRone HCl 10 MG TAB PO SCH (16:00)
--- NOTE | 2021-02-16 16:27 | P.HPADDEND ---
H&P Addendum H&P Addendum Date: 02/16/21 Patient will be discharged to home today When I attempted to send prescriptions to [facility] pharmacy for Zoloft, Remeron, and BuSpar, all 3 medications had a level I interaction with Rasagiline, which patient takes for management TREMOR related to Parkinson disease. At this time patient was told to discontinue taking Rasagiline. A prescription for Zoloft, Remeron, and BuSpar was sent to [facility] pharmacy in [place]. When patient follows in the office, will reassess tremor, and assess compatibility of other medications such as Sinemet and amantadine
[2021-02-20] MEDS ORDERED: ERGOCALCIFEROL 1,250 MCG (50,000 IU) CAPSULE PO SCH (09:00)
== END 2021-02-16 17:15 | disposition home or self-care (01) ==
LOC: EC 23:45 → 4SSUR 02-15 04:01
PROVIDERS: ADMIT Internal Medicine; ATTEND Internal Medicine
DX: F32.3 Major depressive disorder, single episode, severe with psychotic features (principal); R45.851 Suicidal ideations; N17.9 Acute kidney failure, unspecified; E86.0 Dehydration; E87.5 Hyperkalemia; G20 Parkinson's disease; F02.80 Dementia in other diseases classified elsewhere, unspecified severity, without behavioral disturbance, psychotic disturbance, mood disturbance, and anxiety; I13.0 Hypertensive heart and chronic kidney disease with heart failure and stage 1 through stage 4 chronic kidney disease, or unspecified chronic kidney disease; N18.9 Chronic kidney disease, unspecified; I50.9 Heart failure, unspecified; I42.9 Cardiomyopathy, unspecified; I25.10 Atherosclerotic heart disease of native coronary artery without angina pectoris; E78.5 Hyperlipidemia, unspecified; G47.00 Insomnia, unspecified; K59.00 Constipation, unspecified; I25.2 Old myocardial infarction; M19.90 Unspecified osteoarthritis, unspecified site; F41.9 Anxiety disorder, unspecified; Z71.89 Other specified counseling; Z20.822 Contact with and (suspected) exposure to COVID-19; Z79.82 Long term (current) use of aspirin; Z79.02 Long term (current) use of antithrombotics/antiplatelets; Z79.899 Other long term (current) drug therapy; Z91.040 Latex allergy status; Z88.8 Allergy status to other drugs, medicaments and biological substances; Z95.1 Presence of aortocoronary bypass graft; Z98.49 Cataract extraction status, unspecified eye; Z90.49 Acquired absence of other specified parts of digestive tract; Z95.5 Presence of coronary angioplasty implant and graft; Z82.49 Family history of ischemic heart disease and other diseases of the circulatory system; Z82.79 Family history of other congenital malformations, deformations and chromosomal abnormalities
CPT/HCPCS: 96361 ×2; 96372; 82075; 96374; 99285; 36415; 97161; 80053; 80048; 85025 ×2; 81003; 80306; 80143; 87635; 80179; 71045; G0378 ×2; G0480; J2060; J1650; 80320

== ENCOUNTER 2021-03-22 17:39 | Emergency (ER) | payer MEDICARE ==
[2021-03-22 18:38] VITALS: BP 118/76; PULSE 87; RESP 20; TEMP 97.7
--- NOTE | 2021-03-22 19:48 | ED ---
General Adult HPI - General Chief complaint: Recheck/Abnormal Lab/Rx Stated complaint: Parkinson's/Hallucinations Time Seen by Provider: 03/22/21 19:17 Source: patient, family, RN notes reviewed, old records reviewed Mode of arrival: ambulatory Limitations: no limitations - History of Present Illness Initial comments: 80-year-old male with increased visual hallucinations. Patient has known Parkinson's disease. He's had increased hallucinations over the past one month. He is aware that these are hallucinations. He is accompanied by his daughter. He is alert and oriented. No headache. No fever. No vomiting. He did have Zoloft and BuSpar added to his medication regimen recently. - Related Data Home Medications Medication Instructions Recorded Confirmed Ergocalciferol [Vitamin D2 50,000 unit PO MO 07/18/14 02/15/21 ([facility])] Olmesartan [Benicar] 20 mg PO HS 05/07/19 02/15/21 Primidone [Mysoline] 50 mg PO HS 05/07/19 02/15/21 Aspirin EC [Ecotrin Low Dose] 81 mg PO DAILY 03/07/20 02/15/21 Nitroglycerin Sl Tabs [Nitrostat] 0.4 mg SUBLINGUAL Q5M PRN 02/15/21 02/15/21 Previous Rx's Medication Instructions Recorded Atorvastatin [Lipitor] 40 mg PO HS #60 tab 08/17/14 Metoprolol Tartrate [Lopressor] 25 mg PO BID tab 12/31/18 Pantoprazole [Protonix] 40 mg PO DAILY tablet. 12/31/18 Clopidogrel [Plavix] 75 mg PO DAILY tab 10/05/20 Mirtazapine [Remeron] 15 mg PO HS tab 02/16/21 Sertraline [Zoloft] 25 mg PO DAILY tab 02/16/21 busPIRone HCl [Buspar] 10 mg PO TID tab 02/16/21 polyethylene glycoL 3350 [Miralax] 17 gm PO DAILY 30 Days #30 packet 02/16/21 Allergies Allergy/AdvReac Type Severity Reaction Status Date / Time BETH Inhibitors Allergy Unknown Verified 03/22/21 18:33 latex Allergy Dyspnea Verified 03/22/21 18:33 Review of Systems ROS Statement: Those systems with pertinent positive or pertinent negative responses have been documented in the HPI. ROS Other: All systems not noted in ROS Statement are negative. Past Medical History Past Medical History: Coronary Artery Disease (CAD), Chest Pain / Angina, Hyperlipidemia, Hypertension, Myocardial Infarction ([place]), Osteoarthritis ([place]) Additional Past Medical History / Comment(s): [place] X2,monitoring a spot rt kidney, parkinsons Last Myocardial Infarction Date:: 1992 History of Any Multi-Drug Resistant Organisms: None Reported Past Surgical History: Appendectomy, Coronary Bypass/CABG, Heart Catheterization, Heart Catheterization With Stent, Orthopedic Surgery Additional Past Surgical History / Comment(s): RT KNEE ARTHROSCOPY, HEMORRHOIDECTOMY, rotator cuff surg., quad. bypass 1992, cataract surg, heart stents x3 Past Anesthesia/Blood Transfusion Reactions: Motion Sickness Date of Last Stent Placement:: July 2014 Past Psychological History: Anxiety, Depression Smoking Status: Never smoker Past Alcohol Use History: None Reported Past Drug Use History: None Reported - Past Family History Brother(s) Additional Family Medical History / Comment(s): TWO BROTHERS HAD OPEN HEART Sister(s) Additional Family Medical History / Comment(s): 2 SISTERS HAD OPEN HEARTS General Exam Limitations: no limitations General appearance: alert, in no apparent distress Head exam: Present: atraumatic, normocephalic Eye exam: Present: normal appearance, PERRL ENT exam: Present: normal exam Neck exam: Present: normal inspection. Absent: tenderness, meningismus Respiratory exam: Present: normal lung sounds bilaterally. Absent: respiratory distress, wheezes Cardiovascular Exam: Present: regular rate, normal rhythm GI/Abdominal exam: Present: soft. Absent: distended, tenderness, guarding Extremities exam: Present: normal inspection, normal capillary refill Neurological exam: Present: alert, oriented X3, CN II-XII intact. Absent: motor sensory deficit Psychiatric exam: Present: normal mood, flat affect Skin exam: Present: warm, dry, intact Course Vital Signs 03/22/21 18:33 Temperature 97.7 F Pulse Rate 87 Respiratory 20 Rate Blood Pressure 118/76 O2 Sat by Pulse 98 Oximetry Medical Decision Making - Medical Decision Making 80-year-old male with Parkinson's disease and visual hallucination. I did plan to initiate workup on this patient including laboratory testing and urinalysis. The patient declines. He does not want this testing. I did offer admission for neurology and psychiatry consultation. Patient does not want to be admitted to the hospital. He is alert and oriented. He is accompanied with his daughter ultimately we settled on the discharged home where his daughter will stay with him. I arranged for an outpatient appointment with Dr. Almaguer tomorrow at 11:30. Patient and daughter are agreeable with this plan. Disposition Clinical Impression: Parkinsons disease, Visual hallucinations Disposition: HOME SELF-CARE Condition: Fair Instructions (If sedation given, give patient instructions): Parkinson Disease (ED), Hallucinations (ED) Additional Instructions: Please follow up with Dr. Almaguer at 11:30 AM tomorrow. Please reduce Buspar and Zoloft by half. Is patient prescribed a controlled substance at d/c from ED?: No Referrals: Aidan Tim MD [Primary Care Provider] - 1-2 days Time of Disposition: 19:47
== END 2021-03-22 20:22 | disposition home or self-care (01) ==
LOC: EC 17:39
DX: R44.1 Visual hallucinations (principal); G20 Parkinson's disease; I25.10 Atherosclerotic heart disease of native coronary artery without angina pectoris; E78.5 Hyperlipidemia, unspecified; I10 Essential (primary) hypertension; I25.2 Old myocardial infarction; M19.90 Unspecified osteoarthritis, unspecified site; F41.9 Anxiety disorder, unspecified; F32.A Depression, unspecified; Z79.82 Long term (current) use of aspirin; Z91.040 Latex allergy status; Z90.49 Acquired absence of other specified parts of digestive tract; Z95.1 Presence of aortocoronary bypass graft
CPT/HCPCS: 99284

== ENCOUNTER → 2021-08-16 | Outpatient (CLI) | payer MEDICARE ==
--- NOTE | 2021-08-16 11:46 | CT ---
EXAMINATION TYPE: CT lumbar spine wo con DATE OF EXAM: 08/16/2021 11:31 AM COMPARISON: CT scan 07/12/2014, 11/20/2019 HISTORY: chronic low back pain CT DLP: 749 mGycm Automated exposure control for dose reduction was used. Unenhanced CT of the lumbar spine was performed. Bone and soft tissue window settings are submitted as well as coronal and sagittal reconstructions. There is disc space narrowing and facet arthropathy at all levels with large anterior osteophytes see n at all levels. Assessment spinal canal limited due to resolution and artifact. Atherosclerotic change of the aorta. Hypodense lesion involving the mid cortex of the right kidney is indeterminate due to motion and noncontrast technique. Additional hypodense lesion involving the lef t kidney measuring 1.2 cm and 40 Hounsfield units. This does not meet the criteria of simple cyst. Pedro th appear to be retrospectively stable in size from prior CT scan of 2019. Diverticulosis of the colo n noted. Hypertrophic arthropathy of the SI joints. L1-L2: Degenerative disc disease and hypertrophic spurring. There is spurring greater laterally left resulting in moderate to severe left-sided foraminal encroachment. No obvious disc herniation or yanci l stenosis L2-L3: Degenerative disc disease with hypertrophic spurring more advanced facet arthropathy. No defin ite central stenosis with mild bilateral foraminal encroachment L3-L4: Hypertrophic spurring and degenerative disc disease with moderate to severe facet arthropathy. Diffuse disc bulging with hypertrophy of the ligamentum flavum contributes to moderate to severe can al stenosis and bilateral foraminal encroachment. L4-L5: Advanced facet arthropathy with hypertrophic spurring, ligamentum flavum and diffuse disc prot rusion or herniation resulting in severe canal stenosis. Severe bilateral foraminal encroachment lenka mmend MRI. Grade 1 anterolisthesis likely degenerative. L5-S1: Advanced facet arthropathy with broad-based central disc bulging. There is bilateral foraminal encroachment and mild canal stenosis. IMPRESSION: 1. Degenerative disc disease at all levels with large hypertrophic spurs are osteophytes. Correlate f or diffuse idiopathic skeletal hyperostosis. 2. Disc bulging or protrusions with degenerative disc disease and hypertrophic changes result in yanci l stenosis and foraminal encroachment at levels L3-4, L4-5, and L5-S1 with most marked findings seen at L3-4 and L4-5 with findings suggestive of severe canal stenosis. Recommend follow-up MRI given matta itations of the exam. 3. Bilateral renal lesions do not meet the criteria of a simple cyst. Correlate with ultrasound. 4. Bilateral hypertrophic arthropathy of the SI joints.
== END | disposition home or self-care (01) ==
LOC: RADCTMAIN 10:58
PROVIDERS: ATTEND Psychiatry & Neurology Neurology
DX: M51.37 Other intervertebral disc degeneration, lumbosacral region (principal); M43.16 Spondylolisthesis, lumbar region; M48.061 Spinal stenosis, lumbar region without neurogenic claudication; M12.88 Other specific arthropathies, not elsewhere classified, other specified site; M25.78 Osteophyte, vertebrae
CPT/HCPCS: 72131

== ENCOUNTER 2022-03-10 02:11 | Inpatient (IN) | payer MEDICARE ==
[2022-03-10] MEDS ORDERED: SODIUM CHLORIDE 0.9% 1,000 ML IV STA ×3 (02:17→14:31)
--- NOTE | 2022-03-10 02:18 | ED ---
Weakness HPI - General Stated complaint: weakness Time Seen by Provider: 03/10/22 02:13 Source: RN notes reviewed, old records reviewed, Caregiver Mode of arrival: EMS Limitations: no limitations - History of Present Illness Initial comments: This is an 81-year-old male to the emergency department for evaluation. Patient presents today for illness nausea weakness she's felt feverish and sweaty. Decreased appetite not eating or drinking well. Patient has no known travel his tory or sick contacts does get Meals on Wheels may have had an exposure to some nausea. Some generalized abdominal pain cough severe but no other specific complaints MD Complaint: generalized weakness, lack of energy -: days(s) Location: generalized Severity: moderate Severity scale (1-10): 7 Consistency: constant Improves with: none Worsens with: none Context: recent illness, history of similar Associated Symptoms: denies other symptoms - Related Data Home Medications Medication Instructions Recorded Confirmed Ergocalciferol [Vitamin D2 50,000 unit PO MO 07/18/14 04/04/21 (DRISDOL)] Aspirin EC [Ecotrin Low Dose] 81 mg PO DAILY 03/07/20 04/04/21 Nitroglycerin Sl Tabs [Nitrostat] 0.4 mg SUBLINGUAL Q5M PRN 02/15/21 04/04/21 Previous Rx's Medication Instructions Recorded Atorvastatin [Lipitor] 40 mg PO HS #60 tab 08/17/14 Metoprolol Tartrate [Lopressor] 25 mg PO BID tab 12/31/18 Pantoprazole [Protonix] 40 mg PO DAILY tablet. 12/31/18 Clopidogrel [Plavix] 75 mg PO DAILY tab 10/05/20 Mirtazapine [Remeron] 15 mg PO HS tab 02/16/21 Sertraline [Zoloft] 25 mg PO DAILY tab 02/16/21 busPIRone HCl [Buspar] 10 mg PO TID tab 02/16/21 polyethylene glycoL 3350 [Miralax] 17 gm PO DAILY 30 Days #30 packet 02/16/21 Carbidopa-Levodopa 25-100 mg 1 each PO TID tab 04/11/21 [Sinemet 25-100 mg] Folic Acid 1 mg PO DAILY tab 04/11/21 Primidone [Mysoline] 25 mg PO HS tab 04/11/21 amLODIPine [Norvasc] 2.5 mg PO DAILY #0 tab 04/11/21 Allergies Allergy/AdvReac Type Severity Reaction Status Date / Time BETH Inhibitors Allergy Unknown Verified 04/04/21 18:51 latex Allergy Dyspnea Verified 04/04/21 18:51 Review of Systems ROS Statement: Those systems with pertinent positive or pertinent negative responses have been documented in the HPI. ROS Other: All systems not noted in ROS Statement are negative. Past Medical History Past Medical History: Coronary Artery Disease (CAD), Chest Pain / Angina, Hyperlipidemia, Hypertension, Myocardial Infarction (MS), Osteoarthritis (OA) Additional Past Medical History / Comment(s): MS X2,monitoring a spot rt kidney, parkinsons Last Myocardial Infarction Date:: 1992 History of Any Multi-Drug Resistant Organisms: None Reported Past Surgical History: Appendectomy, Coronary Bypass/CABG, Heart Catheterization, Heart Catheterization With Stent, Orthopedic Surgery Additional Past Surgical History / Comment(s): RT KNEE ARTHROSCOPY, HEMORRHOIDECTOMY, rotator cuff surg., quad. bypass 1992, cataract surg, heart stents x3 Past Anesthesia/Blood Transfusion Reactions: Motion Sickness Date of Last Stent Placement:: July 2014 Past Psychological History: Anxiety, Depression Smoking Status: Never smoker Past Alcohol Use History: None Reported Past Drug Use History: None Reported - Past Family History Brother(s) Additional Family Medical History / Comment(s): TWO BROTHERS HAD OPEN HEART Sister(s) Additional Family Medical History / Comment(s): 2 SISTERS HAD OPEN HEARTS General Exam General appearance: alert, in no apparent distress, anxious, cachectic Head exam: Present: atraumatic, normocephalic, normal inspection Eye exam: Present: normal appearance, PERRL, EOMI. Absent: scleral icterus, con junctival injection, periorbital swelling ENT exam: Present: normal exam, mucous membranes dry Neck exam: Present: normal inspection. Absent: tenderness, meningismus, lymphadenopathy Respiratory exam: Present: normal lung sounds bilaterally. Absent: respiratory distress, wheezes, rales, rhonchi, stridor Cardiovascular Exam: Present: regular rate, normal rhythm, normal heart sounds. Absent: systolic murmur, diastolic murmur, rubs, gallop, clicks GI/Abdominal exam: Present: soft, normal bowel sounds. Absent: distended, tenderness, guarding, rebound, rigid Extremities exam: Present: normal inspection, full ROM, normal capillary refill. Absent: tenderness, pedal edema, joint swelling, calf tenderness Back exam: Present: normal inspection Neurological exam: Present: alert, oriented X3, CN II-XII intact Psychiatric exam: Present: normal affect, normal mood Skin exam: Present: warm, dry, intact, normal color. Absent: rash Course Vital Signs 03/10/22 03/10/22 03/10/22 02:23 02:36 04:13 Temperature 98.1 F 100.2 F H Pulse Rate 95 95 Respiratory 18 Rate Blood Pressure 127/67 O2 Sat by Pulse 97 Oximetry - Reevaluation(s) Reevaluation #1: 03/10/22 03:32 Medical records reviewed EKG Findings - EKG Comments: EKG Findings:: EKG interpreted by me 97 IL 149 QRS 105 QTc 419 Medical Decision Making - Medical Decision Making 81 male to the emergency department today. Patient presents today for evaluati on of this persistent fever possible positive coronavirus. Patient does have severe cough x-ray currently negative we'll diagnose walking pneumonia currently treated fever admit for IV antibiotics and continued evaluation for urine blood cultures - Lab Data Result diagrams: 03/10/22 02:30 03/10/22 02:30 Lab Results 03/10/22 03/10/22 03/10/22 Range/Units 02:30 02:30 02:30 WBC 9.0 (3.8-10.6) k/uL RBC 4.71 (4.30-5.90) m/uL Hgb 14.6 (13.0-17.5) gm/dL Hct 44.1 (39.0-53.0) % MCV 93.7 (80.0-100.0) fL MCH 31.0 (25.0-35.0) pg MCHC 33.1 (31.0-37.0) g/dL RDW 12.6 (11.5-15.5) % Plt Count 114 L (150-450) k/uL MPV 8.1 Neutrophils % 90 % Lymphocytes % 2 % Monocytes % 5 % Eosinophils % 1 % Basophils % 0 % Neutrophils # 8.1 H (1.3-7.7) k/uL Lymphocytes # 0.2 L (1.0-4.8) k/uL Monocytes # 0.5 (0-1.0) k/uL Eosinophils # 0.1 (0-0.7) k/uL Basophils # 0.0 (0-0.2) k/uL PT 12.7 H (9.0-12.0) sec INR 1.2 H (<1.2) APTT 25.8 (22.0-30.0) sec Sodium 140 (137-145) mmol/L Potassium 3.8 (3.5-5.1) mmol/L Chloride 103 (98-107) mmol/L Carbon Dioxide 28 (22-30) mmol/L Anion Gap 9 mmol/L BUN 36 H (9-20) mg/dL Creatinine 1.74 H (0.66-1.25) mg/dL Est GFR (CKD-EPI)AfAm 41 (>60 ml/min/1.73 sqM) Est GFR (CKD-EPI)NonAf 36 (>60 ml/min/1.73 sqM) Glucose 111 H (74-99) mg/dL Calcium 8.8 (8.4-10.2) mg/dL Phosphorus 2.3 L (2.5-4.5) mg/dL Magnesium 1.9 (1.6-2.3) mg/dL Total Bilirubin 3.0 H (0.2-1.3) mg/dL AST 36 (17-59) U/L ALT 11 (4-49) U/L Alkaline Phosphatase 97 (38-126) U/L Troponin I (0.000-0.034) ng/mL NT-Pro-B Natriuret Pep pg/mL Total Protein 6.9 (6.3-8.2) g/dL Albumin 4.4 (3.5-5.0) g/dL Coronavirus (PCR) (Not Detectd) 03/10/22 03/10/22 03/10/22 Range/Units 02:30 02:30 02:30 WBC (3.8-10.6) k/uL RBC (4.30-5.90) m/uL Hgb (13.0-17.5) gm/dL Hct (39.0-53.0) % MCV (80.0-100.0) fL MCH (25.0-35.0) pg MCHC (31.0-37.0) g/dL RDW (11.5-15.5) % Plt Count (150-450) k/uL MPV Neutrophils % % Lymphocytes % % Monocytes % % Eosinophils % % Basophils % % Neutrophils # (1.3-7.7) k/uL Lymphocytes # (1.0-4.8) k/uL Monocytes # (0-1.0) k/uL Eosinophils # (0-0.7) k/uL Basophils # (0-0.2) k/uL PT (9.0-12.0) sec INR (<1.2) APTT (22.0-30.0) sec Sodium (137-145) mmol/L Potassium (3.5-5.1) mmol/L Chloride (98-107) mmol/L Carbon Dioxide (22-30) mmol/L Anion Gap mmol/L BUN (9-20) mg/dL Creatinine (0.66-1.25) mg/dL Est GFR (CKD-EPI)AfAm (>60 ml/min/1.73 sqM) Est GFR (CKD-EPI)NonAf (>60 ml/min/1.73 sqM) Glucose (74-99) mg/dL Calcium (8.4-10.2) mg/dL Phosphorus (2.5-4.5) mg/dL Magnesium (1.6-2.3) mg/dL Total Bilirubin (0.2-1.3) mg/dL AST (17-59) U/L ALT (4-49) U/L Alkaline Phosphatase (38-126) U/L Troponin I 0.030 (0.000-0.034) ng/mL NT-Pro-B Natriuret Pep 1740 pg/mL Total Protein (6.3-8.2) g/dL Albumin (3.5-5.0) g/dL Coronavirus (PCR) Not Detected (Not Detectd) - Radiology Data Radiology results: report reviewed (Chest x-rays negative for acute disease), image reviewed Disposition Clinical Impression: Fever, Dehydration, Weakness, ARF (acute renal failure), Pneumonia Disposition: ADMITTED IP TO THIS HOSP Is patient prescribed a controlled substance at d/c from ED?: No Referrals: Aidan Tim MD [Primary Care Provider] - 1-2 days Time of Disposition: 04:35
[2022-03-10 02:45] LABS: Basophils % (A) 0 %; Eosinophils # (A) 0.1 k/uL (0-0.7); Eosinophils % (A) 1 %; HCT 44.1 % (39.0-53.0); HGB 14.6 gm/dL (13.0-17.5); Lymphocytes # (A) 0.2 k/uL (1.0-4.8); Lymphocytes % (A) 2 %; MCHC 33.1 g/dL (31.0-37.0); MCV 93.7 fL (80.0-100.0); Mean Platelet Volume 8.1; Monocytes # (A) 0.5 k/uL (0-1.0); Monocytes % (A) 5 %; Neutrophils # (A) 8.1 k/uL (1.3-7.7); Neutrophils % (A) 90 %; Platelet Count 114 k/uL (150-450); RBC 4.71 m/uL (4.30-5.90); RDW 12.6 % (11.5-15.5)
[2022-03-10 02:52] LABS: INR 1.2 (<1.2); Partial Thromboplastin Time 25.8 sec (22.0-30.0); Prothrombin Time 12.7 sec (9.0-12.0)
[2022-03-10 03:12] LABS: Albumin 4.4 g/dL (3.5-5.0); Phosphorus 2.3 mg/dL (2.5-4.5); Potassium 3.8 mmol/L (3.5-5.1); Total Protein 6.9 g/dL (6.3-8.2)
[2022-03-10 03:14] LABS: Calcium 8.8 mg/dL (8.4-10.2); Magnesium 1.9 mg/dL (1.6-2.3)
[2022-03-10] MEDS ORDERED: ACETAMINOPHEN IV (For NPO) 1,000 MG in EMPTY BAG 1 BAG IVPB ONE (03:45)
[2022-03-10] MEDS ORDERED: IBUPROFEN IV 800 MG in SODIUM CHLORIDE 0.9% 250 ML IV ONE (03:45)
--- NOTE | 2022-03-10 03:46 | XR ---
EXAMINATION TYPE: XR chest 1V portable DATE OF EXAM: 03/10/2022 COMPARISON: 04/08/2021 HISTORY: Weakness TECHNIQUE: FINDINGS: There is no heart failure nor confluent pneumonic infiltrate. Costophrenic angles are clear . There are no hilar masses. The bony thorax is intact. The pulmonary vascularity is normal. There ar e sternal wires. IMPRESSION: No active cardiopulmonary disease. Normal heart. No change.
[2022-03-10] MEDS ORDERED: MORPHINE SULFATE 4 MG/ML SYRINGE IV PRN (04:35)
[2022-03-10] MEDS ORDERED: IBUPROFEN 400 MG TAB PO PRN (04:35)
[2022-03-10] MEDS ORDERED: NALOXONE 0.4 MG/ML 1 ML VIAL IV PRN (04:35)
[2022-03-10] MEDS ORDERED: AZITHROMYCIN 500 MG in SODIUM CHLORIDE 0.9% 250 ML IVPB ONE (05:00)
[2022-03-10] MEDS: SODIUM CHLORIDE 0.9% 1,000 ML IV SCH ×2 (05:32→12:41)
[2022-03-10 06:26] LABS: Appearance,Urine Clear (Clear); Bilirubin,Urine Negative (Negative); Blood,Urine Trace (Negative); Color,Urine Yellow; Glucose,Urine (UA) Negative (Negative); Ketones,Urine 1+ (Negative); Leukocyte Esterase,Urine Negative (Negative); Mucus,Urine Rare /hpf; Nitrite,Urine Negative (Negative); Protein,Urine Negative (Negative); RBC,Urine <1 /hpf (0-5); Specific Gravity,Urine 1.018 (1.001-1.035); Urobilinogen,Urine <2.0 mg/dL (<2.0); WBC,Urine <1 /hpf (0-5)
[2022-03-10] MEDS ORDERED: polyethylene glycoL 3350 17 GM POWD.PACK PO PRN (14:32)
[2022-03-10] MEDS ORDERED: NITROGLYCERIN SL TABS 0.4 MG TAB SUBLINGUAL PRN (14:32)
[2022-03-10] MEDS: METOPROLOL TARTRATE 25 MG TAB PO SCH (15:54)
[2022-03-10] MEDS: ENOXAPARIN 40 MG/0.4 ML SYRINGE SQ SCH (15:55)
[2022-03-10] MEDS: CARBIDOPA-LEVODOPA 25-100 MG 1 EACH TAB PO SCH ×2 (16:02→20:18)
[2022-03-10] MEDS: ACETAMINOPHEN TAB 325 MG TAB PO PRN (16:02)
--- NOTE | 2022-03-10 16:27 | P.HPIM ---
History of Present Illness H&P Date: 03/10/22 Brie Maya, is an 81 year old male who presented to [facility] emergency room with a chief complaint of severe weakness with fever and chills He was evaluated in the emergency room vital examination on presentation revealed a temperature of 100.2 pulse 95 respiration 18 blood pressure 127/67 pulse ox 97% on room air Laboratory data reveals a white blood count of 9.0 hemoglobin 14.6 platelet count 114 BUN 36 creatinine 1.74 Testing in the emergency room revealed chest x-ray revealed no active cardiopulmonary disease Patient was admitted to medical floor for further evaluation and treatment Past Medical History Past Medical History: Coronary Artery Disease (CAD), Chest Pain / Angina, Hyperlipidemia, Hypertension, Myocardial Infarction (CA), Osteoarthritis (OA) Additional Past Medical History / Comment(s): CA X2,monitoring a spot rt kidney, parkinsons Last Myocardial Infarction Date:: 1992 History of Any Multi-Drug Resistant Organisms: None Reported Past Surgical History: Appendectomy, Coronary Bypass/CABG, Heart Catheterizat ion, Heart Catheterization With Stent, Orthopedic Surgery Additional Past Surgical History / Comment(s): RT KNEE ARTHROSCOPY, HEMORRHOIDECTOMY, rotator cuff surg., quad. bypass 1992, cataract surg, heart stents x3 Past Anesthesia/Blood Transfusion Reactions: Motion Sickness Date of Last Stent Placement:: July 2014 Past Psychological History: Anxiety, Depression Smoking Status: Never smoker Past Alcohol Use History: None Reported Past Drug Use History: None Reported - Past Family History Brother(s) Additional Family Medical History / Comment(s): TWO BROTHERS HAD OPEN HEART Sister(s) Additional Family Medical History / Comment(s): 2 SISTERS HAD OPEN HEARTS Medications and Allergies Home Medications Medication Instructions Recorded Confirmed Type Aspirin EC [Ecotrin Low Dose] 81 mg PO DAILY@0800 03/07/20 03/10/22 History Nitroglycerin Sl Tabs [Nitrostat] 0.4 mg SUBLINGUAL Q5M PRN 02/15/21 03/10/22 History Atorvastatin [Lipitor] 40 mg PO HS@199903/10/22 03/10/22 History Carbidopa-Levodopa 25-100 mg 1 tab PO TID@0800,1400,199903/10/22 03/10/22 History [Sinemet 25-100 mg] Gabapentin [Neurontin] 100 mg PO HS@199903/10/22 03/10/22 History Metoprolol Tartrate [Lopressor] 25 mg PO BID@0800,1600 03/10/22 03/10/22 History Mirtazapine [Remeron] 15 mg PO HS@199903/10/22 03/10/22 History Multivitamins, Thera [Multivitamin 1 tab PO HS@199903/10/22 03/10/22 History (formulary)] Pantoprazole [Protonix] 40 mg PO DAILY@0800 03/10/22 03/10/22 History Primidone [Mysoline] 50 mg PO HS@199903/10/22 03/10/22 History Sertraline [Zoloft] 25 mg PO DAILY@0800 03/10/22 03/10/22 History amLODIPine [Norvasc] 2.5 mg PO DAILY@0800 03/10/22 03/10/22 History polyethylene glycoL 3350 [Miralax] 17 gm PO DAILY PRN 03/10/22 03/10/22 History Allergies Allergy/AdvReac Type Severity Reaction Status Date / Time BETH Inhibitors Allergy Unknown Verified 03/10/22 11:59 latex Allergy Dyspnea Verified 03/10/22 11:59 Physical Exam Vitals: Vital Signs Temp Pulse Resp BP Pulse Ox 03/10/22 11:46 134/80 03/10/22 11:43 98.4 F 75 18 03/10/22 11:00 98 F 68 16 121/55 97 03/10/22 08:52 98 F 68 16 104/55 98 03/10/22 06:38 63 18 104/55 93 L 03/10/22 05:00 99.5 F 79 18 118/54 94 L 03/10/22 04:13 100.2 F H 03/10/22 02:36 95 03/10/22 02:23 98.1 F 95 18 127/67 97 Intake and Output 03/09/22 03/10/22 03/10/22 22:59 06:59 14:59 Other: Weight 73.482 kg In general patient is alert and oriented x 3 in no distress HEENT head normocephalic and atraumatic Neck is supple no JVD no goiter no lymphadenopathy no carotid bruit Chest examination reveals a scattered crackles bilaterally no wheezing Cardiac exam reveals regular heart sounds S1 and S2 no gallops no murmurs Abdomen is soft nontender no organomegaly with normal bowel sounds Extremity exam reveals no edema no cyanosis or clubbing Neurological examination reveals no gross focal deficits Results CBC & Chem 7: 03/10/22 02:30 03/10/22 02:30 Labs: Abnormal Lab Results - Last 24 Hours (Table) 03/10/22 03/10/22 03/10/22 Range/Units 02:30 02:30 02:30 Plt Count 114 L (150-450) k/uL Neutrophils # 8.1 H (1.3-7.7) k/uL Lymphocytes # 0.2 L (1.0-4.8) k/uL PT 12.7 H (9.0-12.0) sec INR 1.2 H (<1.2) BUN 36 H (9-20) mg/dL Creatinine 1.74 H (0.66-1.25) mg/dL Glucose 111 H (74-99) mg/dL Phosphorus 2.3 L (2.5-4.5) mg/dL Total Bilirubin 3.0 H (0.2-1.3) mg/dL Urine Ketones (Negative) Urine Blood (Negative) Urine Mucus (None) /hpf 03/10/22 Range/Units 06:19 Plt Count (150-450) k/uL Neutrophils # (1.3-7.7) k/uL Lymphocytes # (1.0-4.8) k/uL PT (9.0-12.0) sec INR (<1.2) BUN (9-20) mg/dL Creatinine (0.66-1.25) mg/dL Glucose (74-99) mg/dL Phosphorus (2.5-4.5) mg/dL Total Bilirubin (0.2-1.3) mg/dL Urine Ketones 1+ H (Negative) Urine Blood Trace H (Negative) Urine Mucus Rare H (None) /hpf Assessment and Plan Plan: Febrile illness with cough, possible pneumonia, initial chest x-ray did not reveal any focal infiltrate, however patient was quite dehydrated, will hydrate cautiously, recheck chest x-ray PA and lateral in the morning Dehydration with acute kidney injury, prerenal azotemia Underlying history of Parkinson disease Underlying history of hypertension Underlying history of gastroesophageal reflux disease Underlying history of hyperlipidemia Underlying history of depression with anxiety disorder At this time medication and labs were reviewed Continue with IV fluid normal saline at 80 mL/h Continue with IV antibiotic Rocephin and Zithromax Recheck labs and x-ray in a.m. For DVT prophylaxis subcu Pradeep Will follow closely
--- NOTE | 2022-03-10 16:31 | XR ---
EXAMINATION TYPE: XR chest 2V DATE OF EXAM: 03/10/2022 COMPARISON: 03/10/2022 HISTORY: Fever TECHNIQUE: FINDINGS: Heart is normal. Lungs are clear of consolidation. There is some coarsening of the intersti tial markings in the left lower lobe. Right lung is clear. There are sternal wires. There is some ost eoarthritis in the shoulder joints. IMPRESSION: There is mild interstitial density left lower lobe consistent with some interstitial pneu monia and is new compared to exam earlier today.
[2022-03-10 16:44] LABS: ALT 12 U/L (4-49); AST 40 U/L (17-59); African American GFR (CKD) 50 (>60 ml/min/1.73 sqM); Albumin 3.6 g/dL (3.5-5.0); Albumin/Globulin Ratio 1.6; Alkaline Phosphatase 83 U/L (38-126); Anion Gap 6 mmol/L; Blood Urea Nitrogen 32 mg/dL (9-20); Calcium 7.5 mg/dL (8.4-10.2); Carbon Dioxide 24 mmol/L (22-30); Chloride 111 mmol/L (98-107); Globulin 2.3 g/dL; Glucose 117 mg/dL (74-99); Non-African American GFR(CKD) 43 (>60 ml/min/1.73 sqM); Potassium 3.8 mmol/L (3.5-5.1); Sodium 141 mmol/L (137-145); Total Bilirubin 1.6 mg/dL (0.2-1.3); Total Protein 5.9 g/dL (6.3-8.2)
[2022-03-10] MEDS: FLUTICASONE 50MCG/SPRAY NASAL 16GM EA NOSTRIL SCH (17:17)
[2022-03-10] MEDS: ATORVASTATIN 40 MG TAB PO SCH (20:14)
[2022-03-10] MEDS: GABAPENTIN 100 MG CAP PO SCH (20:14)
[2022-03-10] MEDS: PRIMIDONE 50 MG TAB PO SCH (20:14)
[2022-03-10] MEDS: MIRTAZAPINE 15 MG TAB PO SCH (20:15)
[2022-03-10] MEDS: MULTIVITAMINS, THERA 1 EACH TAB PO SCH (20:15)
[2022-03-11] MEDS: AZITHROMYCIN 500 MG in SODIUM CHLORIDE 0.9% 250 ML IVPB SCH (04:01)
[2022-03-11] MEDS: ENOXAPARIN 40 MG/0.4 ML SYRINGE SQ SCH (09:30)
[2022-03-11] MEDS: CARBIDOPA-LEVODOPA 25-100 MG 1 EACH TAB PO SCH ×3 (09:30→20:38)
[2022-03-11] MEDS: ASPIRIN 81 MG PO SCH (09:30)
[2022-03-11] MEDS: amLODIPine 2.5 MG TAB PO SCH (09:30)
[2022-03-11] MEDS: PANTOPRAZOLE 40 MG TABLET PO SCH (09:30)
[2022-03-11] MEDS: ACETAMINOPHEN TAB 325 MG TAB PO PRN (09:30)
[2022-03-11] MEDS: METOPROLOL TARTRATE 25 MG TAB PO SCH ×2 (09:30→17:13)
[2022-03-11] MEDS: SERTRALINE 25 MG TAB PO SCH (09:31)
[2022-03-11 10:09] LABS: African American GFR (CKD) 47.7 (60.0-200.0); Albumin 3.8 g/dL (3.8-4.9); Albumin/Globulin Ratio 1.78 (1.60-3.17); Anion Gap 13.6 mmol/L (10.00-18.00); BUN/Creat Ratio 18.31 Ratio (12.00-20.00); Blood Urea Nitrogen 28.2 mg/dL (9.0-27.0); Calcium 8.1 mg/dL (8.7-10.3); Carbon Dioxide 21.6 mmol/L (20.0-27.5); Globulin 2.1 g/dL (1.6-3.3); Magnesium 1.7 mg/dL (1.5-2.4); Non-African American GFR(CKD) 41.1 (60.0-200.0); Phosphorus 2.1 mg/dL (2.4-5.1); Potassium 3.4 mmol/L (3.5-5.5); Total Bilirubin 1.5 mg/dL (0.30-1.20); Total Protein 5.9 g/dL (6.2-8.2)
[2022-03-11 10:30] LABS: Basophils # (A) 0.02 X 10*3/uL (0.00-0.10); Basophils % (A) 0.3 %; Eosinophils # (A) 0.07 X 10*3/uL (0.04-0.35); Eosinophils % (A) 1.1 %; HCT 42.7 % (39.6-50.0); HGB 13.5 g/dL (13.0-17.0); Immature Grans, Automated 0.3 %; Lymphocytes # (A) 0.26 X 10*3/uL (0.90-5.00); Lymphocytes % (A) 4.1 %; MCH 30.3 pg (27.0-32.0); MCHC 31.6 g/dL (32.0-37.0); MCV 95.7 fL (80.0-97.0); Monocytes # (A) 0.59 X 10*3/uL (0.20-1.00); Monocytes % (A) 9.3 %; NRBC Per 100 WBC 0.3 /100 WBCS (0.0-0.0); Neutrophils # (A) 5.41 X 10*3/uL (1.80-7.70); Neutrophils % (A) 84.9 %; Platelet Count 117 X 10*3/uL (140-440); RBC 4.46 X 10*6/uL (4.40-5.60); RBC Morphology NORMAL; RDW 12.8 % (11.5-14.5); WBC 6.37 X 10*3/uL (4.50-10.00)
--- NOTE | 2022-03-11 10:40 | P.PN ---
Subjective Progress Note Date: 03/11/22 Brie Maya, is an 81 year old male who presented to [facility] emergency room with a chief complaint of severe weakness with fever and chills He was evaluated in the emergency room vital examination on presentation revealed a temperature of 100.2 pulse 95 respiration 18 blood pressure 127/67 pulse ox 97% on room air Laboratory data reveals a white blood count of 9.0 hemoglobin 14.6 platelet count 114 BUN 36 creatinine 1.74 Testing in the emergency room revealed chest x-ray revealed no active cardiopulmonary disease Patient was admitted to medical floor for further evaluation and treatment On 03/11/2022 patient is alert and oriented 3. Repeat chest x-ray completed showing mild interstitial density left lower lobe consistent with interstitial pneumonia and is new compared to exam earlier today patient remains on Rocephin and azithromycin will speak standpoint consult pulmonary services. Patient also noted to have elevated temperature 100.1. Patient reports improvement with generalized weakness. Patient denies chest pain. Patient is reporting cough. Patient denies nausea vomiting or diarrhea. Patient denies any urinary burning or frequency Objective - Vital Signs Vital signs: Vital Signs Temp 100.1 F H 03/11/22 08:00 Pulse 91 03/11/22 08:00 Resp 17 03/11/22 08:00 BP 147/70 03/11/22 08:00 Pulse Ox 92 L 03/11/22 08:28 FiO2 21 03/11/22 08:28 Intake & Output 03/10/22 03/11/22 03/11/22 18:59 06:59 18:59 Intake Total 3785 550 245 Balance 3785 550 245 Intake: IV 5 5 Invasive Line 1 5 5 Intake, IV Titration 3300 250 Amount ACETAMINOPHEN IV (For NPO 100 ) 1,000 mg In Empty Bag 1 bag @ 400 mls/hr IVPB ONCE ONE Rx#:[id number] Azithromycin 500 mg In 250 Sodium Chloride 0.9% 250 ml @ 250 mls/hr IVPB DAILY@0500 ALEXANDER Rx#: [id number] Azithromycin 500 mg In 250 Sodium Chloride 0.9% 250 ml @ 250 mls/hr IVPB ONCE ONE Rx#:[id number] Ibuprofen IV 800 mg In 250 Sodium Chloride 0.9% 250 ml @ 500 mls/hr IV ONCE ONE Rx#:[id number] Sodium Chloride 0.9% 1, 650 000 ml @ 130 mls/hr IV . Q7H42M ALEXANDER Rx#:[id number] Sodium Chloride 0.9% 1, 1000 000 ml @ 999 mls/hr IV . Q1H1M STA Rx#:[id number] Sodium Chloride 0.9% 1, 1000 000 ml @ 999 mls/hr IV . Q1H1M STA Rx#:[id number] cefTRIAXone 2 gm In 50 Sodium Chloride 0.9% 50 ml @ 100 mls/hr IVPB ONCE STA Rx#:[id number] Oral 480 300 240 Other: Voiding Method Urinal Urinal Urinal # Voids 2 # Bowel Movements 1 - Exam Head normocephalic Neck supple Lungs clear to auscultation bilaterally no wheezing or crackles Heart regular rate and rhythm S1-S2, no rub or gallop Abdomen is soft nontender nondistended positive bowel sounds no hepatosplenomegaly Extremities no edema Neuro alert and orientated to 3 - Labs CBC & Chem 7: 03/11/22 05:21 03/11/22 05:21 Labs: Abnormal Lab Results - Last 24 Hours (Table) 03/10/22 03/11/22 03/11/22 Range/Units 16:08 05:21 05:21 MCHC 31.6 L (32.0-37.0) g/dL Plt Count 117 L (140-440) X 10*3/uL Plt Count Comment DECREASED A Absolute Nucleated RBC 0.02 H (0.00-0.00) X 10*3/uL Lymphocytes # 0.26 L (0.90-5.00) X 10*3/uL NRBC/100 WBC Diff 0.3 H (0.0-0.0) /100 WBCS Potassium 3.4 L (3.5-5.5) mmol/L Chloride 111 H (98-107) mmol/L BUN 32 H 28.2 H (9-20) mg/dL Creatinine 1.48 H (0.66-1.25) mg/dL Est GFR (CKD-EPI)AfAm 47.7 L (60.0-200.0) Est GFR (CKD-EPI)NonAf 41.1 L (60.0-200.0) Glucose 117 H (74-99) mg/dL Calcium 7.5 L 8.1 L (8.4-10.2) mg/dL Phosphorus 2.1 L (2.4-5.1) mg/dL Total Bilirubin 1.6 H 1.50 H (0.2-1.3) mg/dL AST 47 H (14-35) U/L ALT 7 L (10-49) U/L Total Protein 5.9 L 5.9 L (6.3-8.2) g/dL Microbiology - Last 24 Hours (Table) 03/10/22 18:00 Gram Stain - Preliminary Sputum Sputum Culture - Preliminary Assessment and Plan Plan: Febrile illness with cough, possible pneumonia, initial chest x-ray did not reveal any focal infiltrate, however patient was quite dehydrated, will hydrate cautiously. Repeat chest x-ray consistent with some interstitial pneumonia Dehydration with acute kidney injury, prerenal azotemia Underlying history of Parkinson disease Underlying history of hypertension Underlying history of gastroesophageal reflux disease Underlying history of hyperlipidemia Underlying history of depression with anxiety disorder At this time medication and labs were reviewed Continue with IV fluid normal saline at 80 mL/h Continue with IV antibiotic Rocephin and Zithromax Pulmonary service is consulted Sputum culture ordered
[2022-03-11] MEDS: ALPRAZolam 0.25 MG TAB PO PRN ×2 (10:41→20:38)
[2022-03-11] MEDS: FLUTICASONE 50MCG/SPRAY NASAL 16GM EA NOSTRIL SCH (10:49)
--- NOTE | 2022-03-11 15:42 | P.CNPUL ---
History of Present Illness Consult date: 03/11/22 Reason for consult: dyspnea, pneumonia History of present illness: This is a 81-year-old male patient who felt generalized weakness along with some cough and congestion and fever or chills. He came into the emergency. Pulse ox on room air was 97%. Chest x-ray reveals a possible left retrocardiac pulmonary infiltrates and the patient was started on antibiotics. The patient was hospitalized accordingly. I'm seeing him today on the medical floor. He remains on room air oxygen. He has a congested cough. Sputum production is minimal. His white cell count is at 9 with a hemoglobin 14.6. He has known chronic kidney disease and a creatinine 1.7. Is known to have coronary artery disease, hypertension and hyperlipidemia arteries other comorbid conditions. Has undergone previous coronary stenting. The patient has undergone four-vessel bypass surgery in 1992. He does have Parkinson's disease and he is having progressive worsening in his cognitive functions. He is slow. At times he chokes on food material. No reported aspiration. The Covid 19 testing is negative. No recurrent aspiration. No recurrent pneumonias Review of Systems Constitutional: Reports fatigue, Reports poor appetite, Reports weight loss Eyes: denies as per HPI, denies blurred vision, denies bulging eye, denies decreased vision, denies diplopia, denies discharge, denies dry eye, denies irritation, denies itching, denies pain, denies photophobia, denies loss of peripheral vision, denies loss of vision, denies tunnel vision/blind spots Ears: deny: decreased hearing, ear discharge, earache, tinnitus Breasts: absent: as per HPI, gynecomastia Cardiovascular: Reports as per HPI Respiratory: Reports cough Gastrointestinal: Reports as per HPI Genitourinary: Reports as per HPI Musculoskeletal: Reports as per HPI Musculoskeletal: absent: ankle pain, ankle stiffness, ankle swelling Integumentary: Reports as per HPI Neurological: Reports gait dysfunction, Reports tremors, Reports weakness Psychiatric: Reports as per HPI Endocrine: Reports fatigue Hematologic/Lymphatic: Reports as per HPI Allergic/Immunologic: Reports as per HPI Past Medical History Past Medical History: Coronary Artery Disease (CAD), Chest Pain / Angina, Hyperlipidemia, Hypertension, Myocardial Infarction (NV), Osteoarthritis (OA) Additional Past Medical History / Comment(s): [place] X2,monitoring a spot rt kidney, parkinsons Last Myocardial Infarction Date:: 1992 History of Any Multi-Drug Resistant Organisms: None Reported Past Surgical History: Appendectomy, Coronary Bypass/CABG, Heart Catheterization, Heart Catheterization With Stent, Orthopedic Surgery Additional Past Surgical History / Comment(s): RT KNEE ARTHROSCOPY, HEMORRHOIDECTOMY, rotator cuff surg., quad. bypass 1992, cataract surg, heart stents x3 Past Anesthesia/Blood Transfusion Reactions: Motion Sickness Date of Last Stent Placement:: July 2014 Past Psychological History: Anxiety, Depression Smoking Status: Never smoker Past Alcohol Use History: None Reported Past Drug Use History: None Reported - Past Family History Brother(s) Additional Family Medical History / Comment(s): TWO BROTHERS HAD OPEN HEART Sister(s) Additional Family Medical History / Comment(s): 2 SISTERS HAD OPEN HEARTS Medications and Allergies Home Medications Medication Instructions Recorded Confirmed Type Aspirin EC [Ecotrin Low Dose] 81 mg PO DAILY@0800 03/07/20 03/10/22 History Nitroglycerin Sl Tabs [Nitrostat] 0.4 mg SUBLINGUAL Q5M PRN 02/15/21 03/10/22 History Atorvastatin [Lipitor] 40 mg PO HS@199903/10/22 03/10/22 History Carbidopa-Levodopa 25-100 mg 1 tab PO TID@0800,1400,199903/10/22 03/10/22 History [Sinemet 25-100 mg] Gabapentin [Neurontin] 100 mg PO HS@199903/10/22 03/10/22 History Metoprolol Tartrate [Lopressor] 25 mg PO BID@0800,1600 03/10/22 03/10/22 History Mirtazapine [Remeron] 15 mg PO HS@199903/10/22 03/10/22 History Multivitamins, Thera [Multivitamin 1 tab PO HS@199903/10/22 03/10/22 History (formulary)] Pantoprazole [Protonix] 40 mg PO DAILY@0800 03/10/22 03/10/22 History Primidone [Mysoline] 50 mg PO HS@199903/10/22 03/10/22 History Sertraline [Zoloft] 25 mg PO DAILY@0800 03/10/22 03/10/22 History amLODIPine [Norvasc] 2.5 mg PO DAILY@0800 03/10/22 03/10/22 History polyethylene glycoL 3350 [Miralax] 17 gm PO DAILY PRN 03/10/22 03/10/22 History Allergies Allergy/AdvReac Type Severity Reaction Status Date / Time BETH Inhibitors Allergy Unknown Verified 03/10/22 11:59 latex Allergy Dyspnea Verified 03/10/22 11:59 Physical Exam Vitals: Vital Signs Temp Pulse Resp BP Pulse Ox FiO2 03/11/22 14:00 99.0 F 87 16 141/68 93 L 03/11/22 08:28 92 L 21 03/11/22 08:00 100.1 F H 91 17 147/70 92 L 03/11/22 01:13 98.1 F 67 16 128/71 92 L 03/10/22 19:33 98.1 F 71 16 102/58 93 L 03/10/22 16:50 100.7 F H 03/10/22 16:04 101.7 F H Intake and Output 03/11/22 03/11/22 03/11/22 06:59 14:59 22:59 Intake Total 550 245 Balance 550 245 Intake: IV 5 Invasive Line 1 5 Intake, IV Titration 250 Amount Azithromycin 500 mg In 250 Sodium Chloride 0.9% 250 ml @ 250 mls/hr IVPB DAILY@0500 [facility] Rx#: [id number] Oral 300 240 Other: Voiding Method Urinal # Voids 2 # Bowel Movements 1 In general patient is alert and oriented x 3 in no distress, currently on room air oxygen Head exam was generally normal. There was no scleral icterus or corneal arcus. Mucous membranes were moist. HEENT head normocephalic and atraumatic Neck is supple no JVD no goiter no lymphadenopathy no carotid bruit Chest examination reveals a scattered crackles bilaterally no wheezing Cardiac exam reveals regular heart sounds S1 and S2 no gallops no murmurs Abdomen is soft nontender no organomegaly with normal bowel sounds Extremity exam reveals no edema no cyanosis or clubbing Neurological examination reveals no gross focal deficits, he is having focal facies and cogwheel rigidity Examination of the skin revealed no evidence of significant rashes, suspicious appearing nevi or other concerning lesions. Results - Laboratory Findings CBC and BMP: 03/11/22 05:21 03/11/22 05:21 PT/INR, D-dimer PT 12.7 sec (9.0-12.0) H 03/10/22 02:30 INR 1.2 (<1.2) H 03/10/22 02:30 Abnormal lab findings: Abnormal Labs 03/10/22 03/10/22 03/10/22 02:30 02:30 02:30 MCHC Plt Count 114 L Plt Count Comment Absolute Nucleated RBC Neutrophils # 8.1 H Lymphocytes # 0.2 L NRBC/100 WBC Diff PT 12.7 H INR 1.2 H Potassium Chloride BUN 36 H Creatinine 1.74 H Est GFR (CKD-EPI)AfAm Est GFR (CKD-EPI)NonAf Glucose 111 H Calcium Phosphorus 2.3 L Total Bilirubin 3.0 H AST ALT Total Protein Urine Ketones Urine Blood Urine Mucus 03/10/22 03/10/22 03/11/22 06:19 16:08 05:21 MCHC 31.6 L Plt Count 117 L Plt Count Comment DECREASED A Absolute Nucleated RBC 0.02 H Neutrophils # Lymphocytes # 0.26 L NRBC/100 WBC Diff 0.3 H PT INR Potassium Chloride 111 H BUN 32 H Creatinine 1.48 H Est GFR (CKD-EPI)AfAm Est GFR (CKD-EPI)NonAf Glucose 117 H Calcium 7.5 L Phosphorus Total Bilirubin 1.6 H AST ALT Total Protein 5.9 L Urine Ketones 1+ H Urine Blood Trace H Urine Mucus Rare H 03/11/22 05:21 MCHC Plt Count Plt Count Comment Absolute Nucleated RBC Neutrophils # Lymphocytes # NRBC/100 WBC Diff PT INR Potassium 3.4 L Chloride BUN 28.2 H Creatinine Est GFR (CKD-EPI)AfAm 47.7 L Est GFR (CKD-EPI)NonAf 41.1 L Glucose Calcium 8.1 L Phosphorus 2.1 L Total Bilirubin 1.50 H AST 47 H ALT 7 L Total Protein 5.9 L Urine Ketones Urine Blood Urine Mucus - Diagnostic Findings Chest x-ray: image reviewed Assessment and Plan Plan: Left lower lobe/retrocardiac pneumonia. Parkinson's disease Chronic kidney disease stage III Hypertension Coronary artery disease. Bypass surgery in 1992 and subsequent coronary intervention stenting Hyperlipidemia Chronic anxiety/depression Plan Monitor fever pattern Swallow evaluation Keep same antibiotic coverage Sputum Gram stain and culture Blood culture We'll follow
[2022-03-11 16:15] LABS: Basophils # (A) 0.03 X 10*3/uL (0.00-0.10); Basophils % (A) 0.4 %; Eosinophils # (A) 0 X 10*3/uL (0.04-0.35); Eosinophils % (A) 0 %; HCT 38.7 % (39.6-50.0); HGB 12.3 g/dL (13.0-17.0); Immature Grans, Automated 0.4 %; Lymphocytes # (A) 0.35 X 10*3/uL (0.90-5.00); Lymphocytes % (A) 4.6 %; MCH 30.3 pg (27.0-32.0); MCHC 31.8 g/dL (32.0-37.0); MCV 95.3 fL (80.0-97.0); Mean Platelet Volume 10.3 fL (9.5-12.2); Monocytes # (A) 0.61 X 10*3/uL (0.20-1.00); NRBC Per 100 WBC 0 /100 WBCS (0.0-0.0); Neutrophils # (A) 6.58 X 10*3/uL (1.80-7.70); Neutrophils % (A) 86.6 %; Platelet Count 133 X 10*3/uL (140-440); RBC 4.06 X 10*6/uL (4.40-5.60); RDW 12.6 % (11.5-14.5)
[2022-03-11] MEDS: MULTIVITAMINS, THERA 1 EACH TAB PO SCH (20:38)
[2022-03-11] MEDS: MIRTAZAPINE 15 MG TAB PO SCH (20:38)
[2022-03-11] MEDS: PRIMIDONE 50 MG TAB PO SCH (20:38)
[2022-03-11] MEDS: GABAPENTIN 100 MG CAP PO SCH (20:38)
[2022-03-11] MEDS: ATORVASTATIN 40 MG TAB PO SCH (20:38)
[2022-03-12] MEDS: SODIUM CHLORIDE 0.9% 1,000 ML IV SCH ×2 (02:47→05:11)
[2022-03-12] MEDS: AZITHROMYCIN 500 MG in SODIUM CHLORIDE 0.9% 250 ML IVPB SCH (05:34)
[2022-03-12] MEDS: ALPRAZolam 0.25 MG TAB PO PRN (05:51)
[2022-03-12] MEDS: amLODIPine 2.5 MG TAB PO SCH (08:41)
[2022-03-12] MEDS: METOPROLOL TARTRATE 25 MG TAB PO SCH (08:41)
--- NOTE | 2022-03-12 09:43 | P.CRDCN ---
History of Present Illness History of present illness: HISTORY OF PRESENTING ILLNESS This is a pleasant 81 year-old male past medical history significant for coronary artery disease status post four-vessel CABG in 1992,, PCI of PDA and vein graft in 2014, PCI of being graft to diagonal branch of LAD in 2015, dyslipidemia, hypertension, Parkinson's disease. He follows in the office with Dr. Gonzales, we're asked to see in consultation for tachycardia. Patient presents to the emergency department with complaints of shortness of breath, productive cough with yellow sputum, fever, chills, nausea, genearlized weakness. Had a 102 fever at home. He was also found to have acute kidney injury and dehydration. He denies any chest pain, palpitations, lightheadedness dizziness. Denies symptoms of orthopnea or PND. He was found to have possible pneumonia and started on IV antibiotics. He is slightly tachycardic EKG revealed sinus rhythm with artifact DIAGNOSTICS * EKG reveals sinus rhythm HR 97, multiple artifact, incomplete right bundle br anch block. * Echocardiogram in the office 09/2021 revealed EF of 40%, small hypokinetic area of inferior wall from the base of the mid wall, small hypokinetic area of the inferior lateral wall to the base, moderate mitral regurgitation, mild/moderate tricuspid regurgitation, RVSP of 40 mmHg * Patient not on telemetry to review. * Chest xray left lower lobe consistent with pneumonia * Laboratory reviewed, WBC 7.6, Hgb 12.3, Plt 133, sodium 143, potassium 3.4, BUN 28, serum creatinine 1.5, magnesium 1.7, troponin negative, proBNP [id number] * Current home cardiac medications include amlodipine 2.5 mg daily, metoprolol titrate 25 mg twice a day, atorvastatin 40 mg nightly, aspirin 80 mg daily REVIEW OF SYSTEMS At the time of my exam: CONSTITUTIONAL: +fever + chills. CARDIOVASCULAR: Denies chest pain, +shortness of breath, Denies orthopnea, PND or palpitations. RESPIRATORY: +productive cough GASTROINTESTINAL: Denies abdominal pain, diarrhea, constipation, nausea or vomiting. MUSCULOSKELETAL: Denies myalgias. NEUROLOGIC: Denies numbness, tingling, headacbe or weakness. ENDOCRINE: Denies fatigue, weight change, polydipsia or polyurina. GENITOURINARY: Denies burning, hematuria or urgency with micturation. HEMATOLOGIC: Denies bleeding. PHYSICAL EXAMINATION Blood pressure 135/85, heart rate 139, afebrile, oxygen saturations 93% on room air CONSTITUTIONAL: No apparent distress. HEENT: Head is normocephalic. Pupils are equal, round. Sclerae anicteric. Mucous membranes of the mouth are moist. No JVD. No carotid bruit. CHEST EXAMINATION: Lungs crackles bilaterally to auscultation. No chest wall tenderness is noted on palpation or with deep breathing. HEART EXAMINATION: Regular rate and rhythm. S1, S2 heard. No murmurs, gallops or rub. ABDOMEN: Soft, nontender. Positive bowel sounds. EXTREMITIES: 2+ peripheral pulses, no lower extremity edema and no calf tenderness. NEUROLOGIC EXAMINATION: Patient is awake, alert and oriented x3. ASSESSMENT Left lower lobe pneumonia Sinus tachycardia, secondary to infection Fever, productive cough, chills Coronary artery disease status post four-vessel CABG in 1992, s/p PCI of PDA and vein graft in 2014, PCI of being graft to diagonal branch of LAD in 2014 Chronic heart failure with mildly reduced ejection fraction Dyslipidemia Hypertension Parkinson's disease PLAN Patient's sinus tachycardia related to pneumonia infection, continue treatment per primary and pulmonary Repeat EKG, place on cardiac telemetry Continue patient's beta [place] Further recommendations based on clinical course Nurse practitioner note has been reviewed by physician. Signing provider agrees with the documented findings, assessment, and plan of care. Past Medical History Past Medical History: Coronary Artery Disease (CAD), Chest Pain / Angina, Hyperlipidemia, Hypertension, Myocardial Infarction ([place]), Osteoarthritis (OA) Additional Past Medical History / Comment(s): [place] X2,monitoring a spot rt kidney, parkinsons Last Myocardial Infarction Date:: 1992 History of Any Multi-Drug Resistant Organisms: None Reported Past Surgical History: Appendectomy, Coronary Bypass/CABG, Heart Catheterization, Heart Catheterization With Stent, Orthopedic Surgery Additional Past Surgical History / Comment(s): RT KNEE ARTHROSCOPY, HEMORRHOIDECTOMY, rotator cuff surg., quad. bypass 1993, cataract surg, heart stents x3 Past Anesthesia/Blood Transfusion Reactions: Motion Sickness Date of Last Stent Placement:: July 2014 Past Psychological History: Anxiety, Depression Smoking Status: Never smoker Past Alcohol Use History: None Reported Past Drug Use History: None Reported - Past Family History Brother(s) Additional Family Medical History / Comment(s): TWO BROTHERS HAD OPEN HEART Sister(s) Additional Family Medical History / Comment(s): 2 SISTERS HAD OPEN HEARTS Medications and Allergies Home Medications Medication Instructions Recorded Confirmed Type Aspirin EC [Ecotrin Low Dose] 81 mg PO DAILY@0800 03/07/20 03/10/22 History Nitroglycerin Sl Tabs [Nitrostat] 0.4 mg SUBLINGUAL Q5M PRN 02/15/21 03/10/22 History Atorvastatin [Lipitor] 40 mg PO HS@199903/10/22 03/10/22 History Carbidopa-Levodopa 25-100 mg 1 tab PO TID@0800,1400,199903/10/22 03/10/22 History [Sinemet 25-100 mg] Gabapentin [Neurontin] 100 mg PO HS@199903/10/22 03/10/22 History Metoprolol Tartrate [Lopressor] 25 mg PO BID@0800,1600 03/10/22 03/10/22 History Mirtazapine [Remeron] 15 mg PO HS@199903/10/22 03/10/22 History Multivitamins, Thera [Multivitamin 1 tab PO HS@199903/10/22 03/10/22 History (formulary)] Pantoprazole [Protonix] 40 mg PO DAILY@0800 03/10/22 03/10/22 History Primidone [Mysoline] 50 mg PO HS@199903/10/22 03/10/22 History Sertraline [Zoloft] 25 mg PO DAILY@0800 03/10/22 03/10/22 History amLODIPine [Norvasc] 2.5 mg PO DAILY@0800 03/10/22 03/10/22 History polyethylene glycoL 3350 [Miralax] 17 gm PO DAILY PRN 03/10/22 03/10/22 History Allergies Allergy/AdvReac Type Severity Reaction Status Date / Time BETH Inhibitors Allergy Unknown Verified 03/10/22 11:59 latex Allergy Dyspnea Verified 03/10/22 11:59 Physical Exam Vitals: Vital Signs Temp Pulse Resp BP Pulse Ox FiO2 03/12/22 02:28 152 H 03/12/22 01:49 97.3 F L 153 H 14 106/75 94 L 03/11/22 20:00 97.3 F L 116 H 14 125/76 95 03/11/22 14:00 99.0 F 87 16 141/68 93 L 03/11/22 08:28 92 L 21 03/11/22 08:00 100.1 F H 91 17 147/70 92 L Intake and Output 03/11/22 03/12/22 03/12/22 22:59 06:59 14:59 Output Total 175 Balance -175 Output: Urine 175 Other: # Voids 4 # Bowel Movements 1 Results 03/11/22 11:27 03/11/22 05:21 Cardiac Enzymes 03/11/22 Range/Units 05:21 AST 47 H (14-35) U/L CBC 03/11/22 03/11/22 Range/Units 05:21 11: WBC 6.37 7.60 (4.50-10.00) X 10*3/uL RBC 4.46 4.06 L (4.40-5.60) X 10*6/uL Hgb 13.5 12.3 L (13.0-17.0) g/dL Hct 42.7 38.7 L (39.6-50.0) % Plt Count 117 L 133 L (140-440) X 10*3/uL Comprehensive Metabolic Panel 03/11/22 Range/Units 05:21 Sodium 143 (135-145) mmol/L Potassium 3.4 L (3.5-5.5) mmol/L Chloride 108 (96-109) mmol/L Carbon Dioxide 21.6 (20.0-27.5) mmol/L BUN 28.2 H (9.0-27.0) mg/dL Creatinine 1.5 (0.6-1.5) mg/dL Glucose 99 (70-110) mg/dL Calcium 8.1 L (8.7-10.3) mg/dL AST 47 H (14-35) U/L ALT 7 L (10-49) U/L Alkaline Phosphatase 80 (41-126) U/L Total Protein 5.9 L (6.2-8.2) g/dL Albumin 3.8 (3.8-4.9) g/dL Current Medications Generic Name Dose Route Start Last Admin Trade Name Freq PRN Reason Stop Dose Admin Acetaminophen 650 mg 03/10/22 04:35 03/11/22 09:30 Acetaminophen Tab 325 Mg Tab PO 650 mg Q6HR PRN Administration Mild Pain or Fever > 100.5 Alprazolam 0.25 mg 03/11/22 10:32 03/12/22 05:51 Alprazolam 0.25 Mg Tab PO 0.25 mg TID PRN Administration Anxiety Amlodipine Besylate 2.5 mg 03/11/22 08:00 03/11/22 09:30 Amlodipine 2.5 Mg Tab PO 2.5 mg DAILY@0800 [facility] Administration Aspirin 81 mg 03/11/22 08:00 03/11/22 09:30 Aspirin 81 Mg PO 81 mg DAILY@0800 [facility] Administration Atorvastatin Calcium 40 mg 03/10/22 20:00 03/11/22 20:38 Atorvastatin 40 Mg Tab PO 40 mg HS@1999 [facility] Administration Carbidopa/Levodopa 1 each 03/10/22 20:00 03/11/22 20:38 Carbidopa-Levodopa 25-100 Mg 1 Each Tab PO 1 each TID@0800,1400,1999 [facility] Administration Enoxaparin Sodium 40 mg 03/10/22 15:45 03/11/22 09:30 Enoxaparin 40 Mg/0.4 Ml Syringe SQ 40 mg DAILY [facility] Administration Fluticasone Propionate 2 spray 03/10/22 16:45 03/11/22 10:49 Fluticasone 50mcg/[place] Nasal 16gm EA NOSTRIL 2 spray DAILY [facility] Administration Gabapentin 100 mg 03/10/22 20:00 03/11/22 20:38 Gabapentin 100 Mg Cap PO 100 mg HS@1999 [facility] Administration Ceftriaxone Sodium 2 gm/ 50 mls @ 100 mls/hr 03/11/22 09:00 03/11/22 09:30 Sodium Chloride IVPB 100 mls/hr Q24H [facility] Administration Protocol Sodium Chloride 1,000 mls @ 75 mls/hr 03/12/22 02:45 03/12/22 05:11 Saline 0.9% IV Not Given .[id number] [facility] Ibuprofen 400 mg 03/10/22 04:35 03/10/22 16:02 Ibuprofen 400 Mg Tab PO 400 mg Q6HR PRN Administration Mild Pain or Fever > 100.5 Metoprolol Tartrate 25 mg 03/10/22 16:00 03/11/22 17:13 Metoprolol Tartrate 25 Mg Tab PO 25 mg BID@0800,1600 [facility] Administration Mirtazapine 15 mg 03/10/22 20:00 03/11/22 20:38 Mirtazapine 15 Mg Tab PO 15 mg HS@1999 [facility] Administration Morphine Sulfate 4 mg 03/10/22 04:35 Morphine Sulfate 4 Mg/Ml Syringe IV Q4HR PRN Severe Pain (Scale 7 to 10) Multivitamins 1 each 03/10/22 20:00 03/11/22 20:38 Multivitamins, Thera 1 Each Tab PO Not Given HS@1999 [facility] Naloxone HCl 0.2 mg 03/10/22 04:35 Naloxone 0.4 Mg/Ml 1 Ml Vial IV Q2M PRN Opioid Reversal Nitroglycerin 0.4 mg 03/10/22 14:32 Nitroglycerin Sl Tabs 0.4 Mg Tab SUBLINGUAL Q5M PRN Chest Pain Pantoprazole Sodium 40 mg 03/11/22 08:00 03/11/22 09:30 Pantoprazole 40 Mg Tablet PO 40 mg DAILY@0800 [facility] Administration Polyethylene Glycol 17 gm 03/10/22 14:32 03/10/22 22:55 Polyethylene Glycol 3350 17 Gm Powd.Pack PO 17 gm DAILY PRN Administration Constipation Primidone 50 mg 03/10/22 20:00 03/11/22 20:38 Primidone 50 Mg Tab PO 50 mg HS@1999 [facility] Administration Sertraline HCl 25 mg 03/11/22 08:00 03/11/22 09:31 Sertraline 25 Mg Tab PO Not Given DAILY@0800 [facility] Intake and Output 03/11/22 03/12/22 03/12/22 22:59 06:59 14:59 Output Total 175 Balance -175 Output: Urine 175 Other: # Voids 4 # Bowel Movements 1 03/11/22 11:27 03/11/22 05:21
[2022-03-12] MEDS ORDERED: METOPROLOL TARTRATE 25 MG TAB PO STA (09:47)
[2022-03-12] MEDS: PANTOPRAZOLE 40 MG TABLET PO SCH (09:57)
[2022-03-12] MEDS: CARBIDOPA-LEVODOPA 25-100 MG 1 EACH TAB PO SCH ×3 (09:57→20:45)
[2022-03-12] MEDS: SERTRALINE 25 MG TAB PO SCH (09:57)
[2022-03-12] MEDS: ASPIRIN 81 MG PO SCH (09:57)
[2022-03-12] MEDS: FLUTICASONE 50MCG/SPRAY NASAL 16GM EA NOSTRIL SCH (09:58)
[2022-03-12] MEDS: ENOXAPARIN 40 MG/0.4 ML SYRINGE SQ SCH (09:58)
[2022-03-12] MEDS ORDERED: HEPARIN SODIUM 1,000 UN/ML (10ML VL) IV PRN (10:09)
[2022-03-12] MEDS: HEPARIN SOD,PORK IN 0.45% NACL 25,000 UNIT in 0.45% NACL 1 250ML.BAG IV SCH (10:56)
[2022-03-12 11:06] LABS: INR 1.2 (<1.2); Partial Thromboplastin Time 26.9 sec (22.0-30.0); Prothrombin Time 12.9 sec (9.0-12.0)
[2022-03-12 11:18] LABS: ALT 13 U/L (4-49); AST 53 U/L (17-59); African American GFR (CKD) 66 (>60 ml/min/1.73 sqM); Albumin 3.4 g/dL (3.5-5.0); Albumin/Globulin Ratio 1.4; Alkaline Phosphatase 79 U/L (38-126); Anion Gap 5 mmol/L; Blood Urea Nitrogen 26 mg/dL (9-20); Calcium 7.7 mg/dL (8.4-10.2); Carbon Dioxide 27 mmol/L (22-30); Chloride 106 mmol/L (98-107); Globulin 2.5 g/dL; Glucose 117 mg/dL (74-99); Non-African American GFR(CKD) 57 (>60 ml/min/1.73 sqM); Potassium 3.5 mmol/L (3.5-5.1); Sodium 138 mmol/L (137-145); Total Bilirubin 1.3 mg/dL (0.2-1.3); Total Protein 5.9 g/dL (6.3-8.2)
[2022-03-12 11:20] VITALS: BMI 23.9
[2022-03-12 11:28] LABS: Glucose,Whole Blood 96 mg/dL (70-110)
[2022-03-12] MEDS ORDERED: DEXTROSE 5% IN WATER 100 ML with AMIODARONE 150 MG IV ONE (11:30)
[2022-03-12] MEDS ORDERED: AMIODARONE 360 MG in DEXTROSE 5% IN WATER 200 ML IV ONE ×2 (11:40)
[2022-03-12 14:03] LABS: Neutrophils % (M) 75 %; Nucleated Red Blood Cells 0 /100 WBC (0-0); Polychromasia Present; Total Cells Counted 100
[2022-03-12 14:20] LABS: Basophils # (A) 0.1 k/uL (0-0.2); Basophils % (A) 2 %; Eosinophils # (A) 0.1 k/uL (0-0.7); Eosinophils % (A) 1 %; HCT 44.5 % (39.0-53.0); HGB 14.6 gm/dL (13.0-17.5); Hypochromasia Moderate; Lymphocytes # (A) 0.6 k/uL (1.0-4.8); Lymphocytes # (M) 1.09 k/uL (1.0-4.8); Lymphocytes % (A) 9 %; MCHC 32.8 g/dL (31.0-37.0); MCV 97.5 fL (80.0-100.0); Mean Platelet Volume 9.7; Monocytes # (A) 0.5 k/uL (0-1.0); Monocytes # (M) 0.51 k/uL (0-1.0); Monocytes % (A) 8 %; Neutrophils % (A) 78 %; Platelet Count 108 k/uL (150-450); RBC 4.56 m/uL (4.30-5.90); RDW 12.5 % (11.5-15.5); WBC 6.4 k/uL (3.8-10.6)
--- NOTE | 2022-03-12 14:35 | P.PN ---
Subjective Progress Note Date: 03/12/22 Principal diagnosis: Acute left lower lobe pneumonia, community-acquired This is a 81-year-old male patient who felt generalized weakness along with some cough and congestion and fever or chills. He came into the emergency. Pulse ox on room air was 97%. Chest x-ray reveals a possible left retrocardiac pulmonary infiltrates and the patient was started on antibiotics. The patient was hospitalized accordingly. I'm seeing him today on the medical floor. He remains on room air oxygen. He has a congested cough. Sputum production is minimal. His white cell count is at 9 with a hemoglobin 14.6. He has known chronic kidney disease and a creatinine 1.7. Is known to have coronary artery disease, hypertension and hyperlipidemia arteries other comorbid conditions. Has undergone previous coronary stenting. The patient has undergone four-vessel bypass surgery in 1992. He does have Parkinson's disease and he is having progressive worsening in his cognitive functions. He is slow. At times he chokes on food material. No reported aspiration. The Covid 19 testing is negative. No recurrent aspiration. No recurrent pneumonias Reevaluated today on 03/12/22, patient was on the regular medical floor, however he went on to develop atrial flutter with RVR, patient is known to have history of cardiomyopathy and ejection fraction of 40%, patient was started on amio darone drip, IV heparin, and he was transferred to the ICU/as an overflow from 3 S. Looks comfortable in the ICU, patient remains in atrial flutter with RVR, and he is about to be started on amiodarone drip. is at bedside, and the patient is comfortable. He is already on antibiotics for his left lower lobe pneumonia. CBC today is relatively normal electrolytes are normal renal profile is normal. D-dimer is 1.52, nonetheless the patient is on heparin Objective - Vital Signs Vital signs: Vital Signs Temp 98.0 F 03/12/22 11:35 Pulse 100 03/12/22 13:00 Resp 24 03/12/22 13:00 BP 123/75 03/12/22 13:00 Pulse Ox 90 L 03/12/22 13:00 FiO2 21 03/11/22 08:28 Intake & Output 03/11/22 03/12/22 03/12/22 18:59 06:59 18:59 Intake Total 245 Output Total 175 Balance 245 -175 Weight 73.482 kg Intake: IV 5 Invasive Line 1 5 Oral 240 Output: Urine 175 Other: Voiding Method Urinal Urinal # Voids 4 2 # Bowel Movements 1 1 - Exam Physical Exam: Revealed 81-year-old white male in no distress, patient is on room air Head: Atraumatic, normocephalic. HEENT:[Neck is supple.] [No neck masses.] [No thyromegaly.] [No JVD.] Chest: [Diminished breath sounds and crackles at the left base. Nor rhonchi no wheezes Cardiac Exam: [Irregular irregular rhythm, tachycardic, normal S1 and S2, 2/6 systolic murmur thought the precordium Abdomen: [Soft, nontender, no megaly, no rebound, no guarding, normal bowel sounds.] Extremities: [No clubbing, no edema, no cyanosis.] Neurological Exam: [No focal neurologic deficit.] Patient has a flat affect. - Labs CBC & Chem 7: 03/12/22 10:24 03/12/22 10:24 Labs: Abnormal Lab Results - Last 24 Hours (Table) 03/11/22 03/11/22 03/12/22 Range/Units 11:27 14:00 10:24 RBC 4.06 L (4.40-5.60) X 10*6/uL Hgb 12.3 L (13.0-17.0) g/dL Hct 38.7 L (39.6-50.0) % MCHC 31.8 L (32.0-37.0) g/dL Plt Count 133 L (140-440) X 10*3/uL Lymphocytes # 0.35 L (0.90-5.00) X 10*3/uL Eosinophils # 0 L (0.04-0.35) X 10*3/uL PT (9.0-12.0) sec INR (<1.2) D-Dimer (<0.60) mg/L FEU BUN 26 H (9-20) mg/dL Glucose 117 H (74-99) mg/dL Calcium 7.7 L (8.4-10.2) mg/dL Total Protein 5.9 L (6.3-8.2) g/dL Albumin 3.4 L (3.5-5.0) g/dL Procalcitonin 0.18 H (0.02-0.09) ng/mL 03/12/22 03/12/22 03/12/22 Range/Units 10:24 10:24 13:00 RBC (4.40-5.60) X 10*6/uL Hgb (13.0-17.0) g/dL Hct (39.6-50.0) % MCHC (32.0-37.0) g/dL Plt Count 108 L (140-440) X 10*3/uL Lymphocytes # 0.6 L (0.90-5.00) X 10*3/uL Eosinophils # (0.04-0.35) X 10*3/uL PT 12.9 H (9.0-12.0) sec INR 1.2 H (<1.2) D-Dimer 1.52 H (<0.60) mg/L FEU BUN (9-20) mg/dL Glucose (74-99) mg/dL Calcium (8.4-10.2) mg/dL Total Protein (6.3-8.2) g/dL Albumin (3.5-5.0) g/dL Procalcitonin (0.02-0.09) ng/mL Microbiology - Last 24 Hours (Table) 03/10/22 18:00 Gram Stain - Final Sputum Sputum Culture - Final Assessment and Plan Assessment: Impression: Acute left lower lobe pneumonia, community-acquired Atrial flutter with RVR Coronary artery disease and previous four-vessel CABG in 1992 , and previous stenting. Chronic systolic congestive heart failure ejection fraction is reduced Benign essential hypertension Dyslipidemia Parkinson's disease Recommendation: Continue antibiotics patient is now on Rocephin Continue heparin Continue amiodarone as per cardiology We will continue to monitor as an overflow in the ICU. Prognosis is relatively guarded. GI and DVT prophylaxis. Will follow Time with Patient: Less than 30
[2022-03-12] MEDS: POTASSIUM CHLORIDE ER 20 MEQ TAB.ER PO SCH ×2 (14:38→16:59)
[2022-03-12] MEDS: METOPROLOL TARTRATE 50 MG TAB PO SCH (15:38)
--- NOTE | 2022-03-12 16:53 | P.PN ---
Subjective Progress Note Date: 03/12/22 Brie Maya, is an 81 year old male who presented to [facility] emergency room with a chief complaint of severe weakness with fever and chills He was evaluated in the emergency room vital examination on presentation revealed a temperature of 100.2 pulse 95 respiration 18 blood pressure 127/67 pulse ox 97% on room air Laboratory data reveals a white blood count of 9.0 hemoglobin 14.6 platelet count 114 BUN 36 creatinine 1.74 Testing in the emergency room revealed chest x-ray revealed no active cardiopulmonary disease Patient was admitted to medical floor for further evaluation and treatment On 03/11/2022 patient is alert and oriented 3. Repeat chest x-ray completed showing mild interstitial density left lower lobe consistent with interstitial pneumonia and is new compared to exam earlier today patient remains on Rocephin and azithromycin will speak standpoint consult pulmonary services. Patient also noted to have elevated temperature 100.1. Patient reports improvement with generalized weakness. Patient denies chest pain. Patient is reporting cough. Patient denies nausea vomiting or diarrhea. Patient denies any urinary burning or frequency On 03/12/2022 patient was seen and examined the ICU he is alert and oriented 3 in no apparent distress last night he developed atrial fibrillation with rapid ventricular response he was having worsening shortness of breath he was started on IV amiodarone and was transferred to intensive care unit patient remains on I V antibiotics he is followed by cardiology and pulmonary, today patient is feeling more comfortable he has less cough and less shortness of breath there is no fever or chills no headache or dizziness no chest pain no nausea or vomiting no abdominal pain no diarrhea and no urinary symptoms Objective - Vital Signs Vital signs: Vital Signs Temp 98.0 F 03/12/22 11:35 Pulse 130 H 03/12/22 14:00 Resp 12 03/12/22 14:00 BP 136/86 03/12/22 14:00 Pulse Ox 90 L 03/12/22 13:00 FiO2 21 03/11/22 08:28 Intake & Output 03/11/22 03/12/22 03/12/22 18:59 06:59 18:59 Intake Total 245 Output Total 175 Balance 245 -175 Weight 73.482 kg Intake: IV 5 Invasive Line 1 5 Oral 240 Output: Urine 175 Other: Voiding Method Urinal External Catheter # Voids 4 2 # Bowel Movements 1 1 - Exam Head normocephalic Neck supple Lungs clear to auscultation bilaterally no wheezing or crackles Heart regular rate and rhythm S1-S2, no rub or gallop Abdomen is soft nontender nondistended positive bowel sounds no hepatospleno megaly Extremities no edema Neuro alert and orientated to 3 - Labs CBC & Chem 7: 03/12/22 10:24 03/12/22 10:24 Labs: Abnormal Lab Results - Last 24 Hours (Table) 03/11/22 03/12/22 03/12/22 Range/Units 14:00 10:24 10:24 Plt Count 108 L (150-450) k/uL Lymphocytes # 0.6 L (1.0-4.8) k/uL PT (9.0-12.0) sec INR (<1.2) D-Dimer (<0.60) mg/L FEU BUN 26 H (9-20) mg/dL Glucose 117 H (74-99) mg/dL Calcium 7.7 L (8.4-10.2) mg/dL Total Protein 5.9 L (6.3-8.2) g/dL Albumin 3.4 L (3.5-5.0) g/dL Procalcitonin 0.18 H (0.02-0.09) ng/mL 03/12/22 03/12/22 Range/Units 10:24 13:00 Plt Count (150-450) k/uL Lymphocytes # (1.0-4.8) k/uL PT 12.9 H (9.0-12.0) sec INR 1.2 H (<1.2) D-Dimer 1.52 H (<0.60) mg/L FEU BUN (9-20) mg/dL Glucose (74-99) mg/dL Calcium (8.4-10.2) mg/dL Total Protein (6.3-8.2) g/dL Albumin (3.5-5.0) g/dL Procalcitonin (0.02-0.09) ng/mL Microbiology - Last 24 Hours (Table) 03/10/22 18:00 Gram Stain - Final Sputum Sputum Culture - Final Assessment and Plan Plan: Febrile illness with cough, possible pneumonia, initial chest x-ray did not reveal any focal infiltrate, however patient was quite dehydrated, will hydrate cautiously. Repeat chest x-ray consistent with some interstitial pneumonia Dehydration with acute kidney injury, prerenal azotemia Underlying history of Parkinson disease Underlying history of hypertension Underlying history of gastroesophageal reflux disease Underlying history of hyperlipidemia Underlying history of depression with anxiety disorder At this time medication and labs were reviewed Continue with IV fluid normal saline at 80 mL/h Continue with IV antibiotic Rocephin and Zithromax Pulmonary service is consulted Sputum culture ordered
[2022-03-12] MEDS: AMIODARONE 450 MG in DEXTROSE 5% IN WATER 250 ML IV SCH ×2 (17:51)
[2022-03-12] MEDS: GABAPENTIN 100 MG CAP PO SCH (20:45)
[2022-03-12] MEDS: MULTIVITAMINS, THERA 1 EACH TAB PO SCH (20:46)
[2022-03-12] MEDS: PRIMIDONE 50 MG TAB PO SCH (20:46)
[2022-03-12] MEDS: ATORVASTATIN 40 MG TAB PO SCH (20:46)
[2022-03-12] MEDS: MIRTAZAPINE 15 MG TAB PO SCH (20:56)
[2022-03-12] MEDS ORDERED: ALPRAZolam 0.25 MG TAB PO SCH (22:00)
[2022-03-12] MEDS ORDERED: ALPRAZolam 0.25 MG TAB PO PRN (23:55)
[2022-03-13] MEDS: SODIUM CHLORIDE 0.9% 1,000 ML IV SCH (06:34)
[2022-03-13 07:51] LABS: Calcium 7.5 mg/dL (8.4-10.2); Magnesium 1.7 mg/dL (1.6-2.3)
[2022-03-13 07:58] LABS: INR 1.2 (<1.2); Partial Thromboplastin Time 64.1 sec (22.0-30.0); Prothrombin Time 12.1 sec (9.0-12.0)
[2022-03-13 08:10] LABS: Potassium 4.1 mmol/L (3.5-5.1)
[2022-03-13] MEDS: ASPIRIN 81 MG PO SCH (08:25)
[2022-03-13] MEDS: amLODIPine 2.5 MG TAB PO SCH (08:25)
[2022-03-13] MEDS: PANTOPRAZOLE 40 MG TABLET PO SCH (08:25)
[2022-03-13] MEDS: SERTRALINE 25 MG TAB PO SCH (08:26)
[2022-03-13] MEDS: CARBIDOPA-LEVODOPA 25-100 MG 1 EACH TAB PO SCH ×3 (08:26→20:56)
[2022-03-13 09:34] LABS: Basophils # (A) 0.1 k/uL (0-0.2); Basophils % (A) 1 %; Eosinophils # (A) 0.2 k/uL (0-0.7); Eosinophils % (A) 2 %; HCT 42.8 % (39.0-53.0); HGB 13.8 gm/dL (13.0-17.5); Hypochromasia Slight; Lymphocytes # (A) 1.1 k/uL (1.0-4.8); Lymphocytes % (A) 15 %; MCH 31.2 pg (25.0-35.0); MCHC 32.3 g/dL (31.0-37.0); MCV 96.4 fL (80.0-100.0); Mean Platelet Volume 9.9; Monocytes # (A) 0.8 k/uL (0-1.0); Monocytes % (A) 11 %; Neutrophils # (A) 5.1 k/uL (1.3-7.7); Neutrophils % (A) 68 %; Platelet Count 113 k/uL (150-450); RBC 4.44 m/uL (4.30-5.90); RDW 12.7 % (11.5-15.5); WBC 7.6 k/uL (3.8-10.6)
[2022-03-13] MEDS: METOPROLOL TARTRATE 50 MG TAB PO SCH (09:40)
--- NOTE | 2022-03-13 09:41 | XR ---
EXAMINATION TYPE: XR chest 1V portable DATE OF EXAM: 03/13/2022 CLINICAL HISTORY: Difficulty breathing and pneumonia progress study. TECHNIQUE: Single AP portable upright view of the chest is obtained. COMPARISON: Chest x-ray from 3 days earlier FINDINGS: Overlying sternal wires and mediastinal clips redemonstrated. Cardiac silhouette size stab le and within normal limits with atherosclerotic change aortic knob again seen. No suspicious new foc al airspace opacity, pleural effusion, or pneumothorax seen. Left basilar retrocardiac opacity redemo nstrated. Bridging osteophytes in the thoracic spine redemonstrated. Degenerative change bilateral gl enohumeral joints again seen. Overlying EKG leads noted on current study. IMPRESSION: Persistent retrocardiac left lower lobe acute infiltrate and/or atelectasis. No significa nt change from prior.
--- NOTE | 2022-03-13 09:46 | CA ---
Transthoracic Echo Report Name: Brie Maya Age: 81 Gender: M : 1940 Exam Date: 03/13/2022 07:50 Exam Location: [place] [facility] Ht (in): 69 Wt (lb): 162 Ordering Physician: Selene Sofia Attending/Referring Phys: [employer] Thu Simeon, ZURI Procedure CPT: Indications: A flutter with RVR Cardiac Hx: Technical Quality: Contrast 1: Total Dose (mL): Contrast 2: Total Dose (mL): MEASUREMENTS (Male / Female) Normal Values 2D ECHO LV Diastolic Diameter PLAX 5.4 cm 4.2 - 5.9 / 3.9 - 5.3 cm LV Systolic Diameter PLAX 5.1 cm IVS Diastolic Thickness 1.2 cm 0.6 - 1.0 / 0.6 - 0.9 cm LVPW Diastolic Thickness 0.8 cm 0.6 - 1.0 / 0.6 - 0.9 cm LV Relative Wall Thickness 0.4 RV Internal Dim ED PLAX 3.3 cm LA Systolic Diameter LX 4.1 cm 3.0 - 4.0 / 2.7 - 3.8 cm LA Volume 77.1 cm??? 18 - 58 / 22 - 52 cm??? M-MODE Aortic Root Diameter MM 3.3 cm LA Systolic Diameter MM 4.5 cm LA Ao Ratio MM 1.4 MV E Point Septal Separation 0.7 cm AV Cusp Separation MM 1.9 cm DOPPLER TR Peak Velocity 247.8 cm/s TR Peak Gradient 24.6 mmHg Right Ventricular Systolic Press 28.1 mmHg FINDINGS Left Ventricle Mildly increased septal wall thickness. Left ventricular ejection fraction is estimated at 35 to 40%. Global decrease in contractility noted of moderate extent Right Ventricle Normal right ventricular size and function. Right ventricular systolic pressure within normal limits. Right Atrium Normal right atrial size. Left Atrium Mildly increased left atrial diameter. Moderately increased left atrial volume. Mitral Valve Structurally normal mitral valve. Mild mitral regurgitation. Aortic Valve Trileaflet aortic valve. Tricuspid Valve Structurally normal tricuspid valve. Mild tricuspid regurgitation. Pulmonic Valve Structurally normal pulmonic valve. Mild pulmonic regurgitation. Pericardium Normal pericardium. Aorta Normal size aortic root and proximal ascending aorta. CONCLUSIONS LV size is normal with the global decrease in contractility. No pericardial effusion. No significant abnormality in the Doppler exam Previewed by: Dr. Maine Gonzales MD (Electronically Signed) Final Date: 13 March 2022 09:45
[2022-03-13] MEDS: AMIODARONE 450 MG in DEXTROSE 5% IN WATER 250 ML IV SCH ×2 (10:57)
[2022-03-13] MEDS: MAGNESIUM SULFATE-D5W PMX 1 GM in DEXTROSE/WATER 1 100ML.BAG IVPB SCH ×2 (10:57→11:57)
[2022-03-13] MEDS: METOPROLOL TARTRATE 25 MG TAB PO SCH ×3 (10:58→20:56)
[2022-03-13] MEDS: AMIODARONE 200 MG TAB PO SCH ×3 (10:58→20:55)
--- NOTE | 2022-03-13 11:14 | P.PN ---
Subjective Progress Note Date: 03/13/22 Principal diagnosis: Acute left lower lobe pneumonia, community-acquired This is a 81-year-old male patient who felt generalized weakness along with some cough and congestion and fever or chills. He came into the emergency. Pulse ox on room air was 97%. Chest x-ray reveals a possible left retrocardiac pulmonary infiltrates and the patient was started on antibiotics. The patient was hospitalized accordingly. I'm seeing him today on the medical floor. He remains on room air oxygen. He has a congested cough. Sputum production is minimal. His white cell count is at 9 with a hemoglobin 14.6. He has known chronic kidney disease and a creatinine 1.7. Is known to have coronary artery disease, hypertension and hyperlipidemia arteries other comorbid conditions. Has undergone previous coronary stenting. The patient has undergone four-vessel bypass surgery in 1992. He does have Parkinson's disease and he is having progressive worsening in his cognitive functions. He is slow. At times he chokes on food material. No reported aspiration. The Covid 19 testing is negative. No recurrent aspiration. No recurrent pneumonias Reevaluated today on 03/12/22, patient was on the regular medical floor, however he went on to develop atrial flutter with RVR, patient is known to have history of cardiomyopathy and ejection fraction of 40%, patient was started on amio darone drip, IV heparin, and he was transferred to the ICU/as an overflow from 3 S. Looks comfortable in the ICU, patient remains in atrial flutter with RVR, and he is about to be started on amiodarone drip. is at bedside, and the patient is comfortable. He is already on antibiotics for his left lower lobe pneumonia. CBC today is relatively normal electrolytes are normal renal profile is normal. D-dimer is 1.52, nonetheless the patient is on heparin Reevaluated today on 03/13/22, patient remains in the ICU as an overflow, he remains on antibiotics for his left lower lobe pneumonia, he is now in sinus rhythm, he is on oral amiodarone and heparin was changed to eliquis. No major issues, patient is on room air, not in any distress, and I plan to transfer the patient to a cardiac floor, continue IV antibiotics for now, and possibly transition to oral antibiotics in the next 24 hours. Chest x-ray is showing improvement in his left lower lobe infiltrate. WBC count is 7.6 hemoglobin 13.8. Basic metabolic profile is normal. Renal profile is a bit worse with creatinine up to 1.28. Objective - Vital Signs Vital signs: Vital Signs Temp 98 F 03/13/22 02:00 Pulse 55 L 03/13/22 02:00 Resp 18 03/13/22 02:00 BP 96/56 03/13/22 02:00 Pulse Ox 94 L 03/13/22 07:31 FiO2 21 03/11/22 08:28 Intake & Output 03/12/22 03/13/22 03/13/22 18:59 06:59 18:59 Intake Total 150 Output Total 100 100 Balance -100 50 Weight 73.482 kg Intake: Intake, IV Titration 150 Amount Sodium Chloride 0.9% 1, 150 000 ml @ 75 mls/hr IV . [id number] [facility] Rx#:[id number] Output: Urine 100 100 Other: Voiding Method External Catheter External Catheter # Voids 2 - Exam Physical Exam: Revealed 81-year-old white male in no distress, patient is on room air Head: Atraumatic, normocephalic. HEENT:[Neck is supple.] [No neck masses.] [No thyromegaly.] [No JVD.] Chest: [Diminished breath sounds and crackles at the left base. Nor rhonchi no wheezes Cardiac Exam: [Irregular irregular rhythm, tachycardic, normal S1 and S2, 2/6 systolic murmur thought the precordium Abdomen: [Soft, nontender, no megaly, no rebound, no guarding, normal bowel sounds.] Extremities: [No clubbing, no edema, no cyanosis.] Neurological Exam: [No focal neurologic deficit.] Patient has a flat affect. - Labs CBC & Chem 7: 03/13/22 07:04 03/13/22 07:04 Labs: Abnormal Lab Results - Last 24 Hours (Table) 03/12/22 03/12/22 03/12/22 Range/Units 10:24 10:24 10:24 Plt Count 108 L (150-450) k/uL Lymphocytes # 0.6 L (1.0-4.8) k/uL PT 12.9 H (9.0-12.0) sec INR 1.2 H (<1.2) APTT (22.0-30.0) sec D-Dimer (<0.60) mg/L FEU BUN 26 H (9-20) mg/dL Creatinine (0.66-1.25) mg/dL Glucose 117 H (74-99) mg/dL Calcium 7.7 L (8.4-10.2) mg/dL Total Protein 5.9 L (6.3-8.2) g/dL Albumin 3.4 L (3.5-5.0) g/dL 03/12/22 03/12/22 03/13/22 Range/Units 13:00 16:05 07:04 Plt Count (150-450) k/uL Lymphocytes # (1.0-4.8) k/uL PT 12.1 H (9.0-12.0) sec INR 1.2 H (<1.2) APTT 62.5 H 64.1 H (22.0-30.0) sec D-Dimer 1.52 H (<0.60) mg/L FEU BUN (9-20) mg/dL Creatinine (0.66-1.25) mg/dL Glucose (74-99) mg/dL Calcium (8.4-10.2) mg/dL Total Protein (6.3-8.2) g/dL Albumin (3.5-5.0) g/dL 03/13/22 03/13/22 Range/Units 07:04 07:04 Plt Count 113 L (150-450) k/uL Lymphocytes # (1.0-4.8) k/uL PT (9.0-12.0) sec INR (<1.2) APTT (22.0-30.0) sec D-Dimer (<0.60) mg/L FEU BUN 30 H (9-20) mg/dL Creatinine 1.28 H (0.66-1.25) mg/dL Glucose (74-99) mg/dL Calcium 7.5 L (8.4-10.2) mg/dL Total Protein (6.3-8.2) g/dL Albumin (3.5-5.0) g/dL Microbiology - Last 24 Hours (Table) 03/10/22 18:00 Gram Stain - Final Sputum Sputum Culture - Final Assessment and Plan Assessment: Impression: Acute left lower lobe pneumonia, community-acquired Atrial flutter with RVR resolved, patient is now in sinus rhythm. Coronary artery disease and previous four-vessel CABG in 1992 , and previous stenting. Chronic systolic congestive heart failure ejection fraction is reduced Benign essential hypertension Dyslipidemia Parkinson's disease Recommendation: Continue antibiotics patient is now on Rocephin Continue eliquis Continue amiodarone orally Transferred to 3 S. if bed is available GI and DVT prophylaxis. Consider discharge planning in the next 24 hours if cleared by cardiology Will follow Time with Patient: Less than 30
[2022-03-13] MEDS: FLUTICASONE 50MCG/SPRAY NASAL 16GM EA NOSTRIL SCH (11:58)
[2022-03-13] MEDS: APIXABAN 2.5 MG TABLET PO SCH ×2 (13:36→20:55)
--- NOTE | 2022-03-13 16:06 | P.PN ---
Subjective Progress Note Date: 03/13/22 Brie Maya, is an 81 year old male who presented to [facility] emergency room with a chief complaint of severe weakness with fever and chills He was evaluated in the emergency room vital examination on presentation revealed a temperature of 100.2 pulse 95 respiration 18 blood pressure 127/67 pulse ox 97% on room air Laboratory data reveals a white blood count of 9.0 hemoglobin 14.6 platelet count 114 BUN 36 creatinine 1.74 Testing in the emergency room revealed chest x-ray revealed no active cardiopulmonary disease Patient was admitted to medical floor for further evaluation and treatment On 03/11/2022 patient is alert and oriented 3. Repeat chest x-ray completed showing mild interstitial density left lower lobe consistent with interstitial pneumonia and is new compared to exam earlier today patient remains on Rocephin and azithromycin will speak standpoint consult pulmonary services. Patient also noted to have elevated temperature 100.1. Patient reports improvement with generalized weakness. Patient denies chest pain. Patient is reporting cough. Patient denies nausea vomiting or diarrhea. Patient denies any urinary burning or frequency On 03/12/2022 patient was seen and examined the ICU he is alert and oriented 3 in no apparent distress last night he developed atrial fibrillation with rapid ventricular response he was having worsening shortness of breath he was started on IV amiodarone and was transferred to intensive care unit patient remains on I V antibiotics he is followed by cardiology and pulmonary, today patient is feeling more comfortable he has less cough and less shortness of breath there is no fever or chills no headache or dizziness no chest pain no nausea or vomiting no abdominal pain no diarrhea and no urinary symptoms On 03/13/2022 patient was seen and examined the ICU he is alert and oriented 3 in no apparent distress, he is cough and shortness of breath has been improving otherwise he denies any complaints there is no fever or chills no headache or dizziness no chest pain no nausea or vomiting no abdominal pain no diarrhea and no urinary symptoms Objective - Vital Signs Vital signs: Vital Signs Temp 98 F 03/13/22 02:00 Pulse 55 L 03/13/22 02:00 Resp 18 03/13/22 02:00 BP 96/56 03/13/22 02:00 Pulse Ox 93 L 03/13/22 02:00 FiO2 21 03/11/22 08:28 Intake & Output 03/12/22 03/13/2222 18:59 06:59 18:59 Intake Total 150 Output Total 100 100 Balance -100 50 Weight 73.482 kg Intake: Intake, IV Titration 150 Amount Sodium Chloride 0.9% 1, 150 000 ml @ 75 mls/hr IV . [id number] [facility] Rx#:[id number] Output: Urine 100 100 Other: Voiding Method External Catheter External Catheter # Voids 2 - Exam Head normocephalic Neck supple Lungs clear to auscultation bilaterally no wheezing or crackles Heart regular rate and rhythm S1-S2, no rub or gallop Abdomen is soft nontender nondistended positive bowel sounds no hepatosplenomegaly Extremities no edema Neuro alert and orientated to 3 - Labs CBC & Chem 7: 03/13/22 07:04 03/13/22 07:04 Labs: Abnormal Lab Results - Last 24 Hours (Table) 03/12/22 03/12/22 03/12/22 Range/Units 10:24 10:24 10:24 Plt Count 108 L (150-450) k/uL Lymphocytes # 0.6 L (1.0-4.8) k/uL PT 12.9 H (9.0-12.0) sec INR 1.2 H (<1.2) APTT (22.0-30.0) sec D-Dimer (<0.60) mg/L FEU BUN 26 H (9-20) mg/dL Glucose 117 H (74-99) mg/dL Calcium 7.7 L (8.4-10.2) mg/dL Total Protein 5.9 L (6.3-8.2) g/dL Albumin 3.4 L (3.5-5.0) g/dL 03/12/22 03/12/22 Range/Units 13:00 16:05 Plt Count (150-450) k/uL Lymphocytes # (1.0-4.8) k/uL PT (9.0-12.0) sec INR (<1.2) APTT 62.5 H (22.0-30.0) sec D-Dimer 1.52 H (<0.60) mg/L FEU BUN (9-20) mg/dL Glucose (74-99) mg/dL Calcium (8.4-10.2) mg/dL Total Protein (6.3-8.2) g/dL Albumin (3.5-5.0) g/dL Microbiology - Last 24 Hours (Table) 03/10/22 18:00 Gram Stain - Final Sputum Sputum Culture - Final Assessment and Plan Plan: Febrile illness with cough, possible pneumonia, initial chest x-ray did not reveal any focal infiltrate, however patient was quite dehydrated, will hydrate cautiously. Repeat chest x-ray consistent with some interstitial pneumonia Dehydration with acute kidney injury, prerenal azotemia Underlying history of Parkinson disease Underlying history of hypertension Underlying history of gastroesophageal reflux disease Underlying history of hyperlipidemia Underlying history of depression with anxiety disorder At this time medication and labs were reviewed Continue with IV fluid normal saline at 80 mL/h Continue with IV antibiotic Rocephin and Zithromax Pulmonary service is consulted Sputum culture ordered
[2022-03-13] MEDS: GABAPENTIN 100 MG CAP PO SCH (20:55)
[2022-03-13] MEDS: MULTIVITAMINS, THERA 1 EACH TAB PO SCH (20:55)
[2022-03-13] MEDS: ATORVASTATIN 40 MG TAB PO SCH (20:55)
[2022-03-13] MEDS: PRIMIDONE 50 MG TAB PO SCH (20:56)
[2022-03-13] MEDS: MIRTAZAPINE 15 MG TAB PO SCH (21:12)
--- NOTE | 2022-03-13 22:45 | PN ---
PROGRESS NOTE HISTORY OF PRESENT ILLNESS: Brie is an 81-year-old patient who was admitted to the intensive care unit because of an episode of atrial fibrillation with poorly controlled ventricular rate that he developed on the floor. An echocardiogram shows LV systolic dysfunction with an ejection fraction of 35% to 40% without significant valvular heart disease. At the time of my evaluation this morning, the patient is in sinus rhythm. He has history of coronary artery disease for which he underwent bypass surgery and subsequently underwent angioplasty. He initially presented to hospital with febrile illness. His baseline echo shows an ejection fraction of 40%. PHYSICAL EXAMINATION: VITAL SIGNS: Heart rate is 85 beats per minute, blood pressure is 96/56, respiratory rate is 18. NECK: There is no jugular venous distention. Carotid upstroke is diminished. There is no bruit. CHEST: Reveals bilateral occasional rhonchi. HEART: Reveals first and second heart sounds, a systolic murmur at the apex. ABDOMEN: Soft. EXTREMITIES: Did not reveal any edema. Peripheral pulses are palpable. LABORATORY DATA: Showed potassium of 4.1, creatinine is 1.2, BUN is 30, hemoglobin is 13.8. The patient was on Cordarone drip, I am going to switch him to oral amiodarone. He is also on aspirin, Norvasc, Lipitor, Lopressor, and IV heparin. I will convert him to Eliquis if he is covered. ASSESSMENT: 1. Paroxysmal atrial fibrillation. 2. Coronary artery disease, status post coronary artery bypass grafting. 3. Ischemic cardiomyopathy. 4. Pneumonia. PLAN: Will continue with the amiodarone and heparin along with the rest of the medications. MMODL / IJN: [id number] /
[2022-03-14 06:06] LABS: Basophils % (A) 1 %; Eosinophils # (A) 0.3 k/uL (0-0.7); Eosinophils % (A) 5 %; HGB 12.8 gm/dL (13.0-17.5); Lymphocytes % (A) 17 %; MCH 30.9 pg (25.0-35.0); MCHC 32.8 g/dL (31.0-37.0); MCV 94.2 fL (80.0-100.0); Mean Platelet Volume 8.2; Monocytes # (A) 0.6 k/uL (0-1.0); Monocytes % (A) 10 %; Neutrophils # (A) 3.8 k/uL (1.3-7.7); Neutrophils % (A) 65 %; Platelet Count 137 k/uL (150-450); RBC 4.14 m/uL (4.30-5.90); RDW 12.7 % (11.5-15.5); WBC 5.9 k/uL (3.8-10.6)
[2022-03-14 06:30] LABS: Albumin 2.9 g/dL (3.5-5.0); Calcium 7.4 mg/dL (8.4-10.2); Potassium 3.5 mmol/L (3.5-5.1); Total Bilirubin 0.9 mg/dL (0.2-1.3); Total Protein 5.2 g/dL (6.3-8.2)
[2022-03-14] MEDS: SODIUM CHLORIDE 0.9% 1,000 ML IV SCH ×3 (07:40→22:21)
[2022-03-14] MEDS: PANTOPRAZOLE 40 MG TABLET PO SCH (08:43)
[2022-03-14] MEDS: APIXABAN 2.5 MG TABLET PO SCH ×2 (08:43→21:19)
[2022-03-14] MEDS: METOPROLOL TARTRATE 25 MG TAB PO SCH ×2 (08:43→21:19)
[2022-03-14] MEDS: CARBIDOPA-LEVODOPA 25-100 MG 1 EACH TAB PO SCH ×3 (08:44→21:19)
[2022-03-14] MEDS: AMIODARONE 200 MG TAB PO SCH ×2 (08:44→21:19)
[2022-03-14] MEDS: ASPIRIN 81 MG PO SCH (08:44)
[2022-03-14] MEDS: FLUTICASONE 50MCG/SPRAY NASAL 16GM EA NOSTRIL SCH (08:45)
[2022-03-14] MEDS: SERTRALINE 25 MG TAB PO SCH (08:54)
[2022-03-14] MEDS: amLODIPine 2.5 MG TAB PO SCH (08:55)
--- NOTE | 2022-03-14 09:35 | P.PN ---
Subjective Progress Note Date: 03/14/22 Brie Maya, is an 81 year old male who presented to [facility] emergency room with a chief complaint of severe weakness with fever and chills He was evaluated in the emergency room vital examination on presentation revealed a temperature of 100.2 pulse 95 respiration 18 blood pressure 127/67 pulse ox 97% on room air Laboratory data reveals a white blood count of 9.0 hemoglobin 14.6 platelet count 114 BUN 36 creatinine 1.74 Testing in the emergency room revealed chest x-ray revealed no active cardiopulmonary disease Patient was admitted to medical floor for further evaluation and treatment On 03/11/2022 patient is alert and oriented 3. Repeat chest x-ray completed showing mild interstitial density left lower lobe consistent with interstitial pneumonia and is new compared to exam earlier today patient remains on Rocephin and azithromycin will speak standpoint consult pulmonary services. Patient also noted to have elevated temperature 100.1. Patient reports improvement with generalized weakness. Patient denies chest pain. Patient is reporting cough. Patient denies nausea vomiting or diarrhea. Patient denies any urinary burning or frequency On 03/12/2022 patient was seen and examined the ICU he is alert and oriented 3 in no apparent distress last night he developed atrial fibrillation with rapid ventricular response he was having worsening shortness of breath he was started on IV amiodarone and was transferred to intensive care unit patient remains on I V antibiotics he is followed by cardiology and pulmonary, today patient is feeling more comfortable he has less cough and less shortness of breath there is no fever or chills no headache or dizziness no chest pain no nausea or vomiting no abdominal pain no diarrhea and no urinary symptoms On 03/13/2022 patient was seen and examined the ICU he is alert and oriented 3 in no apparent distress, he is cough and shortness of breath has been improving otherwise he denies any complaints there is no fever or chills no headache or dizziness no chest pain no nausea or vomiting no abdominal pain no diarrhea and no urinary symptoms On 03/14/2022 patient is alert and oriented 3. Patient is currently 3 S. overflow but remains in the intensive care unit. Patient is improved. Patient has been transitioned to oral amiodarone. Maintain on eliquis. Patient denies chest pain or shortness breath. Patient denies nausea vomiting or diarrhea. Patient denies any urinary burning or frequency Objective - Vital Signs Vital signs: Vital Signs Temp 98.0 F 03/14/22 08:00 Pulse 64 03/14/22 08:00 Resp 23 03/14/22 08:00 BP 124/69 03/14/22 08:00 Pulse Ox 96 03/14/22 08:00 FiO2 21 03/11/22 08:28 Intake & Output 03/13/22 03/14/22 03/14/22 18:59 06:59 18:59 Intake Total 450 Output Total 325 300 Balance 125 -300 Intake: Intake, IV Titration 450 Amount Sodium Chloride 0.9% 1, 450 000 ml @ 75 mls/hr IV . [id number] [facility] Rx#:[id number] Output: Urine 325 300 Other: Voiding Method External Catheter External Catheter # Voids 1 - Exam Head normocephalic Neck supple Lungs clear to auscultation bilaterally no wheezing or crackles Heart regular rate and rhythm S1-S2, no rub or gallop Abdomen is soft nontender nondistended positive bowel sounds no hepatosplenomegaly Extremities no edema Neuro alert and orientated to 3 - Labs CBC & Chem 7: 03/14/22 05:40 03/14/22 05:40 Labs: Abnormal Lab Results - Last 24 Hours (Table) 03/13/22 03/14/22 03/14/22 Range/Units 07:04 05:40 05:40 RBC 4.14 L (4.30-5.90) m/uL Hgb 12.8 L (13.0-17.5) gm/dL Plt Count 113 L 137 L (150-450) k/uL BUN 29 H (9-20) mg/dL Calcium 7.4 L (8.4-10.2) mg/dL AST 75 H (17-59) U/L Total Protein 5.2 L (6.3-8.2) g/dL Albumin 2.9 L (3.5-5.0) g/dL Assessment and Plan Plan: Febrile illness with cough, possible pneumonia, initial chest x-ray did not reveal any focal infiltrate, however patient was quite dehydrated, will hydrate cautiously. Repeat chest x-ray consistent with some interstitial pneumonia Dehydration with acute kidney injury, prerenal azotemia Underlying history of Parkinson disease Underlying history of hypertension Underlying history of gastroesophageal reflux disease Underlying history of hyperlipidemia Underlying history of depression with anxiety disorder Atrial fibrillation with rapid ventricular response. Patient has been started on oral amiodarone and eliquis At this time medication and labs were reviewed Remains in the ICU but is overflow for 3 S. Remains on IV antibiotics
--- NOTE | 2022-03-14 10:50 | P.DS ---
Providers Date of admission: 03/12/22 10:51 Expected date of discharge: 03/14/22 Attending physician: Glory Almaguer Consults: 03/11/22 10:34 Consult Physician Routine Consulting Provider: Woody Spaulding Consult Reason/Comments: pneumonia Do you want consulting provider notified?: Yes 03/12/22 05:06 Consult Physician Routine Consulting Provider: Brenden Valdivia Consult Reason/Comments: tachycardia Do you want consulting provider notified?: Yes, Notify in am Primary care physician: Aidan Diego Fabiola Hospital Course: Diagnosis on discharge: Febrile illness with cough, possible pneumonia, initial chest x-ray did not reveal any focal infiltrate, however patient was quite dehydrated, will hydrate cautiously. Repeat chest x-ray consistent with some interstitial pneumonia Dehydration with acute kidney injury, prerenal azotemia Underlying history of Parkinson disease Underlying history of hypertension Underlying history of gastroesophageal reflux disease Underlying history of hyperlipidemia Underlying history of depression with anxiety disorder Atrial fibrillation with rapid ventricular response. Patient has been started on oral amiodarone and [facility] course: Brie Maya, is an 81 year old male who presented to [facility] emergency room with a chief complaint of severe weakness with fever and chills He was evaluated in the emergency room vital examination on presentation revealed a temperature of 100.2 pulse 95 respiration 18 blood pressure 127/67 pulse ox 97% on room air Laboratory data reveals a white blood count of 9.0 hemoglobin 14.6 platelet count 114 BUN 36 creatinine 1.74 Testing in the emergency room revealed chest x-ray revealed no active cardio pulmonary disease Patient was admitted to medical floor for further evaluation and treatment On 03/11/2022 patient is alert and oriented 3. Repeat chest x-ray completed showing mild interstitial density left lower lobe consistent with interstitial pneumonia and is new compared to exam earlier today patient remains on Rocephin and azithromycin will speak standpoint consult pulmonary services. Patient also noted to have elevated temperature 100.1. Patient reports improvement with generalized weakness. Patient denies chest pain. Patient is reporting cough. Patient denies nausea vomiting or diarrhea. Patient denies any urinary burning or frequency On 03/12/2022 patient was seen and examined the ICU he is alert and oriented 3 in no apparent distress last night he developed atrial fibrillation with rapid ventricular response he was having worsening shortness of breath he was started on IV amiodarone and was transferred to intensive care unit patient remains on IV antibiotics he is followed by cardiology and pulmonary, today patient is feeling more comfortable he has less cough and less shortness of breath there is no fever or chills no headache or dizziness no chest pain no nausea or vomiting no abdominal pain no diarrhea and no urinary symptoms On 03/13/2022 patient was seen and examined the ICU he is alert and oriented 3 in no apparent distress, he is cough and shortness of breath has been improving otherwise he denies any complaints there is no fever or chills no headache or dizziness no chest pain no nausea or vomiting no abdominal pain no diarrhea and no urinary symptoms On 03/14/2022 patient is alert and oriented 3. Patient is currently 3 S. overflow but remains in the intensive care unit. Patient is improved. Patient has been transitioned to oral amiodarone. Maintain on eliquis. Patient denies chest pain or shortness breath. Patient denies nausea vomiting or diarrhea. Patient denies any urinary burning or frequency. Patient was evaluated by pulmonary and cardiology and was cleared for discharge he will be on oral antibiotics, he will go to [facility] for rehabilitation Plan - Discharge Summary Discharge Rx Participant: No New Discharge Prescriptions: New Fluticasone Nasal [place] [Flonase Nasal [place]] 2 spray EA NOSTRIL DAILY ml Potassium Chloride ER [K-Dur 20] 20 meq PO Q1HR tab Ibuprofen [Motrin] 400 mg PO Q6HR PRN tab PRN Reason: Mild Pain Or Fever > 100.5 ALPRAZolam [Xanax] 0.25 mg PO QID PRN tab PRN Reason: Anxiety Apixaban [Eliquis] 5 mg PO BID #60 tab Amiodarone [Cordarone] 200 mg PO BID tab Continue Aspirin EC [Ecotrin Low Dose] 81 mg PO DAILY@0800 Nitroglycerin Sl Tabs [Nitrostat] 0.4 mg SUBLINGUAL Q5M PRN PRN Reason: Chest Pain Pantoprazole [Protonix] 40 mg PO DAILY@0800 Mirtazapine [Remeron] 15 mg PO HS@2000 amLODIPine [Norvasc] 2.5 mg PO DAILY@0800 Sertraline [Zoloft] 25 mg PO DAILY@0800 polyethylene glycoL 3350 [Miralax] 17 gm PO DAILY PRN PRN Reason: Constipation Multivitamins, Thera [Multivitamin (formulary)] 1 tab PO HS@1999 Primidone [Mysoline] 50 mg PO HS@1999 Metoprolol Tartrate [Lopressor] 25 mg PO BID@0800,1600 Carbidopa-Levodopa 25-100 mg [Sinemet 25-100 mg] 1 tab PO TID@0800,1400,1999 Atorvastatin [Lipitor] 40 mg PO HS@1999 Gabapentin [Neurontin] 100 mg PO HS@1999 Discharge Medication List Aspirin EC [Ecotrin Low Dose] 81 mg PO DAILY@0800 03/07/20 [History] Nitroglycerin Sl Tabs [Nitrostat] 0.4 mg SUBLINGUAL Q5M PRN 02/15/21 [History] Atorvastatin [Lipitor] 40 mg PO HS@199903/10/22 [History] Carbidopa-Levodopa 25-100 mg [Sinemet 25-100 mg] 1 tab PO TID@0800,1400,199903/10/22 [History] Gabapentin [Neurontin] 100 mg PO HS@199903/10/22 [History] Metoprolol Tartrate [Lopressor] 25 mg PO BID@0800,1600 03/10/22 [History] Mirtazapine [Remeron] 15 mg PO HS@199903/10/22 [History] Multivitamins, Thera [Multivitamin (formulary)] 1 tab PO HS@199903/10/22 [History] Pantoprazole [Protonix] 40 mg PO DAILY@0800 03/10/22 [History] Primidone [Mysoline] 50 mg PO HS@199903/10/22 [History] Sertraline [Zoloft] 25 mg PO DAILY@0800 03/10/22 [History] amLODIPine [Norvasc] 2.5 mg PO DAILY@0800 03/10/22 [History] polyethylene glycoL 3350 [Miralax] 17 gm PO DAILY PRN 03/10/22 [History] Apixaban [Eliquis] 5 mg PO BID #60 tab 03/13/22 [Rx] ALPRAZolam [Xanax] 0.25 mg PO QID PRN tab 03/14/22 [Rx] Amiodarone [Cordarone] 200 mg PO BID tab 03/14/22 [Rx] Fluticasone Nasal [place] [Flonase Nasal [place]] 2 spray EA NOSTRIL DAILY ml 03/14/22 [Rx] Ibuprofen [Motrin] 400 mg PO Q6HR PRN tab 03/14/22 [Rx] Potassium Chloride ER [K-Dur 20] 20 meq PO Q1HR tab 03/14/22 [Rx] Follow up Appointment(s)/Referral(s): Aidan Tim MD [Primary Care Provider] - 1-2 days
[2022-03-14] MEDS: POTASSIUM CHLORIDE ER 20 MEQ TAB.ER PO SCH ×2 (11:03→13:05)
--- NOTE | 2022-03-14 12:13 | P.PN ---
Subjective Progress Note Date: 03/14/22 Principal diagnosis: Acute left lower lobe pneumonia, community-acquired This is a 81-year-old male patient who felt generalized weakness along with some cough and congestion and fever or chills. He came into the emergency. Pulse ox on room air was 97%. Chest x-ray reveals a possible left retrocardiac pulmonary infiltrates and the patient was started on antibiotics. The patient was hospitalized accordingly. I'm seeing him today on the medical floor. He remains on room air oxygen. He has a congested cough. Sputum production is minimal. His white cell count is at 9 with a hemoglobin 14.6. He has known chronic kidney disease and a creatinine 1.7. Is known to have coronary artery disease, hypertension and hyperlipidemia arteries other comorbid conditions. Has undergone previous coronary stenting. The patient has undergone four-vessel bypass surgery in 1992. He does have Parkinson's disease and he is having progressive worsening in his cognitive functions. He is slow. At times he chokes on food material. No reported aspiration. The Covid 19 testing is negative. No recurrent aspiration. No recurrent pneumonias Reevaluated today on 03/12/22, patient was on the regular medical floor, however he went on to develop atrial flutter with RVR, patient is known to have history of cardiomyopathy and ejection fraction of 40%, patient was started on amio darone drip, IV heparin, and he was transferred to the ICU/as an overflow from 3 S. Looks comfortable in the ICU, patient remains in atrial flutter with RVR, and he is about to be started on amiodarone drip. is at bedside, and the patient is comfortable. He is already on antibiotics for his left lower lobe pneumonia. CBC today is relatively normal electrolytes are normal renal profile is normal. D-dimer is 1.52, nonetheless the patient is on heparin Reevaluated today on 03/13/22, patient remains in the ICU as an overflow, he remains on antibiotics for his left lower lobe pneumonia, he is now in sinus rhythm, he is on oral amiodarone and heparin was changed to eliquis. No major issues, patient is on room air, not in any distress, and I plan to transfer the patient to a cardiac floor, continue IV antibiotics for now, and possibly transition to oral antibiotics in the next 24 hours. Chest x-ray is showing improvement in his left lower lobe infiltrate. WBC count is 7.6 hemoglobin 13.8. Basic metabolic profile is normal. Renal profile is a bit worse with creatinine up to 1.28. Reevaluated today on 03/14/22, patient remains in the ICU as an overflow, he is doing great. Relatively asymptomatic, on Coumadin. He is in sinus rhythm. On physical examination the patient sounded fairly clear, his last chest x-ray is reassuring, hence I'm clearing the patient to be discharged home if cleared by cardiology. Objective - Vital Signs Vital signs: Vital Signs Temp 98.0 F 03/14/22 08:00 Pulse 64 03/14/22 08:00 Resp 23 03/14/22 08:00 BP 124/69 03/14/22 08:00 Pulse Ox 96 03/14/22 08:00 FiO2 21 03/11/22 08:28 Intake & Output 03/13/22 03/14/22 03/14/22 18:59 06:59 18:59 Intake Total 450 Output Total 325 300 Balance 125 -300 Intake: Intake, IV Titration 450 Amount Sodium Chloride 0.9% 1, 450 000 ml @ 75 mls/hr IV . [id number] [facility] Rx#:[id number] Output: Urine 325 300 Other: Voiding Method External Catheter External Catheter External Catheter # Voids 1 - Exam Physical Exam: Revealed 81-year-old white male in no distress, patient is on room air Head: Atraumatic, normocephalic. HEENT:[Neck is supple.] [No neck masses.] [No thyromegaly.] [No JVD.] Chest: [Diminished breath sounds and clear throughout. ardic, normal S1 and S2, 2/6 systolic murmur thought the precordium Abdomen: [Soft, nontender, no megaly, no rebound, no guarding, normal bowel sounds.] Extremities: [No clubbing, no edema, no cyanosis.] Neurological Exam: [No focal neurologic deficit.] Psychiatric: Normal mood affect and normal mental status examination - Labs CBC & Chem 7: 03/14/22 05:40 03/14/22 05:40 Labs: Abnormal Lab Results - Last 24 Hours (Table) 03/14/22 03/14/22 Range/Units 05:40 05:40 RBC 4.14 L (4.30-5.90) m/uL Hgb 12.8 L (13.0-17.5) gm/dL Plt Count 137 L (150-450) k/uL BUN 29 H (9-20) mg/dL Calcium 7.4 L (8.4-10.2) mg/dL AST 75 H (17-59) U/L Total Protein 5.2 L (6.3-8.2) g/dL Albumin 2.9 L (3.5-5.0) g/dL Assessment and Plan Assessment: Impression: Acute left lower lobe pneumonia, community-acquired Atrial flutter with RVR resolved, patient is now in sinus rhythm. Coronary artery disease and previous four-vessel CABG in 1992 , and previous stenting. Chronic systolic congestive heart failure ejection fraction is reduced Benign essential hypertension Dyslipidemia Parkinson's disease Recommendation: Change to oral antibiotics Continue eliquis Continue amiodarone orally Will cleared for discharge if cleared by other consultants Time with Patient: Less than 30
--- NOTE | 2022-03-14 20:15 | PN ---
PROGRESS NOTE HISTORY OF PRESENT ILLNESS: Brie is doing much better. Remains in sinus rhythm. Respiratory status has improved and he is ready to be transferred back to the [facility]. An echocardiogram on this admission revealed an ejection fraction of 35% to 40%. PHYSICAL EXAMINATION: VITAL SIGNS: Heart rate is 60 beats per minute, blood pressure is 120/69, respiratory rate is 18. CHEST: Reveals diminished air entry at the bases. HEART: Reveals first and second heart sounds. Ejection systolic murmur in the aortic area. ABDOMEN: Soft. EXTREMITIES: Did not reveal any edema. Peripheral pulses are felt. LABORATORY DATA: Labs show a hemoglobin of 12.8, platelet count is 137. Potassium is 3.5, BUN is 29, creatinine is 1.2. ASSESSMENT: 1. Paroxysmal atrial fibrillation. 2. Coronary artery disease, status post coronary artery bypass grafting. 3. Ischemic cardiomyopathy. PLAN: The patient will continue current medications, including Cordarone 200 b.i.d., Eliquis 2.5 b.i.d., aspirin, Lipitor, Lopressor 25 b.i.d. I will add an BETH inhibitor to what the patient is on given the cardiomyopathy noted on the echocardiogram and stop the amlodipine. MMODL / IJN: [id number] /
[2022-03-14] MEDS: MULTIVITAMINS, THERA 1 EACH TAB PO SCH (21:19)
[2022-03-14] MEDS: PRIMIDONE 50 MG TAB PO SCH (21:19)
[2022-03-14] MEDS: ATORVASTATIN 40 MG TAB PO SCH (21:19)
[2022-03-14] MEDS: GABAPENTIN 100 MG CAP PO SCH (21:19)
[2022-03-14] MEDS: MIRTAZAPINE 15 MG TAB PO SCH (21:50)
[2022-03-15 06:31] LABS: Basophils % (A) 1 %; Eosinophils # (A) 0.3 k/uL (0-0.7); Eosinophils % (A) 4 %; HCT 39.3 % (39.0-53.0); HGB 12.9 gm/dL (13.0-17.5); Hypochromasia Slight; Lymphocytes % (A) 15 %; MCH 31.2 pg (25.0-35.0); MCHC 32.8 g/dL (31.0-37.0); MCV 94.9 fL (80.0-100.0); Mean Platelet Volume 8.4; Monocytes # (A) 0.7 k/uL (0-1.0); Monocytes % (A) 10 %; Neutrophils # (A) 4.9 k/uL (1.3-7.7); Neutrophils % (A) 69 %; Platelet Count 165 k/uL (150-450); RBC 4.14 m/uL (4.30-5.90); RDW 12.4 % (11.5-15.5); WBC 7.1 k/uL (3.8-10.6)
[2022-03-15 07:04] LABS: Albumin 2.9 g/dL (3.5-5.0); Calcium 7.7 mg/dL (8.4-10.2); Potassium 4.1 mmol/L (3.5-5.1); Total Bilirubin 0.9 mg/dL (0.2-1.3); Total Protein 5.4 g/dL (6.3-8.2)
[2022-03-15] MEDS: APIXABAN 2.5 MG TABLET PO SCH (08:19)
[2022-03-15] MEDS: AMIODARONE 200 MG TAB PO SCH (08:19)
[2022-03-15] MEDS: SERTRALINE 25 MG TAB PO SCH (08:19)
[2022-03-15] MEDS: PANTOPRAZOLE 40 MG TABLET PO SCH (08:19)
[2022-03-15] MEDS: CARBIDOPA-LEVODOPA 25-100 MG 1 EACH TAB PO SCH ×2 (08:19→13:59)
[2022-03-15] MEDS: ASPIRIN 81 MG PO SCH (08:19)
[2022-03-15] MEDS: METOPROLOL TARTRATE 25 MG TAB PO SCH (08:19)
[2022-03-15] MEDS: FLUTICASONE 50MCG/SPRAY NASAL 16GM EA NOSTRIL SCH (08:20)
[2022-03-15] MEDS ORDERED: LOSARTAN 25 MG TAB PO SCH (09:00)
[2022-03-15 09:55] VITALS: BP 124/64; PULSE 64
[2022-03-15] MEDS: HEPARIN SOD,PORK IN 0.45% NACL 25,000 UNIT in 0.45% NACL 1 250ML.BAG IV SCH (11:02)
--- NOTE | 2022-03-15 13:36 | P.PN ---
Subjective Progress Note Date: 03/15/22 Brie Maya, is an 81 year old male who presented to [facility] emergency room with a chief complaint of severe weakness with fever and chills He was evaluated in the emergency room vital examination on presentation revealed a temperature of 100.2 pulse 95 respiration 18 blood pressure 127/67 pulse ox 97% on room air Laboratory data reveals a white blood count of 9.0 hemoglobin 14.6 platelet count 114 BUN 36 creatinine 1.74 Testing in the emergency room revealed chest x-ray revealed no active cardiopulmonary disease Patient was admitted to medical floor for further evaluation and treatment On 03/11/2022 patient is alert and oriented 3. Repeat chest x-ray completed showing mild interstitial density left lower lobe consistent with interstitial pneumonia and is new compared to exam earlier today patient remains on Rocephin and azithromycin will speak standpoint consult pulmonary services. Patient also noted to have elevated temperature 100.1. Patient reports improvement with generalized weakness. Patient denies chest pain. Patient is reporting cough. Patient denies nausea vomiting or diarrhea. Patient denies any urinary burning or frequency On 03/12/2022 patient was seen and examined the ICU he is alert and oriented 3 in no apparent distress last night he developed atrial fibrillation with rapid ventricular response he was having worsening shortness of breath he was started on IV amiodarone and was transferred to intensive care unit patient remains on I V antibiotics he is followed by cardiology and pulmonary, today patient is feeling more comfortable he has less cough and less shortness of breath there is no fever or chills no headache or dizziness no chest pain no nausea or vomiting no abdominal pain no diarrhea and no urinary symptoms On 03/13/2022 patient was seen and examined the ICU he is alert and oriented 3 in no apparent distress, he is cough and shortness of breath has been improving otherwise he denies any complaints there is no fever or chills no headache or dizziness no chest pain no nausea or vomiting no abdominal pain no diarrhea and no urinary symptoms On 03/14/2022 patient is alert and oriented 3. Patient is currently 3 S. overflow but remains in the intensive care unit. Patient is improved. Patient has been transitioned to oral amiodarone. Maintain on eliquis. Patient denies chest pain or shortness breath. Patient denies nausea vomiting or diarrhea. Patient denies any urinary burning or frequency. On 03/15/2022 patient was seen and examined on the telemetry floor overflow in ICU, he is alert and oriented 3 in no apparent distress he is still complaining of cough and shortness of breath otherwise he denies any complaints at this time he can be discharged to [facility] for rehabilitation continue with current medication regimen Objective - Vital Signs Vital signs: Vital Signs Temp 98.1 F 03/15/22 08:00 Pulse 64 03/15/22 08:00 Resp 21 03/15/22 08:00 BP 124/64 03/15/22 08:00 Pulse Ox 96 03/15/22 08:00 FiO2 21 03/11/22 08:28 Intake & Output 03/14/22 03/15/22 03/15/22 18:59 06:59 18:59 Intake Total 400 Output Total 600 800 Balance -600 -400 Weight 73.482 kg Intake: Oral 400 Output: Urine 600 800 Other: Voiding Method External Catheter # Voids 3 - Exam Head normocephalic Neck supple Lungs clear to auscultation bilaterally no wheezing or crackles Heart regular rate and rhythm S1-S2, no rub or gallop Abdomen is soft nontender nondistended positive bowel sounds no hepatosplenomegaly Extremities no edema Neuro alert and orientated to 3 - Labs CBC & Chem 7: 03/15/22 05:39 03/15/22 05:39 Labs: Abnormal Lab Results - Last 24 Hours (Table) 03/15/22 03/15/22 Range/Units 05:39 05:39 RBC 4.14 L (4.30-5.90) m/uL Hgb 12.9 L (13.0-17.5) gm/dL BUN 27 H (9-20) mg/dL Calcium 7.7 L (8.4-10.2) mg/dL AST 101 H (17-59) U/L Total Protein 5.4 L (6.3-8.2) g/dL Albumin 2.9 L (3.5-5.0) g/dL Assessment and Plan Plan: Febrile illness with cough, possible pneumonia, initial chest x-ray did not reveal any focal infiltrate, however patient was quite dehydrated, will hydrate cautiously. Repeat chest x-ray consistent with some interstitial pneumonia Dehydration with acute kidney injury, prerenal azotemia Underlying history of Parkinson disease Underlying history of hypertension Underlying history of gastroesophageal reflux disease Underlying history of hyperlipidemia Underlying history of depression with anxiety disorder Atrial fibrillation with rapid ventricular response. Patient has been started on oral amiodarone and eliquis At this time medication and labs were reviewed Remains in the ICU but is overflow for 3 S. Remains on IV antibiotics
[2022-03-15 14:07] VITALS: RESP 14; TEMP 98
--- NOTE | 2022-03-15 23:13 | PN ---
PROGRESS NOTE HISTORY OF PRESENT ILLNESS: An 81-year-old gentleman with CAD, status post CABG, ischemic cardiomyopathy, and paroxysmal atrial fibrillation. This morning, he remains in sinus rhythm and free of symptoms. PHYSICAL EXAMINATION: VITAL SIGNS: Heart rate is 60 beats per minute, blood pressure is 120/64, respiratory rate is 18. CHEST: Reveals diminished air entry at the bases. HEART: Reveals first and second heart sounds. No gallop. EXTREMITIES: Revealed mild edema bilaterally. MEDICATIONS: The patient is on, 1. Amiodarone 200 b.i.d. 2. Eliquis 2.5 b.i.d. 3. Aspirin. 4. Lipitor. 5. Cozaar 25 mg daily. 6. Lopressor 25 b.i.d. LABORATORY DATA: Labs show that the hemoglobin is 12.9, platelet count is 165, potassium is 4.1, creatinine is 1. ASSESSMENT: 1. Paroxysmal atrial fibrillation. 2. Coronary artery disease, status post coronary artery bypass graft. 3. Ischemic cardiomyopathy. PLAN: The patient is doing well. He is ready to be transferred to a half-way. MMODL / IJN: [id number] /
== END 2022-03-15 14:36 | DRG 308 ==
LOC: EC 02:11 → 4SSUR 04:35 → OBSVTOIN 03-12 10:51 → 2SICU 03-12 11:17
PROVIDERS: ADMIT Internal Medicine; ATTEND Internal Medicine
DX: I48.0 Paroxysmal atrial fibrillation (principal); J18.9 Pneumonia, unspecified organism; I13.0 Hypertensive heart and chronic kidney disease with heart failure and stage 1 through stage 4 chronic kidney disease, or unspecified chronic kidney disease; N17.9 Acute kidney failure, unspecified; I50.22 Chronic systolic (congestive) heart failure; E78.5 Hyperlipidemia, unspecified; E86.0 Dehydration; F32.A Depression, unspecified; F41.9 Anxiety disorder, unspecified; G20 Parkinson's disease; I25.5 Ischemic cardiomyopathy; Z20.822 Contact with and (suspected) exposure to COVID-19; I45.10 Unspecified right bundle-branch block; I08.1 Rheumatic disorders of both mitral and tricuspid valves; I25.10 Atherosclerotic heart disease of native coronary artery without angina pectoris; Z66 Do not resuscitate; M19.90 Unspecified osteoarthritis, unspecified site; K21.9 Gastro-esophageal reflux disease without esophagitis; N18.30 Chronic kidney disease, stage 3 unspecified; I25.2 Old myocardial infarction; Z79.02 Long term (current) use of antithrombotics/antiplatelets; Z79.82 Long term (current) use of aspirin; Z79.899 Other long term (current) drug therapy; Z95.1 Presence of aortocoronary bypass graft; Z95.5 Presence of coronary angioplasty implant and graft; Z88.8 Allergy status to other drugs, medicaments and biological substances; Z91.040 Latex allergy status
CPT/HCPCS: 36415; 71045; 71046; 80048; 80053; 81001; 83605; 83735; 83880; 84100; 84145; 84484; 85025; 85379; 85610; 85730; 87070; 87205; 87635; 93005; 93306; 94760; 96361; 96365; 96367; 99285

== ENCOUNTER 2022-07-05 10:37 | Observation (INO) | payer MEDICARE ==
[2022-07-05 11:33] LABS: Basophils % (A) 0 %; Eosinophils # (A) 0.1 k/uL (0-0.7); Eosinophils % (A) 2 %; HCT 41.8 % (39.0-53.0); HGB 13.3 gm/dL (13.0-17.5); Lymphocytes # (A) 0.8 k/uL (1.0-4.8); Lymphocytes % (A) 14 %; MCH 30.8 pg (25.0-35.0); MCHC 31.8 g/dL (31.0-37.0); MCV 96.8 fL (80.0-100.0); Mean Platelet Volume 7.6; Monocytes # (A) 0.4 k/uL (0-1.0); Monocytes % (A) 7 %; Neutrophils % (A) 74 %; Platelet Count 191 k/uL (150-450); RBC 4.32 m/uL (4.30-5.90); RDW 13.8 % (11.5-15.5); WBC 5.3 k/uL (3.8-10.6)
[2022-07-05 11:45] LABS: Albumin 4.2 g/dL (3.5-5.0); Calcium 8.7 mg/dL (8.4-10.2); Magnesium 2.2 mg/dL (1.6-2.3); Potassium 4.7 mmol/L (3.5-5.1); Total Bilirubin 1.1 mg/dL (0.2-1.3); Total Protein 7.2 g/dL (6.3-8.2)
[2022-07-05 12:25] LABS: INR 1.3 (<1.2); Partial Thromboplastin Time 29.9 sec (22.0-30.0)
[2022-07-05] MEDS ORDERED: SODIUM CHLORIDE 0.9% 1,000 ML IV ONE (12:50)
--- NOTE | 2022-07-05 13:02 | CT ---
EXAMINATION TYPE: CT abdomen pelvis wo con CT DLP: 519.4 mGycm, Automated exposure control for dose reduction was used. DATE OF EXAM: 07/05/2022 12:40 PM COMPARISON: CT abdomen pelvis most recent from 05/17/2022 . CLINICAL INDICATION:Male, 81 years old with history of pain; Rectal bleeding and pain TECHNIQUE: Standard CT of the abdomen and pelvis without IV or oral contrast. Lack of IV or oral co ntrast limits evaluation of solid and hollow organ viscera. Coronal and sagittal reformats were perfo rmed. FINDINGS: LOWER CHEST: The visualized portions of the lungs are clear. Stable small nodules within the right mi ddle lobe measuring up to 5 mm. Coronary artery calcifications and/or stents. ABDOMEN LIVER: Diffusely hyperdense appearance of the liver. GALLBLADDER AND BILE DUCTS: Hyperdense material demonstrated within the gallbladder. No surrounding i nflammatory changes. PANCREAS: Stable calcification in the region of the pancreatic head. SPLEEN: Unremarkable. ADRENAL GLANDS: Unremarkable. KIDNEYS AND URETERS: No evidence of hydronephrosis or renal calculus. There are 2 stable subcentimete r mildly hyperintense left renal lesions likely represent proteinaceous/hemorrhagic cyst. PELVIS BLADDER: Incompletely distended but grossly unremarkable. REPRODUCTIVE: Prostate is enlarged in size measuring 5.6 cm in transverse dimension. ABDOMEN & PELVIS STOMACH AND BOWEL: Small hiatal hernia, duodenum is unremarkable. Distal colonic diverticulosis witho ut evidence for acute diverticulitis. Multiple hyperdense foci demonstrated within the diverticula. M ild amount of stool is present throughout the colon. Rectal fecaloma measuring up to 6.3 cm. No focal wall thickening. No evidence of bowel obstruction. Nonvisualization of the appendix. PERITONEUM: No evidence of pneumoperitoneum or free fluid. VASCULATURE: Moderate atherosclerotic calcifications are present throughout the abdominal aorta and i ts branches. No evidence of aortic aneurysm. MUSCULOSKELETAL: No acute osseous abnormalities. Degenerative changes of both hips. Multilevel anteri or osteophytosis of the thoracolumbar spine. LYMPH NODES: No gross evidence for lymphadenopathy. SOFT TISSUE/ABDOMINAL WALL: Unremarkable IMPRESSION: 1. No acute abdominal/pelvic process within limitations of a noncontrast exam. 2. Colonic diverticulosis without evidence for acute diverticulitis. Exam 3. Cholelithiasis. 4. Diffusely hyperattenuating liver which can be seen with a variety of etiologies including iron dep osition, copper deposition, glycogen storage disease, and medication/drugs.
--- NOTE | 2022-07-05 13:10 | ED ---
GI Bleed HPI - General Chief complaint: GI Bleed Stated complaint: Rectal Bleeding Time Seen by Provider: 07/05/22 10:45 Source: patient, RN notes reviewed Mode of arrival: ambulatory Limitations: no limitations - History of Present Illness Initial comments: 81-year-old male presents emergency Department chief complaint of rectal bleeding. Patient states started having rectal bleeding days ago he stopped results last 24 hours ago in which bleeding has slowed down some. Patient does complain of lower abdominal discomfort. Patient had a fall other day but has not went of headache, blurred vision. Patient has underlying Parkinson's disease patient has been evaluated for this in the past. - Related Data Home Medications Medication Instructions Recorded Confirmed Aspirin EC [Ecotrin Low Dose] 81 mg PO W/BRKFST 03/07/20 07/05/22 Carbidopa-Levodopa 25-100 mg 1 tab PO TID 03/10/22 07/05/22 [Sinemet 25-100 mg] Gabapentin [Neurontin] 100 mg PO HS 03/10/22 07/05/22 Metoprolol Tartrate [Lopressor] 25 mg PO BID-W/MEALS 03/10/22 07/05/22 Mirtazapine [Remeron] 15 mg PO HS 03/10/22 07/05/22 Multivitamins, Thera [Multivitamin 1 tab PO W/BRKFST 03/10/22 07/05/22 (formulary)] Pantoprazole [Protonix] 40 mg PO W/BRKFST 03/10/22 07/05/22 Primidone [Mysoline] 50 mg PO HS 03/10/22 07/05/22 Sertraline [Zoloft] 25 mg PO W/BRKFST 03/10/22 07/05/22 Losartan [Cozaar] 25 mg PO W/BRKFST 05/14/22 07/05/22 Potassium Chloride ER [K-Dur 20] 20 meq PO DAILY@1200 05/14/22 07/05/22 Amiodarone [Cordarone] 200 mg PO W/BRKFST 07/05/22 07/05/22 Apixaban [Eliquis] 5 mg PO BID-W/MEALS 07/05/22 07/05/22 Atorvastatin [Lipitor] 10 mg PO HS 07/05/22 07/05/22 Tamsulosin [Flomax] 0.4 mg PO W/SUPPER 07/05/22 07/05/22 Allergies Allergy/AdvReac Type Severity Reaction Status Date / Time BETH Inhibitors Allergy Unknown Verified 07/05/22 13:00 latex Allergy Dyspnea Verified 07/05/22 13:00 Review of Systems ROS Statement: Those systems with pertinent positive or pertinent negative responses have been documented in the HPI. ROS Other: All systems not noted in ROS Statement are negative. Past Medical History Past Medical History: Coronary Artery Disease (CAD), Chest Pain / Angina, Hyperlipidemia, Hypertension, Myocardial Infarction ([place]), Osteoarthritis ([place]) Additional Past Medical History / Comment(s): [place] X2,monitoring a spot rt kidney, parkinsons Last Myocardial Infarction Date:: 1992 History of Any Multi-Drug Resistant Organisms: None Reported Past Surgical History: Appendectomy, Coronary Bypass/CABG, Heart Catheterization, Heart Catheterization With Stent, Orthopedic Surgery Additional Past Surgical History / Comment(s): RT KNEE ARTHROSCOPY, HEMORRHOIDECTOMY, rotator cuff surg., quad. bypass 1992, cataract surg, heart stents x3 Past Anesthesia/Blood Transfusion Reactions: Motion Sickness Date of Last Stent Placement:: July 2014 Past Psychological History: Anxiety, Depression Smoking Status: Never smoker Past Alcohol Use History: None Reported Past Drug Use History: None Reported - Past Family History Brother(s) Additional Family Medical History / Comment(s): TWO BROTHERS HAD OPEN HEART Sister(s) Additional Family Medical History / Comment(s): 2 SISTERS HAD OPEN HEARTS General Exam Limitations: no limitations General appearance: alert, in no apparent distress Head exam: Present: atraumatic, normocephalic, normal inspection Eye exam: Present: normal appearance, PERRL, EOMI. Absent: scleral icterus, conjunctival injection, periorbital swelling ENT exam: Present: normal exam, normal oropharynx, mucous membranes moist Neck exam: Present: normal inspection, full ROM. Absent: tenderness, meningismu s, lymphadenopathy Respiratory exam: Present: normal lung sounds bilaterally. Absent: respiratory distress, wheezes, rales, rhonchi, stridor Cardiovascular Exam: Present: normal rhythm, bradycardia, normal heart sounds. Absent: systolic murmur, diastolic murmur, rubs, gallop, clicks GI/Abdominal exam: Present: soft, tenderness, normal bowel sounds. Absent: distended, guarding, rebound, rigid Course Vital Signs 03/23/23 03/23/23 03/23/23 10:37 11:02 13:05 Temperature 97.4 F L Pulse Rate 51 L 56 L Respiratory 18 18 Rate Blood Pressure 147/78 135/70 O2 Sat by Pulse 90 L 100 100 Oximetry Medical Decision Making - Medical Decision Making Was pt. sent in by a medical professional or institution (, PA, CL[employer] S[employer]TER, urgent care, hospital, or fci...) When possible be specific @ -[No] Did you speak to anyone other than the patient for history (EMS, parent, family, police, friend...)? What history was obtained from this source @ -[Daughter in room presents something past medical history] Did you review nursing and triage notes (agree or disagree)? Why? @ -[I reviewed and agree with nursing and triage notes] Were old charts reviewed (outside hosp., previous admission, EMS record, old EKG, old radiological studies, urgent care reports/EKG's, fci records)? Report findings @ -[No old charts were reviewed] Differential Diagnosis (chest pain, altered mental status, abdominal pain women, abdominal pain men, vaginal bleeding, weakness, fever, dyspnea, syncope, headache, dizziness, GI bleed, back pain, seizure, CVA, palpatations, mental health, musculoskeletal)? @ -Differential GI Bleed: Esophageal varices, aortoenteric fistula, [place], gastritis, peptic ulcer disease, diverticulosis, inflammatory bowel disease, hemorrhoids, fissure, colitis, malignancy, Meckels diverticulum, this is not meant to be an all- inclusive list.] EKG interpreted by me (3pts min.). @ -[As above] X-rays interpreted by me (1pt min.). @ -[None done] CT interpreted by me (1pt min.). @ -[CT abdomen pelvis was performed no acute findings there is chronic changes noted.] U/S interpreted by me (1pt. min.). @ -[None done] What testing was considered but not performed or refused? (CT, X-rays, U/S, labs)? Why? @ -[None] What meds were considered but not given or refused? Why? @ -[None] Did you discuss the management of the patient with other professionals (pr ofessionals i.e. , PA, [employer]TER, lab, RT, psych nurse, social economist, medical researcher, teacher, credit review officer, case preparer and liner)? Give summary @ -[Dr. Almaguer for admission with consult to GI.] Was smoking cessation discussed for >3mins.? @ -[No] Was critical care preformed (if so, how long)? @ -[No] Were there social determinants of health that impacted care today? How? (Homelessness, low income, unemployed, alcoholism, drug addiction, transportation, low edu. Level, literacy, decrease access to med. care, senior care, rehab)? @ -[No] Was there de-escalation of care discussed even if they declined (Discuss DNR or withdrawal of care, Hospice)? DNR status @ -[No] What co-morbidities impacted this encounter? (DM, HTN, Smoking, COPD, CAD, Cancer, CVA, ARF, Chemo, Hep., AIDS, mental health diagnosis, sleep apnea, morbid obesity)? @ -[Parkinson's, A. fib, anticoagulation] Was patient admitted / discharged? Hospital course, mention meds given and route, prescriptions, significant lab abnormalities, going to OR and other pertinent info. @ -[Admitted patient has stable hemoglobin, patient is on anticoagulants with severe wheezing at home. Patient will have close monitoring with GI] Undiagnosed new problem with uncertain prognosis? @ -[No] Drug Therapy requiring intensive monitoring for toxicity (Heparin, Nitro, Insulin, Cardizem)? @ -[No] Were any procedures done? @ -[No] Diagnosis/symptom? @ -[GI bleed] Acute, or Chronic, or Acute on Chronic? @ -Acute Uncomplicated (without systemic symptoms) or Complicated (systemic symptoms)? @ -Uncomplicated Side effects of treatment? @ -[No] Exacerbation, Progression, or Severe Exacerbation? @ -[No] Poses a threat to life or bodily function? How? (Chest pain, [place], [place], pneumonia, PE, COPD, DKA, ARF, appy, cholecystitis, CVA, Diverticulitis, Homicidal, Suicidal, threat to staff... and all critical care pts) @ -[Patient has GI bleed or possibility of exsanguination] - Lab Data Result diagrams: 07/05/22 11:16 07/05/22 11:16 Lab Results 07/05/22 07/05/22 07/05/22 Range/Units 11:16 11:16 11:16 WBC 5.3 (3.8-10.6) k/uL RBC 4.32 (4.30-5.90) m/uL Hgb 13.3 (13.0-17.5) gm/dL Hct 41.8 (39.0-53.0) % MCV 96.8 (80.0-100.0) fL MCH 30.8 (25.0-35.0) pg MCHC 31.8 (31.0-37.0) g/dL RDW 13.8 (11.5-15.5) % Plt Count 191 (150-450) k/uL MPV 7.6 Neutrophils % 74 % Lymphocytes % 14 % Monocytes % 7 % Eosinophils % 2 % Basophils % 0 % Neutrophils # 4.0 (1.3-7.7) k/uL Lymphocytes # 0.8 L (1.0-4.8) k/uL Monocytes # 0.4 (0-1.0) k/uL Eosinophils # 0.1 (0-0.7) k/uL Basophils # 0.0 (0-0.2) k/uL PT (9.0-12.0) sec INR (<1.2) APTT (22.0-30.0) sec Sodium 141 (137-145) mmol/L Potassium 4.7 (3.5-5.1) mmol/L Chloride 105 (98-107) mmol/L Carbon Dioxide 25 (22-30) mmol/L Anion Gap 11 mmol/L BUN 42 H (9-20) mg/dL Creatinine 1.51 H (0.66-1.25) mg/dL Est GFR (CKD-EPI)AfAm 49 (>60 ml/min/1.73 sqM) Est GFR (CKD-EPI)NonAf 42 (>60 ml/min/1.73 sqM) Glucose 82 (74-99) mg/dL Calcium 8.7 (8.4-10.2) mg/dL Magnesium 2.2 (1.6-2.3) mg/dL Total Bilirubin 1.1 (0.2-1.3) mg/dL AST 32 (17-59) U/L ALT 10 (4-49) U/L Alkaline Phosphatase 93 (38-126) U/L Total Protein 7.2 (6.3-8.2) g/dL Albumin 4.2 (3.5-5.0) g/dL Lipase 111 (23-300) U/L Blood Type O Positive Blood Type Recheck O Pos Bld Type Recheck Status No Antibody Screen NEGATIVE Spec Expiration Date 07/08/2022 - 231507/05/22 Range/Units 11:55 WBC (3.8-10.6) k/uL RBC (4.30-5.90) m/uL Hgb (13.0-17.5) gm/dL Hct (39.0-53.0) % MCV (80.0-100.0) fL MCH (25.0-35.0) pg MCHC (31.0-37.0) g/dL RDW (11.5-15.5) % Plt Count (150-450) k/uL MPV Neutrophils % % Lymphocytes % % Monocytes % % Eosinophils % % Basophils % % Neutrophils # (1.3-7.7) k/uL Lymphocytes # (1.0-4.8) k/uL Monocytes # (0-1.0) k/uL Eosinophils # (0-0.7) k/uL Basophils # (0-0.2) k/uL PT 13.0 H (9.0-12.0) sec INR 1.3 H (<1.2) APTT 29.9 (22.0-30.0) sec Sodium (137-145) mmol/L Potassium (3.5-5.1) mmol/L Chloride (98-107) mmol/L Carbon Dioxide (22-30) mmol/L Anion Gap mmol/L BUN (9-20) mg/dL Creatinine (0.66-1.25) mg/dL Est GFR (CKD-EPI)AfAm (>60 ml/min/1.73 sqM) Est GFR (CKD-EPI)NonAf (>60 ml/min/1.73 sqM) Glucose (74-99) mg/dL Calcium (8.4-10.2) mg/dL Magnesium (1.6-2.3) mg/dL Total Bilirubin (0.2-1.3) mg/dL AST (17-59) U/L ALT (4-49) U/L Alkaline Phosphatase (38-126) U/L Total Protein (6.3-8.2) g/dL Albumin (3.5-5.0) g/dL Lipase (23-300) U/L Blood Type Blood Type Recheck Bld Type Recheck Status Antibody Screen Spec Expiration Date - EKG Data -: EKG Interpreted by Me EKG Comments: EK:06 sinus bradycardia rate of 53 RI 200 QRS 113 QT/QTC 492/476 Disposition Clinical Impression: GI bleed Disposition: ADMITTED IP TO THIS HOSP Condition: Fair Referrals: Glory Almaguer MD [Primary Care Provider] - 1-2 days Time of Disposition: 13:17
[2022-07-05] MEDS ORDERED: NALOXONE 0.4 MG/ML 1 ML VIAL IV PRN (13:17)
[2022-07-05] MEDS ORDERED: ACETAMINOPHEN TAB 325 MG TAB PO PRN (13:17)
--- NOTE | 2022-07-05 14:36 | P.CONS ---
History of Present Illness - Reason for Consult Consult date: 07/05/22 GI bleed Requesting physician: Manny Momin - Chief Complaint Rectal bleeding - History of Present Illness This a pleasant 81-year-old male who presented to the emergency department today with concerns for rectal bleeding with bowel movement. He has a past medical history including coronary artery disease, hyperlipidemia, hypertension, [place], and previous GI bleed. Patient is on low dose aspirin and Eliquis. He took his last dose of Eliquis was yesterday morning. Patient states he had a few episodes this week of bright red blood per rectum with clots which his daughter states turns into more of a dark brown by afternoon. This is not associated with bowel movements. Patient was just recently admitted with same complaints, states that he has history of constipation and straining. Patient only takes a stool softener daily. Unsure of when his last bowel movement was he states probably several days ago. During the last admission was reported that he had more maroon-colored stools. An EGD was completed by Dr. Muse on 05/16/2022 which was normal with no evidence of any active bleeding or old blood. He states he did have some abdominal discomfort in the left lower quadrant yesterday. He states he does get frequent constipation and has to strain to have a bowel movement. He has had several similar episodes in the past and underwent endoscopic evaluation. His last colonoscopy in 2016 that showed diverticulosis and small internal hemorrhoids. He also underwent an EGD in [address] Muse with findings of scattered antralerosions with no active upper GI bleeding and no evidence of esophagitis or peptic ulcer disease. He also underwent an EGD with Dr. Gibbons in March 2021 for dysphagia with findings of mild gastritis. He currently denies any abdominal pain, nausea or vomiting. Current labs WBC 5.3 hemoglobin 13 hematocrit 41 platelet count 191,000 INR 1.3 sodium 141 potassium 4.7 BUN 42 creatinine 1.5 total bilirubin 1.1 AST 32 ALT 10 alkaline phosphatase [address] abdomen and pelvis without contrast reports no acute abdominal/pelvic process within the limitations of a noncontrast exam. Colonic diverticulosis without evidence of acute diverticulitis. Cholelithiasis. Diffuse hyperattenuating liver which can be seen with a variety of etiologies including iron deposition, copper deposition, glycogen storage disease and medications. Review of Systems REVIEW OF SYSTEMS: CARDIOPULMONARY: No chest pain or shortness of breath. Gastrointestinal: Burning sensation in epigastric region, no associated lower abdominal cramping. No nausea or vomiting. No hematemesis, coffee-ground emesis. Chronic constipation, straining, rectal bleeding. GENITOURINARY: No dysuria or hematuria. MUSCULOSKELETAL: Reports normal range of motion., Joint pain. SKIN: No rashes. No jaundice. ENDOCRINE: No chills, fevers. No excessive weight gain or loss. No polydipsia or polyuria. PSYCHIATRIC: Unremarkable. NEUROLOGY: No change in mental status. Denies dizziness, headache. ENT: Vision unremarkable. CONSTITUTIONAL: No recent weight loss. No fever, chills, night sweats. Past Medical History Past Medical History: Coronary Artery Disease (CAD), Chest Pain / Angina, Hyperlipidemia, Hypertension, Myocardial Infarction ([place]), Osteoarthritis ([place]) Additional Past Medical History / Comment(s): [place] X2,monitoring a spot rt kidney, parkinsons Last Myocardial Infarction Date:: 1992 History of Any Multi-Drug Resistant Organisms: None Reported Past Surgical History: Appendectomy, Coronary Bypass/CABG, Heart Catheterization, Heart Catheterization With Stent, Orthopedic Surgery Additional Past Surgical History / Comment(s): RT KNEE ARTHROSCOPY, HEMORRHOIDECTOMY, rotator cuff surg., quad. bypass 1992, cataract surg, heart stents x3 Past Anesthesia/Blood Transfusion Reactions: Motion Sickness Date of Last Stent Placement:: July 2014 Past Psychological History: Anxiety, Depression Smoking Status: Never smoker Past Alcohol Use History: None Reported Past Drug Use History: None Reported - Past Family History Brother(s) Additional Family Medical History / Comment(s): TWO BROTHERS HAD OPEN HEART Sister(s) Additional Family Medical History / Comment(s): 2 SISTERS HAD OPEN HEARTS Medications and Allergies Home Medications Medication Instructions Recorded Confirmed Type Aspirin EC [Ecotrin Low Dose] 81 mg PO W/BRKFST 03/07/20 07/05/22 History Carbidopa-Levodopa 25-100 mg 1 tab PO TID 03/10/22 07/05/22 History [Sinemet 25-100 mg] Gabapentin [Neurontin] 100 mg PO HS 03/10/22 07/05/22 History Metoprolol Tartrate [Lopressor] 25 mg PO BID-W/MEALS 03/10/22 07/05/22 History Mirtazapine [Remeron] 15 mg PO HS 03/10/22 07/05/22 History Multivitamins, Thera [Multivitamin 1 tab PO W/BRKFST 03/10/22 07/05/22 History (formulary)] Pantoprazole [Protonix] 40 mg PO W/BRKFST 03/10/22 07/05/22 History Primidone [Mysoline] 50 mg PO HS 03/10/22 07/05/22 History Sertraline [Zoloft] 25 mg PO W/BRKFST 03/10/22 07/05/22 History Losartan [Cozaar] 25 mg PO W/BRKFST 05/14/22 07/05/22 History Potassium Chloride ER [K-Dur 20] 20 meq PO DAILY@1200 05/14/22 07/05/22 History Amiodarone [Cordarone] 200 mg PO W/BRKFST 07/05/22 07/05/22 History Apixaban [Eliquis] 5 mg PO BID-W/MEALS 07/05/22 07/05/22 History Atorvastatin [Lipitor] 10 mg PO HS 07/05/22 07/05/22 History Tamsulosin [Flomax] 0.4 mg PO W/SUPPER 07/05/22 07/05/22 History Allergies Allergy/AdvReac Type Severity Reaction Status Date / Time BETH Inhibitors Allergy Unknown Verified 07/05/22 13:00 latex Allergy Dyspnea Verified 07/05/22 13:00 Physical Exam Vitals: Vital Signs Temp Pulse Resp BP Pulse Ox 07/05/22 13:05 56 L 18 135/70 100 07/05/22 11:02 100 07/05/22 10:37 97.4 F L 51 L 18 147/78 90 L Intake and Output 07/04/22 07/05/22 07/05/22 22:59 06:59 14:59 Other: Weight 73.482 kg General appearance: The patient is alert, oriented, appears in no acute distress. HET: Head is normocephalic and atraumatic. Conjunctiva pink. Sclera anicteric. Neck: Supple without lymphadenopathy. Trachea midline. Heart: S1 S2. Regular rate and rhythm. Lungs: Clear to auscultation. Abdomen: Soft, nontender, nondistended with bowel sounds. No guarding or rigidity. Skin: No rashes. No jaundice. Extremities: Normal skin color and turgor. No pedal edema. Neurological: No focal deficits. Alert and oriented x3. Results CBC & Chem 7: 07/05/22 11:16 07/05/22 11:16 Labs: Abnormal Lab Results - Last 24 Hours (Table) 07/05/22 07/05/22 07/05/22 Range/Units 11:16 11:16 11:55 Lymphocytes # 0.8 L (1.0-4.8) k/uL PT 13.0 H (9.0-12.0) sec INR 1.3 H (<1.2) BUN 42 H (9-20) mg/dL Creatinine 1.51 H (0.66-1.25) mg/dL Assessment and Plan (1) Rectal bleeding Narrative/Plan: 81-year-old male who has presented several times to emergency department with similar complaints of rectal bleeding. Patient has history of constipation with straining and internal hemorrhoids. Patient recently admitted to this hospital and underwent EGD on 05/16/2022 for complaints of maroon-colored stools. EGD with no findings of peptic ulcer disease, esophagitis, gastritis bleeding or old blood noted. Colonoscopy 2017 showed diverticulosis with internal hemorrhoids. Hemoglobin is stable at 13. Patient is on anticoagulation for history of coronary artery disease and atrial fibrillation and likely bleeding from being on anticoagulation with history of chronic constipation and straining, may be related to small fissure, hemorrhoids. Will hold anticoagulation, no plans at this time for endoscopic evaluation as patient took anticoagulation this morning. Continue with a good bowel regimen as discussed during last hospitalization. Current Visit: Yes Status: Acute Code(s): K62.5 - HEMORRHAGE OF ANUS AND RECTUM SNOMED Code(s): 00364945 (2) CAD (coronary artery disease) Current Visit: No Status: Acute Code(s): I25.10 - ATHSCL HEART DISEASE OF [place] CORONARY ARTERY W/O ANG PCTRS SNOMED Code(s): 71980597 (3) CKD (chronic kidney disease) Current Visit: No Status: Acute Code(s): N18.9 - CHRONIC KIDNEY DISEASE, [place] NSPECIFIED SNOMED Code(s): 684123286 (4) S/P CABG (coronary artery bypass graft) Current Visit: No Status: Acute Code(s): Z95.1 - PRESENCE OF AORTOCORONARY BYPASS GRAFT SNOMED Code(s): 308977404 (5) Chronic constipation Current Visit: Yes Status: Acute Code(s): K59.09 - OTHER CONSTIPATION SNOMED Code(s): 096382955 (6) Internal hemorrhoids Current Visit: Yes Status: Acute Code(s): K64.8 - OTHER HEMORRHOIDS SNOMED Code(s): 80524316 Plan: 1. Continue symptomatic and supportive care 2. Hold Eliquis 3. Protonix 40 mg daily 5. MiraLAX daily 6. Patient will need to have a consistent bowel regimen at home, this was discussed during last hospitalization 7. Discussed with both patient and daughter possible colonoscopy tomorrow 8. Clear liquid diet, nothing by mouth after midnight 9. Bowel prep this evening Thank you for this consultation, we will continue to follow. Dr. Claudette Muse I agree with the dictator's note, documented as a scribe by Wendy ESTEBAN .
[2022-07-05] MEDS ORDERED: PEG 3350 (236 GM/BTL) + LYTES 4,000 ML BOTTLE PO ONE (17:00)
--- NOTE | 2022-07-05 17:13 | P.HPIM ---
History of Present Illness H&P Date: 07/05/22 Brie Maya, is an 81-year-old male who presented to [facility] emergency room with a chief complaint of rectal bleeding He was evaluated in the emergency room vital examination on presentation revealed a temperature of 97.4 pulse 51 respiration 18 blood pressure 147/78 pulse ox 90% on room air Laboratory data revealed a white blood count of 5.3 hemoglobin 13.3 platelet count 191 BUN 42 creatinine 1.51 INR 1.3 Testing in the emergency room revealed EKG done in the emergency room revealed sinus bradycardia with a heart rate of 53 with occasional ventricular premature complexes and incomplete right bundle branch block, computed tomography scan of the abdomen and pelvis was done in the emergency room and revealed no acute abdominal/pelvic process there was evidence of colon diverticulosis without evidence for acute diverticulitis, there was evidence of cholelithiasis and evidence of diffuse hyper attenuation of the liver. Patient was admitted to medical floor for further evaluation and treatment Past medical history is significant for history of coronary artery disease with previous history of coronary artery bypass graft surgery, history of paroxysmal atrial fibrillation, history of depression, history of dementia, previous admission for rectal bleeding in the past. On review of systems patient is alert and oriented 3 in no apparent distress but is no fever or chills no headache or dizziness no chest pain no shortness of breath no cough no nausea or vomiting no abdominal pain no diarrhea no burning with urination no frequency or urgency and no hematuria. Past Medical History Past Medical History: Coronary Artery Disease (CAD), Chest Pain / Angina, Hyperlipidemia, Hypertension, Myocardial Infarction (ME), Osteoarthritis (OA) Additional Past Medical History / Comment(s): ME X2,monitoring a spot rt kidney, parkinsons Last Myocardial Infarction Date:: 1992 History of Any Multi-Drug Resistant Organisms: None Reported Past Surgical History: Appendectomy, Coronary Bypass/CABG, Heart Catheterization, Heart Catheterization With Stent, Orthopedic Surgery Additional Past Surgical History / Comment(s): RT KNEE ARTHROSCOPY, HEMORRHOIDECTOMY, rotator cuff surg., quad. bypass 1992, cataract surg, heart stents x3 Past Anesthesia/Blood Transfusion Reactions: Motion Sickness Date of Last Stent Placement:: July 2014 Past Psychological History: Anxiety, Depression Smoking Status: Never smoker Past Alcohol Use History: None Reported Past Drug Use History: None Reported - Past Family History Brother(s) Additional Family Medical History / Comment(s): TWO BROTHERS HAD OPEN HEART Sister(s) Additional Family Medical History / Comment(s): 2 SISTERS HAD OPEN HEARTS Medications and Allergies Home Medications Medication Instructions Recorded Confirmed Type Aspirin EC [Ecotrin Low Dose] 81 mg PO W/BRKFST 03/07/20 07/05/22 History Carbidopa-Levodopa 25-100 mg 1 tab PO TID 03/10/22 07/05/22 History [Sinemet 25-100 mg] Gabapentin [Neurontin] 100 mg PO HS 03/10/22 07/05/22 History Metoprolol Tartrate [Lopressor] 25 mg PO BID-W/MEALS 03/10/22 07/05/22 History Mirtazapine [Remeron] 15 mg PO HS 03/10/22 07/05/22 History Multivitamins, Thera [Multivitamin 1 tab PO W/BRKFST 03/10/22 07/05/22 History (formulary)] Pantoprazole [Protonix] 40 mg PO W/BRKFST 03/10/22 07/05/22 History Primidone [Mysoline] 50 mg PO HS 03/10/22 07/05/22 History Sertraline [Zoloft] 25 mg PO W/BRKFST 03/10/22 07/05/22 History Losartan [Cozaar] 25 mg PO W/BRKFST 05/14/22 07/05/22 History Potassium Chloride ER [K-Dur 20] 20 meq PO DAILY@1200 05/14/22 07/05/22 History Amiodarone [Cordarone] 200 mg PO W/BRKFST 07/05/22 07/05/22 History Apixaban [Eliquis] 5 mg PO BID-W/MEALS 07/05/22 07/05/22 History Atorvastatin [Lipitor] 10 mg PO HS 07/05/22 07/05/22 History Tamsulosin [Flomax] 0.4 mg PO W/SUPPER 07/05/22 07/05/22 History Allergies Allergy/AdvReac Type Severity Reaction Status Date / Time BETH Inhibitors Allergy Unknown Verified 07/05/22 13:00 latex Allergy Dyspnea Verified 07/05/22 13:00 Physical Exam Vitals: Vital Signs Temp Pulse Resp BP Pulse Ox 07/05/22 14:31 54 L 18 131/60 99 07/05/22 13:05 56 L 18 135/70 100 07/05/22 11:02 100 07/05/22 10:37 97.4 F L 51 L 18 147/78 90 L Intake and Output 07/05/22 07/05/22 07/05/22 06:59 14:59 22:59 Other: Weight 73.482 kg In general patient is alert and oriented x 3 in no distress HEENT head normocephalic and atraumatic Neck is supple no JVD no goiter no lymphadenopathy no carotid bruit Chest examination is clear to auscultation no crackles no wheezing Cardiac exam reveals regular heart sounds S1 and S2 no gallops no murmurs Abdomen is soft nontender no organomegaly with normal bowel sounds Extremity exam reveals no edema no cyanosis or clubbing Neurological examination reveals no gross focal deficits Results CBC & Chem 7: 07/05/22 11:16 07/05/22 11:16 Labs: Abnormal Lab Results - Last 24 Hours (Table) 07/05/22 07/05/22 07/05/22 Range/Units 11:16 11:16 11:55 Lymphocytes # 0.8 L (1.0-4.8) k/uL PT 13.0 H (9.0-12.0) sec INR 1.3 H (<1.2) BUN 42 H (9-20) mg/dL Creatinine 1.51 H (0.66-1.25) mg/dL Assessment and Plan Plan: Acute rectal bleeding Underlying history of paroxysmal atrial fibrillation maintained on Eliquis Underlying history of coronary artery disease with history of coronary artery bypass graft surgery Underlying history of chronic kidney disease Previous history of rectal bleeding with known history of internal hemorrhoids Previous history of malignant melanoma Underlying history of degenerative disc disease with spinal stenosis Underlying history of depression Underlying history of dementia At this time patient is admitted to medical floor Home medications reviewed and reordered, Eliquis is held Consultation for gastroenterology was initiated Will monitor hemoglobin closely For DVT prophylaxis SCD stockings
[2022-07-05] MEDS: CARBIDOPA-LEVODOPA 25-100 MG 1 EACH TAB PO SCH ×2 (20:33→20:50)
[2022-07-05] MEDS: ATORVASTATIN 10 MG TAB PO SCH (20:50)
[2022-07-05] MEDS: PRIMIDONE 50 MG TAB PO SCH (20:50)
[2022-07-05] MEDS: GABAPENTIN 100 MG CAP PO SCH (20:50)
[2022-07-05] MEDS: MIRTAZAPINE 15 MG TAB PO SCH (20:50)
[2022-07-05] MEDS: METOPROLOL TARTRATE 25 MG TAB PO SCH (20:50)
[2022-07-06] MEDS: SERTRALINE 25 MG TAB PO SCH (08:03)
[2022-07-06] MEDS: PANTOPRAZOLE 40 MG TABLET PO SCH (08:03)
[2022-07-06] MEDS: METOPROLOL TARTRATE 25 MG TAB PO SCH ×2 (08:05→17:14)
[2022-07-06] MEDS: CARBIDOPA-LEVODOPA 25-100 MG 1 EACH TAB PO SCH ×3 (08:11→20:29)
[2022-07-06] MEDS: AMIODARONE 200 MG TAB PO SCH (08:11)
[2022-07-06] MEDS: LOSARTAN 25 MG TAB PO SCH (08:11)
--- NOTE | 2022-07-06 09:39 | P.PN ---
Subjective Progress Note Date: 07/06/22 Brie Maya, is an 81-year-old male who presented to [facility] emergency room with a chief complaint of rectal bleeding He was evaluated in the emergency room vital examination on presentation revealed a temperature of 97.4 pulse 51 respiration 18 blood pressure 147/78 pulse ox 90% on room air Laboratory data revealed a white blood count of 5.3 hemoglobin 13.3 platelet count 191 BUN 42 creatinine 1.51 INR 1.3 Testing in the emergency room revealed EKG done in the emergency room revealed sinus bradycardia with a heart rate of 53 with occasional ventricular premature complexes and incomplete right bundle branch block, computed tomography scan of the abdomen and pelvis was done in the emergency room and revealed no acute abdominal/pelvic process there was evidence of colon diverticulosis without evidence for acute diverticulitis, there was evidence of cholelithiasis and evidence of diffuse hyper attenuation of the liver. Patient was admitted to medical floor for further evaluation and treatment Past medical history is significant for history of coronary artery disease with previous history of coronary artery bypass graft surgery, history of paroxysmal atrial fibrillation, history of depression, history of dementia, previous admission for rectal bleeding in the past. On review of systems patient is alert and oriented 3 in no apparent distress but is no fever or chills no headache or dizziness no chest pain no shortness of breath no cough no nausea or vomiting no abdominal pain no diarrhea no burning with urination no frequency or urgency and no hematuria. On 07/06/3022 patient is alert and oriented x 3. plans for colonoscopy today. patient reports he is still having blood in stool. lab work pending. patient denies chest pain or shortness of breath. denies nausea vomiting or diarrhea. Objective - Vital Signs Vital signs: Vital Signs Temp 97.6 F 07/06/22 07:13 Pulse 54 L 07/06/22 07:13 Resp 16 07/06/22 07:13 BP 144/71 07/06/22 07:13 Pulse Ox 95 07/06/22 07:13 FiO2 Intake & Output 07/05/22 07/06/22 07/06/22 18:59 06:59 18:59 Output Total 700 Balance -700 Weight 73.482 kg 73.482 kg Output: Urine 700 Other: Voiding Method External Catheter External Catheter # Bowel Movements 8 - Exam In general patient is alert and oriented x 3 in no distress HEENT head normocephalic and atraumatic Neck is supple no JVD no goiter no lymphadenopathy no carotid bruit Chest examination is clear to auscultation no crackles no wheezing Cardiac exam reveals regular heart sounds S1 and S2 no gallops no murmurs Abdomen is soft nontender no organomegaly with normal bowel sounds Extremity exam reveals no edema no cyanosis or clubbing Neurological examination reveals no gross focal deficits - Labs CBC & Chem 7: 07/05/22 11:16 07/05/22 11:16 Labs: Abnormal Lab Results - Last 24 Hours (Table) 07/05/22 07/05/22 07/05/22 Range/Units 11:16 11:16 11:55 Lymphocytes # 0.8 L (1.0-4.8) k/uL PT 13.0 H (9.0-12.0) sec INR 1.3 H (<1.2) BUN 42 H (9-20) mg/dL Creatinine 1.51 H (0.66-1.25) mg/dL Assessment and Plan Plan: Acute rectal bleeding Underlying history of paroxysmal atrial fibrillation maintained on Eliquis Underlying history of coronary artery disease with history of coronary artery bypass graft surgery Underlying history of chronic kidney disease Previous history of rectal bleeding with known history of internal hemorrhoids Previous history of malignant melanoma Underlying history of degenerative disc disease with spinal stenosis Underlying history of depression Underlying history of dementia At this time patient is admitted to medical floor Home medications reviewed and reordered, Eliquis is held plans for colonoscopy today 07/06/2022 Will monitor hemoglobin closely For DVT prophylaxis SCD stockings
[2022-07-06] MEDS: POTASSIUM CHLORIDE ER 20 MEQ TAB.ER PO SCH (11:06)
[2022-07-06 14:20] LABS: Basophils # (A) 0.03 X 10*3/uL (0.00-0.10); Basophils % (A) 0.4 %; Eosinophils # (A) 0.13 X 10*3/uL (0.04-0.35); Eosinophils % (A) 1.7 %; HCT 39.6 % (39.6-50.0); HGB 12.3 g/dL (13.0-17.0); Immature Grans, Automated 0.3 %; Lymphocytes # (A) 0.72 X 10*3/uL (0.90-5.00); Lymphocytes % (A) 9.7 %; MCH 30.3 pg (27.0-32.0); MCHC 31.1 g/dL (32.0-37.0); MCV 97.5 fL (80.0-97.0); Mean Platelet Volume 9.9 fL (9.5-12.2); Monocytes # (A) 0.45 X 10*3/uL (0.20-1.00); NRBC Per 100 WBC 0 /100 WBCS (0.0-0.0); Neutrophils # (A) 6.09 X 10*3/uL (1.80-7.70); Neutrophils % (A) 81.9 %; Platelet Count 181 X 10*3/uL (140-440); RBC 4.06 X 10*6/uL (4.40-5.60); RDW 13.4 % (11.5-14.5); WBC 7.44 X 10*3/uL (4.50-10.00)
[2022-07-06 14:52] LABS: African American GFR (CKD) 52.6 (60.0-200.0); Albumin 3.6 g/dL (3.8-4.9); Albumin/Globulin Ratio 1.53 (1.60-3.17); Anion Gap 10.6 mmol/L (10.00-18.00); BUN/Creat Ratio 19.93 Ratio (12.00-20.00); Blood Urea Nitrogen 28.3 mg/dL (9.0-27.0); Calcium 8.6 mg/dL (8.7-10.3); Carbon Dioxide 22.9 mmol/L (20.0-27.5); Globulin 2.4 g/dL (1.6-3.3); Non-African American GFR(CKD) 45.4 (60.0-200.0); Potassium 4.6 mmol/L (3.5-5.5); Total Bilirubin 0.9 mg/dL (0.30-1.20)
[2022-07-06] MEDS ORDERED: SODIUM CHLORIDE 0.9% 500 ML 500 ML IV ONE (15:38)
[2022-07-06] MEDS ORDERED: PROPOFOL 10 MG/ML 20 ML VIAL IV ONE (15:45)
--- NOTE | 2022-07-06 16:27 | P.PCN ---
Date of Procedure: 07/06/22 Procedure(s) Performed: BRIEF HISTORY: Patient is a 81-year-old pleasant white male scheduled for an elective colonoscopy as a part of evaluation of intermittent rectal bleeding for the last 1 month duration. He has been on Olympus because of the colon for 2 days' PROCEDURE PERFORMED: Colonoscopy. PREOPERATIVE DIAGNOSIS: Intermittent rectal bleeding. IV sedation per Anesthesia. PROCEDURE: After informed consent was obtained, the patient, was brought into the endoscopy unit. IV sedation was administered by Anesthesia under continuous monitoring. Digital rectal examination was normal. Initially the Olympus CF-160 flexible video colonoscope was then inserted in the rectum, gradually advanced i nto the cecum without any difficulty. Careful examination was performed as the scope was gradually being withdrawn. Ileocecal valve and the appendiceal orifice were visualized and appeared normal. Prep was good.. Mucosa of the cecum, ascending colon, transverse colon, descending colon, sigmoid colon, and rectum appeared normal. Moderate sigmoid diverticula cyst. Retroflexion was performed in the rectum and grade 2 internal hemorrhoids were seen. The patient tolerated the procedure well. IMPRESSION: Normal-appearing colon from rectum to cecum with no evidence of colitis or colorectal neoplasia . Moderate sigmoid diverticulosis Grade 2 internal hemorrhoids RECOMMENDATIONS: Findings of this examination were discussed with the patient as well as his family. He was advised to be a high-fiber diet and take fiber supplements a regular basis and avoid straining and constipation.. Resume eliquis today
[2022-07-06] MEDS: TAMSULOSIN 0.4 MG CAP.ER.24H PO SCH (17:14)
[2022-07-06] MEDS: ATORVASTATIN 10 MG TAB PO SCH (20:29)
[2022-07-06] MEDS: PRIMIDONE 50 MG TAB PO SCH (20:29)
[2022-07-06] MEDS: MIRTAZAPINE 15 MG TAB PO SCH (20:29)
[2022-07-06] MEDS: GABAPENTIN 100 MG CAP PO SCH (20:29)
[2022-07-07] MEDS: PANTOPRAZOLE 40 MG TABLET PO SCH (06:32)
[2022-07-07] MEDS: SERTRALINE 25 MG TAB PO SCH (06:32)
[2022-07-07] MEDS: AMIODARONE 200 MG TAB PO SCH (06:32)
[2022-07-07] MEDS: LOSARTAN 25 MG TAB PO SCH (06:32)
[2022-07-07] MEDS: METOPROLOL TARTRATE 25 MG TAB PO SCH ×2 (06:32→16:40)
[2022-07-07] MEDS: CARBIDOPA-LEVODOPA 25-100 MG 1 EACH TAB PO SCH ×3 (07:49→20:40)
[2022-07-07] MEDS: POTASSIUM CHLORIDE ER 20 MEQ TAB.ER PO SCH (11:05)
[2022-07-07 11:07] LABS: Basophils # (A) 0.04 X 10*3/uL (0.00-0.10); Basophils % (A) 0.5 %; Eosinophils # (A) 0.16 X 10*3/uL (0.04-0.35); HCT 39.4 % (39.6-50.0); HGB 12.3 g/dL (13.0-17.0); Immature Grans, Automated 0.2 %; Lymphocytes # (A) 0.76 X 10*3/uL (0.90-5.00); Lymphocytes % (A) 9.5 %; MCH 30.6 pg (27.0-32.0); MCHC 31.2 g/dL (32.0-37.0); Monocytes # (A) 0.66 X 10*3/uL (0.20-1.00); Monocytes % (A) 8.2 %; NRBC Per 100 WBC 0 /100 WBCS (0.0-0.0); Neutrophils # (A) 6.38 X 10*3/uL (1.80-7.70); Neutrophils % (A) 79.6 %; Platelet Count 178 X 10*3/uL (140-440); RBC 4.02 X 10*6/uL (4.40-5.60); RDW 13.4 % (11.5-14.5); WBC 8.02 X 10*3/uL (4.50-10.00)
--- NOTE | 2022-07-07 11:17 | P.PN ---
Subjective Progress Note Date: 07/07/22 Brie Maya, is an 81-year-old male who presented to [facility] emergency room with a chief complaint of rectal bleeding He was evaluated in the emergency room vital examination on presentation revealed a temperature of 97.4 pulse 51 respiration 18 blood pressure 147/78 pulse ox 90% on room air Laboratory data revealed a white blood count of 5.3 hemoglobin 13.3 platelet count 191 BUN 42 creatinine 1.51 INR 1.3 Testing in the emergency room revealed EKG done in the emergency room revealed sinus bradycardia with a heart rate of 53 with occasional ventricular premature complexes and incomplete right bundle branch block, computed tomography scan of the abdomen and pelvis was done in the emergency room and revealed no acute abdominal/pelvic process there was evidence of colon diverticulosis without evidence for acute diverticulitis, there was evidence of cholelithiasis and evidence of diffuse hyper attenuation of the liver. Patient was admitted to medical floor for further evaluation and treatment Past medical history is significant for history of coronary artery disease with previous history of coronary artery bypass graft surgery, history of paroxysmal atrial fibrillation, history of depression, history of dementia, previous admission for rectal bleeding in the past. On review of systems patient is alert and oriented 3 in no apparent distress but is no fever or chills no headache or dizziness no chest pain no shortness of breath no cough no nausea or vomiting no abdominal pain no diarrhea no burning with urination no frequency or urgency and no hematuria. On 07/06/3022 patient is alert and oriented x 3. plans for colonoscopy today. patient reports he is still having blood in stool. lab work pending. patient denies chest pain or shortness of breath. denies nausea vomiting or diarrhea. On 07/07/2022 patient was seen and examined on the medical floor he is alert and oriented 3 in no apparent distress he is complaining of generalized weakness otherwise he denies any complaints at this time, there is no new episodes of rectal bleeding, colonoscopy report and recommendation from gastroenterology review, at this time will restart patient on Eliquis, at the lower dose of 2.5 twice a day, his age is about 78 and his creatinine on presentation was 1.51 ri sk of getting the higher dose would be more significant due to recurrent episodes of GI bleeding, Will consult physical therapy and occupational therapy possible discharge in the next 1-2 days Objective - Vital Signs Vital signs: Vital Signs Temp 98.3 F 07/07/22 07:23 Pulse 56 L 07/07/22 07:23 Resp 18 07/07/22 07:23 BP 135/76 07/07/22 07:23 Pulse Ox 96 07/07/22 07:23 FiO2 Intake & Output 07/06/22 07/07/22 07/07/22 18:59 06:59 18:59 Intake Total 200 Output Total 925 250 Balance -725 -250 Intake: IV 200 Output: Urine 925 250 Other: Voiding Method External Catheter External Catheter # Voids 1 # Bowel Movements 1 - Exam In general patient is alert and oriented x 3 in no distress HEENT head normocephalic and atraumatic Neck is supple no JVD no goiter no lymphadenopathy no carotid bruit Chest examination is clear to auscultation no crackles no wheezing Cardiac exam reveals regular heart sounds S1 and S2 no gallops no murmurs Abdomen is soft nontender no organomegaly with normal bowel sounds Extremity exam reveals no edema no cyanosis or clubbing Neurological examination reveals no gross focal deficits - Labs CBC & Chem 7: 07/07/22 06:29 07/06/22 09:21 Labs: Abnormal Lab Results - Last 24 Hours (Table) 07/06/22 07/06/22 07/07/22 Range/Units 09:21 09:21 06:29 RBC 4.06 L 4.02 L (4.40-5.60) X 10*6/uL Hgb 12.3 L 12.3 L (13.0-17.0) g/dL Hct 39.4 L (39.6-50.0) % MCV 97.5 H 98.0 H (80.0-97.0) fL MCHC 31.1 L 31.2 L (32.0-37.0) g/dL Lymphocytes # 0.72 L 0.76 L (0.90-5.00) X 10*3/uL BUN 28.3 H (9.0-27.0) mg/dL Est GFR (CKD-EPI)AfAm 52.6 L (60.0-200.0) Est GFR (CKD-EPI)NonAf 45.4 L (60.0-200.0) Calcium 8.6 L (8.7-10.3) mg/dL ALT 6 L (10-49) U/L Total Protein 6.0 L (6.2-8.2) g/dL Albumin 3.6 L (3.8-4.9) g/dL Albumin/Globulin Ratio 1.53 L (1.60-3.17) g/dL Assessment and Plan Plan: Acute rectal bleeding Underlying history of paroxysmal atrial fibrillation maintained on Eliquis Underlying history of coronary artery disease with history of coronary artery bypass graft surgery Underlying history of chronic kidney disease Previous history of rectal bleeding with known history of internal hemorrhoids Previous history of malignant melanoma Underlying history of degenerative disc disease with spinal stenosis Underlying history of depression Underlying history of dementia At this time patient is admitted to medical floor Home medications reviewed and reordered, Eliquis is held plans for colonoscopy today 07/06/2022 Will monitor hemoglobin closely For DVT prophylaxis SCD stockings
[2022-07-07 11:23] LABS: African American GFR (CKD) 53.5 (60.0-200.0); Albumin 3.5 g/dL (3.8-4.9); Albumin/Globulin Ratio 1.52 (1.60-3.17); Anion Gap 8.2 mmol/L (10.00-18.00); BUN/Creat Ratio 17.07 Ratio (12.00-20.00); Blood Urea Nitrogen 23.9 mg/dL (9.0-27.0); Calcium 8.6 mg/dL (8.7-10.3); Carbon Dioxide 24.8 mmol/L (20.0-27.5); Globulin 2.3 g/dL (1.6-3.3); Non-African American GFR(CKD) 46.1 (60.0-200.0); Potassium 4.5 mmol/L (3.5-5.5); Total Bilirubin 1.1 mg/dL (0.30-1.20); Total Protein 5.8 g/dL (6.2-8.2)
[2022-07-07] MEDS: TAMSULOSIN 0.4 MG CAP.ER.24H PO SCH (16:39)
[2022-07-07] MEDS: ATORVASTATIN 10 MG TAB PO SCH (20:40)
[2022-07-07] MEDS: APIXABAN 2.5 MG TABLET PO SCH (20:40)
[2022-07-07] MEDS: GABAPENTIN 100 MG CAP PO SCH (20:40)
[2022-07-07] MEDS: MIRTAZAPINE 15 MG TAB PO SCH (20:40)
[2022-07-07] MEDS: PRIMIDONE 50 MG TAB PO SCH (20:40)
[2022-07-08] MEDS: PANTOPRAZOLE 40 MG TABLET PO SCH (06:36)
[2022-07-08] MEDS: METOPROLOL TARTRATE 25 MG TAB PO SCH (06:36)
[2022-07-08] MEDS: SERTRALINE 25 MG TAB PO SCH (06:36)
[2022-07-08] MEDS: AMIODARONE 200 MG TAB PO SCH (06:37)
[2022-07-08] MEDS: LOSARTAN 25 MG TAB PO SCH (06:37)
[2022-07-08 07:56] VITALS: BP 137/69; PULSE 52; RESP 18; TEMP 97.8
[2022-07-08] MEDS: CARBIDOPA-LEVODOPA 25-100 MG 1 EACH TAB PO SCH (08:56)
[2022-07-08] MEDS: POTASSIUM CHLORIDE ER 20 MEQ TAB.ER PO SCH (08:56)
[2022-07-08] MEDS: APIXABAN 2.5 MG TABLET PO SCH (08:56)
[2022-07-08 09:15] LABS: Basophils # (A) 0.03 X 10*3/uL (0.00-0.10); Basophils % (A) 0.4 %; Eosinophils # (A) 0.21 X 10*3/uL (0.04-0.35); Eosinophils % (A) 2.8 %; HCT 38.3 % (39.6-50.0); HGB 12.1 g/dL (13.0-17.0); Immature Grans, Automated 0.3 %; Lymphocytes # (A) 0.99 X 10*3/uL (0.90-5.00); Lymphocytes % (A) 13.4 %; MCH 30.6 pg (27.0-32.0); MCHC 31.6 g/dL (32.0-37.0); Mean Platelet Volume 9.9 fL (9.5-12.2); Monocytes # (A) 0.72 X 10*3/uL (0.20-1.00); Monocytes % (A) 9.7 %; NRBC Per 100 WBC 0 /100 WBCS (0.0-0.0); Neutrophils # (A) 5.43 X 10*3/uL (1.80-7.70); Neutrophils % (A) 73.4 %; Platelet Count 181 X 10*3/uL (140-440); RBC 3.95 X 10*6/uL (4.40-5.60); RDW 13.4 % (11.5-14.5)
[2022-07-08 09:23] LABS: African American GFR (CKD) 50.4 (60.0-200.0); Albumin 3.5 g/dL (3.8-4.9); Albumin/Globulin Ratio 1.53 (1.60-3.17); Anion Gap 8.4 mmol/L (10.00-18.00); BUN/Creat Ratio 17.76 Ratio (12.00-20.00); Blood Urea Nitrogen 26.1 mg/dL (9.0-27.0); Calcium 8.4 mg/dL (8.7-10.3); Carbon Dioxide 26.1 mmol/L (20.0-27.5); Globulin 2.3 g/dL (1.6-3.3); Non-African American GFR(CKD) 43.5 (60.0-200.0); Total Protein 5.8 g/dL (6.2-8.2)
--- NOTE | 2022-07-08 09:27 | P.DS ---
Providers Date of admission: 07/05/22 13:18 Expected date of discharge: 07/08/22 Attending physician: Glory Almaguer Consults: 07/05/22 13:16 Consult Physician Urgent Consulting Provider: Viktoriya Muse Consult Reason/Comments: Gi bleed Do you want consulting provider notified?: Yes [facility]: Diagnosis on discharge: Acute rectal bleeding Underlying history of paroxysmal atrial fibrillation maintained on Eliquis Underlying history of coronary artery disease with history of coronary artery bypass graft surgery Underlying history of chronic kidney disease Previous history of rectal bleeding with known history of internal hemorrhoids Previous history of malignant melanoma Underlying history of degenerative disc disease with spinal stenosis Underlying history of depression Underlying history of dementia Hospital course: Brie Maya, is an 81-year-old male who presented to [facility] emergency room with a chief complaint of rectal bleeding He was evaluated in the emergency room vital examination on presentation revealed a temperature of 97.4 pulse 51 respiration 18 blood pressure 147/78 pulse ox 90% on room air Laboratory data revealed a white blood count of 5.3 hemoglobin 13.3 platelet count 191 BUN 42 creatinine 1.51 INR 1.3 Testing in the emergency room revealed EKG done in the emergency room revealed sinus bradycardia with a heart rate of 53 with occasional ventricular premature complexes and incomplete right bundle branch block, computed tomography scan of the abdomen and pelvis was done in the emergency room and revealed no acute abdominal/pelvic process there was evidence of colon diverticulosis without evidence for acute diverticulitis, there was evidence of cholelithiasis and evidence of diffuse hyper attenuation of the liver. Patient was admitted to medical floor for further evaluation and treatment Past medical history is significant for history of coronary artery disease with previous history of coronary artery bypass graft surgery, history of paroxysmal atrial fibrillation, history of depression, history of dementia, previous admission for rectal bleeding in the past. On review of systems patient is alert and oriented 3 in no apparent distress but is no fever or chills no headache or dizziness no chest pain no shortness of breath no cough no nausea or vomiting no abdominal pain no diarrhea no burning with urination no frequency or urgency and no hematuria. On 07/06/3022 patient is alert and oriented x 3. plans for colonoscopy today. patient reports he is still having blood in stool. lab work pending. patient denies chest pain or shortness of breath. denies nausea vomiting or diarrhea. On 07/07/2022 patient was seen and examined on the medical floor he is alert and oriented 3 in no apparent distress he is complaining of generalized weakness otherwise he denies any complaints at this time, there is no new episodes of rectal bleeding, colonoscopy report and recommendation from gastroenterology review, at this time will restart patient on Eliquis, at the lower dose of 2.5 twice a day, his age is about 78 and his creatinine on presentation was 1.51 risk of getting the higher dose would be more significant due to recurrent episodes of GI bleeding, Will consult physical therapy and occupational therapy possible discharge in the next 1-2 days On 07/08/2022 patient was seen and examined on the medical floor he is alert and oriented 3 in no apparent distress there is no fever or chills no headache or dizziness no chest pain no shortness of breath no cough no nausea or vomiting no abdominal pain no diarrhea and no urinary symptoms. There is no new episodes of rectal bleeding, patient was resumed on Eliquis at a lower dose yesterday, and has been doing well. Patient Condition at Discharge: Fair Plan - Discharge Summary Discharge Rx Participant: No New Discharge Prescriptions: New Apixaban [Eliquis] 2.5 mg PO BID tab Continue Aspirin EC [Ecotrin Low Dose] 81 mg PO W/BRKFST Pantoprazole [Protonix] 40 mg PO W/BRKFST Mirtazapine [Remeron] 15 mg PO HS Sertraline [Zoloft] 25 mg PO W/BRKFST Losartan [Cozaar] 25 mg PO W/BRKFST Potassium Chloride ER [K-Dur 20] 20 meq PO DAILY@1200 Atorvastatin [Lipitor] 10 mg PO HS Tamsulosin [Flomax] 0.4 mg PO W/SUPPER Amiodarone [Cordarone] 200 mg PO W/BRKFST Multivitamins, Thera [Multivitamin (formulary)] 1 tab PO W/BRKFST Metoprolol Tartrate [Lopressor] 25 mg PO BID-W/MEALS Carbidopa-Levodopa 25-100 mg [Sinemet 25-100 mg] 1 tab PO TID Gabapentin [Neurontin] 100 mg PO HS Discontinued Primidone [Mysoline] 50 mg PO HS Apixaban [Eliquis] 5 mg PO BID-W/MEALS Discharge Medication List Aspirin EC [Ecotrin Low Dose] 81 mg PO W/BRKFST 03/07/20 [History] Carbidopa-Levodopa 25-100 mg [Sinemet 25-100 mg] 1 tab PO TID 03/10/22 [History] Gabapentin [Neurontin] 100 mg PO HS 03/10/22 [History] Metoprolol Tartrate [Lopressor] 25 mg PO BID-W/MEALS 03/10/22 [History] Mirtazapine [Remeron] 15 mg PO HS 03/10/22 [History] Multivitamins, Thera [Multivitamin (formulary)] 1 tab PO W/BRKFST 03/10/22 [History] Pantoprazole [Protonix] 40 mg PO W/BRKFST 03/10/22 [History] Sertraline [Zoloft] 25 mg PO W/BRKFST 03/10/22 [History] Losartan [Cozaar] 25 mg PO W/BRKFST 05/14/22 [History] Potassium Chloride ER [K-Dur 20] 20 meq PO DAILY@1200 05/14/22 [History] Amiodarone [Cordarone] 200 mg PO W/BRKFST 07/05/22 [History] Atorvastatin [Lipitor] 10 mg PO HS 07/05/22 [History] Tamsulosin [Flomax] 0.4 mg PO W/SUPPER 07/05/22 [History] Apixaban [Eliquis] 2.5 mg PO BID tab 07/08/22 [Rx] Follow up Appointment(s)/Referral(s): [facility], [NON-STAFF] - 1-2 Days Glory Almaguer MD [Primary Care Provider] - 1-2 days
== END 2022-07-08 13:16 ==
LOC: EC 10:37 → 6NMEDSUR 13:18 → 4SSUR 16:47
PROVIDERS: ADMIT Internal Medicine; ATTEND Internal Medicine
DX: K62.5 Hemorrhage of anus and rectum (principal); I48.0 Paroxysmal atrial fibrillation; I25.10 Atherosclerotic heart disease of native coronary artery without angina pectoris; Z95.1 Presence of aortocoronary bypass graft; N18.9 Chronic kidney disease, unspecified; K64.8 Other hemorrhoids; Z85.820 Personal history of malignant melanoma of skin; M48.00 Spinal stenosis, site unspecified; F32.A Depression, unspecified; F03.90 Unspecified dementia, unspecified severity, without behavioral disturbance, psychotic disturbance, mood disturbance, and anxiety; I45.19 Other right bundle-branch block; K57.30 Diverticulosis of large intestine without perforation or abscess without bleeding; E78.5 Hyperlipidemia, unspecified; I10 Essential (primary) hypertension; I25.2 Old myocardial infarction; M19.90 Unspecified osteoarthritis, unspecified site; G20 Parkinson's disease; Z90.49 Acquired absence of other specified parts of digestive tract; Z95.5 Presence of coronary angioplasty implant and graft; Z98.49 Cataract extraction status, unspecified eye; F41.9 Anxiety disorder, unspecified; Z79.82 Long term (current) use of aspirin; Z79.01 Long term (current) use of anticoagulants; Z79.899 Other long term (current) drug therapy; Z88.8 Allergy status to other drugs, medicaments and biological substances; Z91.040 Latex allergy status
CPT/HCPCS: 99285; 36415; 93005; 86900; 86901; 80053 ×4; 83690; 83735; 85025 ×4; 85610; 85730; 86850; 82272; 74176; 45378; G0378 ×5; J2704

== ENCOUNTER → 2022-12-27 | Outpatient (CLI) | payer MEDICARE ==
--- NOTE | 2022-12-27 22:05 | US ---
EXAMINATION TYPE: US abdomen complete DATE OF EXAM: 12/27/2022 COMPARISON: CT 07/05/2022 CLINICAL INDICATION: Male, 82 years old with history of R10.84 generalized abdominal pain; TECHNIQUE: Multiple sonographic images of the abdomen are obtained. FINDINGS: EXAM MEASUREMENTS: Liver Length: 15.2 cm Gallbladder Wall: 0.3 cm CBD: 0.4 cm Spleen: 13.2 cm Right Kidney: 9.3 x 4.1 x 3.5 cm Left Kidney: 9.8 x 5.3 x 4.4 cm Pancreas: obscured by overlying midline bowel gas Liver: scanned intercostally, wnl as seen Gallbladder: wnl Evidence for sonographic Talley's sign: no CBD: visualized portions wnl, limited by overlying bowel gas Spleen: Borderline enlarged. Right Kidney: wnl Left Kidney: Very limited detailed assessment due to bowel gas. No obvious hydronephrosis. Upper IVC: wnl Abd Aorta: proximal portion obscured by overlying midline bowel gas, visualized mid and distal porti ons wnl IMPRESSION: Very limited exam due to intercostal scanning and excessive bowel gas. No gallstones or biliary ducta l dilatation. Gallbladder density on CT may have represented dependent sludge.
== END | disposition home or self-care (01) ==
LOC: RADUSWWP 08:49
PROVIDERS: ATTEND Internal Medicine
DX: J98.4 Other disorders of lung (principal); R10.84 Generalized abdominal pain
CPT/HCPCS: 76700

== ENCOUNTER 2023-07-26 13:47 | Observation (INO) | payer MEDICARE ==
--- NOTE | 2023-07-26 14:24 | ED ---
General Adult HPI - General Chief complaint: Abdominal Pain Stated complaint: abd pain Time Seen by Provider: 07/26/23 14:13 Source: patient, RN notes reviewed Mode of arrival: ambulatory Limitations: no limitations - History of Present Illness Initial comments: Patient is a pleasant 82-year-old male present to the emergency department with concerns for abdominal pain. Onset of symptoms was a couple weeks ago. Patient has persistent discomfort right lower abdomen. Discomfort is greatly increased with any movements. No fevers. No nausea or vomiting. No constipation or diarrhea. Patient has been tolerating oral intake. - Related Data Home Medications Medication Instructions Recorded Confirmed Aspirin EC [Ecotrin Low Dose] 81 mg PO W/BRKFST 03/07/20 07/26/23 Carbidopa-Levodopa 25-100 mg 1 tab PO TID 03/10/22 07/26/23 [Sinemet 25-100 mg] Gabapentin [Neurontin] 100 mg PO HS 03/10/22 07/26/23 Metoprolol Tartrate [Lopressor] 25 mg PO BID-W/MEALS 03/10/22 07/26/23 Mirtazapine [Remeron] 15 mg PO HS 03/10/22 07/26/23 Multivitamins, Thera [Multivitamin 1 tab PO W/BRKFST 03/10/22 07/26/23 (formulary)] Pantoprazole [Protonix] 40 mg PO W/BRKFST 03/10/22 07/26/23 Sertraline [Zoloft] 25 mg PO W/BRKFST 03/10/22 07/26/23 Atorvastatin [Lipitor] 10 mg PO HS 07/05/22 07/26/23 Tamsulosin [Flomax] 0.4 mg PO W/SUPPER 07/05/22 07/26/23 Apixaban [Eliquis] 2.5 mg PO BID 07/26/23 07/26/23 Nitroglycerin Sl Tabs [Nitrostat] 0.4 mg SUBLINGUAL Q5M PRN 07/26/23 07/26/23 Primidone 50 mg PO HS 07/26/23 07/26/23 Psyllium Husk (with Sugar) 6 gm PO DAILY 07/26/23 07/26/23 [Metamucil Powder] Allergies Allergy/AdvReac Type Severity Reaction Status Date / Time BETH Inhibitors Allergy Unknown Verified 07/26/23 15:43 latex Allergy Dyspnea Verified 07/26/23 15:43 Review of Systems ROS Statement: Those systems with pertinent positive or pertinent negative responses have been documented in the HPI. ROS Other: All systems not noted in ROS Statement are negative. Constitutional: Denies: fever Eyes: Denies: eye pain ENT: Denies: ear pain Cardiovascular: Denies: chest pain Gastrointestinal: Reports: abdominal pain. Denies: nausea, vomiting, diarrhea Musculoskeletal: Denies: back pain Past Medical History Past Medical History: Coronary Artery Disease (CAD), Chest Pain / Angina, Hyperl ipidemia, Hypertension, Myocardial Infarction ([place]), Osteoarthritis (OA) Additional Past Medical History / Comment(s): [place] X2,monitoring a spot rt kidney, parkinsons Last Myocardial Infarction Date:: 1992 History of Any Multi-Drug Resistant Organisms: None Reported Past Surgical History: Appendectomy, Coronary Bypass/CABG, Heart Catheterization, Heart Catheterization With Stent, Orthopedic Surgery Additional Past Surgical History / Comment(s): RT KNEE ARTHROSCOPY, HEMORRHO IDECTOMY, rotator cuff surg., quad. bypass 1992, cataract surg, heart stents x3 Past Anesthesia/Blood Transfusion Reactions: Motion Sickness Date of Last Stent Placement:: July 2014 Past Psychological History: Anxiety, Depression Smoking Status: Never smoker Past Alcohol Use History: None Reported Past Drug Use History: None Reported - Past Family History Brother(s) Additional Family Medical History / Comment(s): TWO BROTHERS HAD OPEN HEART Sister(s) Additional Family Medical History / Comment(s): 2 SISTERS HAD OPEN HEARTS General Exam Limitations: no limitations General appearance: alert, in no apparent distress Head exam: Present: normocephalic Eye exam: Present: normal appearance Neck exam: Present: normal inspection Respiratory exam: Present: normal lung sounds bilaterally Cardiovascular Exam: Present: regular rate, normal rhythm Expanded Peripheral pulses: 2+: Posterior Tibialis (R), Posterior Tibialis (L) GI/Abdominal exam: Present: soft, tenderness (Moderate tenderness right lower abdomen), normal bowel sounds. Absent: distended, guarding, rebound, rigid, pulsatile mass Extremities exam: Present: normal inspection. Absent: pedal edema, calf tenderness Neurological exam: Present: alert Psychiatric exam: Present: normal affect, normal mood Skin exam: Present: normal color Course Vital Signs 07/26/23 13:49 Temperature 97.8 F Pulse Rate 71 Respiratory 20 Rate Blood Pressure 148/77 O2 Sat by Pulse 99 Oximetry Medical Decision Making - Medical Decision Making Was pt. sent in by a medical professional or institution ([facility] Carmichael, [employer], urgent care, hospital, or penitentiary...) When possible be specific @ -No Did you speak to anyone other than the patient for history (EMS, parent, family, police, friend...)? What history was obtained from this source @ -Family is present and helps provide history including onset of symptoms Did you review nursing and triage notes (agree or disagree)? Why? @ -I reviewed and agree with nursing and triage notes Were old charts reviewed (outside hosp., previous admission, EMS record, old EKG, old radiological studies, urgent care reports/EKG's, penitentiary records)? Report findings @ -No old charts were reviewed Differential Diagnosis (chest pain, altered mental status, abdominal pain women, abdominal pain men, vaginal bleeding, weakness, fever, dyspnea, syncope, headache, dizziness, GI bleed, back pain, seizure, CVA, palpatations, mental health, musculoskeletal)? @ -Differential Abdominal Pain Men: Appendicitis, cholecystitis, diverticulosis, ischemic bowel, pancreatitis, hepatitis, UTI, gastroenteritis, AAA, incarcerated hernia, bowel obstruction, constipation, inflammatory bowel, hepatitis, peptic ulcer disease, splenic infarction, perforated viscus, testicular torsion, this is not meant to be an all-inclusive list EKG interpreted by me (3pts min.). @ -As above X-rays interpreted by me (1pt min.). @ -None done CT interpreted by me (1pt min.). @ -CT scan abdomen pelvis reveals no acute abnormality U/S interpreted by me (1pt. min.). @ -None done What testing was considered but not performed or refused? (CT, X-rays, U/S, labs)? Why? @ -None What meds were considered but not given or refused? Why? @ -None Did you discuss the management of the patient with other professionals (professionals i.e. THEO Carmichael, [employer], lab, RT, psych nurse, high school social studies teacher, mushroom growing supervisor, teacher, state patrol officer, caser)? Give summary @ -Case discussed with Dr. Almaguer who will admit his patient Was smoking cessation discussed for >3mins.? @ -No Was critical care preformed (if so, how long)? @ -No Were there social determinants of health that impacted care today? How? (Homelessness, low income, unemployed, alcoholism, drug addiction, transportation, low edu. Level, literacy, decrease access to med. care, senior care, rehab)? @ -No Was there de-escalation of care discussed even if they declined (Discuss DNR or withdrawal of care, Hospice)? DNR status @ -No What co-morbidities impacted this encounter? (DM, HTN, Smoking, COPD, CAD, Cancer, CVA, ARF, Chemo, Hep., AIDS, mental health diagnosis, sleep apnea, morbid obesity)? @ -None Was patient admitted / discharged? Hospital course, mention meds given and route, prescriptions, significant lab abnormalities, going to OR and other pertinent info. @ -Patient reevaluated. Patient refused morphine. Patient somewhat improved with Ofirmev. Patient still complains of abdominal discomfort 10/22. Previously was 12/23. Patient will be admitted with surgical consult. Orders written. Undiagnosed new problem with uncertain prognosis? @ -No Drug Therapy requiring intensive monitoring for toxicity (Heparin, Nitro, Insulin, Cardizem)? @ -No Were any procedures done? @ -No Diagnosis/symptom? @ -Abdominal pain Acute, or Chronic, or Acute on Chronic? @ -Acute Uncomplicated (without systemic symptoms) or Complicated (systemic symptoms)? @ -Default Side effects of treatment? @ -No Exacerbation, Progression, or Severe Exacerbation? @ -No Poses a threat to life or bodily function? How? (Chest pain, [place], AL, pneumonia, PE, COPD, DKA, ARF, appy, cholecystitis, CVA, Diverticulitis, Homicidal, Suicidal, threat to staff... and all critical care pts) @ -No - Lab Data Result diagrams: 07/26/23 14:37 07/26/23 14:37 Lab Results 07/26/23 07/26/23 07/26/23 Range/Units 14:37 14:37 14:37 WBC 6.4 (3.8-10.6) k/uL RBC 4.85 (4.30-5.90) m/uL Hgb 15.0 (13.0-17.5) gm/dL Hct 46.8 (39.0-53.0) % MCV 96.6 (80.0-100.0) fL MCH 30.9 (25.0-35.0) pg MCHC 32.0 (31.0-37.0) g/dL RDW 12.6 (11.5-15.5) % Plt Count 178 (150-450) k/uL MPV 7.8 Neutrophils % 77 % Lymphocytes % 11 % Monocytes % 7 % Eosinophils % 3 % Basophils % 0 % Neutrophils # 4.9 (1.3-7.7) k/uL Lymphocytes # 0.7 L (1.0-4.8) k/uL Monocytes # 0.4 (0-1.0) k/uL Eosinophils # 0.2 (0-0.7) k/uL Basophils # 0.0 (0-0.2) k/uL PT 12.4 (10.0-12.5) sec INR 1.2 H (<1.2) APTT 30.5 H (22.0-30.0) sec Sodium 141 (137-145) mmol/L Potassium 4.9 (3.5-5.1) mmol/L Chloride 105 (98-107) mmol/L Carbon Dioxide 28 (22-30) mmol/L Anion Gap 8 mmol/L BUN 30 H (9-20) mg/dL Creatinine 1.27 H (0.66-1.25) mg/dL Est GFR (CKD-EPI)AfAm 60 (>60 ml/min/1.73 sqM) Est GFR (CKD-EPI)NonAf 52 (>60 ml/min/1.73 sqM) Glucose 80 (74-99) mg/dL Calcium 8.7 (8.4-10.2) mg/dL Total Bilirubin 1.1 (0.2-1.3) mg/dL AST 35 (17-59) U/L ALT <6 (4-49) U/L Alkaline Phosphatase 120 (38-126) U/L Total Protein 7.4 (6.3-8.2) g/dL Albumin 4.2 (3.5-5.0) g/dL Amylase 67 (30-110) U/L Lipase 153 (23-300) U/L Urine Color Urine Appearance (Clear) Urine pH (5.0-8.0) Ur Specific [place] (1.001-1.035) Urine Protein (Negative) Urine Glucose (UA) (Negative) Urine Ketones (Negative) Urine Blood (Negative) Urine Nitrite (Negative) Urine Bilirubin (Negative) Urine Urobilinogen (<2.0) mg/dL Ur Leukocyte Esterase (Negative) 07/26/23 Range/Units 17:07 WBC (3.8-10.6) k/uL RBC (4.30-5.90) m/uL Hgb (13.0-17.5) gm/dL Hct (39.0-53.0) % MCV (80.0-100.0) fL MCH (25.0-35.0) pg MCHC (31.0-37.0) g/dL RDW (11.5-15.5) % Plt Count (150-450) k/uL MPV Neutrophils % % Lymphocytes % % Monocytes % % Eosinophils % % Basophils % % Neutrophils # (1.3-7.7) k/uL Lymphocytes # (1.0-4.8) k/uL Monocytes # (0-1.0) k/uL Eosinophils # (0-0.7) k/uL Basophils # (0-0.2) k/uL PT (10.0-12.5) sec INR (<1.2) APTT (22.0-30.0) sec Sodium (137-145) mmol/L Potassium (3.5-5.1) mmol/L Chloride (98-107) mmol/L Carbon Dioxide (22-30) mmol/L Anion Gap mmol/L BUN (9-20) mg/dL Creatinine (0.66-1.25) mg/dL Est GFR (CKD-EPI)AfAm (>60 ml/min/1.73 sqM) Est GFR (CKD-EPI)NonAf (>60 ml/min/1.73 sqM) Glucose (74-99) mg/dL Calcium (8.4-10.2) mg/dL Total Bilirubin (0.2-1.3) mg/dL AST (17-59) U/L ALT (4-49) U/L Alkaline Phosphatase (38-126) U/L Total Protein (6.3-8.2) g/dL Albumin (3.5-5.0) g/dL Amylase (30-110) U/L Lipase (23-300) U/L Urine Color Colorless Urine Appearance Clear (Clear) Urine pH 7.5 (5.0-8.0) Ur Specific [place] 1.043 H (1.001-1.035) Urine Protein Negative (Negative) Urine Glucose (UA) Negative (Negative) Urine Ketones Negative (Negative) Urine Blood Negative (Negative) Urine Nitrite Negative (Negative) Urine Bilirubin Negative (Negative) Urine Urobilinogen <2.0 (<2.0) mg/dL Ur Leukocyte Esterase Negative (Negative) Disposition Clinical Impression: Abdominal pain Disposition: ADMITTED IP TO THIS HOSP Is patient prescribed a controlled substance at d/c from ED?: No Referrals: Glory Almaguer MD [Primary Care Provider] - 1-2 days Time of Disposition: 18:04
[2023-07-26] MEDS: SODIUM CHLORIDE 0.9% 1,000 ML IV STA (14:40)
[2023-07-26] MEDS: MORPHINE SULFATE 4 MG/ML SYRINGE IVP STA (14:42)
[2023-07-26 14:53] LABS: INR 1.2 (<1.2); Partial Thromboplastin Time 30.5 sec (22.0-30.0); Prothrombin Time 12.4 sec (10.0-12.5)
[2023-07-26 15:03] LABS: Basophils % (A) 0 %; Eosinophils # (A) 0.2 k/uL (0-0.7); Eosinophils % (A) 3 %; HCT 46.8 % (39.0-53.0); Lymphocytes # (A) 0.7 k/uL (1.0-4.8); Lymphocytes % (A) 11 %; MCH 30.9 pg (25.0-35.0); MCV 96.6 fL (80.0-100.0); Mean Platelet Volume 7.8; Monocytes # (A) 0.4 k/uL (0-1.0); Monocytes % (A) 7 %; Neutrophils # (A) 4.9 k/uL (1.3-7.7); Neutrophils % (A) 77 %; Platelet Count 178 k/uL (150-450); RBC 4.85 m/uL (4.30-5.90); RDW 12.6 % (11.5-15.5); WBC 6.4 k/uL (3.8-10.6)
[2023-07-26 15:05] LABS: ALT <6 U/L (4-49); AST 35 U/L (17-59); African American GFR (CKD) 60 (>60 ml/min/1.73 sqM); Albumin 4.2 g/dL (3.5-5.0); Alkaline Phosphatase 120 U/L (38-126); Amylase 67 U/L (30-110); Anion Gap 8 mmol/L; Blood Urea Nitrogen 30 mg/dL (9-20); Calcium 8.7 mg/dL (8.4-10.2); Carbon Dioxide 28 mmol/L (22-30); Chloride 105 mmol/L (98-107); Glucose 80 mg/dL (74-99); Lipase 153 U/L (23-300); Non-African American GFR(CKD) 52 (>60 ml/min/1.73 sqM); Potassium 4.9 mmol/L (3.5-5.1); Sodium 141 mmol/L (137-145); Total Bilirubin 1.1 mg/dL (0.2-1.3); Total Protein 7.4 g/dL (6.3-8.2)
[2023-07-26] MEDS: ACETAMINOPHEN IV (For NPO) 1,000 MG in EMPTY BAG 1 BAG IVPB STA (16:08)
--- NOTE | 2023-07-26 16:44 | CT ---
EXAMINATION TYPE: CT abdomen pelvis w con DATE OF EXAM: 07/26/2023 COMPARISON: 07/02/2022 HISTORY: abdominal pain CT DLP: 925.5 mGycm Automated exposure control for dose reduction was used. TECHNIQUE: Helical acquisition of images was performed from the lung bases through the pelvis. CONTRAST: Performed without Oral Contrast and with IV Contrast, patient injected with 100ml mL of Isovue 300. FINDINGS: The lung bases are clear. The gallbladder is normal without distention, wall thickening, pericholecystic fluid or gallstones. T here is no biliary ductal dilatation. There is no focal mass or organomegaly involving the liver, pancreas, spleen or adrenal glands. There is no solid renal mass or hydronephrosis and there is homogeneous contrast enhancement of the r enal parenchyma. The caliber the abdominal aorta is normal is no retroperitoneal adenopathy or hemorrhage. The bowel loops are normal in caliber and there is no evidence of dilatation or obstruction. No infla mmatory changes are identified in the bowel wall or mesentery. There is moderate to marked diverticul osis without CT evidence of diverticulitis. There is no free intraperitoneal air or fluid. No pelvic mass, free fluid, abscess or adenopathy. There is moderate to marked prostatic hypertrophy. The osseous structures and soft tissues are intact. IMPRESSION: No acute changes within the abdomen or pelvis.
[2023-07-26 17:18] LABS: Appearance,Urine Clear (Clear); Bilirubin,Urine Negative (Negative); Blood,Urine Negative (Negative); Color,Urine Colorless; Glucose,Urine (UA) Negative (Negative); Ketones,Urine Negative (Negative); Leukocyte Esterase,Urine Negative (Negative); Nitrite,Urine Negative (Negative); PH, Urine 7.5 (5.0-8.0); Protein,Urine Negative (Negative); Specific Gravity,Urine 1.043 (1.001-1.035); Urobilinogen,Urine <2.0 mg/dL (<2.0)
[2023-07-26] MEDS ORDERED: NALOXONE 0.4 MG/ML 1 ML VIAL IV PRN (18:04)
[2023-07-26] MEDS ORDERED: IBUPROFEN 400 MG TAB PO PRN (18:04)
[2023-07-26] MEDS ORDERED: HYDROmorphone 0.5 MG/0.5 ML SYRINGE IVP PRN (18:04)
[2023-07-26] MEDS ORDERED: ONDANSETRON 4 MG/2 ML VIAL IVP PRN (18:04)
[2023-07-26] MEDS: PANTOPRAZOLE 40 MG/10 ML VIAL IV SCH (18:14)
[2023-07-26] MEDS: SODIUM CHLORIDE 0.9% 1,000 ML IV SCH (18:14)
[2023-07-26] MEDS: ATORVASTATIN 10 MG TAB PO SCH (21:37)
[2023-07-26] MEDS: METOPROLOL TARTRATE 25 MG TAB PO SCH (21:37)
[2023-07-26] MEDS: GABAPENTIN 100 MG CAP PO SCH (21:37)
[2023-07-26] MEDS: CARBIDOPA-LEVODOPA 25-100 MG 1 EACH TAB PO SCH (21:37)
[2023-07-26] MEDS: PRIMIDONE 50 MG TAB PO SCH (21:38)
[2023-07-26] MEDS: APIXABAN 2.5 MG TABLET PO SCH (21:38)
[2023-07-26] MEDS: MIRTAZAPINE 15 MG TAB PO SCH (21:38)
[2023-07-27] MEDS: SERTRALINE 25 MG TAB PO SCH (06:50)
[2023-07-27] MEDS: ASPIRIN 81 MG PO SCH (06:50)
[2023-07-27] MEDS: PSYLLIUM HUSK 100% 6 GM PACKET PO SCH (09:07)
[2023-07-27 09:37] LABS: Basophils # (A) 0.02 X 10*3/uL (0.00-0.10); Basophils % (A) 0.4 %; Eosinophils # (A) 0.21 X 10*3/uL (0.04-0.35); Eosinophils % (A) 3.9 %; HCT 43.5 % (39.6-50.0); HGB 13.7 g/dL (13.0-17.0); Lymphocytes # (A) 1.27 X 10*3/uL (0.90-5.00); Lymphocytes % (A) 23.3 %; MCH 30.6 pg (27.0-32.0); MCHC 31.5 g/dL (32.0-37.0); MCV 97.1 FL (80.0-97.0); Mean Platelet Volume 9.8 FL (9.5-12.2); NRBC Per 100 WBC 0 X 10*3/uL (0.00-0.01); Neutrophils # (A) 3.33 X 10*3/uL (1.80-7.70); Neutrophils % (A) 61.2 %; Platelet Count 146 X 10*3/uL (140-440); RBC 4.48 X 10*6/uL (4.40-5.60); RDW 12.5 % (11.5-14.5); WBC 5.44 X 10*3/uL (4.50-10.00)
[2023-07-27 09:52] LABS: ALT <5 U/L (10-49); AST 26 U/L (14-35); Albumin 3.9 g/dL (3.8-4.9); Albumin/Globulin Ratio 1.77 Ratio (1.60-3.17); Alkaline Phosphatase 116 U/L (41-126); BUN/Creat Ratio 16.21 Ratio (12.00-20.00); Blood Urea Nitrogen 22.7 mg/dL (9.0-27.0); Calcium 8.7 mg/dL (8.7-10.3); Carbon Dioxide 27.7 mmol/L (21.6-31.8); Chloride 104 mmol/L (96-109); Globulin 2.2 g/dL (1.6-3.3); Glucose 72 mg/dL (70-110); Potassium 4.5 mmol/L (3.5-5.5); Sodium 141 mmol/L (135-145); Total Bilirubin 1.2 mg/dL (0.3-1.2); Total Protein 6.1 g/dL (6.2-8.2)
--- NOTE | 2023-07-27 12:42 | P.HPIM ---
History of Present Illness This is a pleasant 82 years old male with past medical history of Coronary Artery Disease, Hyperlipidemia, Hypertension, Osteoarthritis (OA)s/p Coronary Bypass/CABG, Heart Catheterization, Heart Catheterization With Stent, Who presents because of abdominal pain for 3 weeks duration slightly getting worse His pain mainly in the right inguinal area with some tenderness but there is no very significant fullness His pain is better now but the pain increased by movement He is eating well with no difficulty, no nausea vomiting, no diarrhea Patient evaluated by surgery and they think it is inguinal hernia and they are going to check the CAT scan as per patient He denies chest pain or dyspnea. No change in urine habits. No headache dizziness weakness numbness. Patient denies smoking alcohol or illicit drugs. His vital stable, his WBC is normal, rest of labs including CBC, BMP, liver enzymes and lipase were unremarkable except for creatinine 1.2-1.4 which is at baseline of 1.4-1.6 Lipase is normal Lactic acid 0.8 CT of the abdomen and pelvis is negative for acute process He is on Eliquis 2.5 mg at home and aspirin 81 mg Also he is on IV Protonix 40 mg daily Review of Systems Review of systems CONSTITUTIONAL: No fever, no malaise, no fatigue. HEENT: No recent visual problems or hearing problems. Denied any sore throat. CARDIOVASCULAR: No orthopnea, PND, no palpitations, no syncope. PULMONARY: No shortness of breath, no cough, no hemoptysis. GASTROINTESTINAL: No diarrhea, no nausea, no vomiting, Normoactive bowel sounds. NEUROLOGICAL: No headaches, no weakness, no numbness. HEMATOLOGICAL: Denies any bleeding or petechiae. GENITOURINARY: Denies any burning micturition, frequency, or urgency. MUSCULOSKELETAL/RHEUMATOLOGICAL: Denies any joint pain, swelling, or any muscle pain. ENDOCRINE: Denies any polyuria or polydipsia. Past Medical History Past Medical History: Coronary Artery Disease (CAD), Chest Pain / Angina, Hyperlipidemia, Hypertension, Myocardial Infarction ([place]), Osteoarthritis (OA) Additional Past Medical History / Comment(s): [place] X2,monitoring a spot rt kidney, parkinsons, Last Myocardial Infarction Date:: 1992 History of Any Multi-Drug Resistant Organisms: None Reported Past Surgical History: Appendectomy, Coronary Bypass/CABG, Heart Catheterization, Heart Catheterization With Stent, Orthopedic Surgery Additional Past Surgical History / Comment(s): RT KNEE ARTHROSCOPY, HEMORRHOIDE CTOMY, rotator cuff surg., quad. bypass 1993, cataract surg, heart stents x3 Past Anesthesia/Blood Transfusion Reactions: Motion Sickness Date of Last Stent Placement:: July 2014 Past Psychological History: Anxiety, Depression Smoking Status: Never smoker Past Alcohol Use History: None Reported Past Drug Use History: None Reported - Past Family History Brother(s) Additional Family Medical History / Comment(s): TWO BROTHERS HAD OPEN HEART Sister(s) Additional Family Medical History / Comment(s): 2 SISTERS HAD OPEN HEARTS Medications and Allergies Home Medications Medication Instructions Recorded Confirmed Type Aspirin EC [Ecotrin Low Dose] 81 mg PO W/BRKFST 03/07/20 07/26/23 History Carbidopa-Levodopa 25-100 mg 1 tab PO TID 03/10/22 07/26/23 History [Sinemet 25-100 mg] Gabapentin [Neurontin] 100 mg PO HS 03/10/22 07/26/23 History Metoprolol Tartrate [Lopressor] 25 mg PO BID-W/MEALS 03/10/22 07/26/23 History Mirtazapine [Remeron] 15 mg PO HS 03/10/22 07/26/23 History Multivitamins, Thera [Multivitamin 1 tab PO W/BRKFST 03/10/22 07/26/23 History (formulary)] Pantoprazole [Protonix] 40 mg PO W/BRKFST 03/10/22 07/26/23 History Sertraline [Zoloft] 25 mg PO W/BRKFST 03/10/22 07/26/23 History Atorvastatin [Lipitor] 10 mg PO HS 07/05/22 07/26/23 History Tamsulosin [Flomax] 0.4 mg PO W/SUPPER 07/05/22 07/26/23 History Apixaban [Eliquis] 2.5 mg PO BID 07/26/23 07/26/23 History Nitroglycerin Sl Tabs [Nitrostat] 0.4 mg SUBLINGUAL Q5M PRN 07/26/23 07/26/23 History Primidone 50 mg PO HS 07/26/23 07/26/23 History Psyllium Husk (with Sugar) 6 gm PO DAILY 07/26/23 07/26/23 History [Metamucil Powder] Allergies Allergy/AdvReac Type Severity Reaction Status Date / Time BETH Inhibitors Allergy Unknown Verified 07/26/23 15:43 latex Allergy Dyspnea Verified 07/26/23 15:43 Physical Exam Vitals: Vital Signs Temp Pulse Pulse Resp BP BP Pulse Ox 07/27/23 07:57 97.7 F 61 17 128/74 100 07/27/23 06:54 71 151/70 07/27/23 01:58 97.3 F L 53 L 15 115/70 96 07/26/23 20:02 97.7 F 69 17 170/70 98 07/26/23 19:38 82 16 147/82 97 07/26/23 18:16 70 18 156/76 98 07/26/23 13:49 97.8 F 71 20 148/77 99 Intake and Output 07/26/23 07/27/23 07/27/23 22:59 06:59 14:59 Output Total 200 500 Balance -200 -500 Output: Urine 200 500 Other: Voiding Method Urinal # Voids 1 1 Weight 73.936 kg GENERAL: The patient is alert and oriented x3, not in any acute distress. Well developed, well nourished. HEENT: Pupils are round and equally reacting to light. EOMI. No scleral icterus. No conjunctival pallor. Normocephalic, atraumatic. No pharyngeal erythema. No thyromegaly. CARDIOVASCULAR: S1 and S2 present. No murmurs, rubs, or gallops. PULMONARY: Chest is clear to auscultation, no wheezing , no crackles. -ABDOMEN: Soft, right inguinal tenderness, mild to moderate with no rebound tenderness , nondistended, normoactive bowel sounds. No palpable organomegaly. MUSCULOSKELETAL: No joint swelling or deformity. EXTREMITIES: No cyanosis, clubbing, or pedal edema. NEUROLOGICAL: Gross neurological examination did not reveal any focal deficits. SKIN: No rashes. no petechiae. Results CBC & Chem 7: 07/27/23 05:48 07/27/23 05:48 Labs: Abnormal Lab Results - Last 24 Hours (Table) 07/26/23 07/26/23 07/26/23 Range/Units 14:37 14:37 14:37 MCV (80.0-97.0) [place] MCHC (32.0-37.0) g/dL Lymphocytes # 0.7 L (1.0-4.8) k/uL INR 1.2 H (<1.2) APTT 30.5 H (22.0-30.0) sec BUN 30 H (9-20) mg/dL Creatinine 1.27 H (0.66-1.25) mg/dL Est GFR (CKD-EPI) (>=60) ALT (10-49) U/L Total Protein (6.2-8.2) g/dL Ur Specific [place] (1.001-1.035) 07/26/23 07/27/23 07/27/23 Range/Units 17:07 05:48 05:48 MCV 97.1 H (80.0-97.0) [place] MCHC 31.5 L (32.0-37.0) g/dL Lymphocytes # (1.0-4.8) k/uL INR (<1.2) APTT (22.0-30.0) sec BUN (9-20) mg/dL Creatinine (0.66-1.25) mg/dL Est GFR (CKD-EPI) 50 L (>=60) ALT <5 L (10-49) U/L Total Protein 6.1 L (6.2-8.2) g/dL Ur Specific [place] 1.043 H (1.001-1.035) Thrombosis Risk Factor Assmnt - Choose All That Apply Any of the Below Risk Factors Present?: No Other Risk Factors: Yes Each Risk Factor Represents 3 Points: Age 75 years or older Other congenital or acquired thrombophilia - If yes, enter type in comment: No Thrombosis Risk Factor Assessment Total Risk Factor Score: 3 Thrombosis Risk Factor Assessment Level: Moderate Risk Assessment and Plan Assessment: Right inguinal abdominal pain, rule out inguinal hernia Hypertension Hyperlipidemia History of osteoarthritis History of coronary artery disease History of GI bleed Plan: Surgery team consult Pain medication Continue gentle hydration Bowel rest, start with liquid diet and advance per surgery team Labs and medication were reviewed.. Continue same treatment. Continue with symptomatic treatment. Resume home medication. Monitor labs and vitals. DVT and GI prophylaxis. Further recommendations as per clinical course of the patient DVT prophylaxis: Eliquis GI Prophylaxis: Ppi Prognosis is guarded
[2023-07-27] MEDS: TAMSULOSIN 0.4 MG CAP.ER.24H PO SCH (16:39)
--- NOTE | 2023-07-27 17:18 | P.CON ---
Consult Note - . Consult date: 07/27/23 Assessment/Plan:: patient is a 2-year-old male presenting with 3 weeks of increasing abdominal pain. Patient masseuse some nausea but no vomiting at this time. Patient states the pain comes and goes and increases wedge activity. Patient denies having difficulty with bowel movements and states that he is regular. Denies recent weight loss. Review of systems CONSTITUTIONAL: No fever, no malaise, no fatigue. HEENT: No recent visual problems or hearing problems. Denied any sore throat. CARDIOVASCULAR: No orthopnea, PND, no palpitations, no syncope. PULMONARY: No shortness of breath, no cough, no hemoptysis. GASTROINTESTINAL: No diarrhea, no nausea, no vomiting, Normoactive bowel sounds. NEUROLOGICAL: No headaches, no weakness, no numbness. HEMATOLOGICAL: Denies any bleeding or petechiae. GENITOURINARY: Denies any burning micturition, frequency, or urgency. MUSCULOSKELETAL/RHEUMATOLOGICAL: Denies any joint pain, swelling, or any muscle pain. ENDOCRINE: Denies any polyuria or polydipsia. Past Medical History Past Medical History: Coronary Artery Disease (CAD), Chest Pain / Angina, Hyperlipidemia, Hypertension, Myocardial Infarction ([place]), Osteoarthritis (OA) Additional Past Medical History / Comment(s): [place] X2,monitoring a spot rt kidney, parkinsons, Last Myocardial Infarction Date:: 1992 History of Any Multi-Drug Resistant Organisms: None Reported Past Surgical History: Appendectomy, Coronary Bypass/CABG, Heart Catheterization, Heart Catheterization With Stent, Orthopedic Surgery Additional Past Surgical History / Comment(s): RT KNEE ARTHROSCOPY, HEMORRHOIDECTOMY, rotator cuff surg., quad. bypass 1992, cataract surg, heart stents x3 Past Anesthesia/Blood Transfusion Reactions: Motion Sickness Date of Last Stent Placement:: July 2014 Past Psychological History: Anxiety, Depression Smoking Status: Never smoker Past Alcohol Use History: None Reported Past Drug Use History: None Reported general no acute distress HEENT atraumatic normocephalic eyes PERRLA Cardiovascular regular rate and rhythm Pulmonary nonlabored breathing Abdomen soft nontender nondistended no guarding or rebound tenderness Groin demonstrates pain to palpation however hernia check demonstrates a very small defect but no palpated bowel at this time. Assessment and plan 82-year-old male with right groin pain likely secondary to a reducible right inguinal hernia Trial of diet Pain control Outpatient surgery
[2023-07-28] MEDS: ACETAMINOPHEN TAB 325 MG TAB PO PRN (09:40)
[2023-07-28] MEDS: traMADol 50 MG TAB PO PRN (09:42)
--- NOTE | 2023-07-28 12:32 | P.PN ---
Subjective Progress Note Date: 07/28/23 Patient reports having bowel movement last night, but not documented. He complains of right groin pain. STUDIES: CT reviewed with moderate to severe diverticulosis without diverticulitis. Moderate stool retention. No free air or obstruction. No incarcerated right inguinal hernia. PLAN: 1. Diet increase to low fiber diet 2. Recommend lactulose, laxative for bowel regimen 3. No acute surgical intervention 4. Abdominal xray for follow up of constipation Objective - Vital Signs Vital signs: Vital Signs Temp 98.0 F 07/28/23 07:26 Pulse 58 L 07/28/23 07:26 Resp 16 07/28/23 07:26 BP 135/69 07/28/23 07:26 Pulse Ox 98 07/28/23 07:26 FiO2 Intake & Output 07/27/23 07/28/23 07/28/23 18:59 06:59 18:59 Intake Total 480 Output Total 1 Balance 479 Intake: Oral 480 Output: Urine 1 Other: Voiding Method Toilet Bedside Commode Bedside Commode Diaper # Voids 1 1 - Labs CBC & Chem 7: 07/27/23 05:48 07/27/23 05:48
[2023-07-28] MEDS: LACTULOSE 20 GM/30 ML CUP PO SCH (13:11)
[2023-07-28] MEDS: MAGNESIUM HYDROXIDE 2,400 MG/30 ML CUP PO SCH (13:11)
--- NOTE | 2023-07-28 14:10 | XR ---
EXAMINATION TYPE: XR abdomen 2V DATE OF EXAM: 07/28/2023 1:37 PM CLINICAL INDICATION:Male, 82 years old with history of Constipation and abdominal pain; [facility] COMPARISON: Abdominal radiograph 05/14/2022. TECHNIQUE: Two views of the abdomen were obtained. FINDINGS: The bowel gas pattern is nonspecific without dilated loops of small or large bowel. There i s no evidence for organomegaly or pneumoperitoneum. The osseous structures are intact. Pelvic phleb oliths are present. Fecal material and gas are demonstrated throughout the colon and rectum. Osteoa rthritic degenerative changes of the bilateral hip joints. IMPRESSION: Nonspecific bowel gas pattern without radiographic evidence for acute process.
--- NOTE | 2023-07-29 07:25 | P.PN ---
Subjective This is a pleasant 82 years old male with past medical history of Coronary Artery Disease, Hyperlipidemia, Hypertension, Osteoarthritis (OA)s/p Coronary Bypass/CABG, Heart Catheterization, Heart Catheterization With Stent, Who presents because of abdominal pain for 3 weeks duration slightly getting worse His pain mainly in the right inguinal area with some tenderness but there is no very significant fullness His pain is better now but the pain increased by movement He is eating well with no difficulty, no nausea vomiting, no diarrhea Patient evaluated by surgery and they think it is inguinal hernia and they are going to check the CAT scan as per patient He denies chest pain or dyspnea. No change in urine habits. No headache dizziness weakness numbness. Patient denies smoking alcohol or illicit drugs. His vital stable, his WBC is normal, rest of labs including CBC, BMP, liver enzymes and lipase were unremarkable except for creatinine 1.2-1.4 which is at baseline of 1.4-1.6 Lipase is normal Lactic acid 0.8 CT of the abdomen and pelvis is negative for acute process He is on Eliquis 2.5 mg at home and aspirin 81 mg Also he is on IV Protonix 40 mg daily 07/29/2023 Yesterday patient has 2 small bowel movements Was on liquid diet this morning and then advanced to low fiber diet Also he is getting more laxatives today KUB showing nonobstructive Bowel gas pattern. Continue with gentle hydration, Eliquis, IV Protonix Discontinue IV fluids or keeping KVO Objective - Vital Signs Vital signs: Vital Signs Temp 97.7 F 07/28/23 14:23 Pulse 63 07/28/23 14:23 Resp 17 07/28/23 14:23 BP 130/61 07/28/23 14:23 Pulse Ox 97 07/28/23 14:23 FiO2 Intake & Output 07/27/23 07/28/23 07/28/23 18:59 06:59 18:59 Intake Total 480 Output Total 1 Balance 479 Intake: Oral 480 Output: Urine 1 Other: Voiding Method Toilet Bedside Commode Bedside Commode Diaper # Voids 1 1 # Bowel Movements 1 - Exam GENERAL: The patient is alert and oriented x3, not in any acute distress. Well developed, well nourished. HEENT: Pupils are round and equally reacting to light. EOMI. No scleral icterus. No conjunctival pallor. Normocephalic, atraumatic. No pharyngeal erythema. No thyromegaly. CARDIOVASCULAR: S1 and S2 present. No murmurs, rubs, or gallops. PULMONARY: Chest is clear to auscultation, no wheezing , no crackles. ABDOMEN: Soft, nontender, nondistended, normoactive bowel sounds. No palpable organomegaly. MUSCULOSKELETAL: No joint swelling or deformity. EXTREMITIES: No cyanosis, clubbing, or pedal edema. NEUROLOGICAL: Gross neurological examination did not reveal any focal deficits. SKIN: No rashes. no petechiae. - Labs CBC & Chem 7: 07/27/23 05:48 07/27/23 05:48 Assessment and Plan Assessment: Right inguinal abdominal pain, rule out inguinal hernia Hypertension Hyperlipidemia History of osteoarthritis History of coronary artery disease History of GI bleed Plan: Advance diet Continue with lisinopril Pain medication discontinue gentle hydration Bowel rest, start with liquid diet and advance per surgery team, currently on low fiber diet Labs and medication were reviewed.. Continue same treatment. Continue with sym ptomatic treatment. Resume home medication. Monitor labs and vitals. DVT and GI prophylaxis. Further recommendations as per clinical course of the patient DVT prophylaxis: Eliquis GI Prophylaxis: Ppi Prognosis is guarded
[2023-07-29 08:33] LABS: Basophils % (A) 0.4 %; Eosinophils % (A) 3.4 %; HCT 40.3 % (39.6-50.0); HGB 12.9 g/dL (13.0-17.0); Lymphocytes # (A) 1.04 X 10*3/uL (0.90-5.00); Lymphocytes % (A) 18.3 %; MCH 30.9 pg (27.0-32.0); MCV 96.4 FL (80.0-97.0); Mean Platelet Volume 9.8 FL (9.5-12.2); Monocytes # (A) 0.61 X 10*3/uL (0.20-1.00); Monocytes % (A) 10.8 %; NRBC Per 100 WBC 0 X 10*3/uL (0.00-0.01); Neutrophils % (A) 66.9 %; Platelet Count 139 X 10*3/uL (140-440); RBC 4.18 X 10*6/uL (4.40-5.60); RDW 12.3 % (11.5-14.5); WBC 5.67 X 10*3/uL (4.50-10.00)
[2023-07-29 08:34] LABS: Basophils # (A) 0.02 X 10*3/uL (0.00-0.10); Eosinophils # (A) 0.19 X 10*3/uL (0.04-0.35)
[2023-07-29 08:52] LABS: BUN/Creat Ratio 18.27 Ratio (12.00-20.00); Blood Urea Nitrogen 20.1 mg/dL (9.0-27.0); Calcium 8.5 mg/dL (8.7-10.3); Carbon Dioxide 25.7 mmol/L (21.6-31.8); Chloride 104 mmol/L (96-109); Glucose 76 mg/dL (70-110); Potassium 4.1 mmol/L (3.5-5.5); Sodium 139 mmol/L (135-145)
--- NOTE | 2023-07-29 11:09 | US ---
EXAMINATION TYPE: US groin RT DATE OF EXAM: 07/29/2023 COMPARISON: CT 07/26/2023. CLINICAL INDICATION: Male, 82 years old with history of right groin pain; Right groin/RLQ abdominal p ain x 3 weeks intermittently. No injury or recent procedures within the area. TECHNIQUE: Grayscale imaging of the patient's area of palpable abnormality. FINDINGS: Scanned right groin and slightly superior within the RLQ abdomen at patient's area of pain. Hyperechoic, indistinct area within the RLQ: 1.2 x 1.8 x 0.5 cm. This is just superior to crease of the groin. IMPRESSION: No organizing fluid collection mass. Indistinct hyperechoic area on the right lower quadr ant with no CT correlate. Findings could represent small lipoma.
--- NOTE | 2023-07-29 11:26 | P.PN ---
Subjective Progress Note Date: 07/29/23 This is a pleasant 82 years old male with past medical history of Coronary Artery Disease, Hyperlipidemia, Hypertension, Osteoarthritis (OA)s/p Coronary Bypass/CABG, Heart Catheterization, Heart Catheterization With Stent, Who presents because of abdominal pain for 3 weeks duration slightly getting wor se His pain mainly in the right inguinal area with some tenderness but there is no very significant fullness His pain is better now but the pain increased by movement He is eating well with no difficulty, no nausea vomiting, no diarrhea Patient evaluated by surgery and they think it is inguinal hernia and they are going to check the CAT scan as per patient He denies chest pain or dyspnea. No change in urine habits. No headache dizziness weakness numbness. Patient denies smoking alcohol or illicit drugs. His vital stable, his WBC is normal, rest of labs including CBC, BMP, liver enzymes and lipase were unremarkable except for creatinine 1.2-1.4 which is at baseline of 1.4-1.6 Lipase is normal Lactic acid 0.8 CT of the abdomen and pelvis is negative for acute process He is on Eliquis 2.5 mg at home and aspirin 81 mg Also he is on IV Protonix [address] Miranda's group covering for 2023 to 07/28/2023 On 07/29/2023 patient is alert and oriented 3. Patient reports he had multiple bowel movements yesterday.surgical services are following ultrasound of groin to rule out hernia has been ordered.current vital signs temp 98.5, height 72, respiratory rate 18, blood pressure 127/72 with pulse ox 97% on room air. At this time patient is still complaining of right groin pain. Patient denies chest pain or shortness breath. Patient denies nausea vomiting or diarrhea. Patient denies any urinary burning or frequency Objective - Vital Signs Vital signs: Vital Signs Temp 98.5 F 07/29/23 07:28 Pulse 72 07/29/23 08:45 Resp 18 07/29/23 08:45 BP 127/72 07/29/23 07:28 Pulse Ox 97 07/29/23 07:28 FiO2 Intake & Output 07/28/23 07/29/23 07/29/23 18:59 06:59 18:59 Intake Total 1130 Balance 1130 Intake: Oral 1130 Other: Voiding Method Bedside Commode Bedside Commode Diaper # Voids 1 4 1 # Bowel Movements 2 3 1 - Exam Head normocephalic Neck supple Lungs clear to auscultation bilaterally no wheezing or crackles Heart regular rate and rhythm S1-S2, no rub or gallop Abdomen is soft nontender nondistended positive bowel sounds no hepatosplenomegaly Extremities no edema Neuro alert and orientated to 3 - Labs CBC & Chem 7: 07/29/23 04:36 04 04:36 Labs: Abnormal Lab Results - Last 24 Hours (Table) 07/29/23 07/29/23 Range/Units 04:36 04:36 RBC 4.18 L (4.40-5.60) X 10*6/uL Hgb 12.9 L (13.0-17.0) g/dL Plt Count 139 L (140-440) X 10*3/uL Calcium 8.5 L (8.7-10.3) mg/dL Assessment and Plan Assessment: 1. Right inguinal abdominal pain 2. Constipation. Resolved 3. History of essential hypertension 4. History of hyperlipidemia 5. History of coronary artery disease 6. History of GI bleed Surgical services are following Ultrasound of groin ordered DVT prophylaxis eliquis. Repeat labs ordered in a.m.
--- NOTE | 2023-07-29 12:45 | P.PN ---
Subjective Progress Note Date: 07/29/23 CHIEF COMPLAINT: Right groin pain HISTORY OF PRESENT ILLNESS: Surgical service following regards to right groin pain and constipation. He did have bowel movements. However he continues to have pain in the right groin. Area is soft. No evidence of hernia. Patient did receive laxatives. Abdominal x-ray had reported nonspecific bowel gas pattern. Fecal material and gas are demonstrated throughout the colon and rectum. Afebrile. WBC 5.67 Hgb 12.9 platelets 139 PHYSICAL EXAM: VITAL SIGNS: Reviewed GENERAL: Well-developed in no acute distress. HEENT: No sclera icterus. Extraocular movements grossly intact. Moist buccal mucosa. Head is atraumatic, normocephalic. Hears conversational speech. No nasal drainage. NECK: Supple without lymphadenopathy. CHEST: Non-labored respirations and equal bilateral excursions. CARDIOVASCULAR: Palpable 2+ radial pulses. ABDOMEN: Soft. Nondistended. mild Right groin tenderness. No evidence of hernia. Area is soft. MUSCULOSKELETAL: No clubbing or cyanosis. NEUROLOGIC: No focal or lateralizing signs. Cranial nerves II through XII grossly intact. PSYCH: Appropriate affect. Alert and oriented to person, place and time. SKIN: Well perfused. Good skin turgor. ASSESSMENT: 1. Right groin pain with possible small lipoma on US 2. Constipation PLAN: -Right groin ultrasound ordered. Results reported no organizing fluid collection mass. Indistinct hypoechoic area in the right lower quadrant with no CT correlate. Findings could represent a small lipoma. -Ultrasound results reviewed with Dr. Muñoz. No surgical intervention planned. -Continue a good bowel regimen -Surgical service will sign off. Please call with any questions or concerns Physician Multiple Drill Operator note has been reviewed by physician. Signing provider agrees with the documented findings, assessment, and plan of care. Objective - Vital Signs Vital signs: Vital Signs Temp 98.5 F 07/29/23 07:28 Pulse 72 07/29/23 08:45 Resp 18 07/29/23 08:45 BP 127/72 07/29/23 07:28 Pulse Ox 97 07/29/23 07:28 FiO2 Intake & Output 07/28/23 07/29/23 07/29/23 18:59 06:59 18:59 Intake Total 1130 Balance 1130 Intake: Oral 1130 Other: Voiding Method Bedside Commode Bedside Commode Diaper # Voids 1 4 1 # Bowel Movements 2 3 1 - Labs CBC & Chem 7: 07/29/23 04:36 07/29/23 04:36 Labs: Abnormal Lab Results - Last 24 Hours (Table) 07/29/23 07/29/23 Range/Units 04:36 04:36 RBC 4.18 L (4.40-5.60) X 10*6/uL Hgb 12.9 L (13.0-17.0) g/dL Plt Count 139 L (140-440) X 10*3/uL Calcium 8.5 L (8.7-10.3) mg/dL
[2023-07-30 08:42] VITALS: BP 152/73; PULSE 63; RESP 16; TEMP 97.4
[2023-07-30 08:52] LABS: Basophils # (A) 0.03 X 10*3/uL (0.00-0.10); Basophils % (A) 0.5 %; Eosinophils # (A) 0.24 X 10*3/uL (0.04-0.35); Eosinophils % (A) 3.6 %; HCT 39.8 % (39.6-50.0); HGB 12.9 g/dL (13.0-17.0); Lymphocytes # (A) 1.31 X 10*3/uL (0.90-5.00); Lymphocytes % (A) 19.9 %; MCH 31.3 pg (27.0-32.0); MCHC 32.4 g/dL (32.0-37.0); MCV 96.6 FL (80.0-97.0); Monocytes # (A) 0.65 X 10*3/uL (0.20-1.00); Monocytes % (A) 9.9 %; NRBC Per 100 WBC 0 X 10*3/uL (0.00-0.01); Neutrophils # (A) 4.33 X 10*3/uL (1.80-7.70); Neutrophils % (A) 65.8 %; Platelet Count 149 X 10*3/uL (140-440); RBC 4.12 X 10*6/uL (4.40-5.60); RDW 12.4 % (11.5-14.5); WBC 6.58 X 10*3/uL (4.50-10.00)
[2023-07-30 08:57] LABS: ALT <5 U/L (10-49); AST 22 U/L (14-35); Albumin 3.6 g/dL (3.8-4.9); Albumin/Globulin Ratio 1.71 Ratio (1.60-3.17); Alkaline Phosphatase 112 U/L (41-126); BUN/Creat Ratio 16.09 Ratio (12.00-20.00); Blood Urea Nitrogen 17.7 mg/dL (9.0-27.0); Calcium 8.3 mg/dL (8.7-10.3); Carbon Dioxide 24.5 mmol/L (21.6-31.8); Chloride 106 mmol/L (96-109); Globulin 2.1 g/dL (1.6-3.3); Glucose 84 mg/dL (70-110); Potassium 3.9 mmol/L (3.5-5.5); Sodium 142 mmol/L (135-145); Total Bilirubin 0.8 mg/dL (0.3-1.2); Total Protein 5.7 g/dL (6.2-8.2)
--- NOTE | 2023-07-30 13:02 | P.DS ---
Providers Date of admission: 07/26/23 18:04 Expected date of discharge: 07/30/23 Attending physician: Glory Almaguer Primary care physician: Glory Almaguer [facility] Hospital Course: discharge diagnosis 1. Right inguinal abdominal pain 2. Constipation. Resolved 3. History of essential hypertension 4. History of hyperlipidemia 5. History of coronary artery disease 6. History of GI bleed Hospital course This is a pleasant 82 years old male with past medical history of Coronary Artery Disease, Hyperlipidemia, Hypertension, Osteoarthritis (OA)s/p Coronary Bypass/CABG, Heart Catheterization, Heart Catheterization With Stent, Who presents because of abdominal pain for 3 weeks duration slightly getting worse His pain mainly in the right inguinal area with some tenderness but there is no very significant fullness His pain is better now but the pain increased by movement He is eating well with no difficulty, no nausea vomiting, no diarrhea Patient evaluated by surgery and they think it is inguinal hernia and they are going to check the CAT scan as per patient He denies chest pain or dyspnea. No change in urine habits. No headache dizziness weakness numbness. Patient denies smoking alcohol or illicit drugs. His vital stable, his WBC is normal, rest of labs including CBC, BMP, liver enzymes and lipase were unremarkable except for creatinine 1.2-1.4 which is at baseline of 1.4-1.6 Lipase is normal Lactic acid 0.8 CT of the abdomen and pelvis is negative for acute process He is on Eliquis 2.5 mg at home and aspirin 81 mg Also he is on IV Protonix [address] Miranda's group covering for 2023 to 07/28/2023 On 07/29/2023 patient is alert and oriented 3. Patient reports he had multiple bowel movements yesterday.surgical services are following ultrasound of groin to rule out hernia has been ordered.current vital signs temp 98.5, height 72, respiratory rate 18, blood pressure 127/72 with pulse ox 97% on room air. At this time patient is still complaining of right groin pain. Patient denies chest pain or shortness breath. Patient denies nausea vomiting or diarrhea. Patient denies any urinary burning or frequency on 07/30/2023 patient is alert and oriented 3. Patient currently sitting up in bed eating breakfast. Patient reports improvement with abdominal pain right groin ultrasound completed showing no organizing fluid collection or mass possible indistinctive hypoechogenic area in the right lower quadrant with no CT correlate findings could represent a small lipoma. These results were reviewed by surgical services no surgical intervention planned no further workup or surgical services. Patient will be DC'd home follow up with PCP for further management Patient Condition at Discharge: Stable Plan - Discharge Summary Discharge Rx Participant: Yes New Discharge Prescriptions: Continue Aspirin EC [Ecotrin Low Dose] 81 mg PO W/BRKFST Pantoprazole [Protonix] 40 mg PO W/BRKFST Mirtazapine [Remeron] 15 mg PO HS Sertraline [Zoloft] 25 mg PO W/BRKFST Atorvastatin [Lipitor] 10 mg PO HS Tamsulosin [Flomax] 0.4 mg PO W/SUPPER Primidone 50 mg PO HS Psyllium Husk (with Sugar) [Metamucil Powder] 6 gm PO DAILY Multivitamins, Thera [Multivitamin (formulary)] 1 tab PO W/BRKFST Metoprolol Tartrate [Lopressor] 25 mg PO BID-W/MEALS Carbidopa-Levodopa 25-100 mg [Sinemet 25-100 mg] 1 tab PO TID Gabapentin [Neurontin] 100 mg PO HS Nitroglycerin Sl Tabs [Nitrostat] 0.4 mg SUBLINGUAL Q5M PRN PRN Reason: Chest Pain Apixaban [Eliquis] 2.5 mg PO BID Discharge Medication List Aspirin EC [Ecotrin Low Dose] 81 mg PO W/BRKFST 03/07/20 [History] Carbidopa-Levodopa 25-100 mg [Sinemet 25-100 mg] 1 tab PO TID 03/10/22 [History] Gabapentin [Neurontin] 100 mg PO HS 03/10/22 [History] Metoprolol Tartrate [Lopressor] 25 mg PO BID-W/MEALS 03/10/22 [History] Mirtazapine [Remeron] 15 mg PO HS 03/10/22 [History] Multivitamins, Thera [Multivitamin (formulary)] 1 tab PO W/BRKFST 03/10/22 [History] Pantoprazole [Protonix] 40 mg PO W/BRKFST 03/10/22 [History] Sertraline [Zoloft] 25 mg PO W/BRKFST 03/10/22 [History] Atorvastatin [Lipitor] 10 mg PO HS 03/23/23 [History] Tamsulosin [Flomax] 0.4 mg PO W/SUPPER 07/05/22 [History] Apixaban [Eliquis] 2.5 mg PO BID 07/26/23 [History] Nitroglycerin Sl Tabs [Nitrostat] 0.4 mg SUBLINGUAL Q5M PRN 07/26/23 [History] Primidone 50 mg PO HS 07/26/23 [History] Psyllium Husk (with Sugar) [Metamucil Powder] 6 gm PO DAILY 07/26/23 [History] Follow up Appointment(s)/Referral(s): Glory Almaguer MD [Primary Care Provider] - 08/02/23 9:45 am Patient Instructions/Handouts: Abdominal Pain (GEN) Activity/Diet/Wound Care/Special Instructions: activity as tolerated Diet heart healthy Discharge Disposition: HOME SELF-CARE
== END 2023-07-30 13:28 | disposition home or self-care (01) ==
LOC: EC 13:47 → 4SSUR 18:04
PROVIDERS: ADMIT Internal Medicine; ATTEND Internal Medicine
DX: R10.31 Right lower quadrant pain (principal); K40.90 Unilateral inguinal hernia, without obstruction or gangrene, not specified as recurrent; K59.00 Constipation, unspecified; I25.10 Atherosclerotic heart disease of native coronary artery without angina pectoris; E78.5 Hyperlipidemia, unspecified; I10 Essential (primary) hypertension; G20.A1 Parkinson's disease without dyskinesia, without mention of fluctuations; F32.A Depression, unspecified; F41.9 Anxiety disorder, unspecified; M19.90 Unspecified osteoarthritis, unspecified site; I25.2 Old myocardial infarction; Z95.5 Presence of coronary angioplasty implant and graft; Z79.82 Long term (current) use of aspirin; Z79.899 Other long term (current) drug therapy; Z79.01 Long term (current) use of anticoagulants; Z91.040 Latex allergy status
CPT/HCPCS: 96376 ×4; 96361 ×6; 96374; 96375; 99284; 36415; 80053 ×3; 80048; 82150; 83605; 83690; 85025 ×4; 85610; 85730; 81003; 74019; 76882; 74177; G0378 ×5; J0131; C9113 ×5; Q9967